=== PATIENT | female | born 1955 | race Caucasian/White ===

== ENCOUNTER 2017-01-02 17:38 | Emergency (ER) | payer MEDICARE, SELFPAY ==
--- NOTE | 2017-01-03 03:29 | ER ---
DATE SEEN: 01/02/2017 REASON FOR VISIT: Hypertension. HISTORY OF PRESENT ILLNESS: This is a 61-year-old female, who complains of an elevated blood pressure at home. She woke up and started pounding in ears and when she measured her blood pressure, it was in the 170 systolic. She complains of no chest pain or shortness of breath. PAST MEDICAL HISTORY: Chest pain, COPD, back pain, GERD. MEDICATIONS: Please see the electronic record. PHYSICAL EXAMINATION: VITAL SIGNS: Her initial blood pressure 169/72, pulse 73, and temperature 98.2. ENT: Negative. CHEST: Clear. CARDIOVASCULAR: Normal. MENTAL STATUS: Alert, answer questions well. IMPRESSION: Elevated blood pressure. PLAN: I advised to take two tablets of Cardizem tomorrow morning and on Wednesday morning the same and follow up in the office to discuss either an increased dose or an alternative medication. /[id number] PAULINE/FLACA
== END 2017-01-02 19:50 | disposition home or self-care (01) ==
LOC: FB.ED 17:38
CPT/HCPCS: 99283

== ENCOUNTER 2017-01-11 03:54 | Emergency (ER) | payer MEDICARE, SELFPAY ==
--- NOTE | 2017-01-11 04:59 | EDM.PDOC ---
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 Dr Garcia here in town q, last seen in the fall awoke 2:30 AM, went to bathroom and had trouble seeing out of the L eye, everything was "blurry", not gotten better, no pain, no d/c, slight itch, otherwise feels fine h/o glaucoma tx with trabecular sugery [address] Gates at [facility], does not use eye drops dx "low vision" at [place] in 1995 which she describes as blurred vision, however has seen well with glasses 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, 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, does not want to loose her vision had several head injuries and concussions including a neck fracture 1972 when thrown from a horse that resulted in L hemiplegia, those symptoms have resolved dx with [place] [address] Peña, other physicians disagreed, however has had gait issues and blurred vision (altho not this bad) and was sent back to the [place] [facility] recently, pt says that the doctor still are not sure had a compression fx of T2 on 11/05, has pain, wearing a brace, is scheduled to have it "glued" on 01/22 at [place] lives alone, took taxi to get to hospital vision 20/200 OS, 20/50 OD with glasses - Related Data Allergies/ADRs: Allergies ceftriaxone sodium [From Rocephin] Allergy (Verified 01/22/17 19:06) Anaphylactic Shock ciprofloxacin Allergy (Verified 01/22/17 19:06) Nausea and Vomiting Milk Containing Products Allergy (Verified 01/22/17 19:06) Vomiting trazodone Allergy (Verified 01/22/17 19:06) Other depression medications Allergy (Uncoded 01/22/17 19:06) Airway Tightness states can take abilify eggs Allergy (Uncoded 01/22/17 19:06) Nausea oral antibiotics Allergy (Uncoded 01/22/17 19:06) Vomiting states can take clindaymycin peanuts Allergy (Uncoded 01/22/17 19:06) Hives Home Meds: Ambulatory Orders Medication Instructions Recorded Confirmed Dexlansoprazole [Dexilant] 60 mg PO BEDTIME 12/05/13 01/22/17 Fenofibrate Nanocrystallized 145 mg PO BEDTIME 12/05/13 01/22/17 [Fenofibrate] ARIPiprazole [Abilify] 10 mg PO BEDTIME 11/27/15 01/22/17 Nitroglycerin [Nitrostat] 0.4 mg SL ASDIRECTED PRN #1 bot 11/27/15 01/22/17 Rosuvastatin [Crestor] 20 mg PO Q48H 11/27/15 01/22/17 Diltiazem HCl [Dilt-XR] 120 mg PO DAILY 04/01/16 01/22/17 Potassium Chloride 20 meq PO DAILY 04/01/16 01/22/17 Aspirin 81 mg PO DAILY 10/07/16 01/22/17 Gabapentin [Neurontin] 800 mg PO QID PRN 10/07/16 01/22/17 Ranitidine HCl [Ranitidine] 150 mg PO BID 10/07/16 01/22/17 Biotin 1,000 mcg PO DAILY 10/08/16 01/22/17 Calcium Carbonate/Vitamin D3 600 mg PO DAILY 10/08/16 01/22/17 [Calcium 600 + Vit D 200] Karlene Root 550 mg PO DAILY PRN 10/08/16 01/22/17 Loperamide [Imodium AD] 2 mg PO DAILY PRN 10/08/16 01/22/17 Multivitamin [Flintstones] 1 tab PO DAILY 10/08/16 01/22/17 Clopidogrel [Plavix] 75 mg PO DAILY 11/06/16 01/22/17 Isosorbide Mononitrate [Imdur] 60 mg PO DAILY 11/06/16 01/22/17 Ondansetron [Zofran ODT] 4 mg PO Q4H PRN #30 tab.dis 11/10/16 01/22/17 Pantoprazole Sodium [Protonix] 40 mg PO DAILY #30 tablet. 11/10/16 01/22/17 oxyCODONE HCl [oxyCODONE] 5 mg PO Q4H PRN #30 tablet 11/10/16 01/22/17 Promethazine [Phenergan] 25 mg PO Q8H PRN #16 tab 01/22/17 Past Medical History HEENT History: Reports: Glaucoma, Impaired vision, Other (see below) Other HEENT History: CHOROIDAL NEVUS Cardiovascular History: Reports: Angina, CAD, High cholesterol, Hypertension, PVD, Syncope, Other (see below) Other Cardiovascular History: HEART PALPITATIONS, DEEP VEIN THROMBOSIS, PERIPHERAL VASCULAR DISEASE, CAROTID BRUIT Respiratory History: Reports: COPD Other Respiratory History: suffocating spells at night- SOB, can't get air in. Gastrointestinal History: Reports: GERD, Hiatal hernia, Other (see below) Other Gastrointestinal History: BOWEL INCONTINENCE Genitourinary History: Reports: Urinary incontinence, Other (see below) Other Genitourinary History: URETHRAL SUSPENSION WITH SLING, CYSTOSCOPY, BLADDER TUMOR THEN TUR OF IT, REMOVAL OF SLING FOR ERODED BLADDER SLING; OVER ACTIVE BLADDER, perforated bladder after removal of bladder scan. Other OB/BYN History: D&C Musculoskeletal History: Reports: Back pain, chronic, Other (see below) Other Musculoskeletal History: Left knee torn miniscus Neurological History: Reports: CVA, MS, Other (see below) Other Neuro History: Pt notices emotional/cognitive changes following brain injury. Questionable MS diagnosis Psychiatric History: Reports: Depression, Other (see below) Other Psychiatric History: MEDICAL AGREEMENT FOR PENITENTIARY MED USE. Endocrine/Metabolic History: Reports: None Hematologic History: Reports: Blood transfusion(s) Immunologic History: Reports: None Oncologic (Cancer) History: Reports: Bladder, Brain, Malignant melanoma Other Oncologic History: Radiation, in remission. Dermatologic History: Reports: Eczema, Melanoma, Other (see below) Other Dermatologic History: MELANOMA ON BACK, eczema to back - Infectious Disease History Infectious Disease History: Reports: Chicken pox - Past Surgical History HEENT Surgical History: Reports: Other (see below) Other HEENT Surgeries/Procedures: LASER TRABECULOPLASTY OU FOR GLAUCOMA Cardiovascular Surgical History: Reports: Other (see below) Other Cardiovascular Surgeries/Procedures: CARDIAC CATHERTERIZATION. ANGIOPLASTY TO ILIAC ARTERY WITH STENT GI Surgical History: Reports: Appendectomy, Cholecystectomy, Colonoscopy, EGD Female Surgical History: Reports: Hysterectomy Social & Family History - Family History Family Medical History: Noncontributory Cardiac: Reports: PR - Tobacco Use Smoking Status *Q: Former Smoker Years of Tobacco use: 35 Packs/Tins Daily: 0.5 Used Tobacco, but Quit: Yes Month Tobacco Last Used: 15 weeks ago Second Hand Smoke Exposure: No - Caffeine Use Caffeine Use: Reports: Coffee, Soda Other Caffeine Use: 2 cups per day - Alcohol Use Days Per Week of Alcohol Use: 0 Number of Drinks Per Day: 0 Total Drinks Per Week: 0 - Recreational Drug Use Recreational Drug Use: No Drug Use in Last 12 Months: No - Living Situation & Occupation Living situation: Reports: single, alone ED ROS GENERAL - Review of Systems Review Of Systems: See Below Constitutional: Reports: no symptoms HEENT: Reports: Vision change Respiratory: Reports: No Symptoms Cardiovascular: Reports: No symptoms Endocrine: Reports: no symptoms GI/Abdominal: Reports: No symptoms : Reports: no symptoms Musculoskeletal: Reports: no symptoms Skin: Reports: no symptoms Neurological: Reports: No Symptoms Psychiatric: Reports: No symptoms Hematologic/Lymphatic: Reports: no symptoms Immunologic: Reports: no symptoms ED EXAM GENERAL W FULL EYE - Physical Exam Exam: See Below Exam Limited By: No limitations General Appearance: alert, WD/WN, no apparent distress Eye Exam: bilateral eye: other (pupils 3/3 mm, PERRLA, EOMI, orbits wnl, no red , fundi easily seen b/l, nl discs with nl C:D ratio, nl vessels, no hemorrhage b /l, no disruption of retina or evidence of detachment, nl vessels b/l) Ears: normal external exam, hearing grossly normal Nose: normal inspection, normal mucosa, no blood Throat/Mouth: Normal inspection, Normal lips, Normal gums, Normal oropharynx, Normal voice, No airway compromise, Other (edentulous) Head: atraumatic, normocephalic Neck: normal inspection, supple, non-tender, full range of motion, other (R carotid bruit) Respiratory/Chest: no respiratory distress, lungs clear, normal breath sounds, no accessory muscle use, chest non-tender Cardiovascular: regular rate, rhythm, no edema, no gallop, no JVD, no rub, other (2/6 GLO at LSB, much softer than loud R carotid bruit) GI/Abdominal: soft, non tender, no distention Back Exam: normal inspection, full range of motion, NT Extremities: normal inspection, normal range of motion, non-tender, no pedal edema Neurological: alert, oriented, CN II-XII intact, normal cognition, no motor/ sensory deficits Psychiatric: normal affect Skin Exam: Warm, Dry, Intact, Normal color, No rash Lymphatic: no adenopathy Course - Vital Signs Last Recorded V/S: Last Vital Signs Temp 36.9 C 01/11/17 04:05 Pulse 78 01/11/17 06:20 Resp 16 01/11/17 06:20 BP 135/63 01/11/17 06:20 Pulse Ox 99 01/11/17 06:20 - Orders/Labs/Meds Labs: Laboratory Tests 01/11/17 01/11/17 Range/Units 04:58 04:58 WBC 6.5 (4.5-12.0) X10-3/uL RBC 3.82 (3.23-5.20) x10(6)uL Hgb 11.3 L (11.5-15.5) g/dL Hct 34.3 (30.0-51.3) % MCV 89.7 (80-96) fL MCH 29.5 (27.7-33.6) pg MCHC 32.9 (32.2-35.4) g/dL RDW 12.9 (11.5-15.5) % Plt Count 347 (125-369) X10(3)uL MPV 7.5 (7.4-10.4) fL Neut % (Auto) 49.0 (46-82) % Lymph % (Auto) 37.9 H (13-37) % Morris % (Auto) 10.1 (4-12) % Eos % (Auto) 2 (1.0-5.0) % Baso % (Auto) 1 (0-2) % Neut # (Auto) 3.1 (1.6-8.3) # Lymph # (Auto) 2.5 (0.6-5.0) # Morris # (Auto) 0.7 (0.0-1.3) # Eos # (Auto) 0.2 (0.0-0.8) # Baso # (Auto) 0.0 (0.0-0.2) # Sodium 133 L (135-145) mmol/L Potassium 3.9 (3.5-5.3) mmol/L Chloride 96 L (100-110) mmol/L Carbon Dioxide 30 H (23-29) mmol/L BUN 17 (8-23) mg/dL Creatinine 0.7 (0.6-1.3) mg/dL Est Cr Clr Drug Dosing 64.79 mL/min Estimated GFR (MDRD) > 60 (>60) BUN/Creatinine Ratio 24.3 H (9-20) Glucose 106 (80-116) mg/dL Calcium 9.9 (8.6-10.2) mg/dL Total Bilirubin 0.7 (0.1-1.3) mg/dL AST 20 (5-27) IU/L ALT 13 L D (14-26) IU/L Alkaline Phosphatase 37 L (56-112) IU/L C-Reactive Protein 0.5 (0.0-1.0) mg/dL Total Protein 7.3 (6.0-8.0) g/dL Albumin 4.8 H (3.2-4.6) g/dL Globulin 2.5 g/dL Albumin/Globulin Ratio 1.9 - Re-Assessments/Exams Free Text/Narrative Re-Assessment/Exam: 01/11/17 06:[address] without is neg, carotid u/s 08-03-14 shows 16-49% steosis both ICAs. Labs neg. CRP was inc'd 2m ago, now nl at 0.5, CBC and CMP neg. Departure - Departure Time of Disposition: 06:20 Disposition: Home, Self-Care 01 Condition: good Clinical Impression: Acute loss of vision Instructions: Blurred Vision Referrals: Shruti Arellano NP [Primary Care Provider] - Forms: ED Department Discharge Additional Instructions: Return to hospital at 11 AM for a carotid ultrasound. 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 Follow up with Dr Lubin as well in 3-4 days.
[2017-01-11 06:38] VITALS: BP 135/63
== END 2017-01-11 06:25 | disposition home or self-care (01) ==
LOC: FB.ED 03:54
DX: H54.62 Unqualified visual loss, left eye, normal vision right eye (principal); H40.9 Unspecified glaucoma; E78.00 Pure hypercholesterolemia, unspecified; I10 Essential (primary) hypertension; I49.3 Ventricular premature depolarization; R00.2 Palpitations; I25.119 Atherosclerotic heart disease of native coronary artery with unspecified angina pectoris; J44.9 Chronic obstructive pulmonary disease, unspecified; K21.9 Gastro-esophageal reflux disease without esophagitis; K44.9 Diaphragmatic hernia without obstruction or gangrene; R15.9 Full incontinence of feces; N39.3 Stress incontinence (female) (male); N32.81 Overactive bladder; M54.9 Dorsalgia, unspecified; G89.29 Other chronic pain; Z98.890 Other specified postprocedural states; Z95.5 Presence of coronary angioplasty implant and graft; Z86.718 Personal history of other venous thrombosis and embolism; Z87.820 Personal history of traumatic brain injury; Z87.891 Personal history of nicotine dependence; Z88.1 Allergy status to other antibiotic agents; Z88.8 Allergy status to other drugs, medicaments and biological substances; Z91.012 Allergy to eggs; Z91.010 Allergy to peanuts; Z79.899 Other long term (current) drug therapy; Z79.82 Long term (current) use of aspirin; Z79.02 Long term (current) use of antithrombotics/antiplatelets; M21.371 Foot drop, right foot; M51.37 Other intervertebral disc degeneration, lumbosacral region; M51.87 Other intervertebral disc disorders, lumbosacral region; M48.07 Spinal stenosis, lumbosacral region
CPT/HCPCS: 36415; 70450; 80053; 85025; 86140; 93880; 99283; 99284

== ENCOUNTER 2017-01-22 18:59 | Emergency (ER) | payer MEDICARE, SELFPAY ==
[2017-01-22] MEDS ORDERED: PROMETHAZINE IV STA (19:15)
[2017-01-22] MEDS ORDERED: Pantoprazole 40 MG Vial IVPUSH ONE (19:15)
[2017-01-22] MEDS ORDERED: SODIUM CHLORIDE 0.9% IV STA (19:15)
[2017-01-22] MEDS: Sodium Chloride 0.9% 10 ML Syringe FLUSH PRN ×2 (19:25→19:30)
[2017-01-22] MEDS ORDERED: Promethazine 6.25 MG in Sodium Chloride 0.9% 50 ML IV PRN (19:36)
[2017-01-22] MEDS ORDERED: Sodium Chloride 0.9% 1,000 ML IV ONE (19:37)
[2017-01-22] MEDS ORDERED: Promethazine 6.25 MG/5 ML Liquid ML (473 ML Bottle) PO STA (21:16)
[2017-01-22] MEDS ORDERED: Promethazine 25 MG Tab ONE (21:33)
--- NOTE | 2017-01-22 21:46 | EDM.PDOC ---
ED HPI GI/ABDOMINAL - General Chief Complaint: Gastrointestinal Problem Stated Complaint: VOMITING, DIARRHEA, WEAKNESS Time Seen by Provider: 01/22/17 19:11 Source: Reports: Patient History Limitations: Reports: No limitations - History of Present Illness INITIAL COMMENTS - FREE TEXT/NARRATIVE: 61 year old w f came to the ed after she was seen at non in the clinic for N/V/ D after eating canned food. At the clinic, blood was taken which was basically nl except her SG of her urine was 1.030. She received 1 liter of LR, Reglan and Zofran. From the clinic, she went to urgent care clinic at [facility] requesting more nausea meds and admission. Pt was transported by wheelchair to the ed for further evaluation. Pt c/o of nausea and vomiting. Symptom Onset Date: 01/22/17 Symptom Onset Time: 09:00 Timing/Duration: Reports: Hour(s):, Getting worse Location: other (epigastric) Quality: Reports: ache Severity: mild Improves with: Reports: sitting up Worsens with: Reports: lying down Context: Reports: bad/questionable food Associated Symptoms (-Female): Reports: denies other symptoms - Related Data Allergies/ADRs: Allergies Allergy/AdvReac Type Severity Reaction Status Date / Time ceftriaxone sodium Allergy Anaphylactic Verified 01/22/17 19:06 [From Rocephin] Shock ciprofloxacin Allergy Nausea and Verified 01/22/17 19:06 Vomiting Milk Containing Products Allergy Vomiting Verified 01/22/17 19:06 trazodone Allergy Other Verified 01/22/17 19:06 depression medications Allergy Airway Uncoded 01/22/17 19:06 Tightness eggs Allergy Nausea Uncoded 01/22/17 19:06 oral antibiotics Allergy Vomiting Uncoded 01/22/17 19:06 peanuts Allergy Hives Uncoded 01/22/17 19:06 Home Meds: Home Meds Dexlansoprazole [Dexilant] 60 mg PO BEDTIME 12/05/13 [History] Fenofibrate Nanocrystallized [Fenofibrate] 145 mg PO BEDTIME 12/05/13 [History] ARIPiprazole [Abilify] 10 mg PO BEDTIME 11/27/15 [History] Nitroglycerin [Nitrostat] 0.4 mg SL ASDIRECTED PRN #1 bot 11/27/15 [Rx] Rosuvastatin [Crestor] 20 mg PO Q48H 11/27/15 [History] Diltiazem HCl [Dilt-XR] 120 mg PO DAILY 04/01/16 [History] Potassium Chloride 20 meq PO DAILY 04/01/16 [History] Aspirin 81 mg PO DAILY 10/07/16 [History] Gabapentin [Neurontin] 800 mg PO QID PRN 10/07/16 [History] Ranitidine HCl [Ranitidine] 150 mg PO BID 10/07/16 [History] Biotin 1,000 mcg PO DAILY 10/08/16 [History] Calcium Carbonate/Vitamin D3 [Calcium 600 + Vit D 200] 600 mg PO DAILY 10/08/16 [History] Karlene Root 550 mg PO DAILY PRN 10/08/16 [History] Loperamide [Imodium AD] 2 mg PO DAILY PRN 10/08/16 [History] Multivitamin [Flintstones] 1 tab PO DAILY 10/08/16 [History] Clopidogrel [Plavix] 75 mg PO DAILY 11/06/16 [History] Isosorbide Mononitrate [Imdur] 60 mg PO DAILY 11/06/16 [History] Ondansetron [Zofran ODT] 4 mg PO Q4H PRN #30 tab.dis 11/10/16 [Rx] Pantoprazole Sodium [Protonix] 40 mg PO DAILY #30 tablet.dr 11/10/16 [Rx] oxyCODONE HCl [oxyCODONE] 5 mg PO Q4H PRN #30 tablet 11/10/16 [Rx] Promethazine [Phenergan] 25 mg PO Q8H PRN #16 tab 01/22/17 [Rx] Past Medical History HEENT History: Reports: Glaucoma, Impaired vision, Other (see below) Other HEENT History: CHOROIDAL NEVUS Cardiovascular History: Reports: Angina, CAD, High cholesterol, Hypertension, PVD, Syncope, Other (see below) Other Cardiovascular History: HEART PALPITATIONS, DEEP VEIN THROMBOSIS, PERIPHERAL VASCULAR DISEASE, CAROTID BRUIT Respiratory History: Reports: COPD Other Respiratory History: suffocating spells at night- SOB, can't get air in. Gastrointestinal History: Reports: GERD, Hiatal hernia, Other (see below) Other Gastrointestinal History: BOWEL INCONTINENCE Genitourinary History: Reports: Urinary incontinence, Other (see below) Other Genitourinary History: URETHRAL SUSPENSION WITH SLING, CYSTOSCOPY, BLADDER TUMOR THEN TUR OF IT, REMOVAL OF SLING FOR ERODED BLADDER SLING; OVER ACTIVE BLADDER, perforated bladder after removal of bladder scan. Other OB/BYN History: D&C Musculoskeletal History: Reports: Back pain, chronic, Other (see below) Other Musculoskeletal History: Left knee torn miniscus Neurological History: Reports: CVA, MS, Other (see below) Other Neuro History: Pt notices emotional/cognitive changes following brain injury. Questionable MS diagnosis Psychiatric History: Reports: Depression, Other (see below) Other Psychiatric History: MEDICAL AGREEMENT FOR PST MANAGER MED USE. Endocrine/Metabolic History: Reports: None Hematologic History: Reports: Blood transfusion(s) Immunologic History: Reports: None Oncologic (Cancer) History: Reports: Bladder, Brain, Malignant melanoma, Other ( see below) Other Oncologic History: Radiation, in remission. Dermatologic History: Reports: Eczema, Melanoma, Other (see below) Other Dermatologic History: MELANOMA ON BACK, eczema to back - Infectious Disease History Infectious Disease History: Reports: Chicken pox - Past Surgical History HEENT Surgical History: Reports: Other (see below) Other HEENT Surgeries/Procedures: LASER TRABECULOPLASTY OU FOR GLAUCOMA Cardiovascular Surgical History: Reports: Other (see below) Other Cardiovascular Surgeries/Procedures: CARDIAC CATHERTERIZATION. ANGIOPLASTY TO ILIAC ARTERY WITH STENT GI Surgical History: Reports: Appendectomy, Cholecystectomy, Colonoscopy, EGD Female Surgical History: Reports: Hysterectomy Social & Family History - Family History Family Medical History: Noncontributory Cardiac: Reports: MD - Tobacco Use Smoking Status *Q: Former Smoker Years of Tobacco use: 35 Packs/Tins Daily: 0.5 Used Tobacco, but Quit: Yes Month Tobacco Last Used: 15 weeks ago Second Hand Smoke Exposure: No - Caffeine Use Caffeine Use: Reports: Coffee Other Caffeine Use: 2 cups per day - Alcohol Use Days Per Week of Alcohol Use: 0 Number of Drinks Per Day: 0 Total Drinks Per Week: 0 - Recreational Drug Use Recreational Drug Use: No Drug Use in Last 12 Months: No - Living Situation & Occupation Living situation: Reports: single, alone ED ROS GENERAL - Review of Systems Review Of Systems: See Below Constitutional: Reports: no symptoms HEENT: Reports: No symptoms Respiratory: Reports: No Symptoms Endocrine: Reports: no symptoms GI/Abdominal: Reports: Nausea, Vomiting : Reports: no symptoms Musculoskeletal: Reports: no symptoms Skin: Reports: no symptoms Neurological: Reports: No Symptoms Psychiatric: Reports: No symptoms Hematologic/Lymphatic: Reports: no symptoms Immunologic: Reports: no symptoms ED EXAM, GI/ABD - Physical Exam Exam: See Below Exam Limited By: No limitations General Appearance: alert, WD/WN, mild distress, thin Eyes: bilateral: normal appearance Ears: normal external exam Nose: normal inspection, normal mucosa Throat/Mouth: Normal inspection, Normal lips, Normal oropharynx Head: atraumatic, normocephalic Neck: normal inspection, supple, non-tender, full range of motion Respiratory/Chest: no respiratory distress, lungs clear, normal breath sounds, no accessory muscle use, chest non-tender Cardiovascular: normal peripheral pulses, regular rate, rhythm, no edema, no gallop GI/Abdominal: normal bowel sounds, no organomegaly, no abnormal bruit, other ( minor epigastric tenderness) (Female) Exam: Deferred Rectal (Female) Exam: Deferred Back Exam: normal inspection, full range of motion Extremities: normal inspection, normal range of motion, non-tender, no pedal edema, normal capillary refill Neurological: alert, oriented, CN II-XII intact, normal cognition, normal gait Psychiatric: normal affect, normal mood Skin Exam: Warm, Dry, Intact, Normal color, No rash Lymphatic: no adenopathy Course - Vital Signs Text/Narrative:: 61 year old w f came to the ed after she was seen at non in the clinic for N/V/ D after eating canned food. At the clinic, blood was taken which was basically nl except her SG of her urine was 1.030. She received 1 liter of LR, Reglan and Zofran. From the clinic, she went to urgent care clinic at [facility] requesting more nausea meds and admission. Pt was transported by wheelchair to the ed for further evaluation. Pt c/o of nausea and vomiting. PE: 61 y.o.w.f, thin, no acute discomfort. Labs: Done in the clinic [facility], al NL except SG of urine is elevated Impression: Gastritis pos due to food poisoning. Tx: NS. Protonix and Phenergen Reexam: improved, pt did not vomit while here in the ed, was ambulating fine on D/C BP was 147/75 on D/C Plan: D/C with instructions. Last Recorded V/S: Last Vital Signs Temp 37.0 C 01/22/17 19:11 Pulse 78 01/22/17 19:11 Resp 20 01/22/17 19:11 BP 174/75 H 01/22/17 19:11 Pulse Ox 96 01/22/17 19:11 - Orders/Labs/Meds Orders: Active Orders 24 hr Category Date Time Status Promethazine [Phenergan] 6.25 mg Med 01/22/17 19:36 Active Sodium Chloride 0.9% [Normal Saline] 50 ml IV Q4H Sodium Chloride 0.9% [Saline Flush] Med 01/22/17 19:15 Active 10 ml FLUSH ASDIRECTED PRN Saline Lock Insert [OM.PC] Routine Oth 01/22/17 19:15 Ordered Medication Orders Promethazine HCl 6.25 mg/ (Sodium Chloride) 50.25 mls @ 200 mls/hr IV Q4H PRN PRN Reason: Nausea/Vomiting Last Admin: 01/22/17 19:43 Dose: 200 mls/hr Sodium Chloride (Saline Flush) 10 ml FLUSH ASDIRECTED PRN PRN Reason: Keep Vein Open Last Admin: 01/22/17 19:30 Dose: 10 ml Admin: 01/22/17 19:25 Dose: 10 ml Meds: Medications Generic Name Dose Route Start Last Admin Trade Name Freq PRN Reason Stop Dose Admin Promethazine HCl 6.25 mg/ 50.25 mls @ 200 mls/hr 01/22/17 19:36 01/22/17 19: 43 Sodium Chloride IV 200 mls/hr Q4H PRN Administration Nausea/Vomiting Sodium Chloride 10 ml 01/22/17 19:15 01/22/17 19:30 Saline Flush FLUSH 10 ml ASDIRECTED PRN Administration Keep Vein Open Discontinued Medications Generic Name Dose Route Start Last Admin Trade Name Freq PRN Reason Stop Dose Admin Promethazine HCl 12.5 mg/ 1,000.5 mls @ 500 mls/hr 01/22/17 19:15 01/22/17 19 :38 Sodium Chloride IV 01/22/17 21:15 Not Given ONETIME STA Sodium Chloride 1,000 mls @ 999 mls/hr 01/22/17 19:37 01/22/17 19:38 Normal Saline IV 01/22/17 20:37 999 mls/hr .BOLUS ONE Administration Pantoprazole Sodium 40 mg 01/22/17 19:15 01/22/17 19:27 Protonix Iv IVPUSH 01/22/17 19:16 40 mg ONETIME ONE Administration Promethazine HCl 12.5 mg 01/22/17 21:16 01/22/17 21:39 Phenergan PO 01/22/17 21:17 12.5 mg ONETIME STA Administration Promethazine HCl Confirm 01/22/17 21:33 01/22/17 21:40 Phenergan Administered 01/22/17 21:34 Not Given Dose 25 mg .ROUTE .STK-MED ONE Departure - Departure Time of Disposition: 21:50 Disposition: Home, Self-Care 01 Condition: good Clinical Impression: Gastritis Qualifiers: Gastritis type: unspecified gastritis Chronicity: acute Gastritis bleeding: without bleeding Qualified Code(s): K29.00 - Acute gastritis without bleeding Prescriptions: Promethazine [Phenergan] 25 mg PO Q8H PRN #16 tab PRN Reason: severe nausea Instructions: Nausea and Vomiting, Adult Referrals: Shruti Arellano NP [Primary Care Provider] - Forms: ED Department Discharge Additional Instructions: Please advance diet as tolerated, please take Phenergen as recommended, please follow up, please come back to the ED if symptoms get worse acutely. - My Orders Last 24 Hours: My Active Orders 01/22/17 19:15 Sodium Chloride 0.9% [Saline Flush] 10 ml FLUSH ASDIRECTED PRN Saline Lock Insert [OM.PC] Routine 01/22/17 19:36 Promethazine [Phenergan] 6.25 mg Sodium Chloride 0.9% [Normal Saline] 50 ml IV Q4H - Assessment/Plan Last 24 Hours: My Active Orders 01/22/17 19:15 Sodium Chloride 0.9% [Saline Flush] 10 ml FLUSH ASDIRECTED PRN Saline Lock Insert [OM.PC] Routine 01/22/17 19:36 Promethazine [Phenergan] 6.25 mg Sodium Chloride 0.9% [Normal Saline] 50 ml IV Q4H
[2017-01-22 22:01] VITALS: BP 147/65
== END 2017-01-22 22:00 | disposition home or self-care (01) ==
LOC: FB.ED 18:59
DX: K29.00 Acute gastritis without bleeding (principal); J44.9 Chronic obstructive pulmonary disease, unspecified; I25.10 Atherosclerotic heart disease of native coronary artery without angina pectoris; I10 Essential (primary) hypertension; E78.00 Pure hypercholesterolemia, unspecified; K21.9 Gastro-esophageal reflux disease without esophagitis; Z79.899 Other long term (current) drug therapy; Z88.1 Allergy status to other antibiotic agents; Z79.82 Long term (current) use of aspirin; Z86.73 Personal history of transient ischemic attack (TIA), and cerebral infarction without residual deficits; Z90.49 Acquired absence of other specified parts of digestive tract; Z90.710 Acquired absence of both cervix and uterus; Z91.011 Allergy to milk products; Z91.012 Allergy to eggs; Z91.010 Allergy to peanuts; Z88.8 Allergy status to other drugs, medicaments and biological substances; Z87.891 Personal history of nicotine dependence; R10.84 Generalized abdominal pain; K52.9 Noninfective gastroenteritis and colitis, unspecified; R11.2 Nausea with vomiting, unspecified
CPT/HCPCS: 36415; 80053; 81001; 82150; 85025; 96361; 96365; 96372; 96375; 99214; 99283; 99284; C9113; J2550; J2765; J7040; J7050; A9270-GY

== ENCOUNTER 2017-03-05 20:38 | Emergency (ER) | payer MEDICARE, SELFPAY ==
[2017-03-05] MEDS ORDERED: Metoclopramide 10 MG/2 ML SDV IVPUSH ONE (21:07)
[2017-03-05] MEDS ORDERED: methylPREDNISolone Sodium Succinate 125 MG/2 ML SDV IVPUSH ONE (21:07)
[2017-03-05] MEDS ORDERED: Ketorolac 30 MG/ML SDV IVPUSH ONE (21:07)
[2017-03-05] MEDS: Sodium Chloride 0.9% 10 ML Syringe FLUSH PRN ×2 (21:24→21:29)
--- NOTE | 2017-03-05 22:09 | EDM.PDOC ---
ED HPI GENERAL MEDICAL PROBLEM - General Chief Complaint: Headache Stated Complaint: WEAKNESS Time Seen by Provider: 03/05/17 21:03 Source of Information: Reports: Patient History Limitations: Reports: No Limitations - History of Present Illness INITIAL COMMENTS - FREE TEXT/NARRATIVE: c/o DOWNING x 12h pt with bifrontal DOWNING, down around eyes, h/o hayfever has oxycodone for her back, not used any going to worship and told girlfriend she had blur vision in R eye off and on, also sob and slight nausea nonspecific c/o's went to urgent care who sent her here DOWNING gone completely after Toradol, Reglan and Solu-Medrol Head Pain Score (Numeric/FACES): 6 - Related Data Allergies Allergy/AdvReac Type Severity Reaction Status Date / Time ceftriaxone sodium Allergy Anaphylactic Verified 01/22/17 19:06 [From Rocephin] Shock ciprofloxacin Allergy Nausea and Verified 01/22/17 19:06 Vomiting Milk Containing Products Allergy Vomiting Verified 01/22/17 19:06 trazodone Allergy Other Verified 01/22/17 19:06 depression medications Allergy Airway Uncoded 01/22/17 19:06 Tightness eggs Allergy Nausea Uncoded 01/22/17 19:06 oral antibiotics Allergy Vomiting Uncoded 01/22/17 19:06 peanuts Allergy Hives Uncoded 01/22/17 19:06 Home Meds: Home Meds Dexlansoprazole [Dexilant] 60 mg PO BEDTIME 12/05/13 [History] Fenofibrate Nanocrystallized [Fenofibrate] 145 mg PO BEDTIME 12/05/13 [History] ARIPiprazole [Abilify] 10 mg PO BEDTIME 11/27/15 [History] Nitroglycerin [Nitrostat] 0.4 mg SL ASDIRECTED PRN #1 bot 11/27/15 [Rx] Rosuvastatin [Crestor] 20 mg PO Q48H 11/27/15 [History] Diltiazem HCl [Dilt-XR] 120 mg PO DAILY 04/01/16 [History] Potassium Chloride 20 meq PO DAILY 04/01/16 [History] Aspirin 81 mg PO DAILY 10/07/16 [History] Gabapentin [Neurontin] 800 mg PO QID PRN 10/07/16 [History] Ranitidine HCl [Ranitidine] 150 mg PO BID 10/07/16 [History] Biotin 1,000 mcg PO DAILY 10/08/16 [History] Calcium Carbonate/Vitamin D3 [Calcium 600 + Vit D 200] 600 mg PO DAILY 10/08/16 [History] Karlene Root 550 mg PO DAILY PRN 10/08/16 [History] Loperamide [Imodium AD] 2 mg PO DAILY PRN 10/08/16 [History] Multivitamin [Flintstones] 1 tab PO DAILY 10/08/16 [History] Clopidogrel [Plavix] 75 mg PO DAILY 11/06/16 [History] Isosorbide Mononitrate [Imdur] 60 mg PO DAILY 11/06/16 [History] Ondansetron [Zofran ODT] 4 mg PO Q4H PRN #30 tab.dis 11/10/16 [Rx] Pantoprazole Sodium [Protonix] 40 mg PO DAILY #30 tablet. 11/10/16 [Rx] oxyCODONE HCl [oxyCODONE] 5 mg PO Q4H PRN #30 tablet 11/10/16 [Rx] Promethazine [Phenergan] 25 mg PO Q8H PRN #16 tab 01/22/17 [Rx] predniSONE [Prednisone] 20 mg PO DAILY #5 tablet 03/05/17 [Rx] Past Medical History HEENT History: Reports: Glaucoma, Impaired Vision, Other (See Below) Other HEENT History: CHOROIDAL NEVUS Cardiovascular History: Reports: Angina, CAD, High Cholesterol, Hypertension, PVD, Syncope, Other (See Below) Other Cardiovascular History: HEART PALPITATIONS, DEEP VEIN THROMBOSIS, PERIPHERAL VASCULAR DISEASE, CAROTID BRUIT Respiratory History: Reports: COPD Other Respiratory History: suffocating spells at night- SOB, can't get air in. Gastrointestinal History: Reports: GERD, Hiatal Hernia, Other (See Below) Other Gastrointestinal History: BOWEL INCONTINENCE Genitourinary History: Reports: Urinary Incontinence, Other (See Below) Other Genitourinary History: URETHRAL SUSPENSION WITH SLING, CYSTOSCOPY, BLADDER TUMOR THEN TUR OF IT, REMOVAL OF SLING FOR ERODED BLADDER SLING; OVER ACTIVE BLADDER, perforated bladder after removal of bladder scan. Other OB/BYN History: D&C Musculoskeletal History: Reports: Back Pain, Chronic, Other (See Below) Other Musculoskeletal History: Left knee torn miniscus Neurological History: Reports: CVA, MS, Other (See Below) Other Neuro History: Pt notices emotional/cognitive changes following brain injury. Questionable MS diagnosis Psychiatric History: Reports: Depression, Other (See Below) Other Psychiatric History: MEDICAL AGREEMENT FOR DECK MATE MED USE. Endocrine/Metabolic History: Reports: None Hematologic History: Reports: Blood Transfusion(s) Immunologic History: Reports: None Oncologic (Cancer) History: Reports: Bladder, Brain, Malignant Melanoma, Other ( See Below) Other Oncologic History: Radiation, in remission. Dermatologic History: Reports: Eczema, Melanoma, Other (See Below) Other Dermatologic History: MELANOMA ON BACK, eczema to back - Infectious Disease History Infectious Disease History: Reports: Chicken Pox - Past Surgical History Head Surgeries/Procedures: Reports: None HEENT Surgical History: Reports: Other (See Below) Cardiovascular Surgical History: Reports: Other (See Below) Musculoskeletal Surgical History: Reports: Other (See Below) Social & Family History - Family History Family Medical History: Noncontributory Cardiac: Reports: [place] - Tobacco Use Smoking Status *Q: Former Smoker Years of Tobacco use: 35 Packs/Tins Daily: 0.5 Used Tobacco, but Quit: Yes Month Tobacco Last Used: 10 Second Hand Smoke Exposure: No - Caffeine Use Caffeine Use: Reports: Coffee Other Caffeine Use: 2 cups per day Caffeine Use Comment: Occassional coffee drinker. - Alcohol Use Days Per Week of Alcohol Use: 0 Number of Drinks Per Day: 0 Total Drinks Per Week: 0 - Recreational Drug Use Recreational Drug Use: No Drug Use in Last 12 Months: No - Living Situation & Occupation Living situation: Reports: Single, Alone ED ROS GENERAL - Review of Systems Review Of Systems: See Below Constitutional: Reports: No Symptoms HEENT: Reports: No Symptoms Respiratory: Reports: No Symptoms Cardiovascular: Reports: No Symptoms Endocrine: Reports: No Symptoms GI/Abdominal: Reports: No Symptoms : Reports: No Symptoms Musculoskeletal: Reports: No Symptoms Skin: Reports: No Symptoms Neurological: Reports: Headache Psychiatric: Reports: No Symptoms Hematologic/Lymphatic: Reports: No Symptoms Immunologic: Reports: No Symptoms - Physical Exam Exam: See Below Exam Limited By: No Limitations General Appearance: Alert, WD/WN, No Apparent Distress Ears: Normal External Exam, Normal Canal, Hearing Grossly Normal, Normal TMs Nose: Normal Inspection, Normal Mucosa, No Blood Throat/Mouth: Normal Inspection, Normal Lips, Normal Gums, Normal Oropharynx, Normal Voice, No Airway Compromise, Other (edentulous) Head Exam: Atraumatic, Normocephalic Neck: Normal Inspection, Supple, Non-Tender, Full Range of Motion Respiratory/Chest: No Respiratory Distress, Lungs Clear, Normal Breath Sounds, No Accessory Muscle Use, Chest Non-Tender Cardiovascular: Regular Rate, Rhythm, No Edema, No Gallop, No Rub GI/Abdominal: Normal Bowel Sounds, Soft, Non-Tender, No Organomegaly, No Distention, No Mass Neuro Exam (Abbreviated): Alert, Oriented, CN II-XII Intact, Normal Cognition, Normal Reflexes, No Motor/Sensory Deficits, Other (talkative, alert, good eye contact, no apparent distress, slight tender across forehead and maxillary sinuses b/l, nares with slight 20-30% swell with clear d/c) Back Exam: Normal Inspection Extremities: Normal Inspection, Normal Range of Motion, Non-Tender, No Pedal Edema Psychiatric: Normal Affect, Normal Mood Skin Exam: Warm, Dry, Intact, Normal Color, No Rash Course - Vital Signs Last Recorded V/S: Last Vital Signs Temp 36.7 C 03/05/17 20:40 Pulse 62 03/05/17 20:40 Resp 18 03/05/17 20:40 BP 150/69 H 03/05/17 20:40 Pulse Ox - Orders/Labs/Meds Orders: Active Orders 24 hr Category Date Time Status Sodium Chloride 0.9% [Saline Flush] Med 03/05/17 21:06 Active 10 ml FLUSH ASDIRECTED PRN Saline Lock Insert [OM.PC] Routine Oth 03/05/17 21:06 Ordered Medication Orders Sodium Chloride (Saline Flush) 10 ml FLUSH ASDIRECTED PRN PRN Reason: Keep Vein Open Last Admin: 03/05/17 21:29 Dose: 10 ml Admin: 03/05/17 21:24 Dose: 10 ml Meds: Medications Generic Name Dose Route Start Last Admin Trade Name Freq PRN Reason Stop Dose Admin Sodium Chloride 10 ml 03/05/17 21:06 03/05/17 21:29 Saline Flush FLUSH 10 ml ASDIRECTED PRN Administration Keep Vein Open Discontinued Medications Generic Name Dose Route Start Last Admin Trade Name Freq PRN Reason Stop Dose Admin Ketorolac Tromethamine 30 mg 03/05/17 21:07 03/05/17 21:24 Toradol IVPUSH 03/05/17 21:08 30 mg ONETIME ONE Administration Methylprednisolone Sodium Succinate 125 mg 03/05/17 21:07 03/05/17 21:24 Solu-Medrol IVPUSH 03/05/17 21:08 125 mg ONETIME ONE Administration Metoclopramide HCl 10 mg 03/05/17 21:07 03/05/17 21:24 Reglan IVPUSH 03/05/17 21:08 10 mg ONETIME ONE Administration Departure - Departure Time of Disposition: 22:07 Disposition: Home, Self-Care 01 Condition: good Clinical Impression: Tension-type headache - Discharge Information Prescriptions: predniSONE [Prednisone] 20 mg PO DAILY #5 tablet Instructions: Tension Headache Forms: ED Department Discharge Additional Instructions: For pain and inflammation, take ibuprofen 200 mg 3 tabs 4 times a day tomorrow. For sinus swelling and congestion, take prednisone 20 mg 1 tab daily for 5 days. Rest. Continue your regular meds. See your doctor in 3 days as needed. Call your Physician or Return to Emergency Department if: * Your condition worsens in any way. * You develop fever greater than 100.4. * You have vomitting that does not stop with medications. * You have pain that is not controlled with medications. - My Orders Last 24 Hours: My Active Orders 03/05/17 21:06 Sodium Chloride 0.9% [Saline Flush] 10 ml FLUSH ASDIRECTED PRN Saline Lock Insert [OM.PC] Routine - Assessment/Plan Last 24 Hours: My Active Orders 03/05/17 21:06 Sodium Chloride 0.9% [Saline Flush] 10 ml FLUSH ASDIRECTED PRN Saline Lock Insert [OM.PC] Routine
[2017-03-05 22:14] VITALS: BP 162/75
== END 2017-03-05 22:12 | disposition home or self-care (01) ==
LOC: FB.ED 20:38
DX: G44.209 Tension-type headache, unspecified, not intractable (principal); I25.10 Atherosclerotic heart disease of native coronary artery without angina pectoris; I10 Essential (primary) hypertension; E78.00 Pure hypercholesterolemia, unspecified; J44.9 Chronic obstructive pulmonary disease, unspecified; K21.9 Gastro-esophageal reflux disease without esophagitis; F32.9 Major depressive disorder, single episode, unspecified; Z88.8 Allergy status to other drugs, medicaments and biological substances; Z91.011 Allergy to milk products; Z91.012 Allergy to eggs; Z91.010 Allergy to peanuts; Z79.82 Long term (current) use of aspirin; Z79.899 Other long term (current) drug therapy; Z86.73 Personal history of transient ischemic attack (TIA), and cerebral infarction without residual deficits; Z87.891 Personal history of nicotine dependence; Z88.1 Allergy status to other antibiotic agents
CPT/HCPCS: 96374; 96375; 99283; J1885; J2765; J2930; J7050; 99284

== ENCOUNTER 2017-07-10 05:36 | Emergency (ER) | payer MEDICARE, SELFPAY ==
[2017-07-10] MEDS ORDERED: Ketorolac 60 MG/2 ML SDV IM ONE (06:08)
[2017-07-10] MEDS ORDERED: Ondansetron 8 MG Tab.DIS PO ONE (06:13)
--- NOTE | 2017-07-10 07:10 | EDM.PDOC ---
ED HPI GENERAL MEDICAL PROBLEM - General Chief Complaint: Back Pain or Injury Stated Complaint: VOMITING, DEHYDRATION Time Seen by Provider: 07/10/17 05:36 Source of Information: Reports: Patient History Limitations: Reports: No Limitations - History of Present Illness INITIAL COMMENTS - FREE TEXT/NARRATIVE: 62 y.o.w.[place] came to the ed with low back pain radiating to her r lower leg. No stool or urine incontinence. No F/C. Pt has a h/o N/V/D, not active at this time. Onset Date: 07/09/17 Onset Time: 16:00 Duration: Hour(s): Location: Reports: Back, Lower Extremity, Right Quality: Reports: Ache, Burning Severity: Moderate Improves with: Reports: Rest Worsens with: Reports: Movement Associated Symptoms: Reports: No Other Symptoms - Related Data Allergies Allergy/AdvReac Type Severity Reaction Status Date / Time ceftriaxone sodium Allergy Anaphylactic Verified 07/10/17 06:53 [From Rocephin] Shock ciprofloxacin Allergy Nausea and Verified 07/10/17 06:53 Vomiting fentanyl Allergy Hives Verified 07/10/17 06:53 Milk Containing Products Allergy Vomiting Verified 07/10/17 06:53 trazodone Allergy Other Verified 07/10/17 06:53 depression medications Allergy Airway Uncoded 01/22/17 19:06 Tightness eggs Allergy Nausea Uncoded 01/22/17 19:06 oral antibiotics Allergy Vomiting Uncoded 01/22/17 19:06 peanuts Allergy Hives Uncoded 01/22/17 19:06 Home Meds: Home Meds Dexlansoprazole [Dexilant] 60 mg PO BEDTIME 12/05/13 [History] Fenofibrate Nanocrystallized [Fenofibrate] 145 mg PO BEDTIME 12/05/13 [History] ARIPiprazole [Abilify] 10 mg PO BEDTIME 11/27/15 [History] Nitroglycerin [Nitrostat] 0.4 mg SL ASDIRECTED PRN #1 bot 11/27/15 [Rx] Rosuvastatin [Crestor] 20 mg PO Q48H 11/27/15 [History] Diltiazem HCl [Dilt-XR] 120 mg PO DAILY 04/01/16 [History] Aspirin 81 mg PO DAILY 10/07/16 [History] Gabapentin [Neurontin] 800 mg PO QID PRN 10/07/16 [History] Ranitidine HCl [Ranitidine] 150 mg PO BID 10/07/16 [History] Calcium Carbonate/Vitamin D3 [Calcium 600 + Vit D 200] 600 mg PO DAILY 10/08/16 [History] Clopidogrel [Plavix] 75 mg PO DAILY 11/06/16 [History] Isosorbide Mononitrate [Imdur] 60 mg PO DAILY 11/06/16 [History] Ondansetron [Zofran ODT] 4 mg PO Q4H PRN #30 tab.dis 11/10/16 [Rx] Betamethasone Dipropionate [Diprosone 0.05% Oint] 1 applic TOP BID PRN 07/10/17 [History] Fluticasone Propionate [Flonase Allergy Relief] 1 spray NASBOTH DAILY 07/10/17 [ History] Simethicone 1 tab PO TID PRN 07/10/17 [History] traMADol [Ultram] 50 mg PO Q6H PRN #10 tab 07/10/17 [Rx] Past Medical History HEENT History: Reports: Glaucoma, Impaired Vision, Other (See Below) Other HEENT History: CHOROIDAL NEVUS Cardiovascular History: Reports: Angina, CAD, High Cholesterol, Hypertension, PVD, Syncope, Other (See Below) Other Cardiovascular History: HEART PALPITATIONS, DEEP VEIN THROMBOSIS, PERIPHERAL VASCULAR DISEASE, CAROTID BRUIT Respiratory History: Reports: COPD Other Respiratory History: suffocating spells at night- SOB, can't get air in. Gastrointestinal History: Reports: GERD, Hiatal Hernia, Other (See Below) Other Gastrointestinal History: BOWEL INCONTINENCE Genitourinary History: Reports: Urinary Incontinence, Other (See Below) Other Genitourinary History: URETHRAL SUSPENSION WITH SLING, CYSTOSCOPY, BLADDER TUMOR THEN TUR OF IT, REMOVAL OF SLING FOR ERODED BLADDER SLING; OVER ACTIVE BLADDER, perforated bladder after removal of bladder scan. Other OB/BYN History: D&C Musculoskeletal History: Reports: Back Pain, Chronic, Other (See Below) Other Musculoskeletal History: Left knee torn miniscus Neurological History: Reports: CVA, MS, Other (See Below) Other Neuro History: Pt notices emotional/cognitive changes following brain injury. Questionable MS diagnosis Psychiatric History: Reports: Depression, Other (See Below) Other Psychiatric History: MEDICAL AGREEMENT FOR HALF-WAY MED USE. Endocrine/Metabolic History: Reports: None Hematologic History: Reports: Blood Transfusion(s) Immunologic History: Reports: None Oncologic (Cancer) History: Reports: Bladder, Brain, Malignant Melanoma, Other ( See Below) Other Oncologic History: Radiation, in remission. Dermatologic History: Reports: Eczema, Melanoma, Other (See Below) Other Dermatologic History: MELANOMA ON BACK, eczema to back - Infectious Disease History Infectious Disease History: Reports: Chicken Pox - Past Surgical History Head Surgeries/Procedures: Reports: None HEENT Surgical History: Reports: Other (See Below) Cardiovascular Surgical History: Reports: Other (See Below) Musculoskeletal Surgical History: Reports: Other (See Below) Social & Family History - Family History Family Medical History: Noncontributory Cardiac: Reports: [place] - Tobacco Use Smoking Status *Q: Former Smoker Years of Tobacco use: 35 Packs/Tins Daily: 0.5 Used Tobacco, but Quit: Yes Month Tobacco Last Used: 10 Second Hand Smoke Exposure: No - Caffeine Use Caffeine Use: Reports: Coffee Other Caffeine Use: 2 cups per day Caffeine Use Comment: Occassional coffee drinker. - Alcohol Use Days Per Week of Alcohol Use: 0 Number of Drinks Per Day: 0 Total Drinks Per Week: 0 - Recreational Drug Use Recreational Drug Use: No Drug Use in Last 12 Months: No - Living Situation & Occupation Living situation: Reports: Single, Alone ED ROS GENERAL - Review of Systems Review Of Systems: See Below Constitutional: Reports: No Symptoms HEENT: Reports: No Symptoms Respiratory: Reports: No Symptoms Cardiovascular: Reports: No Symptoms Endocrine: Reports: No Symptoms GI/Abdominal: Reports: No Symptoms : Reports: No Symptoms Musculoskeletal: Reports: Back Pain Skin: Reports: No Symptoms Neurological: Reports: No Symptoms Psychiatric: Reports: No Symptoms Hematologic/Lymphatic: Reports: No Symptoms Immunologic: Reports: No Symptoms ED EXAM,LOWER BACK PAIN/INJURY - Physical Exam Exam: See Below Exam Limited By: No Limitations General Appearance: Alert, WD/WN, Mild Distress Eye Exam: Bilateral Eye: Normal Inspection Ears: Normal External Exam Nose: Normal Inspection Throat/Mouth: Normal Inspection, Normal Lips Head: Atraumatic, Normocephalic Neck: Normal Inspection, Supple, Non-Tender Respiratory/Chest: No Respiratory Distress, Lungs Clear, Normal Breath Sounds Cardiovascular: Normal Peripheral Pulses, Regular Rate, Rhythm GI/Abdominal: Normal Bowel Sounds, Soft, Non-Tender (Female) Exam: Deferred Rectal (Female) Exam: Deferred Back Exam: Normal Inspection, Full Range of Motion Extremities: Normal Inspection, Normal Range of Motion, Non-Tender, No Pedal Edema Neurological: Alert, Normal Mood/Affect, Normal Dorsiflexion, CN II-XII Intact, Normal Gait, Normal Reflexes, Oriented x 3 Psychiatric: Normal Affect, Normal Mood Skin Exam: Warm, Dry, Intact, Normal Color, No Rash Lymphatic: No Adenopathy Course - Vital Signs Text/Narrative:: 62 y.o.w.f came to the ed with low back pain radiating to her r lower leg. No stool or urine incontinence. No F/C. Pt has a h/o N/V/D, not active at this time. PE: Low back pain Impression: Low back with sciatica Tx: Toradol, ICE Reexam: Improved Plan: D/C with instructions Last Recorded V/S: Last Vital Signs Temp 36.7 C 07/10/17 05:45 Pulse 73 07/10/17 05:45 Resp 18 07/10/17 05:45 BP 100/67 07/10/17 05:45 Pulse Ox 99 07/10/17 05:45 - Orders/Labs/Meds Orders: Active Orders 24 hr Category Date Time Status Ice Therapy [OM.PC] Routine Oth 07/10/17 06:08 Ordered Meds: Medications Discontinued Medications Generic Name Dose Route Start Last Admin Trade Name Freq PRN Reason Stop Dose Admin Ketorolac Tromethamine 60 mg 07/10/17 06:08 07/10/17 06:17 Toradol IM 07/10/17 06:09 60 mg ONETIME ONE Administration Ondansetron HCl 8 mg 07/10/17 06:13 07/10/17 06:17 Zofran Odt PO 07/10/17 06:14 8 mg ONETIME ONE Administration Departure - Departure Time of Disposition: 07:12 Disposition: Home, Self-Care 01 Condition: Good Clinical Impression: Back pain of lumbar region with sciatica - Discharge Information Prescriptions: traMADol [Ultram] 50 mg PO Q6H PRN #10 tab PRN Reason: severe pain Instructions: Back Pain, Adult Referrals: Shruti Arellano NP [Primary Care Provider] - Forms: ED Department Discharge Additional Instructions: Please apply ice to lower back, please f/u, came back to the ed if your symptoms get worse acutely. - My Orders Last 24 Hours: My Active Orders 07/10/17 06:08 Ice Therapy [OM.PC] Routine - Assessment/Plan Last 24 Hours: My Active Orders 07/10/17 06:08 Ice Therapy [OM.PC] Routine
[2017-07-10 07:37] VITALS: BP 110/69
== END 2017-07-10 07:54 | disposition home or self-care (01) ==
LOC: FB.ED 05:36
DX: M54.40 Lumbago with sciatica, unspecified side (principal); I25.10 Atherosclerotic heart disease of native coronary artery without angina pectoris; E78.00 Pure hypercholesterolemia, unspecified; I10 Essential (primary) hypertension; J44.9 Chronic obstructive pulmonary disease, unspecified; K21.9 Gastro-esophageal reflux disease without esophagitis; F32.9 Major depressive disorder, single episode, unspecified; I73.9 Peripheral vascular disease, unspecified; Z79.899 Other long term (current) drug therapy; Z88.1 Allergy status to other antibiotic agents; Z91.010 Allergy to peanuts; Z87.891 Personal history of nicotine dependence; Z86.718 Personal history of other venous thrombosis and embolism; Z79.82 Long term (current) use of aspirin; Z91.011 Allergy to milk products
CPT/HCPCS: 96372; 99283; A9270; J1885

== ENCOUNTER 2017-07-16 14:14 | Emergency (ER) | payer MEDICARE, SELFPAY ==
[2017-07-16 17:39] VITALS: BP 150/70
--- NOTE | 2017-07-19 08:37 | CT ---
INDICATION: Severe right ankle pain laterally, negative x-rays. CT LOWER EXTREMITIES, RIGHT TIBIA/FIBULA AND LEFT TIBIA/FIBULA: Spiral 0.63 mm axial images were obtained through the lower extremities at the tib/fib level and through the ankle area. Sagittal and coronal reconstructions were obtained. Total exam DLP = 342.11 mGy-cm. A definite fracture or dislocation was not identified. No definite mass was seen. No significant soft tissue swelling was identified. IMPRESSION: Essentially normal CT tibia/fibula. Report was called to Dr. Rodriguez at 1708 hours on 07/16/2017. [facility] CENTERKayla
--- NOTE | 2017-07-19 08:50 | CT ---
INDICATION: Question stress fracture right hip, lateral pain. CT PELVIS WITHOUT CONTRAST: Spiral 1.25 mm axial sections were obtained through the pelvis with sagittal and coronal reconstructions. Total exam DLP = 342.11 mGy-cm. Mild to moderate degenerative changes are noted at the right sacroiliac joint with only minimal degenerative changes at the left sacroiliac joint anteriorly. Mild to moderate degenerative changes posteriorly are noted at the left sacroiliac joint. Degenerative changes at the right sacroiliac joint are mostly anteriorly. Mild degenerative changes are noted at the hip joints. Hip joint spaces appear to be fairly well maintained. No pelvic fracture or dislocation was identified. The hip joints appear to be intact as to fracture or dislocation. Bone density appears to be grossly normal. Arterial calcifications are noted. An iliac artery stent is noted on the right , extending into the right femoral area. 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 Report was called to Dr. Rodriguez at 1708 hours on 07/16/2017. [facility]
--- NOTE | 2017-07-19 09:02 | CT ---
INDICATION: Severe right hip and ankle pain, fell last . CT LUMBOSACRAL SPINE: Spiral 2.5 mm axial sections were obtained through the lumbosacral spine with sagittal and coronal reconstructions 07/16/2017 and compared with MRI from 03/16/2017. Total exam DLP = 184.08 mGy-cm. Moderate dextroconcave scoliosis of the lower lumbar spine is again noted. Hypertrophic degenerative changes are noted off vertebral bodies at the L2-3, L3 -4 levels and relatively minimally at L4-5. Some mild narrowing of the neural foramina at L3-4 is noted, due to hypertrophic spurring, mostly on the right. Vacuum disk phenomenon and fairly marked narrowing of the disk space is noted at L3-4 with relatively minimal narrowing of the L4-5 disk space. There is a T12 compression fracture with vertebroplasty and bridging hyperostotic changes at the T11-12 level anteriorly extending laterally. The compression was present on the previous MRI. A definite acute fracture or dislocation was not identified. There is generalized bulging of the disk at L3-4 and prominence of the ligamenta flava also seen at that level, producing a mild degree of spinal stenosis. There is also bulging of the L4-5 disk and prominent ligamenta flava, producing a mild degree of spinal stenosis. Prominent ligamenta flava and bulging disk also seen at L5-S1, producing mild degree of spinal stenosis. The degree of spinal stenosis does not appear to be significant. The more cranial disk spaces appeared relatively unremarkable with some minimal generalized bulging noted, however, at the L2-3 level disk space. There are prominent ligamenta flava there also with minimal narrowing of the canal - minimal spinal stenosis there. IMPRESSION: 1. Degenerative changes and disk disease as noted above. 2. No definite acute fracture or dislocation. 3. Scoliosis. 4. T12 vertebroplasty with compression fracture and hypertrophic changes at T11 -12. 5. ASD with aortoiliac artery calcifications and a stent at the iliac artery on the right. Report was called to Dr. Rodriguez at 1708 hours on 07/16/2017. [facility]
--- NOTE | 2017-07-21 09:49 | ER ---
DATE SEEN: 07/16/2017 TIME SEEN: 1430 hours. CHIEF COMPLAINT: Back pain. HISTORY OF PRESENT ILLNESS: The patient noted on 07/08/2017, she was picking up a lawn chair, folding it, and she had a sudden onset of back pain. She sat on the ground. She just "sank to the ground". Her neighbor and boyfriend picked her up and took her in the house. Since then she has had onset of low back pain since 07/10/2017. On 10/2016, she had a T12 fracture, a spontaneous fracture. She was noted to have osteoporosis and has had a previous bone scan, which demonstrated significant osteoporosis. Presently, she has right hip and right ankle pain. She cannot walk. "I have so much pain, I can't walk." She denies any swelling, any fevers, sore throat, or recent infection. She has had a slight headache and a little nausea, she thinks secondary to pain. The pain when standing is 10/10. Otherwise, it goes down to 6/10. She wondered if she has had a spontaneous fracture. She has tried oxycodone in the past, but it caused so much nausea (sister's medicine), so she did not take it. She wondered if she has sciatica with her pain radiating down her left leg. She notes she cannot get out of the house because of severe pain. She took a taxi to the hospital. She notes she cannot stand or prepare food or walk. She has noticed she has lost weight, 10 pounds. She normally weighs 119 pounds and now is 109 pounds. She attributes this to the pain that she has in her right hip and right leg. PAST MEDICAL AND SURGICAL HISTORY: Noted to have: 1. Gastric ulcers. 2. Hypertension. 3. Coronary artery disease with iliac artery stents, bilateral. 4. Appendectomy. 5. Cholecystectomy. 6. Vaginal hysterectomy and BSO. 7. Left fourth finger volar plate placed because of ligament problem. 8. She has presently a bad urethral prolapse. On review of the chart, she has chronic obstructive lung disease. She has 35 to 36 problems annotated in her chart; some are duplicated. Some of these documented include: 1. Paresthesia in lower legs. 2. Near syncope. 3. Chronic obstructive lung disease. 4. Dysphagia. 5. Dehydration. 6. Hiatus hernia. 7. GERD. 8. Compression fracture of thoracic spine (T12). 9. Duodenitis. 10.Esophagitis. 11.Gastritis. 12.Tension headaches. 13.Sciatica. ALLERGIES: Cipro, ceftriaxone, fentanyl, milk products, trazodone, and depression medication with tightness in her chest. Eggs, nausea. Oral antibiotics, vomiting. Peanuts. CURRENT MEDICATIONS: 1. Abilify. 2. Dexlansoprazole. 3. Clopidogrel. 4. Diltiazem. 5. Gabapentin. 6. Fluticasone. 7. Fenofibrate. 8. Ranitidine. 9. Zofran. 10.Nitroglycerin. 11.Imdur. 12.Simethicone. 13.Rosuvastatin. REVIEW OF SYSTEMS: The patient notes mostly the pain in her right hip and right leg. She denies previous hip fracture. She denies paresthesias to lower extremities. She denies recent cauda equina symptoms of urine loss or perineal loss of sensation in perineum. No paralysis. PHYSICAL EXAMINATION: VITAL SIGNS: Blood pressure was 147/68, heart rate was 83, respirations were 18, oxygen saturation was 97%, and temperature was 36.6 degrees centigrade. Pulse is regular. GENERAL: Asthenic woman who has a face mask on. When I asked her why she had it, she stated she didn't want to get an infection. HEENT: TMs are negative. Pharynx without abnormality. Pharynx without erythema. No cervical adenopathy. NECK: No thyromegaly or masses in neck. No bruits in neck. LUNGS: Clear to auscultation without rales, rhonchi, or wheezes. HEART: Sinus rhythm. No murmur. ABDOMEN: Soft. No guarding. No abdominal discomfort. BACK: No spinous process tenderness in the cervical, thoracic, or lumbar spine. NEUROLOGICAL: Straight leg raise is negative to 90 degrees, right leg has more discomfort than left leg. She has moderate trochanteric region discomfort. Right hip with slightly decreased range of motion with right internal-external rotation and abduction. Adduction is intact. No dysesthesia right lower extremity. Left lower extremity more movement in her hip. DIAGNOSTIC STUDIES: CT of the lumbar spine was negative. Pelvis without contrast was negative. Lower extremities did not demonstrate abnormality. The patient has not had an occult fracture. I was reminded by the radiologist, perhaps a bone scan would be more effective for evaluating osteoporosis/osteopenia - DEXA scan. Then at this point, when I went back and talked to the patient, she said, "oh yes," she had just recently had a bone scan that was negative. ASSESSMENT: The patient's pain etiology is indeterminate. PLAN: To use for breakthrough pain-Vicodin, otherwise Tylenol 1000 mg and ibuprofen 600 mg every six hours p.r.n. pain. Follow up with doctor in a week. DIAGNOSES: 1. Weight loss secondary to pain in her hip and lower extremity because she could not "get up and make meals". 2. Coronary artery disease with noted iliac artery stents, bilateral. The patient's pain today, I do not feel is related to the stents or poor circulation. She has normal pulses in lower extremities. 3. Previous other surgeries of appendectomy, cholecystectomy, and vaginal hysterectomy with BSO. 4. Splint placed in her fourth finger, which resolved. 5. Bad urethral prolapse. 6. Significant osteopenia and osteoporosis. The patient is status post T12 fracture 10/2016. Etiology of the patient's right hip and right neck pain indeterminate. I do not feel it is related to aortic or iliac artery compromise. Follow-up with the doctor in a week. /[id number] [place]
== END 2017-07-16 17:51 | disposition home or self-care (01) ==
LOC: FB.ED 14:14
DX: M25.511 Pain in right shoulder (principal); M79.604 Pain in right leg; I25.10 Atherosclerotic heart disease of native coronary artery without angina pectoris; M81.0 Age-related osteoporosis without current pathological fracture; I10 Essential (primary) hypertension; J44.9 Chronic obstructive pulmonary disease, unspecified; Z90.49 Acquired absence of other specified parts of digestive tract; Z90.710 Acquired absence of both cervix and uterus; Z95.5 Presence of coronary angioplasty implant and graft; Z88.1 Allergy status to other antibiotic agents; Z91.012 Allergy to eggs; Z91.010 Allergy to peanuts; Z91.011 Allergy to milk products; Z88.8 Allergy status to other drugs, medicaments and biological substances; Z98.890 Other specified postprocedural states
CPT/HCPCS: 36415; 72131; 72192; 73700-RT; 80053; 85025; 85651; 86140; 99283; 99284

== ENCOUNTER 2018-02-12 12:41 | Emergency (ER) | payer MEDICARE, OTHER ==
[2018-02-12] MEDS ORDERED: Ondansetron 8 MG Tab.DIS PO ONE (12:58)
[2018-02-12] MEDS ORDERED: Promethazine 6.25 MG/5 ML Liquid ML (473 ML Bottle) PO STA (13:46)
--- NOTE | 2018-02-12 14:03 | EDM.PDOC ---
ED HPI GENERAL MEDICAL PROBLEM - General Chief Complaint: Gastrointestinal Problem Stated Complaint: NAUSEA VOMITING CHILLS Time Seen by Provider: 02/12/18 12:41 Source of Information: Reports: Patient History Limitations: Reports: No Limitations - History of Present Illness INITIAL COMMENTS - FREE TEXT/NARRATIVE: 63 y.o.w.f with multiple food allergies, came to the ed 5 days after she ate her own cooked meal and got severely nauseated, then diarrhea for 5 days which was improving today. No vomiting, no diarrhea today. No F/C or any other acute medical issues. BP 158/61 pulse 74 pulse ox 99% on RA, RR 18 Temp 97.9 Onset Date: 02/05/18 Onset Time: 12:00 Duration: Day(s):, Intermittent, Improving Location: Reports: Abdomen Quality: Reports: Burning Severity: Mild Improves with: Reports: Medication Worsens with: Reports: Eating Context: Reports: Other (possible food allergy/poisoning) Associated Symptoms: Reports: No Other Symptoms, Nausea/Vomiting (subsiding) - Related Data Allergies Allergy/AdvReac Type Severity Reaction Status Date / Time ceftriaxone sodium Allergy Anaphylactic Verified 07/16/17 14:23 [From Rocephin] Shock fentanyl Allergy Hives Verified 07/16/17 14:23 Milk Containing Products Allergy Vomiting Verified 07/16/17 14:23 trazodone Allergy Other Verified 07/16/17 14:23 ciprofloxacin AdvReac Intermediate Nausea and Verified 12/14/17 16:00 Vomiting depression medications Allergy Airway Uncoded 01/22/17 19:06 Tightness eggs Allergy Nausea Uncoded 01/22/17 19:06 oral antibiotics Allergy Vomiting Uncoded 01/22/17 19:06 peanuts Allergy Hives Uncoded 01/22/17 19:06 Home Meds: Home Meds Dexlansoprazole [Dexilant] 60 mg PO DAILY 12/05/13 [History] Fenofibrate Nanocrystallized [Fenofibrate] 145 mg PO BEDTIME 12/05/13 [History] ARIPiprazole [Abilify] 10 mg PO DAILY 11/27/15 [History] Nitroglycerin [Nitrostat] 0.4 mg SL ASDIRECTED PRN #1 bot 11/27/15 [Rx] Rosuvastatin [Crestor] 20 mg PO Q48H 11/27/15 [History] Diltiazem HCl [Dilt-XR] 120 mg PO DAILY 04/01/16 [History] Aspirin 81 mg PO DAILY 10/07/16 [History] Gabapentin [Neurontin] 800 mg PO TID 10/07/16 [History] Ranitidine HCl [Ranitidine] 150 mg PO BID 10/07/16 [History] Calcium Carbonate/Vitamin D3 [Calcium 600 + Vit D 200] 600 mg PO DAILY 10/08/16 [History] Clopidogrel [Plavix] 75 mg PO DAILY 11/06/16 [History] Isosorbide Mononitrate [Imdur] 60 mg PO DAILY 11/06/16 [History] Betamethasone Dipropionate [Diprosone 0.05% Oint] 1 applic TOP BID PRN 07/10/17 [History] Fluticasone Propionate [Flonase Allergy Relief] 1 spray NASBOTH DAILY 07/10/17 [ History] Simethicone 1 tab PO TID PRN 07/10/17 [History] Ondansetron [Zofran ODT] 4 mg PO Q6H PRN 07/16/17 [History] Promethazine [Phenergan] 25 mg .XX Q8HR PRN #5 dose 02/12/18 [Rx] Past Medical History HEENT History: Reports: Glaucoma, Impaired Vision, Other (See Below) Other HEENT History: CHOROIDAL NEVUS Cardiovascular History: Reports: Angina, CAD, High Cholesterol, Hypertension, PVD, Syncope, Other (See Below) Other Cardiovascular History: HEART PALPITATIONS, DEEP VEIN THROMBOSIS, PERIPHERAL VASCULAR DISEASE, CAROTID BRUIT Respiratory History: Reports: COPD Other Respiratory History: suffocating spells at night- SOB, can't get air in. Gastrointestinal History: Reports: GERD, Hiatal Hernia, Other (See Below) Other Gastrointestinal History: BOWEL INCONTINENCE Genitourinary History: Reports: Urinary Incontinence, Other (See Below) Other Genitourinary History: URETHRAL SUSPENSION WITH SLING, CYSTOSCOPY, BLADDER TUMOR THEN TUR OF IT, REMOVAL OF SLING FOR ERODED BLADDER SLING; OVER ACTIVE BLADDER, perforated bladder after removal of bladder scan. Other OB/BYN History: D&C Musculoskeletal History: Reports: Back Pain, Chronic, Other (See Below) Other Musculoskeletal History: Left knee torn miniscus; Right ankle and hip pain Neurological History: Reports: CVA, MS, Other (See Below) Other Neuro History: Pt notices emotional/cognitive changes following brain injury. Questionable MS diagnosis Psychiatric History: Reports: Depression, Other (See Below) Other Psychiatric History: MEDICAL AGREEMENT FOR DETENTION MED USE. Endocrine/Metabolic History: Reports: None Hematologic History: Reports: Blood Transfusion(s) Immunologic History: Reports: None Oncologic (Cancer) History: Reports: Bladder, Brain, Malignant Melanoma, Other ( See Below) Other Oncologic History: Radiation, in remission. Dermatologic History: Reports: Eczema, Melanoma, Other (See Below) Other Dermatologic History: MELANOMA ON BACK, eczema to back - Infectious Disease History Infectious Disease History: Reports: Chicken Pox - Past Surgical History Head Surgeries/Procedures: Reports: None HEENT Surgical History: Reports: Other (See Below) Cardiovascular Surgical History: Reports: Other (See Below) Social & Family History - Family History Family Medical History: Noncontributory Cardiac: Reports: [place] - Tobacco Use Smoking Status *Q: Current Every Day Smoker Years of Tobacco use: 40 Packs/Tins Daily: 0.1 Used Tobacco, but Quit: Yes Month/Year Tobacco Last Used: 10 Second Hand Smoke Exposure: No - Caffeine Use Caffeine Use: Reports: Coffee Other Caffeine Use: 2 cups per day Caffeine Use Comment: Occassional coffee drinker. - Alcohol Use Days Per Week of Alcohol Use: 0 Number of Drinks Per Day: 0 Total Drinks Per Week: 0 - Recreational Drug Use Recreational Drug Use: No Drug Use in Last 12 Months: No - Living Situation & Occupation Living situation: Reports: Single, Alone ED ROS GENERAL - Review of Systems Review Of Systems: See Below Constitutional: Reports: No Symptoms HEENT: Reports: No Symptoms Respiratory: Reports: No Symptoms Cardiovascular: Reports: No Symptoms Endocrine: Reports: No Symptoms GI/Abdominal: Reports: Nausea (did not vomit today) : Reports: No Symptoms Musculoskeletal: Reports: No Symptoms Skin: Reports: No Symptoms Neurological: Reports: No Symptoms Psychiatric: Reports: No Symptoms Hematologic/Lymphatic: Reports: No Symptoms Immunologic: Reports: No Symptoms ED EXAM, GI/ABD - Physical Exam Exam: See Below Exam Limited By: No Limitations General Appearance: Alert, WD/WN, Mild Distress Eyes: Bilateral: Normal Appearance Ears: Normal External Exam Nose: Normal Inspection Throat/Mouth: Normal Inspection, Normal Lips Head: Atraumatic, Normocephalic Neck: Normal Inspection, Supple, Non-Tender, Full Range of Motion Respiratory/Chest: No Respiratory Distress, Lungs Clear, Normal Breath Sounds, No Accessory Muscle Use, Chest Non-Tender Cardiovascular: Normal Peripheral Pulses, Regular Rate, Rhythm, No Edema, No Gallop, No JVD, No Murmur, No Rub GI/Abdominal Exam: Normal Bowel Sounds, Soft, Non-Tender, No Organomegaly, No Distention, No Abnormal Bruit, No Mass (Female) Exam: Deferred Rectal (Female) Exam: Deferred Back Exam: Normal Inspection, Full Range of Motion Extremities: Normal Inspection, Normal Range of Motion, Non-Tender, No Pedal Edema, Normal Capillary Refill Neurological: Alert, Oriented, CN II-XII Intact, Normal Cognition, Normal Gait, No Motor/Sensory Deficits Psychiatric: Normal Affect, Normal Mood Skin Exam: Warm, Dry, Intact, Normal Color, No Rash Lymphatic: No Adenopathy Course - Vital Signs Text/Narrative:: 63 y.o.w.f with multiple food allergies, came to the ed 5 days after she ate her own cooked meal and got severely nauseated, then diarrhea for 5 days which was improving today. No vomiting, no diarrhea today. No F/C or any other acute medical issues. BP 158/61 pulse 74 pulse ox 99% on RA, RR 18 Temp 97.9 PE; 63 y.o.w.f came to the ED with gastroenteritis, which is improving Labs/Imaging: Not indicated Impression: Gastroenetritis, improving Tx: Zofran Reexam: Ptwas able to keep water down Plan: D/C with instructions - Orders/Labs/Meds Meds: Medications Discontinued Medications Generic Name Dose Route Start Last Admin Trade Name Freq PRN Reason Stop Dose Admin Ondansetron HCl 8 mg 02/12/18 12:58 02/12/18 13:19 Zofran Odt PO 02/12/18 12:59 8 mg ONETIME ONE Administration Promethazine HCl 12.5 mg 02/12/18 13:46 Phenergan PO 02/12/18 13:47 ONETIME STA Departure - Departure Time of Disposition: 13:58 Disposition: Home, Self-Care 01 Condition: Good Clinical Impression: Gastroenteritis - Discharge Information Prescriptions: Promethazine [Phenergan] 25 mg .XX Q8HR PRN #5 dose PRN Reason: Nausea Instructions: Viral Gastroenteritis, Adult, Ondansetron tablets, Promethazine tablets Referrals: Wanda Gates, PRECISION MACHINE OPERATOR [Primary Care Provider] - Forms: ED Department Discharge Additional Instructions: Please advance diet as tolerated, please take Phenergen for nausea, please f/u, come back if your symptoms get worse acutely.
[2018-02-12 15:26] VITALS: BP 125/68
== END 2018-02-12 14:15 | disposition home or self-care (01) ==
LOC: FB.ED 12:41
DX: K52.9 Noninfective gastroenteritis and colitis, unspecified (principal); F17.210 Nicotine dependence, cigarettes, uncomplicated; I10 Essential (primary) hypertension; E78.00 Pure hypercholesterolemia, unspecified; I25.10 Atherosclerotic heart disease of native coronary artery without angina pectoris; K21.9 Gastro-esophageal reflux disease without esophagitis; Z79.82 Long term (current) use of aspirin; Z91.010 Allergy to peanuts; Z91.012 Allergy to eggs; Z88.1 Allergy status to other antibiotic agents; Z91.011 Allergy to milk products
CPT/HCPCS: 99283; A9270

== ENCOUNTER 2018-02-19 16:17 | Emergency (ER) | payer MEDICARE, OTHER ==
--- NOTE | 2018-02-19 17:00 | EDM.PDOC ---
ED HPI GENERAL MEDICAL PROBLEM - General Chief Complaint: General Stated Complaint: UNABLE TO URINATE Time Seen by Provider: 02/19/18 16:40 Source of Information: Reports: Patient History Limitations: Reports: No Limitations - History of Present Illness INITIAL COMMENTS - FREE TEXT/NARRATIVE: Erendira Conti comes to [facility] ED with vaginal bulging that is intermittent, and sometimes interferes with voiding. There is no pain, discharge, or issues with incontinence, constipation, or spotting. She has had a hysterectomy in the past. - Related Data Allergies Allergy/AdvReac Type Severity Reaction Status Date / Time ceftriaxone sodium Allergy Anaphylactic Verified 02/19/18 16:38 [From Rocephin] Shock fentanyl Allergy Hives Verified 02/19/18 16:38 Milk Containing Products Allergy Vomiting Verified 02/19/18 16:38 trazodone Allergy Other Verified 02/19/18 16:38 ciprofloxacin AdvReac Intermediate Nausea and Verified 02/19/18 16:38 Vomiting depression medications Allergy Airway Uncoded 02/12/18 15:28 Tightness eggs Allergy Nausea Uncoded 02/12/18 15:28 oral antibiotics Allergy Vomiting Uncoded 02/12/18 15:28 peanuts Allergy Hives Uncoded 02/12/18 15:28 Home Meds: Home Meds Dexlansoprazole [Dexilant] 60 mg PO DAILY 12/05/13 [History] Fenofibrate Nanocrystallized [Fenofibrate] 145 mg PO BEDTIME 12/05/13 [History] ARIPiprazole [Abilify] 10 mg PO DAILY 11/27/15 [History] Nitroglycerin [Nitrostat] 0.4 mg SL ASDIRECTED PRN #1 bot 11/27/15 [Rx] Rosuvastatin [Crestor] 20 mg PO Q48H 11/27/15 [History] Diltiazem HCl [Dilt-XR] 120 mg PO DAILY 04/01/16 [History] Aspirin 81 mg PO DAILY 10/07/16 [History] Gabapentin [Neurontin] 800 mg PO TID 10/07/16 [History] Ranitidine HCl [Ranitidine] 150 mg PO BID 10/07/16 [History] Calcium Carbonate/Vitamin D3 [Calcium 600 + Vit D 200] 600 mg PO DAILY 10/08/16 [History] Clopidogrel [Plavix] 75 mg PO DAILY 11/06/16 [History] Isosorbide Mononitrate [Imdur] 60 mg PO DAILY 11/06/16 [History] Betamethasone Dipropionate [Diprosone 0.05% Oint] 1 applic TOP BID PRN 07/10/17 [History] Fluticasone Propionate [Flonase Allergy Relief] 1 spray NASBOTH DAILY 07/10/17 [ History] Ondansetron [Zofran ODT] 4 mg PO Q6H PRN 07/16/17 [History] Albuterol Sulfate [Proair Hfa] 1 puff INH Q4H PRN 02/12/18 [History] Promethazine [Phenergan] 25 mg .XX Q8HR PRN #5 dose 02/12/18 [Rx] Past Medical History HEENT History: Reports: Glaucoma, Impaired Vision, Other (See Below) Other HEENT History: CHOROIDAL NEVUS Cardiovascular History: Reports: Angina, CAD, High Cholesterol, Hypertension, PVD, Syncope, Other (See Below) Other Cardiovascular History: HEART PALPITATIONS, DEEP VEIN THROMBOSIS, PERIPHERAL VASCULAR DISEASE, CAROTID BRUIT Respiratory History: Reports: COPD Other Respiratory History: suffocating spells at night- SOB, can't get air in. Gastrointestinal History: Reports: GERD, Hiatal Hernia, Other (See Below) Other Gastrointestinal History: BOWEL INCONTINENCE Genitourinary History: Reports: Urinary Incontinence, Other (See Below) Other Genitourinary History: URETHRAL SUSPENSION WITH SLING, CYSTOSCOPY, BLADDER TUMOR THEN TUR OF IT, REMOVAL OF SLING FOR ERODED BLADDER SLING; OVER ACTIVE BLADDER, perforated bladder after removal of bladder scan. Other OB/BYN History: D&C Musculoskeletal History: Reports: Back Pain, Chronic, Other (See Below) Other Musculoskeletal History: Left knee torn miniscus; Right ankle and hip pain Neurological History: Reports: CVA, MS, Other (See Below) Other Neuro History: Pt notices emotional/cognitive changes following brain injury. Questionable MS diagnosis Psychiatric History: Reports: Depression, Other (See Below) Other Psychiatric History: MEDICAL AGREEMENT FOR DETENTION MED USE. Endocrine/Metabolic History: Reports: None Hematologic History: Reports: Blood Transfusion(s) Immunologic History: Reports: None Oncologic (Cancer) History: Reports: Bladder, Brain, Malignant Melanoma, Other ( See Below) Other Oncologic History: Radiation, in remission. Dermatologic History: Reports: Eczema, Melanoma, Other (See Below) Other Dermatologic History: MELANOMA ON BACK, eczema to back - Infectious Disease History Infectious Disease History: Reports: Chicken Pox - Past Surgical History Head Surgeries/Procedures: Reports: None HEENT Surgical History: Reports: Other (See Below) Cardiovascular Surgical History: Reports: Other (See Below) Social & Family History - Family History Family Medical History: Noncontributory Cardiac: Reports: [place] - Tobacco Use Smoking Status *Q: Current Every Day Smoker Years of Tobacco use: 40 Packs/Tins Daily: 0.1 Used Tobacco, but Quit: Yes Month/Year Tobacco Last Used: 10 Second Hand Smoke Exposure: No - Caffeine Use Caffeine Use: Reports: Coffee Other Caffeine Use: 2 cups per day Caffeine Use Comment: Occassional coffee drinker. - Alcohol Use Days Per Week of Alcohol Use: 0 Number of Drinks Per Day: 0 Total Drinks Per Week: 0 - Recreational Drug Use Recreational Drug Use: No Drug Use in Last 12 Months: No - Living Situation & Occupation Living situation: Reports: Single, Alone ED ROS GENERAL - Review of Systems Review Of Systems: ROS reveals no pertinent complaints other than HPI. ED EXAM, GENERAL - Physical Exam Exam: See Below Exam Limited By: No Limitations General Appearance: Alert, WD/WN, No Apparent Distress, Anxious Head: Normocephalic Neck: Normal Inspection, Supple, Full Range of Motion Respiratory/Chest: Lungs Clear, Normal Breath Sounds Cardiovascular: Regular Rate, Rhythm, No Murmur GI/Abdominal: Normal Bowel Sounds, Soft, Non-Tender, No Organomegaly, No Distention, No Mass (Female) Exam: Normal External Exam, Other (with an RN as air commodore, external exam of BUS is benign, surgical pelvis with a prolapsing enterocele present; Bunny sign is negative; no rectocele detected;) Rectal (Female) Exam: Deferred Back Exam: Normal Inspection Extremities: Normal Inspection Neurological: Alert, Oriented, CN II-XII Intact, Normal Gait, Normal Reflexes Psychiatric: Normal Affect, Anxious Skin Exam: Warm, Dry, Intact Lymphatic: No Adenopathy Course - Vital Signs Text/Narrative:: Erendira Conti remained stable at the [facility] ED. No meds were dispensed. Last Recorded V/S: Last Vital Signs Temp 36.8 C 02/19/18 16:17 Pulse 93 02/19/18 16:17 Resp 20 02/19/18 16:17 BP 142/57 H 02/19/18 16:17 Pulse Ox 98 02/19/18 16:17 Departure - Departure Time of Disposition: 16:50 Disposition: Home, Self-Care 01 Condition: Good Clinical Impression: Acquired vaginal enterocele - Discharge Information Referrals: Wanda Gates, LOOP DRIER OPERATOR [Primary Care Provider] - - Problem List & Annotations (1) Acquired vaginal enterocele SNOMED Code(s): 621931642 Code(s): N81.5 - VAGINAL ENTEROCELE Status: Acute Current Visit: Yes Annotation/Comment:: Reassurance given. I suggested a consult with a records associate regarding surgical management vs pessary. Patient will discuss with PCP. - Problem List Review Problem List Initiated/Reviewed/Updated: Yes - Assessment/Plan Plan: Follow up with PCP.
[2018-02-19 17:23] VITALS: BP 121/89
== END 2018-02-19 17:15 | disposition home or self-care (01) ==
LOC: FB.ED 16:17
DX: N81.5 Vaginal enterocele (principal); F17.210 Nicotine dependence, cigarettes, uncomplicated; I10 Essential (primary) hypertension; E78.00 Pure hypercholesterolemia, unspecified; Z79.82 Long term (current) use of aspirin; Z79.899 Other long term (current) drug therapy; Z91.010 Allergy to peanuts; Z91.012 Allergy to eggs; Z91.011 Allergy to milk products; Z88.1 Allergy status to other antibiotic agents; Z88.8 Allergy status to other drugs, medicaments and biological substances
CPT/HCPCS: 51798; 99283

== ENCOUNTER 2018-03-10 15:52 | Emergency (ER) | payer MEDICARE, OTHER, MEDICAID ==
[2018-03-10] MEDS ORDERED: Albuterol/Ipratropium 3.0-0.5 MG/3 ML Neb Soln NEB ONE (16:10)
--- NOTE | 2018-03-10 16:14 | EDM.PDOC ---
ED HPI GENERAL MEDICAL PROBLEM - General Chief Complaint: Respiratory Problem Stated Complaint: SOB Time Seen by Provider: 03/10/18 15:58 Source of Information: Reports: Patient History Limitations: Reports: No Limitations - History of Present Illness INITIAL COMMENTS - FREE TEXT/NARRATIVE: c/o sob x 8h pt sob with MACHADO today, planted [place] for 30 min and was sob, alb HFA and Advair HFA did not help h/o CAD, no prior ID, no stents, had cath in past no cp, no n/v, good appetite sleeping well last attack sob yrs ago smoked x 33y, still smoking a few cigs daily - Related Data Allergies Allergy/AdvReac Type Severity Reaction Status Date / Time ceftriaxone sodium Allergy Anaphylactic Verified 02/19/18 16:38 [From Rocephin] Shock fentanyl Allergy Hives Verified 02/19/18 16:38 Milk Containing Products Allergy Vomiting Verified 02/19/18 16:38 trazodone Allergy Other Verified 02/19/18 16:38 ciprofloxacin AdvReac Intermediate Nausea and Verified 02/19/18 16:38 Vomiting depression medications Allergy Airway Uncoded 02/12/18 15:28 Tightness eggs Allergy Nausea Uncoded 02/12/18 15:28 oral antibiotics Allergy Vomiting Uncoded 02/12/18 15:28 peanuts Allergy Hives Uncoded 02/12/18 15:28 Home Meds: Home Meds Dexlansoprazole [Dexilant] 60 mg PO DAILY 12/05/13 [History] Fenofibrate Nanocrystallized [Fenofibrate] 145 mg PO BEDTIME 12/05/13 [History] ARIPiprazole [Abilify] 10 mg PO DAILY 11/27/15 [History] Nitroglycerin [Nitrostat] 0.4 mg SL ASDIRECTED PRN #1 bot 11/27/15 [Rx] Rosuvastatin [Crestor] 20 mg PO Q48H 11/27/15 [History] Diltiazem HCl [Dilt-XR] 120 mg PO DAILY 04/01/16 [History] Aspirin 81 mg PO DAILY 10/07/16 [History] Gabapentin [Neurontin] 800 mg PO TID 10/07/16 [History] Ranitidine HCl [Ranitidine] 150 mg PO BID 10/07/16 [History] Calcium Carbonate/Vitamin D3 [Calcium 600 + Vit D 200] 600 mg PO DAILY 10/08/16 [History] Clopidogrel [Plavix] 75 mg PO DAILY 11/06/16 [History] Isosorbide Mononitrate [Imdur] 60 mg PO DAILY 11/06/16 [History] Betamethasone Dipropionate [Diprosone 0.05% Oint] 1 applic TOP BID PRN 07/10/17 [History] Fluticasone Propionate [Flonase Allergy Relief] 1 spray NASBOTH DAILY 07/10/17 [ History] Ondansetron [Zofran ODT] 4 mg PO Q6H PRN 07/16/17 [History] Albuterol Sulfate [Proair Hfa] 1 puff INH Q4H PRN 02/12/18 [History] Promethazine [Phenergan] 25 mg .XX Q8HR PRN #5 dose 02/12/18 [Rx] predniSONE 20 mg PO DAILY #6 tab 03/10/18 [Rx] Past Medical History HEENT History: Reports: Glaucoma, Impaired Vision, Other (See Below) Other HEENT History: CHOROIDAL NEVUS Cardiovascular History: Reports: Angina, CAD, High Cholesterol, Hypertension, PVD, Syncope, Other (See Below) Other Cardiovascular History: HEART PALPITATIONS, DEEP VEIN THROMBOSIS, PERIPHERAL VASCULAR DISEASE, CAROTID BRUIT Respiratory History: Reports: COPD Other Respiratory History: suffocating spells at night- SOB, can't get air in. Gastrointestinal History: Reports: GERD, Hiatal Hernia, Other (See Below) Other Gastrointestinal History: BOWEL INCONTINENCE Genitourinary History: Reports: Urinary Incontinence, Other (See Below) Other Genitourinary History: URETHRAL SUSPENSION WITH SLING, CYSTOSCOPY, BLADDER TUMOR THEN TUR OF IT, REMOVAL OF SLING FOR ERODED BLADDER SLING; OVER ACTIVE BLADDER, perforated bladder after removal of bladder scan. Other OB/BYN History: D&C Musculoskeletal History: Reports: Back Pain, Chronic, Other (See Below) Other Musculoskeletal History: Left knee torn miniscus; Right ankle and hip pain Neurological History: Reports: CVA, MS, Other (See Below) Other Neuro History: Pt notices emotional/cognitive changes following brain injury. 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 Endocrine/Metabolic History: Reports: None Hematologic History: Reports: Blood Transfusion(s) Immunologic History: Reports: None Oncologic (Cancer) History: Reports: Bladder, Brain, Malignant Melanoma, Other ( See Below) Other Oncologic History: Radiation, in remission. Dermatologic History: Reports: Eczema, Melanoma, Other (See Below) Other Dermatologic History: MELANOMA ON BACK, eczema to back - Infectious Disease History Infectious Disease History: Reports: Chicken Pox - Past Surgical History Head Surgeries/Procedures: Reports: None HEENT Surgical History: Reports: Other (See Below) Cardiovascular Surgical History: Reports: Other (See Below) Social & Family History - Family History Family Medical History: Noncontributory Cardiac: Reports: ID - Caffeine Use Caffeine Use: Reports: Coffee Other Caffeine Use: 2 cups per day Caffeine Use Comment: Occassional coffee drinker. - Living Situation & Occupation Living situation: Reports: Single, Alone ED ROS GENERAL - Review of Systems Review Of Systems: See Below Constitutional: Reports: No Symptoms HEENT: Reports: No Symptoms Respiratory: Reports: Shortness of Breath Cardiovascular: Reports: No Symptoms. Denies: Chest Pain Endocrine: Reports: No Symptoms GI/Abdominal: Reports: No Symptoms : Reports: No Symptoms Musculoskeletal: Reports: No Symptoms Skin: Reports: No Symptoms Neurological: Reports: No Symptoms Psychiatric: Reports: No Symptoms Hematologic/Lymphatic: Reports: No Symptoms Immunologic: Reports: No Symptoms ED EXAM, GENERAL - Physical Exam Exam: See Below Exam Limited By: No Limitations General Appearance: Alert, WD/WN, No Apparent Distress, Other (frail, alert, NAD , nonill) Ears: Normal External Exam, Hearing Grossly Normal Nose: Normal Inspection, Normal Mucosa, No Blood Throat/Mouth: Normal Inspection, Normal Lips, Normal Voice, No Airway Compromise Head: Atraumatic, Normocephalic Neck: Normal Inspection, Supple, Non-Tender, Full Range of Motion Respiratory/Chest: No Accessory Muscle Use, Chest Non-Tender, Other (rales R base only, no wheeze, good AE, mild dyspnea, mild tachypnea, no cough) Cardiovascular: Regular Rate, Rhythm, No Edema, No Rub, Other (2/6 GLO at LSB) GI/Abdominal: Soft, Non-Tender, No Distention, No Mass Back Exam: Normal Inspection, Full Range of Motion, NT Extremities: Normal Inspection, Normal Range of Motion, Non-Tender, No Pedal Edema Neurological: Alert, Oriented, CN II-XII Intact, Normal Cognition, No Motor/ Sensory Deficits Psychiatric: Normal Affect, Normal Mood Skin Exam: Warm, Dry, Intact, Normal Color, No Rash Lymphatic: No Adenopathy Course - Orders/Labs/Meds Orders: Active Orders 24 hr Category Date Time Status EKG Documentation Completion [RC] ASDIRECTED Care 03/10/18 16:09 Ordered RT Aerosol Therapy [RC] ASDIRECTED Care 03/10/18 16:10 Ordered Chest 2V [CR] Stat Exams 03/10/18 16:09 Ordered EKG 12 Lead [EK] Routine Ther 03/10/18 16:09 Ordered Labs: Laboratory Tests 03/10/18 03/10/18 03/10/18 Range/Units 17:00 17:00 17:00 WBC 8.0 (4.5-12.0) X10-3/uL RBC 4.41 (3.23-5.20) x10(6)uL Hgb 12.8 (11.5-15.5) g/dL Hct 38.8 (30.0-51.3) % MCV 88.0 (80-96) fL MCH 29.1 (27.7-33.6) pg MCHC 33.1 (32.2-35.4) g/dL RDW 12.8 (11.5-15.5) % Plt Count 372 H (125-369) X10(3)uL MPV 7.3 L (7.4-10.4) fL Neut % (Auto) 57.6 (46-82) % Lymph % (Auto) 34.0 (13-37) % [place] % (Auto) 6.2 (4-12) % Eos % (Auto) 1 (1.0-5.0) % Baso % (Auto) 1 (0-2) % Neut # (Auto) 4.6 (1.6-8.3) # Lymph # (Auto) 2.7 (0.6-5.0) # [place] # (Auto) 0.5 (0.0-1.3) # Eos # (Auto) 0.1 (0.0-0.8) # Baso # (Auto) 0.1 (0.0-0.2) # POC VBG pH (7.31-7.41) POC VBG pCO2 (41-51) mmHG POC VBG HCO3 (23-28) mmol/L POC VBG Total CO2 (24-29) mmol/L POC VBG Base Excess (-2-3) mmol/L Sodium 133 L (135-145) mmol/L Potassium 4.3 (3.5-5.3) mmol/L Chloride 96 L (100-110) mmol/L Carbon Dioxide 31 (21-32) mmol/L BUN 12 (7-18) mg/dL Creatinine 0.7 (0.55-1.02) mg/dL Est Cr Clr Drug Dosing TNP Estimated GFR (MDRD) > 60 (>60) BUN/Creatinine Ratio 17.1 (9-20) Glucose 95 (80-116) mg/dL Calcium 9.8 (8.6-10.2) mg/dL Total Bilirubin 0.3 (0.1-1.3) mg/dL AST 19 (5-25) IU/L ALT 26 (12-36) U/L Alkaline Phosphatase 46 L (56-112) IU/L Troponin I < 0.017 L (<0.017-0.056) ng/mL C-Reactive Protein < 0.2 L (0.5-0.9) mg/dL NT-Pro-B Natriuret Pep 141 H (<=125) pg/mL Total Protein 7.5 (6.0-8.0) g/dL Albumin 4.4 (3.2-4.6) g/dL Globulin 3.1 g/dL Albumin/Globulin Ratio 1.4 05/24/18 Range/Units 17:00 WBC (4.5-12.0) X10-3/uL RBC (3.23-5.20) x10(6)uL Hgb (11.5-15.5) g/dL Hct (30.0-51.3) % MCV (80-96) fL MCH (27.7-33.6) pg MCHC (32.2-35.4) g/dL RDW (11.5-15.5) % Plt Count (125-369) X10(3)uL MPV (7.4-10.4) fL Neut % (Auto) (46-82) % Lymph % (Auto) (13-37) % [place] % (Auto) (4-12) % Eos % (Auto) (1.0-5.0) % Baso % (Auto) (0-2) % Neut # (Auto) (1.6-8.3) # Lymph # (Auto) (0.6-5.0) # [place] # (Auto) (0.0-1.3) # Eos # (Auto) (0.0-0.8) # Baso # (Auto) (0.0-0.2) # POC VBG pH 7.51 H (7.31-7.41) POC VBG pCO2 35.0 L (41-51) mmHG POC VBG HCO3 27.6 (23-28) mmol/L POC VBG Total CO2 29 (24-29) mmol/L POC VBG Base Excess 5 H (-2-3) mmol/L Sodium (135-145) mmol/L Potassium (3.5-5.3) mmol/L Chloride (100-110) mmol/L Carbon Dioxide (21-32) mmol/L BUN (7-18) mg/dL Creatinine (0.55-1.02) mg/dL Est Cr Clr Drug Dosing Estimated GFR (MDRD) (>60) BUN/Creatinine Ratio (9-20) Glucose (80-116) mg/dL Calcium (8.6-10.2) mg/dL Total Bilirubin (0.1-1.3) mg/dL AST (5-25) IU/L ALT (12-36) U/L Alkaline Phosphatase (56-112) IU/L Troponin I (<0.017-0.056) ng/mL C-Reactive Protein (0.5-0.9) mg/dL NT-Pro-B Natriuret Pep (<=125) pg/mL Total Protein (6.0-8.0) g/dL Albumin (3.2-4.6) g/dL Globulin g/dL Albumin/Globulin Ratio Meds: Medications Discontinued Medications Generic Name Dose Route Start Last Admin Trade Name Freq PRN Reason Stop Dose Admin Albuterol/Ipratropium 3 ml 03/10/18 16:10 Duoneb 3.0-0.5 Mg/3 Ml NEB 03/10/18 16:11 ONETIME ONE Methylprednisolone Sodium Succinate 125 mg 03/10/18 17:58 Solu-Medrol IVPUSH 03/10/18 17:59 ONETIME ONE - Re-Assessments/Exams Free Text/Narrative Re-Assessment/Exam: 03/10/18 18:02 CxR 2v is neg labs essentially neg, BNP inc'd slightly pt declined admission, insisted on going home, worried about her house and cost of co-pay pt did not want to take prednisone, says it makes her nauseated, did reluctantly agree to take prednisone PO with Zofran ODT here with food, does have Zofran ODT at home did sound better after Duoneb Departure - Departure Time of Disposition: 18:42 Disposition: Home, Self-Care 01 Condition: Fair Clinical Impression: COPD exacerbation, Nicotine dependence - Discharge Information Prescriptions: predniSONE 20 mg PO DAILY #6 tab Instructions: Chronic Obstructive Pulmonary Disease Exacerbation, Coping with Quitting Smoking Referrals: Wanda Gates, HOME CARE MANAGER [Primary Care Provider] - Forms: ED Department Discharge Additional Instructions: Take prednisone 20 mg 2 tabs tomorrow, then 1 tab daily for 4 more days. Continue Advair inhaler 2 times daily. Continue ProAir HFA 2 puffs every 4 hours while awake. See your doctor in 5 days. Return to ED if you are feeling worse. - My Orders Last 24 Hours: My Active Orders 03/10/18 16:09 EKG Documentation Completion [RC] ASDIRECTED Chest 2V [CR] Stat EKG 12 Lead [EK] Routine 03/10/18 16:10 RT Aerosol Therapy [RC] ASDIRECTED - Assessment/Plan Last 24 Hours: My Active Orders 03/10/18 16:09 EKG Documentation Completion [RC] ASDIRECTED Chest 2V [CR] Stat EKG 12 Lead [EK] Routine 03/10/18 16:10 RT Aerosol Therapy [RC] ASDIRECTED
[2018-03-10] MEDS ORDERED: methylPREDNISolone Sodium Succinate 125 MG/2 ML SDV IVPUSH ONE (17:58)
[2018-03-10] MEDS ORDERED: predniSONE 20 MG Tab PO ONE (18:17)
[2018-03-10] MEDS ORDERED: Metoclopramide 10 MG Tab PO ONE (18:18)
[2018-03-10] MEDS ORDERED: Albuterol/Ipratropium 3.0-0.5 MG/3 ML Neb Soln ONE (18:19)
[2018-03-10] MEDS ORDERED: Ondansetron 4 MG Tab.DIS PO ONE (18:28)
[2018-03-10 19:38] VITALS: BP 148/85
--- NOTE | 2018-03-11 13:24 | CR ---
INDICATION: Chest pain. CHEST: PA and lateral views of the chest were obtained 03/10/2018 and compared with 11/27/2015 and 06/07/2015, again revealing the heart to be within normal limits in size and shape. Calcification is noted in the arch of the aorta. Calcification is also noted in the area of the aortic valve. A definite active infiltrate or effusion was not identified. Diaphragm leaves are slightly flattened with mild hyperaeration and prominent AP diameter, all compatible with COPD. IMPRESSION: 1. No acute process, fairly stable appearance of the chest. 2. COPD. 3. ASD aorta. 4. Interval compression fracture at what appears to be T12 with vertebroplasty. T11 interval compression fracture is relatively mild at the superior and inferior end plates and also appears new, compared with 2016. Exact age is indeterminate. MTDD
== END 2018-03-10 19:40 | disposition home or self-care (01) ==
LOC: FB.ED 15:52
DX: J44.1 Chronic obstructive pulmonary disease with (acute) exacerbation (principal); F17.210 Nicotine dependence, cigarettes, uncomplicated; E78.00 Pure hypercholesterolemia, unspecified; I10 Essential (primary) hypertension; Z88.1 Allergy status to other antibiotic agents; Z91.011 Allergy to milk products; Z88.8 Allergy status to other drugs, medicaments and biological substances; Z91.010 Allergy to peanuts; Z91.012 Allergy to eggs; Z79.82 Long term (current) use of aspirin; Z79.899 Other long term (current) drug therapy
CPT/HCPCS: 36415; 71046; 80053; 82803; 83880; 84484; 85025; 86140; 93005; 94640; 99285; A9270; J7620

== ENCOUNTER 2018-04-06 18:52 | Emergency (ER) | payer MEDICARE, OTHER ==
[2018-04-06] MEDS: Hydrochlorothiazide 25 MG Tab PO ONE (19:42)
[2018-04-06] MEDS: Hydrochlorothiazide 12.5 MG Cap PO SCH (19:51)
[2018-04-06 20:23] VITALS: BP 158/65
--- NOTE | 2018-04-07 08:12 | ER ---
DATE SEEN: 04/06/2018 TIME SEEN: The patient was seen at 1920 hours. HISTORY OF PRESENT ILLNESS: The patient was seen in the clinic and she was noted to have high blood pressures of 203/93 and 196/91. The patient currently takes potassium chloride 20 mEq daily and diltiazem 120 mg daily for her hypertension now. The patient has associated headache and has a past medical history of hypertension and hiatus hernia. She is edentulous, has presbycusis, chronic obstructive lung disease, and coronary artery disease - she has had isosorbide and Imdur in the past. She has chronic pain, for which she uses gabapentin 600 mg q.i.d. and tramadol 50 mg q.6 hours; dyslipidemia, for which she takes lovastatin 20 mg daily; uses anticoagulants, Plavix 75 mg daily (I am not sure why she is taking this); and other psychiatric issues, using aripiprazole (Abilify 10 mg daily). MEDICATIONS: Other medications that the patient is on currently are: 1. For chronic obstructive lung disease, Advair 250/50. 2. Tizanidine, chronic pain, 4 mg daily. 3. Tramadol 50 mg q.6 hours. 4. Ranitidine 300 mg at bedtime for GERD. 5. Vaginal estrogens to support vaginal sonny in urethra, 0.5 g topical at bedtime. 6. Albuterol 2 puffs p.r.n. 7. Potassium chloride 20 mEq daily. 8. Zofran 4 mg oral dissolving tablet p.r.n. 9. Nitroglycerin p.r.n. 10.Imdur 60 mg daily. 11.Gabapentin 800 mg q.i.d. 12.Flonase for seasonal nasal allergies, 2 sprays each nostril daily. 13.Fenofibrate for healthy triglyceride 145 mg at bedtime. 14.Diltiazem 120 mg daily. 15.Dexlansoprazole (Dexilant) 60 mg daily. 16.Crestor 20 mg daily. 17.Colestipol 1 g b.i.d. 18.Clopidogrel 75 mg daily. 19.Aspirin daily 81 mg. ALLERGIES: She has multiple allergies. Peanuts; antibiotics; eggs; depression medicines cause tightness; Cipro, nausea and vomiting; trazodone; milk causes vomiting; fentanyl, hives; clindamycin, anaphylaxis; ceftriaxone, anaphylaxis. REVIEW OF SYSTEMS: HEENT: The patient wears glasses and has decreased hearing. Edentulous. CHEST: She has mild left axillary line chest wall discomfort. She denies recent trauma, falls, or lifting. There is a focal area of involvement (rib 10 midclavicular line). CONSTITUTIONAL/GASTROINTESTINAL: She denies syncope, near syncope, palpitations, diaphoresis, nausea, vomiting, or diarrhea. She has constipation of stools, but had a bowel movement with large pelvic stool now at the rectum. She denies hematochezia. GENITOURINARY: She denies kidney problems or urine incontinence. MUSCULOSKELETAL: She has slightly decreased strength. NEUROLOGICAL: She has MS, but has no recent exacerbation or recurrence of symptoms, currently is stable. She is not using any MS medication. PSYCHIATRIC: Depression. PHYSICAL EXAMINATION: VITAL SIGNS: Blood pressure 187/66, came down to 158/65; heart rate 65; respirations 16; and oxygen saturation between 98% and 95% on room air. Weight 54.4 kg, 21.3 kg/m2 of BMI. GENERAL: This asthenic woman has mild headache, 5/10, generalized. HEENT: Denies compromised vision, diplopia, change in vision, or floaters. Hearing is slightly decreased. Pharynx without abnormality. She is edentulous. Mucosa is moist. Uvula and tongue are midline. NECK: No bruits. No masses. No thyromegaly. Has mild tracheal tug (old smoker). LUNGS: Clear without rales, rhonchi, or wheezes. HEART: S1 and S2. No murmur. Chest wall with mild kyphosis. ABDOMEN: Soft. No guarding. No abdominal discomfort. Bowel sounds are slightly increased. No masses palpated in the abdomen. No hepatosplenomegaly. No CVA percussion tenderness. PELVIC/RECTAL: Not performed. She preferred I do not do a rectal because she said, "I hate those." EXTREMITIES: Lower extremities without abnormality. Muscle strength in the upper and lower extremities are normal. Deep tendon reflexes are hypoactive, but present in upper and lower extremities. NEUROLOGIC: Cranial nerves 2 through 12 are intact and oriented. Gait appropriate. LABORATORY FINDINGS: Sodium and chloride are low. Sodium 132, chloride 95, CO2 of 34, potassium 4.1 (takes potassium supplements), and alkaline phosphatase is low at 38. Complete metabolic panel is normal and magnesium 1.9. Urinalysis is normal. ASSESSMENT: 1. The patient has costochondritis in left 10th rib. It is readily reproducible. 2. Headache has relented as her pressure has gone down, spontaneously without any therapeutic intervention. 3. Transient hypertension. 4. History of constipation, but it seems to have stabilized. Plan, the patient will be using MiraLAX a scoop daily. 5. Blood pressures were slightly elevated at 203/96, 196/91, and 187/86, and came down to 158/65. PLAN: To use amlodipine 2.5 mg daily as a trial, perhaps increase in 1 to 3 weeks as needed. I initially thought to perhaps use hydrochlorothiazide, but with the low sodium and the low chloride, I did forego using hydrochlorothiazide. She is to follow up with doctor in a week or earlier if worse. /[id number] [place]
== END 2018-04-06 20:50 | disposition home or self-care (01) ==
LOC: FB.ED 18:52
DX: M94.0 Chondrocostal junction syndrome [Tietze] (principal); R51 Headache; I10 Essential (primary) hypertension; Z79.899 Other long term (current) drug therapy; Z79.82 Long term (current) use of aspirin; Z91.010 Allergy to peanuts; Z88.1 Allergy status to other antibiotic agents; Z91.012 Allergy to eggs
CPT/HCPCS: 36415; 80053; 81001; 83735; 85025; 99283; A9270-GY

== ENCOUNTER 2018-04-07 14:08 | Emergency (ER) | payer MEDICARE, OTHER, MEDICAID ==
[2018-04-07] MEDS ORDERED: Ondansetron 4 MG/2 ML SDV IVPUSH ONE (15:06)
[2018-04-07] MEDS ORDERED: Lactated Ringers 1,000 ML IV SCH (15:15)
[2018-04-07 17:27] VITALS: BP 155/68
--- NOTE | 2018-04-08 09:17 | ER ---
DATE SEEN: 04/07/2018 TIME SEEN: The patient was seen at 1420 hours. HISTORY OF PRESENT ILLNESS: Erendira Conti was seen yesterday for elevated blood pressure, headache, and her amlodipine was increased. She had a low sodium and chloride, and advised to put sodium chloride in her diet. Her potassium is normal. PAST MEDICAL HISTORY: Significant for presbycusis, edentulous, chronic obstructive lung disease, coronary artery disease, chronic pain, dyslipidemia, and use anticoagulants for the stent she has in her groin for atherosclerotic vascular disease, and hypertension. Today, she comes in because she had 4 episodes of diarrhea last night and 5 episodes of vomiting today. Feels weak and she has muscle aches. Yesterday, she had muscle aches, but the muscle aches today are more than yesterday. She has mild hypochloremia and hyponatremia. See previous medications listed in yesterday's chart. MEDICATIONS: Unchanged. ALLERGIES: As noted. Multiple. Cipro, trazodone, fentanyl, clindamycin, anaphylaxis; ceftriaxone, anaphylaxis; peanuts; eggs; and depression medicines cause tightness in her chest. PHYSICAL EXAMINATION: VITAL SIGNS: Blood pressure 140/44, heart rate 79, respirations 18, temperature 97. GENERAL: The patient is alert. HEENT: She is edentulous. The patient appears with angular features. Mucosa is dry. No cervical adenopathy. No thyromegaly. NECK: No masses in the neck. There is mild tracheal tug. LUNGS: Clear without rales, rhonchi, or wheezes. HEART: S1, S2. No murmur. No tachycardia. ABDOMEN: Soft. No guarding. No abdominal discomfort. Bowel sounds increased. No CVA or percussion tenderness. EXTREMITIES: Without edema. NEURO: She has deep tendon reflexes in upper and lower extremities (in spite of the fact she has multiple sclerosis) and cranial nerves 2 through 12 intact. Gait appropriate, not dizzy. LABORATORY DATA: Today's sodium is low, relatively unchanged from previous sodium, yesterday it was 132, today is 133; chloride today is 95, yesterday was 95; CO2 is 29 today, yesterday was 34; and potassium was 4.0. ASSESSMENT: The patient's weakness may be of several etiologies: 1. Could be secondary to multiple sclerosis. 2. Could be secondary to exacerbation. 3. Could be secondary to dehydration. 4. She has generalized muscle aches with activity. PLAN: Lactated Ringer's flush 1000 mL and the patient is still to increase the sodium chloride in her diet. See a doctor next week. It is possible that the patient's symptoms may in fact be an exacerbation of multiple sclerosis involving gastrointestinal tract causing GI symptoms. There is no evidence for constipation. No evidence for headache. No evidence for hypertension today and left costochondritis of 10th rib is minimally evident today and much improved from yesterday. She has a good response to amlodipine 2.5 mg trial. Yesterday, I wondered if we needed to start her on a higher dose of amlodipine, and I am glad I used the lower dose. /[id number] LS/MODL ADDENDUM: On 04/06/2018, the patient had placement of a vaginal pessary at 0810 hours in the morning in the clinic - prolapsed bladder/uterus. /[id number] LS/MODL
== END 2018-04-07 17:22 | disposition home or self-care (01) ==
LOC: FB.ED 14:08
DX: R53.1 Weakness (principal); M79.1 Myalgia; J44.9 Chronic obstructive pulmonary disease, unspecified; E78.5 Hyperlipidemia, unspecified; Z79.01 Long term (current) use of anticoagulants; Z88.1 Allergy status to other antibiotic agents; Z88.8 Allergy status to other drugs, medicaments and biological substances; Z91.010 Allergy to peanuts; Z91.012 Allergy to eggs
CPT/HCPCS: 36415; 80048; 96361; 96374; 99284; J2405; J7120; 99283

== ENCOUNTER 2018-04-14 00:29 | Emergency (ER) | payer MEDICARE, OTHER, MEDICAID ==
--- NOTE | 2018-04-14 01:42 | ER ---
DATE SEEN: 04/14/2018 TIME SEEN: 0100 hours. CHIEF COMPLAINT: Palpitations. HISTORY OF PRESENT ILLNESS: This is a 63-year-old female with palpitations that started tonight when she was talking to [facility] and they advised her to come in. She complains that the palpitations are described as skipping and mostly when she lays down. Denies any chest pain or shortness of breath. PAST MEDICAL HISTORY: She has a long history that includes but is not limited to COPD, narcotic dependence, GERD, atypical chest pain, back pain. CURRENT MEDICATIONS: Please see the nurse's notes. PHYSICAL EXAMINATION: GENERAL: She is afebrile and normotensive. ENT: Negative. NECK: Supple. CHEST: Clear. CARDIOVASCULAR: Normal. IMPRESSION: Anxiety. PLAN: EKG was done, was unremarkable. The patient was discharged home with reassurance. /[id number] [place]/FLACA
[2018-04-14 06:31] VITALS: BP 143/64
== END 2018-04-14 01:35 | disposition home or self-care (01) ==
LOC: FB.ED 00:29
DX: F41.9 Anxiety disorder, unspecified (principal); K21.9 Gastro-esophageal reflux disease without esophagitis; J44.9 Chronic obstructive pulmonary disease, unspecified
CPT/HCPCS: 99284

== ENCOUNTER 2018-04-16 13:13 | Emergency (ER) | payer MEDICARE, OTHER, MEDICAID ==
[2018-04-16] MEDS ORDERED: Ondansetron 8 MG Tab.DIS PO ONE (14:34)
[2018-04-16] MEDS ORDERED: Alum Hydroxide/Mag Hydroxide 15 ML, Lidocaine 2% 15 ML PO ONE ×2 (14:35)
[2018-04-16] MEDS ORDERED: hydrOXYzine HCl 50 MG/ML SDV IM ONE (16:06)
--- NOTE | 2018-04-16 16:08 | EDM.PDOC ---
ED HPI GENERAL MEDICAL PROBLEM - General Stated Complaint: HEADACHE CHILLS Time Seen by Provider: 04/16/18 16:06 Source of Information: Reports: Patient History Limitations: Reports: No Limitations - History of Present Illness INITIAL COMMENTS - FREE TEXT/NARRATIVE: 63 y.o.w.f -smoker- came to the ed due to minor mid upper discomfort, Pt had those symptoms before and was seen in this ED multiple time before. No Trauma, No dysuria, nausea, but no vomiting. No other acute medical issue. BP 135/79 Pulse ox 96 temp 97.7 pulse 79. Onset Date: 04/07/18 Onset Time: 08:00 Duration: Chronic, Intermittent Location: Reports: Abdomen Quality: Reports: Burning, Dull Severity: Mild Improves with: Reports: Rest Worsens with: Reports: Other (tobacco use), Movement Context: Reports: Other (chronic epigastric pain off/on) Associated Symptoms: Reports: Nausea/Vomiting - Related Data Allergies Allergy/AdvReac Type Severity Reaction Status Date / Time ceftriaxone sodium Allergy Anaphylactic Verified 04/16/18 13:31 [From Rocephin] Shock clindamycin Allergy Anaphylactic Verified 04/16/18 13:31 Shock fentanyl Allergy Hives Verified 04/16/18 13:31 Milk Containing Products Allergy Vomiting Verified 04/16/18 13:31 trazodone Allergy Other Verified 04/16/18 13:31 ciprofloxacin AdvReac Intermediate Nausea and Verified 04/16/18 13:31 Vomiting depression medications Allergy Airway Uncoded 04/14/18 06:08 Tightness eggs Allergy Nausea Uncoded 04/14/18 06:08 oral antibiotics Allergy Vomiting Uncoded 04/14/18 06:08 peanuts Allergy Hives Uncoded 04/14/18 06:08 Home Meds: Home Meds Dexlansoprazole [Dexilant] 60 mg PO DAILY 12/05/13 [History] Fenofibrate Nanocrystallized [Fenofibrate] 145 mg PO BEDTIME 12/05/13 [History] ARIPiprazole [Abilify] 10 mg PO DAILY 11/27/15 [History] Nitroglycerin [Nitrostat] 0.4 mg SL ASDIRECTED PRN #1 bot 11/27/15 [Rx] Rosuvastatin [Crestor] 20 mg PO Q48H 11/27/15 [History] Diltiazem HCl [Dilt-XR] 120 mg PO DAILY 04/01/16 [History] Aspirin 81 mg PO DAILY 10/07/16 [History] Gabapentin [Neurontin] 800 mg PO QID 10/07/16 [History] Ranitidine HCl [Ranitidine] 300 mg PO BEDTIME 10/07/16 [History] Clopidogrel [Plavix] 75 mg PO DAILY 11/06/16 [History] Isosorbide Mononitrate [Imdur] 60 mg PO DAILY 11/06/16 [History] Betamethasone Dipropionate [Diprosone 0.05% Oint] 1 applic TOP BID PRN 07/10/17 [History] Fluticasone Propionate [Flonase Allergy Relief] 2 spray NASBOTH DAILY 07/10/17 [ History] Ondansetron [Zofran ODT] 4 mg PO Q6H PRN 07/16/17 [History] Albuterol Sulfate [Proair Hfa] 2 puff INH Q4H PRN 02/12/18 [History] Calcium Carbonate [Calcium] 500 mg PO DAILY 04/06/18 [History] Fluticasone/Salmeterol [Advair 250-50] 1 puff PO BID 04/06/18 [History] Potassium Chloride 20 meq PO DAILY 04/06/18 [History] Simethicone 125 mg PO DAILY 04/06/18 [History] amLODIPine [Norvasc] 2.5 mg PO DAILY #30 tablet 04/06/18 [Rx] Past Medical History HEENT History: Reports: Glaucoma, Impaired Vision, Other (See Below) Other HEENT History: Choroidal nevus. Cardiovascular History: Reports: Angina, CAD, High Cholesterol, Hypertension, PVD, Syncope, Other (See Below) Other Cardiovascular History: Heart palpitations. DVT. PVD. Carotid bruitt. Respiratory History: Reports: COPD Other Respiratory History: Suffocating spells at night with SOB. Gastrointestinal History: Reports: GERD, Hiatal Hernia, Other (See Below) Other Gastrointestinal History: Bowel incontinence. Genitourinary History: Reports: Urinary Incontinence, Other (See Below) Other Genitourinary History: Urethral suspension with sling, later removed. Cystocopy. Bladder tumor. Overactive bladder. 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 Musculoskeletal History: Reports: Arthritis, Back Pain, Chronic, Other (See Below) Other Musculoskeletal History: Left knee torn miniscus. Right ankle and hip pain. Neurological History: Reports: CVA, MS, Other (See Below) Other Neuro History: Notices emotional/cognitive changes following a brain injury. Questionable MS diagnosis. 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 Endocrine/Metabolic History: Reports: None Hematologic History: Reports: Blood Transfusion(s) Immunologic History: Reports: None Oncologic (Cancer) History: Reports: Bladder, Brain, Malignant Melanoma, Other ( See Below) Other Oncologic History: Radiation, in remission. Dermatologic History: Reports: Eczema, Melanoma, Other (See Below) Other Dermatologic History: Melanoma on back. Eczema. - Infectious Disease History Infectious Disease History: Reports: Chicken Pox - Past Surgical History Head Surgeries/Procedures: Reports: None HEENT Surgical History: Reports: Other (See Below) Cardiovascular Surgical History: Reports: Other (See Below) Social & Family History - Family History Family Medical History: Noncontributory Cardiac: Reports: [place] - Caffeine Use Caffeine Use: Reports: Coffee, Soda Other Caffeine Use: 2 cups per day Caffeine Use Comment: Occassional coffee drinker. - Living Situation & Occupation Living situation: Reports: Single, Alone ED ROS GENERAL - Review of Systems Review Of Systems: See Below Constitutional: Reports: No Symptoms HEENT: Reports: No Symptoms Respiratory: Reports: No Symptoms Cardiovascular: Reports: No Symptoms Endocrine: Reports: No Symptoms GI/Abdominal: Reports: Abdominal Pain, Nausea : Reports: No Symptoms Musculoskeletal: Reports: No Symptoms Skin: Reports: No Symptoms Neurological: Reports: No Symptoms Psychiatric: Reports: No Symptoms Hematologic/Lymphatic: Reports: No Symptoms Immunologic: Reports: No Symptoms ED EXAM, GI/ABD - Physical Exam Exam: See Below Exam Limited By: No Limitations General Appearance: Alert, WD/WN, Mild Distress, Thin Eyes: Bilateral: Normal Appearance Ears: Normal External Exam Nose: Normal Inspection Throat/Mouth: Normal Lips, Normal Voice, No Airway Compromise Head: Atraumatic, Normocephalic Neck: Normal Inspection, Supple, Non-Tender, Full Range of Motion Respiratory/Chest: No Respiratory Distress, Lungs Clear, Normal Breath Sounds, No Accessory Muscle Use Cardiovascular: Normal Peripheral Pulses, Regular Rate, Rhythm, No Edema, No Gallop, No JVD, No Murmur, No Rub GI/Abdominal Exam: Normal Bowel Sounds, No Organomegaly, No Distention, No Abnormal Bruit, Tender (epigastric tenderness) (Female) Exam: Deferred Rectal (Female) Exam: Deferred Back Exam: Normal Inspection, Full Range of Motion Extremities: Normal Inspection, Normal Range of Motion, Non-Tender, No Pedal Edema, Normal Capillary Refill Neurological: Alert, Oriented, CN II-XII Intact, Normal Cognition, Normal Gait, No Motor/Sensory Deficits Psychiatric: Normal Affect, Normal Mood Skin Exam: Warm, Dry, Intact, Normal Color, No Rash Lymphatic: No Adenopathy Course - Vital Signs Text/Narrative:: 63 y.o.w.f -smoker- came to the ed due to minor mid upper discomfort, Pt had those symptoms before and was seen in this ED multiple time before. No Trauma, No dysuria, nausea, but no vomiting. No other acute medical issue. BP 135/79 Pulse ox 96 temp 97.7 pulse 79 PE: WNWD W F with epigastric discomfort Impression: Gastritis Tx: GI Char gamez Reexam: Improved some, requested to be discharged Plan: D/C with instructions - Orders/Labs/Meds Meds: Medications Discontinued Medications Generic Name Dose Route Start Last Admin Trade Name Freq PRN Reason Stop Dose Admin Al Hydroxide/Mg Hydroxide 15 0 ml 04/16/18 14:35 04/16/18 14:48 ml/ Lidocaine HCl 15 ml PO 04/16/18 14:36 30 ml ONETIME ONE Administration Hydroxyzine HCl 50 mg 04/16/18 16:06 04/16/18 17:16 Vistaril IM 04/16/18 16:07 Not Given ONETIME ONE Ondansetron HCl 8 mg 04/16/18 14:34 04/16/18 14:48 Zofran Odt PO 04/16/18 14:35 8 mg ONETIME ONE Administration Departure - Departure Time of Disposition: 16:44 Disposition: Home, Self-Care 01 Condition: Good Clinical Impression: Gastritis Qualifiers: Gastritis type: unspecified gastritis Chronicity: acute Gastritis bleeding: without bleeding Qualified Code(s): K29.00 - Acute gastritis without bleeding - Discharge Information Instructions: Nausea and Vomiting, Adult, [id number] Referrals: Wanda Gates, CASTING TESTER [Primary Care Provider] - Additional Instructions: Please cont your meds, please quit tobacco use, please f/u with your doctor please come back if your symptoms get worse acutely
[2018-04-16 18:29] VITALS: BP 141/84
== END 2018-04-16 16:54 | disposition home or self-care (01) ==
LOC: FB.ED 13:13
DX: K29.00 Acute gastritis without bleeding (principal); I10 Essential (primary) hypertension; Z88.8 Allergy status to other drugs, medicaments and biological substances; Z91.011 Allergy to milk products; Z91.018 Allergy to other foods; Z91.012 Allergy to eggs; Z79.899 Other long term (current) drug therapy
CPT/HCPCS: 99282; 99283; A9270-GY

== ENCOUNTER 2018-05-03 19:35 | Emergency (ER) | payer MEDICAID, MEDICARE ==
[2018-05-03] MEDS ORDERED: Dexamethasone 4 MG/ML SDV IVPUSH ONE (19:48)
[2018-05-03] MEDS ORDERED: Albuterol/Ipratropium 3.0-0.5 MG/3 ML Neb Soln NEB ONE (19:49)
[2018-05-03] MEDS ORDERED: Sodium Chloride 0.9% 10 ML Syringe FLUSH PRN (19:50)
--- NOTE | 2018-05-03 19:55 | EDM.PDOC ---
ED HPI GENERAL MEDICAL PROBLEM - General Chief Complaint: Respiratory Problem Stated Complaint: SHORT OF BREATH Time Seen by Provider: 05/03/18 19:52 Source of Information: Reports: Patient History Limitations: Reports: No Limitations - History of Present Illness INITIAL COMMENTS - FREE TEXT/NARRATIVE: Presents with shortness of breath x 2 days, denies cough or chest pain. History of COPD. Patient continues to smoke cigarettes. Onset Date: 05/02/18 Duration: Day(s): (2) - Related Data Allergies Allergy/AdvReac Type Severity Reaction Status Date / Time ceftriaxone sodium Allergy Anaphylactic Verified 04/16/18 13:31 [From Rocephin] Shock clindamycin Allergy Anaphylactic Verified 04/16/18 13:31 Shock fentanyl Allergy Hives Verified 04/16/18 13:31 Milk Containing Products Allergy Vomiting Verified 04/16/18 13:31 trazodone Allergy Other Verified 04/16/18 13:31 ciprofloxacin AdvReac Intermediate Nausea and Verified 04/16/18 13:31 Vomiting depression medications Allergy Airway Uncoded 04/14/18 06:08 Tightness eggs Allergy Nausea Uncoded 04/14/18 06:08 oral antibiotics Allergy Vomiting Uncoded 04/14/18 06:08 peanuts Allergy Hives Uncoded 04/14/18 06:08 Home Meds: Home Meds Dexlansoprazole [Dexilant] 60 mg PO DAILY 12/05/13 [History] Fenofibrate Nanocrystallized [Fenofibrate] 145 mg PO BEDTIME 12/05/13 [History] ARIPiprazole [Abilify] 10 mg PO DAILY 11/27/15 [History] Nitroglycerin [Nitrostat] 0.4 mg SL ASDIRECTED PRN #1 bot 11/27/15 [Rx] Rosuvastatin [Crestor] 20 mg PO Q48H 11/27/15 [History] Diltiazem HCl [Dilt-XR] 120 mg PO DAILY 04/01/16 [History] Aspirin 81 mg PO DAILY 10/07/16 [History] Gabapentin [Neurontin] 800 mg PO QID 10/07/16 [History] Ranitidine HCl [Ranitidine] 300 mg PO BEDTIME 10/07/16 [History] Clopidogrel [Plavix] 75 mg PO DAILY 11/06/16 [History] Isosorbide Mononitrate [Imdur] 60 mg PO DAILY 11/06/16 [History] Betamethasone Dipropionate [Diprosone 0.05% Oint] 1 applic TOP BID PRN 07/10/17 [History] Fluticasone Propionate [Flonase Allergy Relief] 2 spray NASBOTH DAILY 07/10/17 [ History] Ondansetron [Zofran ODT] 4 mg PO Q6H PRN 07/16/17 [History] Albuterol Sulfate [Proair Hfa] 2 puff INH Q4H PRN 02/12/18 [History] Calcium Carbonate [Calcium] 500 mg PO DAILY 04/06/18 [History] Fluticasone/Salmeterol [Advair 250-50] 1 puff PO BID 04/06/18 [History] Potassium Chloride 20 meq PO DAILY 04/06/18 [History] Simethicone 125 mg PO DAILY 04/06/18 [History] amLODIPine [Norvasc] 2.5 mg PO DAILY #30 tablet 04/06/18 [Rx] Past Medical History HEENT History: Reports: Glaucoma, Impaired Vision, Other (See Below) Other HEENT History: Choroidal nevus. Cardiovascular History: Reports: Angina, CAD, High Cholesterol, Hypertension, PVD, Syncope, Other (See Below) Other Cardiovascular History: Heart palpitations. DVT. PVD. Carotid bruitt. Respiratory History: Reports: COPD Other Respiratory History: Suffocating spells at night with SOB. Gastrointestinal History: Reports: GERD, Hiatal Hernia, Other (See Below) Other Gastrointestinal History: Bowel incontinence. Genitourinary History: Reports: Urinary Incontinence, Other (See Below) Other Genitourinary History: Urethral suspension with sling, later removed. Cystocopy. Bladder tumor. Overactive bladder. 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 Musculoskeletal History: Reports: Arthritis, Back Pain, Chronic, Other (See Below) Other Musculoskeletal History: Left knee torn miniscus. Right ankle and hip pain. Neurological History: Reports: CVA, MS, Other (See Below) Other Neuro History: Notices emotional/cognitive changes following a brain injury. Questionable MS diagnosis. 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 Endocrine/Metabolic History: Reports: None Hematologic History: Reports: Blood Transfusion(s) Immunologic History: Reports: None Oncologic (Cancer) History: Reports: Bladder, Brain, Malignant Melanoma, Other ( See Below) Other Oncologic History: Radiation, in remission. Dermatologic History: Reports: Eczema, Melanoma, Other (See Below) Other Dermatologic History: Melanoma on back. Eczema. - Infectious Disease History Infectious Disease History: Reports: Chicken Pox - Past Surgical History Head Surgeries/Procedures: Reports: None HEENT Surgical History: Reports: Other (See Below) Cardiovascular Surgical History: Reports: Other (See Below) Social & Family History - Family History Family Medical History: Noncontributory Cardiac: Reports: NC - Tobacco Use Smoking Status *Q: Current Every Day Smoker Tobacco Use Within Last Twelve Months: Cigarettes - Caffeine Use Caffeine Use: Reports: Coffee, Soda Other Caffeine Use: 2 cups per day Caffeine Use Comment: Occassional coffee drinker. - Living Situation & Occupation Living situation: Reports: Single, Alone ED ROS GENERAL - Review of Systems Review Of Systems: See Below Constitutional: Reports: No Symptoms HEENT: Reports: No Symptoms Respiratory: Reports: Shortness of Breath. Denies: Cough Cardiovascular: Reports: No Symptoms Endocrine: Reports: No Symptoms GI/Abdominal: Reports: No Symptoms : Reports: No Symptoms Musculoskeletal: Reports: No Symptoms Skin: Reports: No Symptoms Neurological: Reports: No Symptoms Psychiatric: Reports: No Symptoms Hematologic/Lymphatic: Reports: No Symptoms Immunologic: Reports: No Symptoms ED EXAM, GENERAL - Physical Exam Exam: See Below Exam Limited By: No Limitations General Appearance: Alert, WD/WN, No Apparent Distress Nose: Normal Inspection Throat/Mouth: Normal Inspection Head: Atraumatic, Normocephalic Neck: Full Range of Motion Respiratory/Chest: No Respiratory Distress, Decreased Breath Sounds, Wheezing Cardiovascular: Regular Rate, Rhythm, No Edema, No Gallop, No JVD, No Murmur, No Rub GI/Abdominal: No Distention Back Exam: Full Range of Motion Neurological: Alert, Oriented, Normal Cognition Psychiatric: Normal Affect, Normal Mood Skin Exam: Warm, Dry, Intact, Normal Color, No Rash EKG INTERPRETATION EKG Date: 05/03/18 Time: 20:03 Rhythm: NSR Rate (Beats/Min): 80 EKG Interpretation Comments: No acute ischemia Course - Orders/Labs/Meds Orders: Active Orders 24 hr Category Date Time Status EKG Documentation Completion [RC] ASDIRECTED Care 07/17/18 19:48 Active RT Aerosol Therapy [RC] ASDIRECTED Care 05/03/18 19:49 Active CXR [Chest 1V Frontal] [CR] Stat Exams 05/03/18 19:47 Taken Sodium Chloride 0.9% [Saline Flush] Med 05/03/18 19:50 Active 10 ml FLUSH ASDIRECTED PRN Saline Lock Insert [OM.PC] Routine Oth 05/03/18 19:50 Ordered EKG 12 Lead [EK] Routine Ther 05/03/18 19:47 Ordered Medication Orders Sodium Chloride (Saline Flush) 10 ml FLUSH ASDIRECTED PRN PRN Reason: Keep Vein Open Labs: Laboratory Tests 05/03/18 05/03/18 05/03/18 Range/Units 20:00 20:00 20:00 WBC 7.2 (4.5-12.0) X10-3/uL RBC 4.44 (3.23-5.20) x10(6)uL Hgb 13.1 (11.5-15.5) g/dL Hct 38.9 (30.0-51.3) % MCV 87.7 (80-96) fL MCH 29.5 (27.7-33.6) pg MCHC 33.6 (32.2-35.4) g/dL RDW 12.4 (11.5-15.5) % Plt Count 371 H (125-369) X10(3)uL MPV 7.3 L (7.4-10.4) fL Neut % (Auto) 64.7 (46-82) % Lymph % (Auto) 24.4 (13-37) % Smith % (Auto) 8.9 (4-12) % Eos % (Auto) 1 (1.0-5.0) % Baso % (Auto) 1 (0-2) % Neut # (Auto) 4.6 (1.6-8.3) # Lymph # (Auto) 1.8 (0.6-5.0) # Smith # (Auto) 0.6 (0.0-1.3) # Eos # (Auto) 0.1 (0.0-0.8) # Baso # (Auto) 0.1 (0.0-0.2) # ABG pH (7.35-7.45) ABG pCO2 (35-45) mmHg ABG pO2 (83-108) mmHg ABG HCO3 (22-26) mmol/L ABG O2 Saturation (96-97) % ABG Base Excess (-2-2) Vinh Test O2 Delivery Device Sodium 128 L (135-145) mmol/L Potassium 4.0 (3.5-5.3) mmol/L Chloride 90 L D (100-110) mmol/L Carbon Dioxide 33 H (21-32) mmol/L BUN 8 (7-18) mg/dL Creatinine 0.8 (0.55-1.02) mg/dL Est Cr Clr Drug Dosing TNP Estimated GFR (MDRD) > 60 (>60) BUN/Creatinine Ratio 10.0 (9-20) Glucose 100 (80-116) mg/dL Calcium 9.9 (8.6-10.2) mg/dL Troponin I < 0.017 L (<0.017-0.056) ng/mL 05/03/18 Range/Units 20:10 WBC (4.5-12.0) X10-3/uL RBC (3.23-5.20) x10(6)uL Hgb (11.5-15.5) g/dL Hct (30.0-51.3) % MCV (80-96) fL MCH (27.7-33.6) pg MCHC (32.2-35.4) g/dL RDW (11.5-15.5) % Plt Count (125-369) X10(3)uL MPV (7.4-10.4) fL Neut % (Auto) (46-82) % Lymph % (Auto) (13-37) % Smith % (Auto) (4-12) % Eos % (Auto) (1.0-5.0) % Baso % (Auto) (0-2) % Neut # (Auto) (1.6-8.3) # Lymph # (Auto) (0.6-5.0) # Smith # (Auto) (0.0-1.3) # Eos # (Auto) (0.0-0.8) # Baso # (Auto) (0.0-0.2) # ABG pH 7.42 (7.35-7.45) ABG pCO2 50 H (35-45) mmHg ABG pO2 64 L (83-108) mmHg ABG HCO3 32 H (22-26) mmol/L ABG O2 Saturation 92 L (96-97) % ABG Base Excess 6.3 H (-2-2) Vinh Test Passed O2 Delivery Device Room air Sodium (135-145) mmol/L Potassium (3.5-5.3) mmol/L Chloride (100-110) mmol/L Carbon Dioxide (21-32) mmol/L BUN (7-18) mg/dL Creatinine (0.55-1.02) mg/dL Est Cr Clr Drug Dosing Estimated GFR (MDRD) (>60) BUN/Creatinine Ratio (9-20) Glucose (80-116) mg/dL Calcium (8.6-10.2) mg/dL Troponin I (<0.017-0.056) ng/mL Meds: Medications Generic Name Dose Route Start Last Admin Trade Name Freq PRN Reason Stop Dose Admin Sodium Chloride 10 ml 05/03/18 19:50 Saline Flush FLUSH ASDIRECTED PRN Keep Vein Open Discontinued Medications Generic Name Dose Route Start Last Admin Trade Name Freq PRN Reason Stop Dose Admin Albuterol Confirm 05/03/18 20:22 Proventil Neb Soln Administered 05/03/18 20:23 Dose 2.5 mg .ROUTE .STK-MED ONE Albuterol 2.5 mg 05/03/18 20:25 Proventil Neb Soln NEB 05/03/18 20:26 ONETIME ONE Albuterol/Ipratropium 3 ml 05/03/18 19:49 Duoneb 3.0-0.5 Mg/3 Ml NEB 05/03/18 19:50 ONETIME ONE Dexamethasone 10 mg 05/03/18 19:48 Dexamethasone IVPUSH 05/03/18 19:49 ONETIME ONE Dexamethasone Confirm 05/03/18 20:30 Dexamethasone Administered 05/03/18 20:31 Dose 8 mg .ROUTE .STK-MED ONE - Radiology Interpretation Free Text/Narrative:: CXR: NAD - Re-Assessments/Exams Free Text/Narrative Re-Assessment/Exam: 05/03/18 20:49 "I feel 100% better" after Albuterol Neb and Decadron 10mg IV. Patient states she is unable to take oral steroids due to GI intolerance. Departure - Departure Time of Disposition: 20:53 Disposition: Home, Self-Care 01 Condition: Good Clinical Impression: COPD exacerbation - Discharge Information *PRESCRIPTION DRUG MONITORING PROGRAM REVIEWED*: No *COPY OF PRESCRIPTION DRUG MONITORING REPORT IN PATIENT ENA: Not Applicable Instructions: Chronic Obstructive Pulmonary Disease, [id number], How to Use a Metered Dose Inhaler Referrals: Wanda Gates, FORM MAKER PLASTER [Primary Care Provider] - Forms: ED Department Discharge Additional Instructions: Continue Albuterol inhaler using spacer. Follow up with your doctor in 1-2 days. Return to the ER if symptoms worsen. - My Orders Last 24 Hours: My Active Orders 05/03/18 19:47 CXR [Chest 1V Frontal] [CR] Stat EKG 12 Lead [EK] Routine 05/03/18 19:48 EKG Documentation Completion [RC] ASDIRECTED 05/03/18 19:49 RT Aerosol Therapy [RC] ASDIRECTED 05/03/18 19:50 Sodium Chloride 0.9% [Saline Flush] 10 ml FLUSH ASDIRECTED PRN Saline Lock Insert [OM.PC] Routine - Assessment/Plan Last 24 Hours: My Active Orders 05/03/18 19:47 CXR [Chest 1V Frontal] [CR] Stat EKG 12 Lead [EK] Routine 05/03/18 19:48 EKG Documentation Completion [RC] ASDIRECTED 05/03/18 19:49 RT Aerosol Therapy [RC] ASDIRECTED 05/03/18 19:50 Sodium Chloride 0.9% [Saline Flush] 10 ml FLUSH ASDIRECTED PRN Saline Lock Insert [OM.PC] Routine
[2018-05-03] MEDS ORDERED: Albuterol 0.083% 2.5 MG/3 ML Neb Soln ONE (20:22)
[2018-05-03] MEDS ORDERED: Albuterol 0.083% 2.5 MG/3 ML Neb Soln NEB ONE (20:25)
[2018-05-03] MEDS ORDERED: Dexamethasone 4 MG/ML SDV ONE (20:30)
[2018-05-04 02:52] VITALS: BP 148/64
--- NOTE | 2018-05-04 12:07 | CR ---
INDICATION: Short of breath. CHEST: A single AP upright portable view of the chest was obtained 05/03/2018 and was compared with 03/10/2018 and 11/27/2015. The lungs appear to be somewhat hyperaerated. A definite active infiltrate or effusion was not seen. Heart appeared normal in size and shape. The aorta is calcified in the arch area. Compared with the 03/10/2018 study, no significant interval change was suggested. Mild degree of dextroconvex scoliosis of the mid thoracic spine is noted. IMPRESSION: 1. Stable chest, no acute process. 2. Probable COPD but should be correlated clinically. 3. ASD aorta. 4. Mild degree of dextroconvex scoliosis of the mid thoracic spine is again noted. MTDD
== END 2018-05-03 21:25 | disposition home or self-care (01) ==
LOC: FB.ED 19:37
DX: J44.1 Chronic obstructive pulmonary disease with (acute) exacerbation (principal); E78.00 Pure hypercholesterolemia, unspecified; F17.210 Nicotine dependence, cigarettes, uncomplicated; Z88.1 Allergy status to other antibiotic agents; Z91.012 Allergy to eggs
CPT/HCPCS: 36415; 36600; 71045; 80048; 82803; 84484; 85025; 93005; 93010; 94640; 96374; 99284; 99285; J1100; J7050

== ENCOUNTER 2018-05-09 15:53 | Emergency (ER) | payer MEDICARE, MEDICAID ==
--- NOTE | 2018-05-09 16:42 | EDM.PDOC ---
ED HPI GENERAL MEDICAL PROBLEM - General Chief Complaint: Chest Pain Stated Complaint: CHEST PAIN Time Seen by Provider: 05/09/18 16:25 Source of Information: Reports: Patient, Old Records History Limitations: Reports: No Limitations - History of Present Illness INITIAL COMMENTS - FREE TEXT/NARRATIVE: Erendira comes to [facility] ED from the Clinic following sxs of anterior chest pains since this am. Pain is dull, nonradiating, and retrosternal. There is no palpitations, SOB, cough or back pain. She was also being evaluated for abdominal cramps and diarrhea, thought the result of MiraLax therapy for constipation. She is currently asx. - Related Data Allergies Allergy/AdvReac Type Severity Reaction Status Date / Time ceftriaxone sodium Allergy Anaphylactic Verified 05/09/18 16:20 [From Rocephin] Shock clindamycin Allergy Anaphylactic Verified 05/09/18 16:20 Shock fentanyl Allergy Hives Verified 05/09/18 16:20 Milk Containing Products Allergy Vomiting Verified 05/09/18 16:20 trazodone Allergy Other Verified 05/09/18 16:20 ciprofloxacin AdvReac Intermediate Nausea and Verified 05/09/18 16:20 Vomiting depression medications Allergy Airway Uncoded 05/04/18 03:25 Tightness eggs Allergy Nausea Uncoded 05/04/18 03:25 oral antibiotics Allergy Vomiting Uncoded 05/04/18 03:25 peanuts Allergy Hives Uncoded 05/04/18 03:25 Home Meds: Home Meds Dexlansoprazole [Dexilant] 60 mg PO DAILY 12/05/13 [History] Fenofibrate Nanocrystallized [Fenofibrate] 145 mg PO BEDTIME 12/05/13 [History] ARIPiprazole [Abilify] 10 mg PO DAILY 11/27/15 [History] Nitroglycerin [Nitrostat] 0.4 mg SL ASDIRECTED PRN #1 bot 11/27/15 [Rx] Rosuvastatin [Crestor] 20 mg PO Q48H 11/27/15 [History] Diltiazem HCl [Dilt-XR] 120 mg PO DAILY 04/01/16 [History] Aspirin 81 mg PO DAILY 10/07/16 [History] Gabapentin [Neurontin] 800 mg PO QID 10/07/16 [History] Ranitidine HCl [Ranitidine] 300 mg PO BEDTIME 10/07/16 [History] Clopidogrel [Plavix] 75 mg PO DAILY 11/06/16 [History] Isosorbide Mononitrate [Imdur] 60 mg PO DAILY 11/06/16 [History] Betamethasone Dipropionate [Diprosone 0.05% Oint] 1 applic TOP BID PRN 07/10/17 [History] Fluticasone Propionate [Flonase Allergy Relief] 2 spray NASBOTH DAILY 07/10/17 [ History] Ondansetron [Zofran ODT] 4 mg PO Q6H PRN 07/16/17 [History] Albuterol Sulfate [Proair Hfa] 2 puff INH Q4H PRN 02/12/18 [History] Calcium Carbonate [Calcium] 500 mg PO DAILY 04/06/18 [History] Fluticasone/Salmeterol [Advair 250-50] 1 puff PO BID 04/06/18 [History] Potassium Chloride 20 meq PO DAILY 04/06/18 [History] Simethicone 125 mg PO DAILY 04/06/18 [History] Losartan [Cozaar] 25 mg PO DAILY 05/04/18 [History] Past Medical History HEENT History: Reports: Glaucoma, Impaired Vision, Other (See Below) Other HEENT History: Choroidal nevus. Cardiovascular History: Reports: Angina, CAD, High Cholesterol, Hypertension, PVD, Syncope, Other (See Below) Other Cardiovascular History: Heart palpitations. DVT. PVD. Carotid bruitt. Respiratory History: Reports: COPD Other Respiratory History: Suffocating spells at night with SOB. Gastrointestinal History: Reports: GERD, Hiatal Hernia, Other (See Below) Other Gastrointestinal History: Bowel incontinence. Genitourinary History: Reports: Urinary Incontinence, Other (See Below) Other Genitourinary History: Urethral suspension with sling, later removed. Cystocopy. Bladder tumor. Overactive bladder. 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 Musculoskeletal History: Reports: Arthritis, Back Pain, Chronic, Other (See Below) Other Musculoskeletal History: Left knee torn miniscus. Right ankle and hip pain. Neurological History: Reports: CVA, MS, Other (See Below) Other Neuro History: Notices emotional/cognitive changes following a brain injury. Questionable MS diagnosis. Psychiatric History: Reports: Depression Other Psychiatric History: MEDICAL AGREEMENT FOR SKILLED NURSING MED USE. Endocrine/Metabolic History: Reports: None Hematologic History: Reports: Blood Transfusion(s) Immunologic History: Reports: None Oncologic (Cancer) History: Reports: Bladder, Brain, Malignant Melanoma, Other ( See Below) Other Oncologic History: Radiation, in remission. Dermatologic History: Reports: Eczema, Melanoma, Other (See Below) Other Dermatologic History: Melanoma on back. Eczema. - Infectious Disease History Infectious Disease History: Reports: Chicken Pox - Past Surgical History Head Surgeries/Procedures: Reports: None HEENT Surgical History: Reports: Other (See Below) Cardiovascular Surgical History: Reports: Other (See Below) Social & Family History - Family History Family Medical History: Noncontributory Cardiac: Reports: CT - Caffeine Use Caffeine Use: Reports: Coffee, Soda Other Caffeine Use: 2 cups per day Caffeine Use Comment: Occassional coffee drinker. - Living Situation & Occupation Living situation: Reports: Single, Alone ED ROS GENERAL - Review of Systems Review Of Systems: See Below Constitutional: Reports: Malaise HEENT: Reports: No Symptoms Respiratory: Reports: No Symptoms Cardiovascular: Reports: Chest Pain Endocrine: Reports: No Symptoms GI/Abdominal: Reports: Abdominal Pain (cramps), Diarrhea : Reports: No Symptoms Musculoskeletal: Reports: No Symptoms Skin: Reports: No Symptoms Neurological: Reports: No Symptoms Psychiatric: Reports: No Symptoms Hematologic/Lymphatic: Reports: No Symptoms Immunologic: Reports: No Symptoms ED EXAM, GENERAL - Physical Exam Exam: See Below Exam Limited By: No Limitations General Appearance: Alert, WD/WN, No Apparent Distress Head: Normocephalic Neck: Normal Inspection, Supple Respiratory/Chest: No Respiratory Distress, No Accessory Muscle Use, Decreased Breath Sounds, Crackles, Prolonged Expiration Cardiovascular: Regular Rate, Rhythm, No JVD, No Murmur GI/Abdominal: Normal Bowel Sounds, Soft, Non-Tender, No Organomegaly, No Distention, No Mass (Female) Exam: Deferred Rectal (Female) Exam: Deferred Back Exam: Normal Inspection Extremities: Normal Inspection, Normal Range of Motion, Non-Tender, No Pedal Edema Neurological: Alert, Oriented, CN II-XII Intact, No Motor/Sensory Deficits Psychiatric: Normal Affect, Normal Mood Skin Exam: Warm, Dry, Intact, Normal Color Lymphatic: No Adenopathy Course - Vital Signs Text/Narrative:: Erendira remained stable at the [facility] ED. Screening labs including ekg, Troponin I < 0.017 and d-dimer .26 were within normal limits. - Orders/Labs/Meds Labs: Laboratory Tests 05/09/18 05/09/18 05/09/18 Range/Units 16:50 16:50 16:50 WBC 9.7 (4.5-12.0) X10-3/uL RBC 4.14 (3.23-5.20) x10(6)uL Hgb 12.1 (11.5-15.5) g/dL Hct 36.4 (30.0-51.3) % MCV 88.0 (80-96) fL MCH 29.3 (27.7-33.6) pg MCHC 33.4 (32.2-35.4) g/dL RDW 12.9 (11.5-15.5) % Plt Count 368 (125-369) X10(3)uL MPV 7.2 L (7.4-10.4) fL Neut % (Auto) 65.0 (46-82) % Lymph % (Auto) 26.3 (13-37) % [place] % (Auto) 6.0 (4-12) % Eos % (Auto) 2 (1.0-5.0) % Baso % (Auto) 1 (0-2) % Neut # (Auto) 6.2 (1.6-8.3) # Lymph # (Auto) 2.5 (0.6-5.0) # [place] # (Auto) 0.6 (0.0-1.3) # Eos # (Auto) 0.2 (0.0-0.8) # Baso # (Auto) 0.1 (0.0-0.2) # D-Dimer, Quantitative 0.26 (0.0-0.59) mg/LFEU Sodium 136 (135-145) mmol/L Potassium 4.1 (3.5-5.3) mmol/L Chloride 98 L D (100-110) mmol/L Carbon Dioxide 34 H (21-32) mmol/L BUN 14 (7-18) mg/dL Creatinine 1.0 (0.55-1.02) mg/dL Est Cr Clr Drug Dosing TNP Estimated GFR (MDRD) 56 L (>60) BUN/Creatinine Ratio 14.0 (9-20) Glucose 92 (80-116) mg/dL Calcium 10.0 (8.6-10.2) mg/dL Troponin I (<0.017-0.056) ng/mL // Range/Units 16:50 WBC (4.5-12.0) X10-3/uL RBC (3.23-5.20) x10(6)uL Hgb (11.5-15.5) g/dL Hct (30.0-51.3) % MCV (80-96) fL MCH (27.7-33.6) pg MCHC (32.2-35.4) g/dL RDW (11.5-15.5) % Plt Count (125-369) X10(3)uL MPV (7.4-10.4) fL Neut % (Auto) (46-82) % Lymph % (Auto) (13-37) % [place] % (Auto) (4-12) % Eos % (Auto) (1.0-5.0) % Baso % (Auto) (0-2) % Neut # (Auto) (1.6-8.3) # Lymph # (Auto) (0.6-5.0) # [place] # (Auto) (0.0-1.3) # Eos # (Auto) (0.0-0.8) # Baso # (Auto) (0.0-0.2) # D-Dimer, Quantitative (0.0-0.59) mg/LFEU Sodium (135-145) mmol/L Potassium (3.5-5.3) mmol/L Chloride (100-110) mmol/L Carbon Dioxide (21-32) mmol/L BUN (7-18) mg/dL Creatinine (0.55-1.02) mg/dL Est Cr Clr Drug Dosing Estimated GFR (MDRD) (>60) BUN/Creatinine Ratio (9-20) Glucose (80-116) mg/dL Calcium (8.6-10.2) mg/dL Troponin I < 0.017 L (<0.017-0.056) ng/mL Departure - Departure Time of Disposition: 17:32 Disposition: Home, Self-Care 01 Condition: Good Clinical Impression: Atypical chest pain Instructions: Nonspecific Chest Pain, [id number] Referrals: Francisco Narayanan PA [Primary Care Provider] - Forms: ED Department Discharge Additional Instructions: activity as tolerated follow up with your primary care as needed - Problem List & Annotations (1) Atypical chest pain SNOMED Code(s): 649271276 Code(s): R07.89 - OTHER CHEST PAIN Status: Acute Current Visit: Yes Annotation/Comment:: Activity as tolerated. - Problem List Review Problem List Initiated/Reviewed/Updated: Yes - Assessment/Plan Plan: Follow up with PCP if needed.
[2018-05-09 18:32] VITALS: BP 155/65
== END 2018-05-09 17:34 | disposition home or self-care (01) ==
LOC: FB.ED 15:53
DX: R07.89 Other chest pain (principal); E78.00 Pure hypercholesterolemia, unspecified; I10 Essential (primary) hypertension; J44.9 Chronic obstructive pulmonary disease, unspecified; K21.9 Gastro-esophageal reflux disease without esophagitis; Z86.73 Personal history of transient ischemic attack (TIA), and cerebral infarction without residual deficits; Z88.1 Allergy status to other antibiotic agents; Z79.899 Other long term (current) drug therapy; Z91.012 Allergy to eggs; Z88.5 Allergy status to narcotic agent; Z79.82 Long term (current) use of aspirin
CPT/HCPCS: 36415; 80048; 84484; 85025; 85379; 93005; 99285

== ENCOUNTER 2018-06-30 16:03 | Emergency (ER) | payer MEDICARE, MEDICAID ==
[2018-06-30 16:35] VITALS: BP 157/56
[2018-06-30] MEDS ORDERED: Dexamethasone 4 MG/ML SDV IM ONE (16:37)
[2018-06-30] MEDS ORDERED: Albuterol 0.083% 2.5 MG/3 ML Neb Soln NEB ONE (16:37)
--- NOTE | 2018-06-30 16:41 | EDM.PDOC ---
ED HPI GENERAL MEDICAL PROBLEM - General Chief Complaint: Respiratory Problem Stated Complaint: CHEST PAIN,SOB Time Seen by Provider: 06/30/18 16:38 Source of Information: Reports: Patient History Limitations: Reports: No Limitations - History of Present Illness INITIAL COMMENTS - FREE TEXT/NARRATIVE: Presents with shortness of breath since this morning, no improvement after ProAir. +history of COPD, still smokes cigarettes. Has slight cough. Denies chest pain. Does not tolerate oral steroids. 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 Treatments - Related Data Allergies Allergy/AdvReac Type Severity Reaction Status Date / Time ceftriaxone sodium Allergy Anaphylactic Verified 05/09/18 16:20 [From Rocephin] Shock clindamycin Allergy Anaphylactic Verified 05/09/18 16:20 Shock fentanyl Allergy Hives Verified 05/09/18 16:20 Milk Containing Products Allergy Vomiting Verified 05/09/18 16:20 trazodone Allergy Other Verified 05/09/18 16:20 ciprofloxacin AdvReac Intermediate Nausea and Verified 05/09/18 16:20 Vomiting depression medications Allergy Airway Uncoded 05/04/18 03:25 Tightness eggs Allergy Nausea Uncoded 05/04/18 03:25 oral antibiotics Allergy Vomiting Uncoded 05/04/18 03:25 peanuts Allergy Hives Uncoded 05/04/18 03:25 Home Meds: Home Meds Dexlansoprazole [Dexilant] 60 mg PO DAILY 12/05/13 [History] Fenofibrate Nanocrystallized [Fenofibrate] 145 mg PO BEDTIME 12/05/13 [History] ARIPiprazole [Abilify] 10 mg PO DAILY 11/27/15 [History] Nitroglycerin [Nitrostat] 0.4 mg SL ASDIRECTED PRN #1 bot 11/27/15 [Rx] Rosuvastatin [Crestor] 20 mg PO Q48H 11/27/15 [History] Diltiazem HCl [Dilt-XR] 120 mg PO DAILY 04/01/16 [History] Aspirin 81 mg PO DAILY 10/07/16 [History] Gabapentin [Neurontin] 800 mg PO QID 10/07/16 [History] Ranitidine HCl [Ranitidine] 300 mg PO BEDTIME 10/07/16 [History] Clopidogrel [Plavix] 75 mg PO DAILY 11/06/16 [History] Isosorbide Mononitrate [Imdur] 60 mg PO DAILY 11/06/16 [History] Betamethasone Dipropionate [Diprosone 0.05% Oint] 1 applic TOP BID PRN 07/10/17 [History] Fluticasone Propionate [Flonase Allergy Relief] 2 spray NASBOTH DAILY 07/10/17 [ History] Ondansetron [Zofran ODT] 4 mg PO Q6H PRN 07/16/17 [History] Albuterol Sulfate [Proair Hfa] 2 puff INH Q4H PRN 02/12/18 [History] Calcium Carbonate [Calcium] 500 mg PO DAILY 04/06/18 [History] Fluticasone/Salmeterol [Advair 250-50] 1 puff PO BID 04/06/18 [History] Potassium Chloride 20 meq PO DAILY 04/06/18 [History] Simethicone 125 mg PO DAILY 04/06/18 [History] Losartan [Cozaar] 25 mg PO DAILY 05/04/18 [History] Albuterol [Proventil Neb Soln] 2.5 mg NEB Q4H PRN #30 vial 06/30/18 [Rx] Past Medical History HEENT History: Reports: Glaucoma, Impaired Vision, Other (See Below) Other HEENT History: Choroidal nevus. Cardiovascular History: Reports: Angina, CAD, High Cholesterol, Hypertension, PVD, Syncope, Other (See Below) Other Cardiovascular History: Heart palpitations. DVT. PVD. Carotid bruitt. Respiratory History: Reports: COPD Other Respiratory History: Suffocating spells at night with SOB. Gastrointestinal History: Reports: GERD, Hiatal Hernia, Other (See Below) Other Gastrointestinal History: Bowel incontinence. Genitourinary History: Reports: Urinary Incontinence, Other (See Below) Other Genitourinary History: Urethral suspension with sling, later removed. Cystocopy. Bladder tumor. Overactive bladder. 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 Musculoskeletal History: Reports: Arthritis, Back Pain, Chronic, Other (See Below) Other Musculoskeletal History: Left knee torn miniscus. Right ankle and hip pain. Neurological History: Reports: CVA, MS, Other (See Below) Other Neuro History: Notices emotional/cognitive changes following a brain injury. Questionable MS diagnosis. Psychiatric History: Reports: Depression Other Psychiatric History: MEDICAL AGREEMENT FOR [facility] MED USE. Endocrine/Metabolic History: Reports: None Hematologic History: Reports: Blood Transfusion(s) Immunologic History: Reports: None Oncologic (Cancer) History: Reports: Bladder, Brain, Malignant Melanoma, Other ( See Below) Other Oncologic History: Radiation, in remission. Dermatologic History: Reports: Eczema, Melanoma, Other (See Below) Other Dermatologic History: Melanoma on back. Eczema. - Infectious Disease History Infectious Disease History: Reports: Chicken Pox - Past Surgical History Head Surgeries/Procedures: Reports: None HEENT Surgical History: Reports: Other (See Below) Cardiovascular Surgical History: Reports: Other (See Below) Social & Family History - Family History Family Medical History: Noncontributory Cardiac: Reports: [place] - Tobacco Use Smoking Status *Q: Current Every Day Smoker Tobacco Use Within Last Twelve Months: Cigarettes - Caffeine Use Caffeine Use: Reports: Coffee, Soda Other Caffeine Use: 2 cups per day Caffeine Use Comment: Occassional coffee drinker. - Living Situation & Occupation Living situation: Reports: Single, Alone ED ROS GENERAL - Review of Systems Review Of Systems: ROS reveals no pertinent complaints other than HPI. ED EXAM, GENERAL - Physical Exam Exam: See Below Exam Limited By: No Limitations General Appearance: Alert, WD/WN Ears: Normal External Exam Nose: Normal Inspection Throat/Mouth: No Airway Compromise Head: Atraumatic, Normocephalic Neck: Supple, Full Range of Motion Respiratory/Chest: No Respiratory Distress, Decreased Breath Sounds, Wheezing ( few expiratory) Cardiovascular: Regular Rate, Rhythm, No Edema, No Murmur, No Rub GI/Abdominal: No Distention Rectal (Female) Exam: Deferred Back Exam: Full Range of Motion Extremities: Normal Range of Motion Neurological: Alert, Oriented, Normal Cognition, No Motor/Sensory Deficits Psychiatric: Normal Affect, Normal Mood Skin Exam: Warm, Dry, Intact, Normal Color, No Rash Course - Vital Signs Last Recorded V/S: Last Vital Signs Temp 36.9 C 06/30/18 16:15 Pulse 79 06/30/18 16:15 Resp 22 H 06/30/18 16:15 BP 157/56 H 06/30/18 16:15 Pulse Ox 97 06/30/18 16:15 - Orders/Labs/Meds Orders: Active Orders 24 hr Category Date Time Status RT Aerosol Therapy [RC] ASDIRECTED Care 06/30/18 16:38 Active CXR [Chest 2V] [CR] Stat Exams 06/30/18 16:38 Taken Meds: Medications Discontinued Medications Generic Name Dose Route Start Last Admin Trade Name Freq PRN Reason Stop Dose Admin Albuterol 2.5 mg 06/30/18 16:37 06/30/18 16:58 Proventil Neb Soln NEB 06/30/18 16:38 2.5 mg ONETIME ONE Administration Dexamethasone 10 mg 06/30/18 16:37 06/30/18 16:58 Dexamethasone IM 06/30/18 16:38 10 mg ONETIME ONE Administration - Radiology Interpretation Free Text/Narrative:: CXR: NAD - Re-Assessments/Exams Free Text/Narrative Re-Assessment/Exam: 06/30/18 17:11 Patient feels better after Albuterol Neb. Wheezes have cleared on re- examination. Departure - Departure Time of Disposition: 17:11 Disposition: Home, Self-Care 01 Condition: Good Clinical Impression: COPD exacerbation - Discharge Information *PRESCRIPTION DRUG MONITORING PROGRAM REVIEWED*: No *COPY OF PRESCRIPTION DRUG MONITORING REPORT IN PATIENT ENA: Not Applicable Prescriptions: Albuterol [Proventil Neb Soln] 2.5 mg NEB Q4H PRN #30 vial PRN Reason: Shortness Of Breath Instructions: Chronic Obstructive Pulmonary Disease, [id number] Referrals: Francisco Narayanan PA [Primary Care Provider] - Forms: ED Department Discharge Additional Instructions: Use your albuterol nebulizer or inhaler as needed. Follow up with your doctor in 2 days. Return to the ER if symptoms worsen. - Problem List & Annotations (1) COPD exacerbation SNOMED Code(s): 449485273 Code(s): J44.1 - CHRONIC OBSTRUCTIVE PULMONARY DISEASE W (ACUTE) EXACERBATION Status: Acute Current Visit: Yes - My Orders Last 24 Hours: My Active Orders 06/30/18 16:38 RT Aerosol Therapy [RC] ASDIRECTED CXR [Chest 2V] [CR] Stat - Assessment/Plan Last 24 Hours: My Active Orders 06/30/18 16:38 RT Aerosol Therapy [RC] ASDIRECTED CXR [Chest 2V] [CR] Stat
--- NOTE | 2018-07-01 13:03 | CR ---
INDICATION: Short of breath. CHEST: PA and lateral views of the chest were obtained 06/30/2018 and compared with 05/03/2018 and 03/10/2018. An osteoporotic compression fracture with vertebroplasty is noted at T12, as previously. Also noted is a mild dextroconvex scoliosis at the thoracolumbar spine, as previously. Prominent AP diameter and mild hyperaeration raise question of COPD - correlate clinically. A definite active infiltrate or effusion was not identified, although interstitial markings are slightly prominent, but were also prominent previously and may represent fibrosis. No definite evidence of CHF is seen. The heart is slightly prominent in size. The aorta is calcified slightly in the arch area. IMPRESSION: 1. Fairly stable appearance of the chest, no definite acute process. 2. Probable COPD. 3. Osteoporosis with old vertebroplasty at T12. Also noted is a mild dextroconvex scoliosis at the thoracolumbar spine, as previously. 4. ASD aorta. The heart is near the upper limits of normal in size but felt to be within normal limits at this time. MTDD
== END 2018-06-30 17:40 | disposition home or self-care (01) ==
LOC: FB.ED 16:03
DX: J44.1 Chronic obstructive pulmonary disease with (acute) exacerbation (principal); F17.210 Nicotine dependence, cigarettes, uncomplicated; E78.00 Pure hypercholesterolemia, unspecified; I10 Essential (primary) hypertension; K21.9 Gastro-esophageal reflux disease without esophagitis; Z88.1 Allergy status to other antibiotic agents; Z88.8 Allergy status to other drugs, medicaments and biological substances; Z91.012 Allergy to eggs; Z79.899 Other long term (current) drug therapy; Z79.82 Long term (current) use of aspirin
CPT/HCPCS: 71046; 94640; 96372; 99284; J1100

== ENCOUNTER 2018-12-12 18:32 | Emergency (ER) | payer MEDICARE, MEDICAID ==
[2018-12-12] MEDS ORDERED: Alum Hydroxide/Mag Hydroxide 15 ML, Lidocaine 2% 15 ML PO ONE ×2 (18:42)
--- NOTE | 2018-12-12 18:43 | EDM.PDOC ---
ED HPI GENERAL MEDICAL PROBLEM - General Stated Complaint: HPB Time Seen by Provider: 12/12/18 18:32 Source of Information: Reports: Patient History Limitations: Reports: No Limitations - History of Present Illness INITIAL COMMENTS - FREE TEXT/NARRATIVE: 63 y.o.w.f with multiple ED visits, came to the ed with some discomfort at her mid upper abd. after she ate to lunch. No N/V/D no dizziness, did not take meds EVP no other acute medical issues. BP 144/77 RR 18 Pulse ox 96% on RA Temp 37.0 Pulse 89. Onset Date: 12/12/18 Onset Time: 15:00 Duration: Hour(s):, Intermittent, Improving Location: Reports: Abdomen Quality: Reports: Burning Severity: Mild Improves with: Reports: None Worsens with: Reports: None Context: Reports: Other Associated Symptoms: Reports: No Other Symptoms - Related Data Allergies Allergy/AdvReac Type Severity Reaction Status Date / Time ceftriaxone sodium Allergy Anaphylactic Verified 12/12/18 18:54 [From Rocephin] Shock clindamycin Allergy Anaphylactic Verified 12/12/18 18:54 Shock fentanyl Allergy Hives Verified 12/12/18 18:54 Milk Containing Products Allergy Vomiting Verified 12/12/18 18:54 trazodone Allergy Other Verified 12/12/18 18:54 ciprofloxacin AdvReac Intermediate Nausea and Verified 12/12/18 18:54 Vomiting depression medications Allergy Airway Uncoded 10/09/18 12:11 Tightness eggs Allergy Nausea Uncoded 10/09/18 12:11 oral antibiotics Allergy Vomiting Uncoded 10/09/18 12:11 peanuts Allergy Hives Uncoded 10/09/18 12:11 Home Meds: Home Meds Dexlansoprazole [Dexilant] 60 mg PO DAILY 12/05/13 [History] Fenofibrate Nanocrystallized [Fenofibrate] 145 mg PO BEDTIME 12/05/13 [History] Nitroglycerin [Nitrostat] 0.4 mg SL ASDIRECTED PRN #1 bot 11/27/15 [Rx] Rosuvastatin [Crestor] 20 mg PO Q48H 11/27/15 [History] Diltiazem HCl [Dilt-XR] 120 mg PO BEDTIME 04/01/16 [History] Aspirin 81 mg PO DAILY 10/07/16 [History] Gabapentin [Neurontin] 800 mg PO QID 10/07/16 [History] Clopidogrel [Plavix] 75 mg PO DAILY 11/06/16 [History] Isosorbide Mononitrate [Imdur] 60 mg PO DAILY 11/06/16 [History] Fluticasone Propionate [Flonase Allergy Relief] 2 spray NASBOTH DAILY 07/10/17 [ History] Ondansetron [Zofran ODT] 4 mg PO Q6H PRN 07/16/17 [History] Albuterol Sulfate [Proair Hfa] 2 puff INH Q4H PRN 02/12/18 [History] Calcium Carbonate [Calcium] 500 mg PO DAILY 04/06/18 [History] Potassium Chloride 20 meq PO DAILY 04/06/18 [History] Budesonide [Pulmicort] 0.25 mg INH BID #1 ml 10/02/18 [Rx] Hyoscyamine [Levsin] 0.125 mg PO BID PRN 10/09/18 [History] Past Medical History HEENT History: Reports: Glaucoma, Impaired Vision, Other (See Below) Other HEENT History: Choroidal nevus. Cardiovascular History: Reports: Angina, CAD, High Cholesterol, Hypertension, PVD, Syncope, Other (See Below) Other Cardiovascular History: Heart palpitations. DVT. PVD. Carotid bruitt. Respiratory History: Reports: COPD Other Respiratory History: Suffocating spells at night with SOB. Gastrointestinal History: Reports: GERD, Hiatal Hernia, Other (See Below) Other Gastrointestinal History: Bowel incontinence. Genitourinary History: Reports: Urinary Incontinence, Other (See Below) Other Genitourinary History: Urethral suspension with sling, later removed. Cystocopy. Bladder tumor. Overactive bladder. 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 Musculoskeletal History: Reports: Arthritis, Back Pain, Chronic, Other (See Below) Other Musculoskeletal History: Left knee torn miniscus. Right ankle and hip pain. Neurological History: Reports: CVA, MS, Other (See Below) Other Neuro History: Notices emotional/cognitive changes following a brain injury. Questionable MS diagnosis. Psychiatric History: Reports: Depression Other Psychiatric History: MEDICAL AGREEMENT FOR DETENTION MED USE. Endocrine/Metabolic History: Reports: None Hematologic History: Reports: Blood Transfusion(s) Immunologic History: Reports: None Oncologic (Cancer) History: Reports: Bladder, Brain, Malignant Melanoma, Other ( See Below) Other Oncologic History: Radiation, in remission. Dermatologic History: Reports: Eczema, Melanoma, Other (See Below) Other Dermatologic History: Melanoma on back. Eczema. - Infectious Disease History Infectious Disease History: Reports: Chicken Pox - Past Surgical History Head Surgeries/Procedures: Reports: None HEENT Surgical History: Reports: Other (See Below) Cardiovascular Surgical History: Reports: Other (See Below) Social & Family History - Family History Family Medical History: Noncontributory Cardiac: Reports: [place] - Caffeine Use Caffeine Use: Reports: None Other Caffeine Use: 2 cups per day Caffeine Use Comment: Occassional coffee drinker. - Living Situation & Occupation Living situation: Reports: Single, Alone ED ROS GENERAL - Review of Systems Review Of Systems: See Below Constitutional: Reports: No Symptoms HEENT: Reports: No Symptoms Respiratory: Reports: No Symptoms Cardiovascular: Reports: No Symptoms Endocrine: Reports: No Symptoms GI/Abdominal: Reports: Abdominal Pain (epigastric discomfort) : Reports: No Symptoms Musculoskeletal: Reports: No Symptoms Skin: Reports: No Symptoms Neurological: Reports: No Symptoms Psychiatric: Reports: No Symptoms Hematologic/Lymphatic: Reports: No Symptoms Immunologic: Reports: No Symptoms ED EXAM, GI/ABD - Physical Exam Exam: See Below Exam Limited By: No Limitations General Appearance: Alert, WD/WN, Mild Distress Eyes: Bilateral: Normal Appearance Ears: Normal External Exam Nose: Normal Inspection Throat/Mouth: Normal Lips, Normal Voice, No Airway Compromise Head: Atraumatic, Normocephalic Neck: Normal Inspection Respiratory/Chest: No Respiratory Distress, Lungs Clear, Normal Breath Sounds Cardiovascular: Normal Peripheral Pulses, Regular Rate, Rhythm, No Edema, No Gallop GI/Abdominal Exam: Normal Bowel Sounds, Soft, Tender (minor epigastric tenderness) (Female) Exam: Deferred Rectal (Female) Exam: Deferred Back Exam: Normal Inspection, Full Range of Motion Extremities: Normal Inspection, Normal Range of Motion, Non-Tender, No Pedal Edema Neurological: Alert, Oriented, CN II-XII Intact, Normal Cognition, Normal Gait Psychiatric: Normal Affect, Normal Mood Skin Exam: Warm, Dry, Intact, Normal Color, No Rash Lymphatic: No Adenopathy Course - Vital Signs Text/Narrative:: 63 y.o.w.f with multiple ED visits, came to the ed with some discomfort at her mid upper abd. after she ate to lunch. No N/V/D no dizziness, did not take meds EVP no other acute medical issues. BP 144/77 RR 18 Pulse ox 96% on RA Temp 37.0 Pulse 89. PE: WNWDW F with epigastric discomfort Impression: Multiple visits, epigastric discomfort Tx: GI cocktail Reexam: No improvement> Pt refused vehemently further W/U. stating, she wants to go home and see how it goes Plan: D/C with instructions Last Recorded V/S: Last Vital Signs Temp 37.0 C 12/12/18 18:44 Pulse 89 12/12/18 18:44 Resp 18 12/12/18 18:44 BP 144/70 H 12/12/18 18:44 Pulse Ox - Orders/Labs/Meds Meds: Medications Discontinued Medications Generic Name Dose Route Start Last Admin Trade Name Freq PRN Reason Stop Dose Admin Al Hydroxide/Mg Hydroxide 15 0 ml 12/12/18 18:42 12/12/18 18:51 ml/ Lidocaine HCl 15 ml PO 12/12/18 18:43 15 ml ONETIME ONE Administration Departure - Departure Time of Disposition: 19:27 Disposition: Home, Self-Care 01 Condition: Good Clinical Impression: Gastritis Qualifiers: Gastritis type: unspecified gastritis Chronicity: acute Gastritis bleeding: without bleeding Qualified Code(s): K29.00 - Acute gastritis without bleeding - Discharge Information Referrals: Francisco Narayanan PA [Primary Care Provider] - Forms: ED Department Discharge Additional Instructions: Please cont your meds, please f/u with your PMD, please come back if your symptoms get worse acutely
[2018-12-12 19:13] VITALS: BP 144/70
== END 2018-12-12 19:30 | disposition home or self-care (01) ==
LOC: FB.ED 18:32
DX: K29.00 Acute gastritis without bleeding (principal); I10 Essential (primary) hypertension; E78.00 Pure hypercholesterolemia, unspecified; K21.9 Gastro-esophageal reflux disease without esophagitis; F32.9 Major depressive disorder, single episode, unspecified; Z79.82 Long term (current) use of aspirin; Z79.899 Other long term (current) drug therapy; Z88.1 Allergy status to other antibiotic agents; Z91.012 Allergy to eggs; Z91.010 Allergy to peanuts; Z88.8 Allergy status to other drugs, medicaments and biological substances
CPT/HCPCS: 99284; A9270; 99282

== ENCOUNTER 2018-12-22 11:44 | Observation (INO) | payer MEDICARE, OTHER ==
[2018-12-22] MEDS ORDERED: Albuterol/Ipratropium 3.0-0.5 MG/3 ML Neb Soln NEB ONE (12:27)
[2018-12-22] MEDS ORDERED: predniSONE 20 MG Tab PO ONE (12:28)
[2018-12-22] MEDS ORDERED: Pantoprazole 40 MG Tab.CR PO STA (12:30)
--- NOTE | 2018-12-22 12:31 | EDM.PDOC ---
ED HPI GENERAL MEDICAL PROBLEM - General Chief Complaint: Chest Pain Stated Complaint: SOB CHEST HEAVINESS Time Seen by Provider: 12/22/18 11:44 Source of Information: Reports: Patient History Limitations: Reports: No Limitations - History of Present Illness INITIAL COMMENTS - FREE TEXT/NARRATIVE: 63 y.o.w.f with COPD, frequent visits to this ED with various medical issues, [facility] for epigastric pain and was transferred to the ED because of SOB. Pt could talk full word sentences. She says, she can walk short distances only because SOB. She has a breathing machine at home using Albuterol. Any steroid makes her to vomit. She complains of chronic epigastric pain, which is getting some times worse, no CP. No N/V/D, no Dizziness or any other acute medical issues. BP 160/64 RR 18 Pulse ox 90 on RA Temp 36.7 Pulse 70 Onset: Unknown/Unsure Onset Date: 12/16/18 Onset Time: 06:00 Duration: Day(s):, Week(s):, Chronic, Intermittent Location: Reports: Chest (SOB), Abdomen (epigastric pain) Quality: Reports: Burning, Dull, Pressure Severity: Moderate Improves with: Reports: None Worsens with: Reports: None Context: Reports: Other Associated Symptoms: Reports: Shortness of Breath Midsternal chest pressure Pain Score (Numeric/FACES): 5 - Related Data Allergies Allergy/AdvReac Type Severity Reaction Status Date / Time ceftriaxone sodium Allergy Anaphylactic Verified 12/12/18 18:54 [From Rocephin] Shock clindamycin Allergy Anaphylactic Verified 12/12/18 18:54 Shock fentanyl Allergy Hives Verified 12/12/18 18:54 Milk Containing Products Allergy Vomiting Verified 12/12/18 18:54 trazodone Allergy Other Verified 12/12/18 18:54 ciprofloxacin AdvReac Intermediate Nausea and Verified 12/12/18 18:54 Vomiting .steroids Allergy Nausea Uncoded 12/22/18 12:42 depression medications Allergy Airway Uncoded 10/09/18 12:11 Tightness eggs Allergy Nausea Uncoded 10/09/18 12:11 oral antibiotics Allergy Vomiting Uncoded 10/09/18 12:11 peanuts Allergy Hives Uncoded 10/09/18 12:11 Home Meds: Home Meds Dexlansoprazole [Dexilant] 60 mg PO DAILY 12/05/13 [History] Fenofibrate Nanocrystallized [Fenofibrate] 145 mg PO BEDTIME 12/05/13 [History] Nitroglycerin [Nitrostat] 0.4 mg SL ASDIRECTED PRN #1 bot 11/27/15 [Rx] Rosuvastatin [Crestor] 20 mg PO Q48H 11/27/15 [History] Diltiazem HCl [Dilt-XR] 120 mg PO BEDTIME 04/01/16 [History] Aspirin 81 mg PO 1800 10/07/16 [History] Gabapentin [Neurontin] 800 mg PO QID 10/07/16 [History] Clopidogrel [Plavix] 75 mg PO 1200 11/06/16 [History] Isosorbide Mononitrate [Imdur] 30 mg PO DAILY 11/06/16 [History] Fluticasone Propionate [Flonase Allergy Relief] 2 spray NASBOTH DAILY 07/10/17 [ History] Ondansetron [Zofran ODT] 4 mg PO Q6H PRN 07/16/17 [History] Albuterol Sulfate [Proair Hfa] 2 puff INH Q4H PRN 02/12/18 [History] Potassium Chloride 20 meq PO 1200 04/06/18 [History] Albuterol/Ipratropium [DuoNeb 3.0-0.5 MG/3 ML] 3 ml NEB Q6H PRN neb 12/23/18 [ Rx] Calcium Carbonate/Vitamin D3 [Calcium 500 + Vit D Caplet] 3 tab PO DAILY [History] Cholecalciferol (Vitamin D3) [Vitamin D3] 1,200 unit PO DAILY 12/23/18 [History] Past Medical History HEENT History: Reports: Glaucoma, Impaired Vision, Other (See Below) Other HEENT History: Choroidal nevus. Cardiovascular History: Reports: Angina, CAD, High Cholesterol, Hypertension, PVD, Syncope, Other (See Below) Other Cardiovascular History: Heart palpitations. DVT. PVD. Carotid bruitt. Respiratory History: Reports: COPD Other Respiratory History: Suffocating spells at night with SOB. Gastrointestinal History: Reports: GERD, Hiatal Hernia, Other (See Below) Other Gastrointestinal History: Bowel incontinence. Genitourinary History: Reports: Urinary Incontinence, Other (See Below) Other Genitourinary History: Urethral suspension with sling, later removed. Cystocopy. Bladder tumor. Overactive bladder. 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 Musculoskeletal History: Reports: Arthritis, Back Pain, Chronic, Other (See Below) Other Musculoskeletal History: Left knee torn miniscus. Right ankle and hip pain. Neurological History: Reports: CVA, MS, Other (See Below) Other Neuro History: Notices emotional/cognitive changes following a brain injury. Questionable MS diagnosis. Psychiatric History: Reports: Depression Other Psychiatric History: MEDICAL AGREEMENT FOR LONGTERM MED USE. Endocrine/Metabolic History: Reports: None Hematologic History: Reports: Blood Transfusion(s) Immunologic History: Reports: None Oncologic (Cancer) History: Reports: Bladder, Brain, Malignant Melanoma, Other ( See Below) Other Oncologic History: Radiation, in remission. Dermatologic History: Reports: Eczema, Melanoma, Other (See Below) Other Dermatologic History: Melanoma on back. Eczema. - Infectious Disease History Infectious Disease History: Reports: Chicken Pox - Past Surgical History Head Surgeries/Procedures: Reports: None HEENT Surgical History: Reports: Other (See Below) Cardiovascular Surgical History: Reports: Other (See Below) Social & Family History - Family History Family Medical History: Noncontributory Cardiac: Reports: [place] - Caffeine Use Caffeine Use: Reports: None Other Caffeine Use: 2 cups per day Caffeine Use Comment: Occassional coffee drinker. - Living Situation & Occupation Living situation: Reports: Single, Alone ED ROS GENERAL - Review of Systems Review Of Systems: See Below Constitutional: Reports: No Symptoms HEENT: Reports: No Symptoms Respiratory: Reports: Shortness of Breath Cardiovascular: Reports: No Symptoms Endocrine: Reports: No Symptoms GI/Abdominal: Reports: Abdominal Pain (epigastric) : Reports: No Symptoms Musculoskeletal: Reports: No Symptoms Skin: Reports: No Symptoms Neurological: Reports: No Symptoms Psychiatric: Reports: No Symptoms Hematologic/Lymphatic: Reports: No Symptoms Immunologic: Reports: No Symptoms ED EXAM, GENERAL - Physical Exam Exam: See Below Exam Limited By: No Limitations General Appearance: Alert, WD/WN, Mild Distress Eye Exam: Bilateral Eye: Normal Inspection Ears: Normal External Exam Ear Exam: Bilateral Ear: Auricle Normal Nose: Normal Inspection Throat/Mouth: Normal Lips, Normal Voice, No Airway Compromise Head: Atraumatic, Normocephalic Neck: Normal Inspection, Supple, Non-Tender Respiratory/Chest: Chest Non-Tender, Decreased Breath Sounds, Wheezing Cardiovascular: Normal Peripheral Pulses, Regular Rate, Rhythm, No Edema, No Gallop, No JVD, No Murmur Peripheral Pulses: 2+: Brachial (L) GI/Abdominal: Normal Bowel Sounds, Soft, Non-Tender, No Organomegaly, No Abnormal Bruit, No Mass, Pelvis Stable (Female) Exam: Deferred Rectal (Female) Exam: Deferred Back Exam: Normal Inspection Extremities: Normal Inspection Neurological: Alert, Oriented, CN II-XII Intact, Normal Cognition, Normal Gait, No Motor/Sensory Deficits Psychiatric: Normal Affect, Normal Mood Skin Exam: Warm, Dry, Intact, Normal Color, No Rash Lymphatic: No Adenopathy EKG INTERPRETATION EKG Date: 12/22/18 Time: 11:50 Rhythm: NSR Rate (Beats/Min): 70 [place]: Normal P-Wave: Present QRS: Normal ST-T: Normal QT: Normal Comparison: NA - No Prior EKG Course - Vital Signs Text/Narrative:: 63 y.o.w.f with COPD, frequent visits to this ED with various medical issues, [facility] ep[facility] and was transferred to the ED because of SOB. Pt could talk full word sentences. She says, she can walk short distances only because SOB. She has a breathing machine at home using Albuterol. Any steroid makes her to vomit. She complains of chronic epigastric pain, which is getting some times worse, no CP. No N/V/D, no Dizziness or any other acute medical issues. BP 160/64 RR 18 Pulse ox 90 on RA Temp 36.7 Pulse 70 PE: WNWD WF Thin, in resp distress. Imaging: CXR 2 views: COPD, NAD Labs: CBC nl, BMP nl, ABG on RA Carbon dioxide was 29, pH 7.39, pO2 50 pCO2 50 Impression: COPD/Asthma exacerbation, epigastric discomfort. Tx: Albuterol nebs X 2. Pt is allergic to prednisone/solumedrol, protronix Reexam: Pt pulse ox on RA after 2 Albuterol tx was still 88 by pulse ox 1.36 pm Consultation: Dr. Dial, Hospitalist: Accepted pt for admission to [facility] Plan: Admit to med/surg Last Recorded V/S: Last Vital Signs Temp 36.5 C 12/23/18 07:15 Pulse 80 12/23/18 07:15 Resp 20 12/23/18 07:15 BP 151/77 H 12/23/18 07:15 Pulse Ox 96 12/23/18 07:15 - Orders/Labs/Meds Labs: Laboratory Tests 12/22/18 12/22/18 12/22/18 Range/Units 11:55 11:55 11:55 WBC 7.6 (4.5-12.0) X10-3/uL RBC 4.76 (3.23-5.20) x10(6)uL Hgb 13.4 (11.5-15.5) g/dL Hct 41.5 (30.0-51.3) % MCV 87.1 (80-96) fL MCH 28.1 (27.7-33.6) pg MCHC 32.2 (32.2-35.4) g/dL RDW 12.7 (11.5-15.5) % Plt Count 364 (125-369) X10(3)uL MPV 7.4 (7.4-10.4) fL Neut % (Auto) 64.0 (46-82) % Lymph % (Auto) 22.2 (13-37) % Bowie % (Auto) 6.8 (4-12) % Eos % (Auto) 6 H (1.0-5.0) % Baso % (Auto) 1 (0-2) % Neut # (Auto) 4.8 (1.6-8.3) # Lymph # (Auto) 1.7 (0.6-5.0) # Bowie # (Auto) 0.5 (0.0-1.3) # Eos # (Auto) 0.5 (0.0-0.8) # Baso # (Auto) 0.1 (0.0-0.2) # ABG pH (7.35-7.45) ABG pCO2 (35-45) mmHg ABG pO2 (83-108) mmHg ABG HCO3 (22-26) mmol/L ABG O2 Saturation (96-97) % ABG Base Excess (-2-2) Vinh Test O2 Delivery Device Sodium 140 (135-145) mmol/L Potassium 4.1 (3.5-5.3) mmol/L Chloride 100 (100-110) mmol/L Carbon Dioxide 33 H (21-32) mmol/L BUN 10 (7-18) mg/dL Creatinine 0.8 (0.55-1.02) mg/dL Est Cr Clr Drug Dosing 55.45 mL/min Estimated GFR (MDRD) > 60 (>60) BUN/Creatinine Ratio 12.5 (9-20) Glucose 89 (80-116) mg/dL Calcium 9.6 (8.6-10.2) mg/dL Troponin I < 0.017 L (<0.017-0.056) ng/mL NT-Pro-B Natriuret Pep 143 H (<=125) pg/mL Urine Color (YELLOW) Urine Appearance (CLEAR) Urine pH (5.0-6.5) Ur Specific [place] (1.010-1.025) Urine Protein (NEGATIVE) mg/dL Urine Glucose (UA) (NEGATIVE) mg/dL Urine Ketones (NEGATIVE) mg/dL Urine Occult Blood (NEGATIVE) Urine Nitrite (NEGATIVE) Urine Bilirubin (NEGATIVE) Urine Urobilinogen (NEGATIVE) mg/dL Ur Leukocyte Esterase (NEGATIVE) Urine RBC (0) Urine WBC (0) Ur Squamous Epith Cells (NS,R,O) Urine Bacteria (NS) 12/22/18 12/22/18 Range/Units 13:00 13:25 WBC (4.5-12.0) X10-3/uL RBC (3.23-5.20) x10(6)uL Hgb (11.5-15.5) g/dL Hct (30.0-51.3) % MCV (80-96) fL MCH (27.7-33.6) pg MCHC (32.2-35.4) g/dL RDW (11.5-15.5) % Plt Count (125-369) X10(3)uL MPV (7.4-10.4) fL Neut % (Auto) (46-82) % Lymph % (Auto) (13-37) % Bowie % (Auto) (4-12) % Eos % (Auto) (1.0-5.0) % Baso % (Auto) (0-2) % Neut # (Auto) (1.6-8.3) # Lymph # (Auto) (0.6-5.0) # Bowie # (Auto) (0.0-1.3) # Eos # (Auto) (0.0-0.8) # Baso # (Auto) (0.0-0.2) # ABG pH 7.39 (7.35-7.45) ABG pCO2 50 H (35-45) mmHg ABG pO2 50 L (83-108) mmHg ABG HCO3 29 H (22-26) mmol/L ABG O2 Saturation 84 L* (96-97) % ABG Base Excess 3.8 H (-2-2) Vinh Test Passed O2 Delivery Device Room air Sodium (135-145) mmol/L Potassium (3.5-5.3) mmol/L Chloride (100-110) mmol/L Carbon Dioxide (21-32) mmol/L BUN (7-18) mg/dL Creatinine (0.55-1.02) mg/dL Est Cr Clr Drug Dosing mL/min Estimated GFR (MDRD) (>60) BUN/Creatinine Ratio (9-20) Glucose (80-116) mg/dL Calcium (8.6-10.2) mg/dL Troponin I (<0.017-0.056) ng/mL NT-Pro-B Natriuret Pep (<=125) pg/mL Urine Color Yellow (YELLOW) Urine Appearance Clear (CLEAR) Urine pH 8.0 H (5.0-6.5) Ur Specific [place] 1.010 (1.010-1.025) Urine Protein Negative (NEGATIVE) mg/dL Urine Glucose (UA) Normal (NEGATIVE) mg/dL Urine Ketones Negative (NEGATIVE) mg/dL Urine Occult Blood Negative (NEGATIVE) Urine Nitrite Negative (NEGATIVE) Urine Bilirubin Negative (NEGATIVE) Urine Urobilinogen Normal (NEGATIVE) mg/dL Ur Leukocyte Esterase Negative (NEGATIVE) Urine RBC 0-5 (0) Urine WBC 0-5 (0) Ur Squamous Epith Cells Rare (NS,R,O) Urine Bacteria Rare H (NS) Meds: Medications Discontinued Medications Generic Name Dose Route Start Last Admin Trade Name Freq PRN Reason Stop Dose Admin Acetaminophen 650 mg 12/22/18 13:43 Tylenol PO Q4H PRN Pain (Mild 1-3)/fever Albuterol 2.5 mg 12/22/18 12:32 12/22/18 12:41 Proventil Neb Soln NEB 12/22/18 12:33 2.5 mg ONETIME ONE Administration Albuterol 2.5 mg 12/22/18 13:19 12/22/18 13:59 Proventil Neb Soln [facility] 12/22/18 13:20 2.5 mg ONETIME ONE Administration Albuterol/Ipratropium 3 ml 12/22/18 12:27 12/22/18 12:41 Duoneb 3.0-0.5 Mg/3 Ml NEB 12/22/18 12:28 Not Given ONETIME ONE Albuterol/Ipratropium 3 ml 12/22/18 16:40 Duoneb 3.0-0.5 Mg/3 Ml [facility] Q6H PRN Shortness of Breath Aspirin 81 mg 12/23/18 18:00 Halfprin PO 1800 PAUL Budesonide 0.25 mg 12/22/18 21:00 12/22/18 21:05 Pulmicort INH Not Given BIDRT PAUL Clopidogrel Bisulfate 75 mg 12/23/18 12:00 12/23/18 13:20 Plavix PO Not Given 1200 PAUL Fenofibrate 145 mg 12/22/18 21:00 12/22/18 21:02 Tricor PO 145 mg BEDTIME PAUL Administration Hyoscyamine 0.125 mg 12/22/18 21:00 12/22/18 21:13 Hyomax-Sl PO Not Given BID PAUL Isosorbide Mononitrate 30 mg 12/23/18 09:00 12/23/18 09:32 Imdur PO 30 mg DAILY PAUL Administration Nitroglycerin 0.4 mg 12/22/18 19:15 Nitrostat SL ASDIRECTED PRN Chest Pain Non-Formulary Medication 500 mg 12/23/18 09:00 12/23/18 10:00 Calcium Carbonate [Calcium] PO Not Given DAILY PAUL Non-Formulary Medication 3,000 unit 12/23/18 12:00 12/23/18 12:15 Cholecalciferol (Vitamin D3) [Vitamin D3] PO Not Given 1200 [facility] (Dexlansoprazole [ 0 mg 12/23/18 09:00 12/23/18 09:33 Dexilant] 60 Mg) * PO 60 mg Ptom DAILY PAUL Administration Non-Formulary Medication 2 spray 12/23/18 09:00 12/23/18 10:00 Fluticasone Propionate [Flonase Allergy Relief] NASBOTH Not Given DAILY [facility] Gabapentin 800 Mg 0 mg 12/22/18 21:00 12/23/18 13:20 Tablets Own Med PO Not Given QID [facility] Non-Formulary Medication 20 meq 12/23/18 12:00 12/23/18 12:15 Potassium Chloride [Potassium Chloride] PO Not Given 1200 [facility] Rosuvastatin 40 Mg 0 mg 12/23/18 18:00 Tablets Own Med PO Q48H [facility] Ondansetron HCl 4 mg 12/22/18 13:43 Zofran IV Q4H PRN Nausea/Vomiting Ondansetron HCl 4 mg 12/22/18 19:15 Zofran Odt PO Q6H PRN Nausea Pantoprazole Sodium 40 mg 12/22/18 12:30 12/22/18 12:37 Protonix PO 12/22/18 12:31 40 mg ONETIME STA Administration Prednisone 60 mg 12/22/18 12:28 12/22/18 12:41 Prednisone PO 12/22/18 12:29 Not Given ONETIME ONE Departure - Departure Time of Disposition: 09:00 Disposition: Refer to Observation Condition: Fair Clinical Impression: COPD with exacerbation - Discharge Information
[2018-12-22] MEDS ORDERED: Albuterol 0.083% 2.5 MG/3 ML Neb Soln NEB ONE ×2 (12:32→13:19)
[2018-12-22] MEDS ORDERED: Acetaminophen 325 MG Tab PO PRN (13:43)
[2018-12-22] MEDS ORDERED: Ondansetron 4 MG/2 ML SDV IV PRN (13:43)
--- NOTE | 2018-12-22 16:29 | PCM.HP ---
H&P History of Present Illness - General Date of Service: 12/22/18 Admit Problem/Dx: Admission Diagnosis/Problem Admission Diagnosis/Problem COPD, Moderate chronic obstructive pulmonary disease - History of Present Illness Initial Comments - Free Text/Narative: Erendira Boyce is a 63 years old female with PMHx of COPD, CAD, HTN, CHF who presents to ER today due to increase SOB. Patient reports that she is been having on and off episode of SOB since she quite smoking 8 months ago. Yesterday she noticed increase in SOB with minimal exertion, and even at rest. associated with chest tightness. no fever. or chills. she denies being sick recently or expose to sick contact. Patient was seen by motor equipment sergeant on 12/16 due to MACHADO and palpitation. she had echo done in nov 2018 with EF of 60-65%. she has Holter monitor from 12/16 till . Midsternal chest pressure Pain Score (Numeric/FACES): 5 - Related Data Allergies/Adverse Reactions: Allergies Allergy/AdvReac Type Severity Reaction Status Date / Time ceftriaxone sodium Allergy Anaphylactic Verified 12/12/18 18:54 [From Rocephin] Shock clindamycin Allergy Anaphylactic Verified 12/12/18 18:54 Shock fentanyl Allergy Hives Verified 12/12/18 18:54 Milk Containing Products Allergy Vomiting Verified 12/12/18 18:54 trazodone Allergy Other Verified 12/12/18 18:54 ciprofloxacin AdvReac Intermediate Nausea and Verified 12/12/18 18:54 Vomiting .steroids Allergy Nausea Uncoded 12/22/18 12:42 depression medications Allergy Airway Uncoded 10/09/18 12:11 Tightness eggs Allergy Nausea Uncoded 10/09/18 12:11 oral antibiotics Allergy Vomiting Uncoded 10/09/18 12:11 peanuts Allergy Hives Uncoded 10/09/18 12:11 Home Medications: Home Meds Dexlansoprazole [Dexilant] 60 mg PO DAILY 12/05/13 [History] Fenofibrate Nanocrystallized [Fenofibrate] 145 mg PO BEDTIME 12/05/13 [History] Nitroglycerin [Nitrostat] 0.4 mg SL ASDIRECTED PRN #1 bot 11/27/15 [Rx] Rosuvastatin [Crestor] 20 mg PO Q48H 11/27/15 [History] Diltiazem HCl [Dilt-XR] 120 mg PO BEDTIME 04/01/16 [History] Aspirin 81 mg PO 1800 10/07/16 [History] Gabapentin [Neurontin] 800 mg PO QID 10/07/16 [History] Clopidogrel [Plavix] 75 mg PO 1200 11/06/16 [History] Isosorbide Mononitrate [Imdur] 30 mg PO DAILY 11/06/16 [History] Fluticasone Propionate [Flonase Allergy Relief] 2 spray NASBOTH DAILY 07/10/17 [ History] Ondansetron [Zofran ODT] 4 mg PO Q6H PRN 07/16/17 [History] Albuterol Sulfate [Proair Hfa] 2 puff INH Q4H PRN 02/12/18 [History] Calcium Carbonate [Calcium] 500 mg PO DAILY 04/06/18 [History] Potassium Chloride 20 meq PO 1200 04/06/18 [History] Budesonide [Pulmicort] 0.25 mg INH BID #1 ml 10/02/18 [Rx] Hyoscyamine [Levsin] 0.125 mg PO BID 10/09/18 [History] Cholecalciferol (Vitamin D3) [Vitamin D3] 3,000 unit PO 1200 12/22/18 [History] Past Medical History HEENT History: Reports: Glaucoma, Impaired Vision, Other (See Below) Other HEENT History: Choroidal nevus. Cardiovascular History: Reports: Angina, CAD, High Cholesterol, Hypertension, PVD, Syncope, Other (See Below) Other Cardiovascular History: Heart palpitations. DVT. PVD. Carotid bruitt. Respiratory History: Reports: COPD Other Respiratory History: Suffocating spells at night with SOB. Gastrointestinal History: Reports: GERD, Hiatal Hernia, Other (See Below) Other Gastrointestinal History: Bowel incontinence. Genitourinary History: Reports: Urinary Incontinence, Other (See Below) Other Genitourinary History: Urethral suspension with sling, later removed. Cystocopy. Bladder tumor. Overactive bladder. Other OB/BYN History: D&C. Musculoskeletal History: Reports: Arthritis, Back Pain, Chronic, Other (See Below) Other Musculoskeletal History: Left knee torn miniscus. Right ankle and hip pain. Neurological History: Reports: CVA, MS, Other (See Below) Other Neuro History: Notices emotional/cognitive changes following a brain injury. Questionable MS diagnosis. Psychiatric History: Reports: Depression Other Psychiatric History: MEDICAL AGREEMENT FOR HALF-WAY MED USE. Endocrine/Metabolic History: Reports: None Hematologic History: Reports: Blood Transfusion(s) Immunologic History: Reports: None Oncologic (Cancer) History: Reports: Bladder, Brain, Malignant Melanoma, Other ( See Below) Other Oncologic History: Radiation, in remission. Dermatologic History: Reports: Eczema, Melanoma, Other (See Below) Other Dermatologic History: Melanoma on back. Eczema. - Infectious Disease History Infectious Disease History: Reports: Chicken Pox - Past Surgical History Head Surgeries/Procedures: Reports: None HEENT Surgical History: Reports: Other (See Below) Cardiovascular Surgical History: Reports: Other (See Below) Social & Family History - Family History Family Medical History: Noncontributory Cardiac: Reports: MD - Tobacco Use Smoking Status *Q: Former Smoker Years of Tobacco use: 10 Used Tobacco, but Quit: Yes Month/Year Tobacco Last Used: 2017 Second Hand Smoke Exposure: No - Caffeine Use Caffeine Use: Reports: None Other Caffeine Use: 2 cups per day Caffeine Use Comment: Occassional coffee drinker. - Recreational Drug Use Recreational Drug Use: No - Living Situation & Occupation Living situation: Reports: Single, Alone H&P Review of Systems - Review of Systems: Review Of Systems: See Below General: Reports: Chills, Weakness, Fatigue HEENT: Reports: No Symptoms Pulmonary: Reports: Shortness of Breath, Wheezing, Pleuritic Chest Pain Cardiovascular: Reports: Palpitations, Dyspnea on Exertion, Orthopnea Gastrointestinal: Reports: No Symptoms Genitourinary: Reports: No Symptoms Musculoskeletal: Reports: No Symptoms Skin: Reports: No Symptoms Psychiatric: Reports: No Symptoms Neurological: Reports: No Symptoms Exam - Exam Exam: See Below - Vital Signs Vital Signs: Last Vital Signs Temp 36.7 C 12/22/18 11:44 Pulse 81 12/22/18 14:00 Resp 22 H 12/22/18 14:00 BP 134/50 L 12/22/18 14:00 Pulse Ox 88 L 12/22/18 15:35 Weight: 56.2 kg - Exam Quality Assessment: Supplemental Oxygen General: Alert, Oriented HEENT: PERRLA Neck: Supple Lungs: Normal Respiratory Effort, Crackles, Wheezing Cardiovascular: Regular Rhythm GI/Abdominal Exam: Normal Bowel Sounds, Soft, Non-Tender Back Exam: Normal Inspection, Full Range of Motion Extremities: Normal Inspection, Normal Range of Motion - Patient Data Lab Results Last 24 hrs: Laboratory Results - last 24 hr 12/22/18 12/22/18 12/22/18 Range/Units 11:55 11:55 11:55 WBC 7.6 (4.5-12.0) X10-3/uL RBC 4.76 (3.23-5.20) x10(6)uL Hgb 13.4 (11.5-15.5) g/dL Hct 41.5 (30.0-51.3) % MCV 87.1 (80-96) fL MCH 28.1 (27.7-33.6) pg MCHC 32.2 (32.2-35.4) g/dL RDW 12.7 (11.5-15.5) % Plt Count 364 (125-369) X10(3)uL MPV 7.4 (7.4-10.4) fL Neut % (Auto) 64.0 (46-82) % Lymph % (Auto) 22.2 (13-37) % [place] % (Auto) 6.8 (4-12) % Eos % (Auto) 6 H (1.0-5.0) % Baso % (Auto) 1 (0-2) % Neut # (Auto) 4.8 (1.6-8.3) # Lymph # (Auto) 1.7 (0.6-5.0) # [place] # (Auto) 0.5 (0.0-1.3) # Eos # (Auto) 0.5 (0.0-0.8) # Baso # (Auto) 0.1 (0.0-0.2) # ABG pH (7.35-7.45) ABG pCO2 (35-45) mmHg ABG pO2 (83-108) mmHg ABG HCO3 (22-26) mmol/L ABG O2 Saturation (96-97) % ABG Base Excess (-2-2) Vinh Test O2 Delivery Device Sodium 140 (135-145) mmol/L Potassium 4.1 (3.5-5.3) mmol/L Chloride 100 (100-110) mmol/L Carbon Dioxide 33 H (21-32) mmol/L BUN 10 (7-18) mg/dL Creatinine 0.8 (0.55-1.02) mg/dL Est Cr Clr Drug Dosing 55.45 mL/min Estimated GFR (MDRD) > 60 (>60) BUN/Creatinine Ratio 12.5 (9-20) Glucose 89 (80-116) mg/dL Calcium 9.6 (8.6-10.2) mg/dL Troponin I < 0.017 L (<0.017-0.056) ng/mL NT-Pro-B Natriuret Pep 143 H (<=125) pg/mL Urine Color (YELLOW) Urine Appearance (CLEAR) Urine pH (5.0-6.5) Ur Specific [place] (1.010-1.025) Urine Protein (NEGATIVE) mg/dL Urine Glucose (UA) (NEGATIVE) mg/dL Urine Ketones (NEGATIVE) mg/dL Urine Occult Blood (NEGATIVE) Urine Nitrite (NEGATIVE) Urine Bilirubin (NEGATIVE) Urine Urobilinogen (NEGATIVE) mg/dL Ur Leukocyte Esterase (NEGATIVE) Urine RBC (0) Urine WBC (0) Ur Squamous Epith Cells (NS,R,O) Urine Bacteria (NS) 12/22/18 12/22/18 Range/Units 13:00 13:25 WBC (4.5-12.0) X10-3/uL RBC (3.23-5.20) x10(6)uL Hgb (11.5-15.5) g/dL Hct (30.0-51.3) % MCV (80-96) fL MCH (27.7-33.6) pg MCHC (32.2-35.4) g/dL RDW (11.5-15.5) % Plt Count (125-369) X10(3)uL MPV (7.4-10.4) fL Neut % (Auto) (46-82) % Lymph % (Auto) (13-37) % [place] % (Auto) (4-12) % Eos % (Auto) (1.0-5.0) % Baso % (Auto) (0-2) % Neut # (Auto) (1.6-8.3) # Lymph # (Auto) (0.6-5.0) # [place] # (Auto) (0.0-1.3) # Eos # (Auto) (0.0-0.8) # Baso # (Auto) (0.0-0.2) # ABG pH 7.39 (7.35-7.45) ABG pCO2 50 H (35-45) mmHg ABG pO2 50 L (83-108) mmHg ABG HCO3 29 H (22-26) mmol/L ABG O2 Saturation 84 L* (96-97) % ABG Base Excess 3.8 H (-2-2) Vinh Test Passed O2 Delivery Device Room air Sodium (135-145) mmol/L Potassium (3.5-5.3) mmol/L Chloride (100-110) mmol/L Carbon Dioxide (21-32) mmol/L BUN (7-18) mg/dL Creatinine (0.55-1.02) mg/dL Est Cr Clr Drug Dosing mL/min Estimated GFR (MDRD) (>60) BUN/Creatinine Ratio (9-20) Glucose (80-116) mg/dL Calcium (8.6-10.2) mg/dL Troponin I (<0.017-0.056) ng/mL NT-Pro-B Natriuret Pep (<=125) pg/mL Urine Color Yellow (YELLOW) Urine Appearance Clear (CLEAR) Urine pH 8.0 H (5.0-6.5) Ur Specific [place] 1.010 (1.010-1.025) Urine Protein Negative (NEGATIVE) mg/dL Urine Glucose (UA) Normal (NEGATIVE) mg/dL Urine Ketones Negative (NEGATIVE) mg/dL Urine Occult Blood Negative (NEGATIVE) Urine Nitrite Negative (NEGATIVE) Urine Bilirubin Negative (NEGATIVE) Urine Urobilinogen Normal (NEGATIVE) mg/dL Ur Leukocyte Esterase Negative (NEGATIVE) Urine RBC 0-5 (0) Urine WBC 0-5 (0) Ur Squamous Epith Cells Rare (NS,R,O) Urine Bacteria Rare H (NS) Result Diagrams: 12/22/18 11:55 12/22/18 11:55 - Problem List (1) Acute respiratory failure with hypoxia SNOMED Code(s): 00104305, 824111253 ICD Code: J96.01 - ACUTE RESPIRATORY FAILURE WITH HYPOXIA Status: Acute Current Visit: Yes (2) COPD (chronic obstructive pulmonary disease) SNOMED Code(s): 32120975 ICD Code: J44.9 - CHRONIC OBSTRUCTIVE PULMONARY DISEASE, UNSPECIFIED Status : Acute Current Visit: Yes (3) CAD (coronary artery disease) SNOMED Code(s): 31313603 ICD Code: I25.10 - ATHSCL HEART DISEASE OF [place] CORONARY ARTERY W/O ANG PCTRS Status: Acute Current Visit: Yes (4) HTN (hypertension) SNOMED Code(s): 40293315 ICD Code: I10 - ESSENTIAL (PRIMARY) HYPERTENSION Status: Acute Current Visit: Yes Problem List Initiated/Reviewed/Updated: Yes Orders Last 24hrs: Active Orders 24 hr Category Date Time Status Patient Status [ADT] Routine ADT 12/22/18 13:43 Active EKG Documentation Completion [RC] ASDIRECTED Care 12/22/18 12:18 Active Oxygen Therapy [RC] PRN Care 12/22/18 13:43 Active Pulse Oximetry [RC] CONTINUOUS Care 12/22/18 13:45 Active RT Aerosol Therapy [RC] ASDIRECTED Care 12/22/18 12:27 Active RT Aerosol Therapy [RC] ASDIRECTED Care 12/22/18 12:32 Active Up With Assistance [RC] ASDIRECTED Care 12/22/18 13:43 Active VTE/DVT Education [RC] Per Unit Routine Care 12/22/18 13:43 Active Vital Signs [RC] Q4H Care 12/22/18 13:43 Active Regular Diet [DIET] Diet 12/22/18 Breakfast Active Chest 2V [CR] Stat Exams 12/22/18 12:58 Taken Acetaminophen [Tylenol] Med 12/22/18 13:43 Active 650 mg PO Q4H PRN Ondansetron [Zofran] Med 12/22/18 13:43 Active 4 mg IV Q4H PRN Resuscitation Status Routine Resus Stat 12/22/18 13:43 Ordered EKG 12 Lead [EK] Routine Ther 12/22/18 12:17 Ordered Medication Orders Acetaminophen (Tylenol) 650 mg PO Q4H PRN PRN Reason: Pain (Mild 1-3)/fever Ondansetron HCl (Zofran) 4 mg IV Q4H PRN PRN Reason: Nausea/Vomiting Assessment/Plan Comment:: # Acute hypoxic respiratory failure in setting of COPD exacerbation - RT per protocol - DuoNeb x 4 - will consider IV steroid and Azithromycin # Chronic medical problems continue home medications
[2018-12-22] MEDS ORDERED: Albuterol/Ipratropium 3.0-0.5 MG/3 ML Neb Soln NEB PRN (16:40)
[2018-12-22] MEDS ORDERED: Ondansetron 4 MG Tab.DIS PO PRN (19:15)
[2018-12-22] MEDS ORDERED: Nitroglycerin 0.4 MG Tab.SL SL PRN (19:15)
[2018-12-22] MEDS ORDERED: FENOFIBRATE NANOCRYSTALLIZED 145 MG PO SCH (21:00)
[2018-12-22] MEDS: Hyoscyamine 0.125 MG Tab.SL PO SCH ×2 (21:01→21:13)
[2018-12-22] MEDS: Budesonide 0.25 MG/2 ML Neb Susp INH SCH ×2 (21:02→21:05)
[2018-12-22] MEDS: GABAPENTIN 800 MG PO SCH (21:02)
--- NOTE | 2018-12-23 08:14 | CR ---
INDICATION: Dyspnea. CHEST: PA and lateral views of the chest were obtained 12/22/18 and compared with 10/23/18 and 06/30/18. A heart monitor is now noted in place. Overlying EKG leads are also seen. The heart appears normal in size and shape. Compression fracture with postsurgical change again noted at T12 with demineralization compatible with osteoporosis. Compression fracture is now suggested to a mild degree at T7 vertebral body. Hyperaeration, somewhat flattened diaphragm leaves, and prominent AP diameter are all compatible with COPD - correlate clinically. A definite active infiltrate or effusion was not identified. IMPRESSION: 1. 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 2. Osteoporosis, postsurgical compression fracture T12, possible new compression fracture T7 vertebral body, moderate dextroconvex scoliosis thoracolumbar spine. 3. Probable exacerbation of COPD with no other findings to suggest a possible acute process. MTDD
[2018-12-23] MEDS ORDERED: Non-Formulary Medication 1 Each (Calcium Carbonate [Calcium] 500 MG) PO SCH (09:00)
[2018-12-23] MEDS ORDERED: Isosorbide Mononitrate 60 MG Tab.ER *PTOM PO SCH (09:00)
[2018-12-23] MEDS ORDERED: [UNRECOGNIZED DRUG - REMARK] NASBOTH SCH (09:00)
[2018-12-23] MEDS ORDERED: DEXLANSOPRAZOLE 60 MG PO SCH (09:00)
[2018-12-23] MEDS: GABAPENTIN 800 MG PO SCH ×2 (09:31→13:20)
[2018-12-23 10:01] VITALS: BP 151/77
[2018-12-23] MEDS ORDERED: Clopidogrel 75 MG Tab *PTOM PO SCH (12:00)
[2018-12-23] MEDS ORDERED: CHOLECALCIFEROL 3000 UNIT PO SCH (12:00)
[2018-12-23] MEDS ORDERED: Non-Formulary Medication 1 Each (Potassium Chloride [Potassium Chloride] 20 MEQ) PO SCH (12:00)
--- NOTE | 2018-12-23 13:43 | DISCH ---
DISCHARGE DATE: 12/23/2018 PRIMARY AND FINAL DIAGNOSIS: Exacerbation of chronic obstructive pulmonary disease with hypoxia. OTHER DIAGNOSES: 1. Palpitations, undergoing monitoring. 2. Hypertension. 3. Hyperlipidemia. 4. Gastroesophageal reflux disease. 5. Mixed urinary incontinence. 6. Osteoarthritis of the spine. 7. Depression. OPERATIONS: None. COMPLICATIONS: None. SUMMARY: Erendira is a 63-year-old woman with the above medical problems, who states she quit smoking eight months ago. Since that she says her breathing has gotten worse and on the day of admission, she says she got quite short of breath and weak because what she notices when she walks her heart races and she gets quite winded and wheezy. She has been seen by Cardiology and has a monitor in place for long-term monitoring of potential arrhythmia. She also states she has an upcoming appointment with Pulmonology, but she does not know when the appointment is as of yet. The patient was admitted. ADMISSION LABORATORY DATA: Showed normal CBC, normal basic metabolic panel, negative troponin, proBNP of 143. Blood gases, pH 7.39, pCO2 of 50, PO2 of 50 with 84% O2 saturation on room air. PHYSICAL EXAMINATION: GENERAL: On discharge, she was alert and comfortable. VITAL SIGNS: Blood pressure 142/68, pulse 72 and regular, respirations 18, O2 saturation 94% on 1 L nasal cannula oxygen, temp 98.6, weight 123 pounds 14 ounces. SKIN: Showed no rash. LUNGS: Had distant breath sounds. There is a faint expiratory wheeze anteriorly on the left. HEART: Regular without murmur or gallop heard. ABDOMEN: Normal bowel sounds, soft and nontender. EXTREMITIES: Showed no edema. The patient is discharged to her home with 1 L of nasal cannula home O2. As mentioned, she is under the care of Cardiology, who has a monitor on place for potential arrhythmias. She also has an upcoming appointment with Pulmonology. DISCHARGE MEDICATIONS: 1. Diltiazem 120 mg at bedtime. 2. Albuterol HFA inhaler two puffs every 4 hours p.r.n. She also states she has two other medications for her nebulizer machine at home that she had not been using and she is to resume those. 3. Crestor 20 mg every 48 hours. 4. Potassium 20 mEq daily. 5. Zofran 4 mg every 6 hours p.r.n. nausea. 6. Nitroglycerin 0.4 mg sublingual p.r.n. chest pain. 7. Imdur 30 mg daily. 8. Gabapentin 800 mg q.i.d. 9. Flonase 1 to 2 squirts each naris daily. 10.Fenofibrate 145 mg daily. 11.Dexilant 60 mg daily. 12.Plavix 75 mg daily. 13.Vitamin D3 3000 units daily. 14.Calcium 500 mg daily. 15.Aspirin 81 mg daily. 16.Tylenol p.r.n. 17.DuoNebs one ampule b.i.d. The patient is to have follow up with her regular provider, Dr. Brian Narayanan, at [facility] in [place] and keep her specially appointments as scheduled. Arrangements are being made for her to have home O2 at 1 L/minute nasal cannula administration. /[id number] [place]
--- NOTE | 2018-12-23 13:43 | DISCH ---
DISCHARGE DATE: 12/23/2018 FINAL DIAGNOSIS: Severe chronic obstructive pulmonary disease with respiratory failure. OTHER DIAGNOSES: 1. Chronic obstructive pulmonary disease. 2. Chronic essential hypertension. 3. Hyperlipidemia. 4. Palpitations. 5. Chronic low back pain. 6. Chronic allergic rhinitis. OPERATIONS: None. COMPLICATIONS: None. SUMMARY: Erendira is a 63-year-old woman, who was admitted through to [facility] care for an exacerbation of COPD. She was seen in the emergency room and blood gases revealed pH of 7.39, pCO2 of 50, pO2 of 50, for 84% saturation. She was placed on oxygen. Chest x-ray showed no sign of pneumonia and there was no evidence of congestive heart failure. The patient was comfortable with oxygen on. She was up and walked in the halls without oxygen and saturation dropped into the low 80s. Recovering promptly upon re-application of oxygen and her O2 saturation at rest with oxygen in place was 94%. She is discharged to home with no change in medications. She has, however, been ordered oxygen at 1 L/minute nasal cannula continuous with a concentrator and a portable system as she is up and ambulatory. She will follow up with her regular provider as an outpatient. /[id number] [place]
[2018-12-23] MEDS ORDERED: ROSUVASTATIN 40 MG PO SCH (18:00)
[2018-12-23] MEDS ORDERED: Aspirin 81 MG Tab.EC *PTOM PO SCH (18:00)
== END 2018-12-23 13:20 | disposition home or self-care (01) ==
LOC: FB.ED 11:44 → FB.MS 13:45
PROVIDERS: ADMIT Family Medicine; ATTEND Family Medicine
DX: J44.1 Chronic obstructive pulmonary disease with (acute) exacerbation (principal); J96.01 Acute respiratory failure with hypoxia; I10 Essential (primary) hypertension; I25.10 Atherosclerotic heart disease of native coronary artery without angina pectoris; E78.00 Pure hypercholesterolemia, unspecified; G89.29 Other chronic pain; M54.5 Low back pain; J30.9 Allergic rhinitis, unspecified; Z87.891 Personal history of nicotine dependence; Z79.01 Long term (current) use of anticoagulants; Z79.82 Long term (current) use of aspirin; Z79.899 Other long term (current) drug therapy; Z88.1 Allergy status to other antibiotic agents; Z91.011 Allergy to milk products; Z91.012 Allergy to eggs; Z91.010 Allergy to peanuts
CPT/HCPCS: 36415; 36600; 71046; 80048; 81001; 82803; 83880; 84484; 85025; 93005; 94640; 99285; A9270

== ENCOUNTER 2018-12-26 20:53 | Emergency (ER) | payer MEDICARE, MEDICAID ==
[2018-12-26] MEDS ORDERED: Ondansetron 4 MG/2 ML SDV IVPUSH ONE (23:12)
[2018-12-26] MEDS ORDERED: Sodium Chloride 0.9% 1,000 ML IV SCH (23:15)
[2018-12-26] MEDS ORDERED: Sodium Chloride 0.9% 10 ML Syringe FLUSH PRN (23:31)
[2018-12-27] MEDS ORDERED: Dextrose 5%-Lactated Ringers 1,000 ML IV SCH (00:30)
[2018-12-27] MEDS ORDERED: Pantoprazole 40 MG Vial IVPUSH ONE (01:36)
[2018-12-27] MEDS ORDERED: Alum Hydroxide/Mag Hydroxide 15 ML, Lidocaine 2% 15 ML PO ONE ×2 (01:37)
[2018-12-27] MEDS ORDERED: Lidocaine 2% Viscous Solution 15 ML Cup PO ONE (01:39)
[2018-12-27 03:29] VITALS: BP 151/74
--- NOTE | 2018-12-27 06:39 | EDM.PDOC ---
ED HPI GENERAL MEDICAL PROBLEM - General Chief Complaint: Gastrointestinal Problem Stated Complaint: FROM CLINIC Time Seen by Provider: 12/26/18 21:00 Source of Information: Reports: Patient History Limitations: Reports: No Limitations - History of Present Illness INITIAL COMMENTS - FREE TEXT/NARRATIVE: This pleasant 63-year-old woman came in her own. She has a face mask in place. Because "any antibiotic aerosols cause allergic response." She was seen 12/23/18 and hospitalized overnight for vomiting dehydration IV therapy. He has known gastroparesis without diabetes. He has a lengthy 30 + long problem list with significant annotation of: COPD, smoking abuse. Stopped smoking 5 months ago, hypertension, peanut allergy, egg allergy, paresthesias lower extremities, hiatus hernia, GERD, diarrhea, esophagitis, duodenitis, gastritis, compression fracture thoracic spine, previous appendectomy cholecystectomy hysterectomy and back surgery. abd pain Pain Score (Numeric/FACES): 6 - Related Data Allergies Allergy/AdvReac Type Severity Reaction Status Date / Time ceftriaxone sodium Allergy Anaphylactic Verified 12/27/18 01:30 [From Rocephin] Shock clindamycin Allergy Anaphylactic Verified 12/27/18 01:30 Shock fentanyl Allergy Hives Verified 12/27/18 01:30 Milk Containing Products Allergy Vomiting Verified 12/27/18 01:30 trazodone Allergy Other Verified 12/27/18 01:30 ciprofloxacin AdvReac Intermediate Nausea and Verified 12/27/18 01:30 Vomiting .steroids Allergy Nausea Uncoded 12/22/18 12:42 depression medications Allergy Airway Uncoded 10/09/18 12:11 Tightness eggs Allergy Nausea Uncoded 10/09/18 12:11 oral antibiotics Allergy Vomiting Uncoded 10/09/18 12:11 peanuts Allergy Hives Uncoded 10/09/18 12:11 Home Meds: Home Meds Dexlansoprazole [Dexilant] 60 mg PO DAILY 12/05/13 [History] Fenofibrate Nanocrystallized [Fenofibrate] 145 mg PO BEDTIME 12/05/13 [History] Nitroglycerin [Nitrostat] 0.4 mg SL ASDIRECTED PRN #1 bot 11/27/15 [Rx] Rosuvastatin [Crestor] 20 mg PO Q48H 11/27/15 [History] Diltiazem HCl [Dilt-XR] 120 mg PO BEDTIME 04/01/16 [History] Aspirin 81 mg PO 1800 10/07/16 [History] Gabapentin [Neurontin] 800 mg PO QID 10/07/16 [History] Clopidogrel [Plavix] 75 mg PO 1200 11/06/16 [History] Isosorbide Mononitrate [Imdur] 30 mg PO DAILY 11/06/16 [History] Fluticasone Propionate [Flonase Allergy Relief] 2 spray NASBOTH DAILY 07/10/17 [ History] Ondansetron [Zofran ODT] 4 mg PO Q6H PRN 07/16/17 [History] Albuterol Sulfate [Proair Hfa] 2 puff INH Q4H PRN 02/12/18 [History] Potassium Chloride 20 meq PO 1200 04/06/18 [History] Albuterol/Ipratropium [DuoNeb 3.0-0.5 MG/3 ML] 3 ml NEB Q6H PRN neb 12/23/18 [ Rx] Calcium Carbonate/Vitamin D3 [Calcium 500 + Vit D Caplet] 3 tab PO DAILY [History] Cholecalciferol (Vitamin D3) [Vitamin D3] 1,200 unit PO DAILY 12/23/18 [History] Pantoprazole Sodium [Protonix] 20 mg PO DAILY #30 tablet. 12/27/18 [Rx] Pantoprazole Sodium [Protonix] 20 mg PO DAILY #30 tablet. 12/27/18 [Rx] Past Medical History HEENT History: Reports: Glaucoma, Impaired Vision, Other (See Below) Other HEENT History: Choroidal nevus. Cardiovascular History: Reports: Angina, CAD, High Cholesterol, Hypertension, PVD, Syncope, Other (See Below) Other Cardiovascular History: Heart palpitations. DVT. PVD. Carotid bruitt. Respiratory History: Reports: COPD Other Respiratory History: Suffocating spells at night with SOB. Gastrointestinal History: Reports: GERD, Hiatal Hernia, Other (See Below) Other Gastrointestinal History: Bowel incontinence. Genitourinary History: Reports: Urinary Incontinence, Other (See Below) Other Genitourinary History: Urethral suspension with sling, later removed. Cystocopy. Bladder tumor. Overactive bladder. Other LINOTYPIST History: D&C. Musculoskeletal History: Reports: Arthritis, Back Pain, Chronic, Other (See Below) Other Musculoskeletal History: Left knee torn miniscus. Right ankle and hip pain. Neurological History: Reports: CVA, MS, Other (See Below) Other Neuro History: Notices emotional/cognitive changes following a brain injury. Questionable MS diagnosis. Psychiatric History: Reports: Depression Other Psychiatric History: MEDICAL AGREEMENT FOR INTERMEDIATE MED USE. Endocrine/Metabolic History: Reports: None Hematologic History: Reports: Blood Transfusion(s) Immunologic History: Reports: None Oncologic (Cancer) History: Reports: Bladder, Brain, Malignant Melanoma, Other ( See Below) Other Oncologic History: Radiation, in remission. Dermatologic History: Reports: Eczema, Melanoma, Other (See Below) Other Dermatologic History: Melanoma on back. Eczema. - Infectious Disease History Infectious Disease History: Reports: Chicken Pox - Past Surgical History Head Surgeries/Procedures: Reports: None HEENT Surgical History: Reports: Other (See Below) Cardiovascular Surgical History: Reports: Other (See Below) Social & Family History - Family History Family Medical History: Noncontributory Cardiac: Reports: [place] - Tobacco Use Smoking Status *Q: Never Smoker - Caffeine Use Caffeine Use: Reports: None, Coffee Other Caffeine Use: 2 cups per day Caffeine Use Comment: Occassional coffee drinker. - Recreational Drug Use Recreational Drug Use: No - Living Situation & Occupation Living situation: Reports: Single, Alone ED ROS GENERAL - Review of Systems Review Of Systems: ROS reveals no pertinent complaints other than HPI. ED EXAM, GI/ABD - Physical Exam Exam: See Below Text/Narrative:: A pleasant stature soft-spoken woman in mild distress than historical review of her 40+ problem list Exam Limited By: No Limitations General Appearance: Alert, Mild Distress, Other (Moderate white earth's feet with atrophy soft tissue in the patient's face) Eyes: Bilateral: Normal Appearance Ears: Normal External Exam, Normal Canal, Normal TMs Nose: Normal Inspection, Normal Mucosa (Dry mucosa), No Blood Throat/Mouth: Normal Inspection, Normal Lips, Normal Teeth, Normal Gums (Dry mucosa), Normal Voice Head: Atraumatic, Normocephalic Neck: Normal Inspection, Supple, Non-Tender, Full Range of Motion, Other (No thyromegaly) Respiratory/Chest: No Respiratory Distress, Lungs Clear, Normal Breath Sounds, No Accessory Muscle Use, Chest Non-Tender Cardiovascular: Normal Peripheral Pulses, Regular Rate, Rhythm, No Edema, No Gallop, No JVD, No Murmur, No Rub GI/Abdominal Exam: Normal Bowel Sounds, Soft, No Organomegaly, No Distention, No Abnormal Bruit, No Mass, Other (Mildly tender with mild guarding without rebound; bowel sounds increased, slightly tender, hypertrophied, old intra- abdominal pigmented healed indurated old horizontal scar) (Female) Exam: Deferred Rectal (Female) Exam: Deferred Back Exam: Normal Inspection, Other (No CVA tenderness) Extremities: Normal Inspection, Normal Range of Motion, Non-Tender, No Pedal Edema, Normal Capillary Refill Neurological: Alert, Oriented, CN II-XII Intact, Normal Cognition, Normal Gait, Normal Reflexes, No Motor/Sensory Deficits Psychiatric: Normal Affect, Normal Mood, Anxious Skin Exam: Warm, Dry, Intact, Normal Color Lymphatic: No Adenopathy Course - Vital Signs Last Recorded V/S: Last Vital Signs Temp 36.8 C 12/27/18 02:00 Pulse 93 12/27/18 02:00 Resp 20 12/27/18 02:00 BP 151/74 H 12/27/18 02:00 Pulse Ox 95 12/27/18 02:00 - Orders/Labs/Meds Orders: Active Orders 24 hr Category Date Time Status Peripheral IV Insertion Adult [OM.PC] Routine Oth 12/26/18 22:45 Ordered Labs: Laboratory Tests 12/27/18 12/27/18 12/27/18 Range/Units 00:35 00:35 01:38 WBC 9.3 (4.5-12.0) X10-3/uL RBC 4.95 (3.23-5.20) x10(6)uL Hgb 14.3 (11.5-15.5) g/dL Hct 42.8 (30.0-51.3) % MCV 86.5 (80-96) fL MCH 28.9 (27.7-33.6) pg MCHC 33.5 (32.2-35.4) g/dL RDW 13.1 (11.5-15.5) % Plt Count 362 (125-369) X10(3)uL MPV 7.4 (7.4-10.4) fL Neut % (Auto) 74.4 (46-82) % Lymph % (Auto) 18.3 (13-37) % [place] % (Auto) 6.5 (4-12) % Eos % (Auto) 0 L (1.0-5.0) % Baso % (Auto) 1 (0-2) % Neut # (Auto) 6.9 (1.6-8.3) # Lymph # (Auto) 1.7 (0.6-5.0) # [place] # (Auto) 0.6 (0.0-1.3) # Eos # (Auto) 0.0 (0.0-0.8) # Baso # (Auto) 0.1 (0.0-0.2) # Sodium 140 (135-145) mmol/L Potassium 4.0 (3.5-5.3) mmol/L Chloride 99 L (100-110) mmol/L Carbon Dioxide 21 (21-32) mmol/L BUN 21 H (7-18) mg/dL Creatinine 0.9 (0.55-1.02) mg/dL Est Cr Clr Drug Dosing TNP Estimated GFR (MDRD) > 60 (>60) BUN/Creatinine Ratio 23.3 H (9-20) Glucose 54 L (80-116) mg/dL Calcium 8.9 (8.6-10.2) mg/dL Total Bilirubin 0.5 (0.1-1.3) mg/dL AST 34 H D (5-25) IU/L ALT 30 D (12-36) U/L Alkaline Phosphatase 60 (56-112) IU/L Total Protein 7.7 (6.0-8.0) g/dL Albumin 4.3 (3.2-4.6) g/dL Globulin 3.4 g/dL Albumin/Globulin Ratio 1.3 Urine Opiates Screen Negative (NEGATIVE) Ur Oxycodone Screen Negative (NEGATIVE) Ur Propoxyphene Screen Negative (NEGATIVE) Ur Barbituates Screen Negative (NEGATIVE) Ur Tricyclics Screen Negative (NEGATIVE) Ur Phencyclidine Scrn Negative (NEGATIVE) Ur Amphetamine Screen Negative (NEGATIVE) Urine MDMA Screen Negative (NEGATIVE) U Benzodiazepines Scrn Negative (NEGATIVE) U Cocaine Metab Screen Negative (NEGATIVE) U Marijuana (THC) Screen Negative (NEGATIVE) Meds: Medications Discontinued Medications Generic Name Dose Route Start Last Admin Trade Name Freq PRN Reason Stop Dose Admin Al Hydroxide/Mg Hydroxide 15 0 ml 12/27/18 01:37 12/27/18 01:43 ml/ Lidocaine HCl 15 ml PO 12/27/18 01:38 30 ml ONETIME ONE Administration Sodium Chloride 1,000 mls @ 999 mls/hr 12/26/18 23:15 12/26/18 23:10 Normal Saline IV 999 mls/hr ASDIRECTED PAUL Administration Dextrose/Lactated Ringer's 1,000 mls @ 999 mls/hr 12/27/18 00:30 12/27/18 00: 54 Dextrose 5%-Lactated Ringers IV 999 mls/hr ASDIRECTED PAUL Administration Lidocaine HCl 15 ml 12/27/18 01:39 12/27/18 01:43 Xylocaine 2% Viscous PO 12/27/18 01:40 Not Given ONETIME ONE Ondansetron HCl 4 mg 12/26/18 23:12 12/26/18 23:37 Zofran IVPUSH 12/26/18 23:13 4 mg ONETIME ONE Administration Pantoprazole Sodium 80 mg 12/27/18 01:36 12/27/18 01:43 Protonix Iv IVPUSH 12/27/18 01:37 80 mg .BOLUS ONE Administration Sodium Chloride 10 ml 12/26/18 23:31 12/26/18 23:05 Saline Flush FLUSH 10 ml ASDIRECTED PRN Administration Keep Vein Open Departure - Departure Time of Disposition: 21:45 ( dehydration chronic abdominal pain COPD as well as appendectomy, cholecystectomy, hysterectomy, back surgeries hypertension, peanut and egg allergy, and more recent symptomatic gastrointestinal distress secondary to probable egg allergen exposure on last hospitalization from eating "macaroni made with eggs." . Other listed health problems: Parathesias lower extremity hiatus hernia GERD duodentitis esophagitis and gastritis) Disposition: Home, Self-Care 01 Clinical Impression: Dehydration, Gastroenteritis and colitis, allergic, COPD (chronic obstructive pulmonary disease), Diarrhea, Hypertension, Gastroparesis, Peanut allergy, Egg protein allergy, GERD (gastroesophageal reflux disease), Hx of cholecystectomy, Hx of appendectomy, History of lumbar surgery, H/O hysterectomy for benign disease, Smoker, Gastritis and gastroduodenitis - Discharge Information *PRESCRIPTION DRUG MONITORING PROGRAM REVIEWED*: Not Applicable *COPY OF PRESCRIPTION DRUG MONITORING REPORT IN PATIENT ENA: Not Applicable Prescriptions: Pantoprazole Sodium [Protonix] 20 mg PO DAILY #30 tablet. Pantoprazole Sodium [Protonix] 20 mg PO DAILY #30 tablet. Instructions: Gastritis, Adult, [id number] Referrals: Francisco Narayanan PA [Primary Care Provider] - Forms: ED Department Discharge Additional Instructions: For the burning take a liquid preparation maloox (OTC) twice a day and Protonix take that daily follow up with your MD 1 week earlier if worse (I know you already are taking dexilant as a stomach medicine, try stopping the dexilant and start taking the protonix) I have added the protonix as a trial to see if this addition of this stomach med will make you feel better I may be that if the burning and nausea and vomiting persist you may need a cat scan of your abdomen and/or an endoscopic examination. tonight your clinical exam of your abdomen was negative and there was no suggestion of a need to hospitalize you as you noted, maybe some of the exsposure to egg, (which you are very allergic to) when you were hospitalized last week may have set off the current bout of nausea and vomiting - My Orders Last 24 Hours: My Active Orders 12/26/18 22:45 Peripheral IV Insertion Adult [OM.PC] Routine - Assessment/Plan Last 24 Hours: My Active Orders 12/26/18 22:45 Peripheral IV Insertion Adult [OM.PC] Routine
== END 2018-12-27 02:10 | disposition home or self-care (01) ==
LOC: FB.ED 20:53
DX: K52.9 Noninfective gastroenteritis and colitis, unspecified (principal); E86.0 Dehydration; K29.90 Gastroduodenitis, unspecified, without bleeding; K29.70 Gastritis, unspecified, without bleeding; K31.84 Gastroparesis; I10 Essential (primary) hypertension; K21.9 Gastro-esophageal reflux disease without esophagitis; Z91.010 Allergy to peanuts; Z91.012 Allergy to eggs; Z90.49 Acquired absence of other specified parts of digestive tract; Z98.1 Arthrodesis status; Z90.710 Acquired absence of both cervix and uterus; Z86.73 Personal history of transient ischemic attack (TIA), and cerebral infarction without residual deficits; Z88.1 Allergy status to other antibiotic agents; Z91.011 Allergy to milk products
CPT/HCPCS: 36415; 80053; 80305; 85025; 96361; 96374; 96375; 99283; 99284; A9270; C9113; J2405; J7030; J7042

== ENCOUNTER 2019-02-28 01:19 | Emergency (ER) | payer MEDICAID, MEDICARE ==
[2019-02-28] MEDS ORDERED: Sodium Chloride 0.9% 10 ML Syringe FLUSH PRN (01:52)
[2019-02-28] MEDS ORDERED: Sodium Chloride 0.9% 500 ML IV ONE (01:54)
[2019-02-28] MEDS ORDERED: Ondansetron 4 MG/2 ML SDV IVPUSH ONE (01:55)
--- NOTE | 2019-02-28 02:11 | EDM.PDOC ---
ED HPI GENERAL MEDICAL PROBLEM - General Chief Complaint: General Stated Complaint: abdominal burning, nausea Time Seen by Provider: 02/28/19 01:35 Source of Information: Reports: Patient History Limitations: Reports: No Limitations - History of Present Illness INITIAL COMMENTS - FREE TEXT/NARRATIVE: 64-year-old female who reports that on Wednesday morning she developed burning in her abdomen associated with nausea and vomiting. She has also had some diarrhea. The diarrhea was worse on Wednesday and Wednesday and she has had no diarrhea today. She's only had 1 episode of vomiting today. The burning is continual. It is in her upper abdomen. She rates it as a 10/10. It does seem to be worse with eating and with palpation. She is not really been able to eat or drink anything. Whenever she tries to drink, she has nausea and emesis so she has avoided drinking and eating. She was seen here at the walk-in clinic earlier today and had blood tests performed which were essentially normal. She was given Zofran in the walk-in clinic and she does not feel that this helped her with her nausea. She took additional Zofran at home without relief. She also feels weak all over. She feels that her breathing is somewhat worse than normal. She has no chest pain. There are no other associated signs or symptoms. There are no other modifying factors. Onset: Other (Onset 02/25/2019) Duration: Getting Worse Location: Reports: Abdomen Quality: Reports: Burning Severity: Moderate (to severe) Improves with: Reports: None Worsens with: Reports: Eating, Other (Palpation) Context: Reports: Other (Nothing particular) Associated Symptoms: Reports: Loss of Appetite, Nausea/Vomiting, Shortness of Breath, Weakness (Zofran) - Related Data Allergies Allergy/AdvReac Type Severity Reaction Status Date / Time ceftriaxone sodium Allergy Anaphylactic Verified 02/28/19 01:37 [From Rocephin] Shock clindamycin Allergy Anaphylactic Verified 02/28/19 01:37 Shock fentanyl Allergy Hives Verified 02/28/19 01:37 metoclopramide [From Reglan] Allergy Nausea Verified 02/28/19 03:21 Milk Containing Products Allergy Vomiting Verified 02/28/19 01:37 trazodone Allergy Other Verified 02/28/19 01:37 ciprofloxacin AdvReac Intermediate Nausea and Verified 02/28/19 01:37 Vomiting .steroids Allergy Nausea Uncoded 02/28/19 01:37 depression medications Allergy Airway Uncoded 02/28/19 01:37 Tightness eggs Allergy Nausea Uncoded 02/28/19 01:37 oral antibiotics Allergy Vomiting Uncoded 02/28/19 01:37 peanuts Allergy Hives Uncoded 02/28/19 01:37 Home Meds: Home Meds Dexlansoprazole [Dexilant] 60 mg PO DAILY 12/05/13 [History] Fenofibrate Nanocrystallized [Fenofibrate] 145 mg PO BEDTIME 12/05/13 [History] Nitroglycerin [Nitrostat] 0.4 mg SL ASDIRECTED PRN #1 bot 11/27/15 [Rx] Rosuvastatin [Crestor] 20 mg PO Q48H 11/27/15 [History] Aspirin 81 mg PO 1800 10/07/16 [History] Gabapentin [Neurontin] 800 mg PO QID 10/07/16 [History] Clopidogrel [Plavix] 75 mg PO 1200 11/06/16 [History] Isosorbide Mononitrate [Imdur] 30 mg PO DAILY 11/06/16 [History] Fluticasone Propionate [Flonase Allergy Relief] 2 spray NASBOTH DAILY 07/10/17 [ History] Ondansetron [Zofran ODT] 4 mg PO Q6H PRN 07/16/17 [History] Albuterol Sulfate [Proair Hfa] 2 puff INH Q4H PRN 02/12/18 [History] Potassium Chloride 20 meq PO 1200 04/06/18 [History] Calcium Carbonate/Vitamin D3 [Calcium 500 + Vit D Caplet] 3 tab PO DAILY [History] Cholecalciferol (Vitamin D3) [Vitamin D3] 1,200 unit PO DAILY 12/23/18 [History] Albuterol [Proventil Neb Soln] 2.5 mg INH ASDIRECTED PRN 02/28/19 [History] Diltiazem HCl [Dilt-Xr] 180 mg PO DAILY 02/28/19 [History] Past Medical History HEENT History: Reports: Glaucoma, Impaired Vision, Other (See Below) Other HEENT History: Choroidal nevus. Cardiovascular History: Reports: Angina, CAD, High Cholesterol, Hypertension, PVD, Syncope, Other (See Below) Other Cardiovascular History: Heart palpitations. DVT. PVD. Carotid bruitt. Respiratory History: Reports: COPD (Leo's lung) Other Respiratory History: Suffocating spells at night with SOB. Gastrointestinal History: Reports: GERD, Hiatal Hernia, Other (See Below) Other Gastrointestinal History: Bowel incontinence. Genitourinary History: Reports: Urinary Incontinence, Other (See Below) Other Genitourinary History: Urethral suspension with sling, later removed. Cystocopy. Bladder tumor. Overactive bladder. Musculoskeletal History: Reports: Arthritis, Back Pain, Chronic, Other (See Below) Other Musculoskeletal History: Left knee torn miniscus. Right ankle and hip pain. Neurological History: Reports: CVA, MS, Other (See Below) Other Neuro History: Notices emotional/cognitive changes following a brain injury. Questionable MS diagnosis. Psychiatric History: Reports: Depression Other Psychiatric History: MEDICAL AGREEMENT FOR [employer] USE. Hematologic History: Reports: Blood Transfusion(s) Oncologic (Cancer) History: Reports: Bladder, Brain, Malignant Melanoma Other Oncologic History: Throat cancer, treated with chemotherapy and radiation. Dermatologic History: Reports: Eczema, Melanoma - Infectious Disease History Infectious Disease History: Reports: Chicken Pox - Past Surgical History Head Surgeries/Procedures: Reports: None GI Surgical History: Reports: Appendectomy, Cholecystectomy Female Surgical History: Reports: TURBT Oncologic Surgical History: Reports: Other (See Below) (Malignant melanoma removed) Social & Family History - Family History Cardiac: Reports: [place] - Tobacco Use Smoking Status *Q: Former Smoker (States she quit 10 months ago but was a heavy smoker prior to this.) - Caffeine Use Caffeine Use: Reports: None, Coffee Other Caffeine Use: 2 cups per day Caffeine Use Comment: Occassional coffee drinker. - Alcohol Use Alcohol Use History: No - Living Situation & Occupation Living situation: Reports: Single, Alone ED ROS GENERAL - Review of Systems Review Of Systems: See Below Constitutional: Reports: Malaise, Weakness, Decreased Appetite HEENT: Reports: No Symptoms Respiratory: Reports: Shortness of Breath (Seems worse than normal) Cardiovascular: Reports: No Symptoms GI/Abdominal: Reports: Abdominal Pain, Diarrhea (No diarrhea for the past 24 hours), Nausea, Vomiting : Reports: Dysuria, Frequency Musculoskeletal: Reports: No Symptoms Skin: Reports: No Symptoms Neurological: Reports: No Symptoms Hematologic/Lymphatic: Reports: No Symptoms Immunologic: Reports: No Symptoms ED EXAM, GENERAL - Physical Exam Exam: See Below Exam Limited By: No Limitations General Appearance: Alert, WD/WN, Moderate Distress Eye Exam: Bilateral Eye: EOMI, Normal Inspection, PERRL Ears: Normal External Exam, Hearing Grossly Normal Nose: Normal Inspection, Normal Mucosa Throat/Mouth: Normal Inspection, Normal Voice, No Airway Compromise, Other (No posterior erythema) Head: Atraumatic, Normocephalic Neck: Normal Inspection, Supple, Non-Tender, Full Range of Motion Respiratory/Chest: Lungs Clear, Normal Breath Sounds, Chest Non-Tender, Other ( Respiratory rate is increased) Cardiovascular: Normal Peripheral Pulses, Regular Rate, Rhythm, No JVD Peripheral Pulses: 2+: Radial (L), Radial (R) GI/Abdominal: Normal Bowel Sounds, Soft, No Organomegaly, No Mass, Tender (Over upper abdomen), Other (No rebound. No guarding.) Extremities: Normal Inspection, Normal Range of Motion, Non-Tender, No Pedal Edema, Normal Capillary Refill Neurological: Alert, Oriented, CN II-XII Intact, No Motor/Sensory Deficits Skin Exam: Warm, Dry, Intact, Normal Color, No Rash Lymphatic: No Adenopathy EKG INTERPRETATION EKG Date: 02/28/19 Time: 02:05 Rhythm: NSR Rate (Beats/Min): 82 [place]: Normal P-Wave: Enlarged QRS: Normal ST-T: Other (Poor R-wave progression. Nonspecific changes.) QT: Prolonged Comparison: NA - No Prior EKG EKG Interpretation Comments: Normal sinus rhythm with a rate of 82. There is a normal axis. There is poor R- wave progression. There are nonspecific ST-T changes. There is no change from EKG performed on 12/22/2018. Course - Vital Signs Last Recorded V/S: Last Vital Signs Temp 36.6 C 02/28/19 01:25 Pulse 85 02/28/19 01:25 Resp 28 H 02/28/19 01:25 BP 145/61 H 02/28/19 01:25 Pulse Ox 92 L 02/28/19 01:25 - Orders/Labs/Meds Orders: Active Orders 24 hr Category Date Time Status EKG Documentation Completion [RC] ASDIRECTED Care 02/28/19 01:53 Active Abdomen Pelvis w Cont [CT] Stat Exams 02/28/19 01:56 Taken Chest 2V [CR] Stat Exams 02/28/19 02:13 Taken Sodium Chloride 0.9% [Saline Flush] Med 02/28/19 01:52 Active 10 ml FLUSH ASDIRECTED PRN Peripheral IV Insertion Adult [OM.PC] Routine Oth 02/28/19 01:52 Ordered EKG 12 Lead [EK] Routine Ther 02/28/19 01:52 Ordered Medication Orders Sodium Chloride (Saline Flush) 10 ml FLUSH ASDIRECTED PRN PRN Reason: Keep Vein Open Labs: Laboratory Tests 02/28/19 02/28/19 02/28/19 Range/Units 02:15 02:15 02:15 WBC 9.3 (4.5-12.0) X10-3/uL RBC 5.18 (3.23-5.20) x10(6)uL Hgb 14.6 (11.5-15.5) g/dL Hct 44.8 (30.0-51.3) % MCV 86.6 (80-96) fL MCH 28.2 (27.7-33.6) pg MCHC 32.6 (32.2-35.4) g/dL RDW 12.2 (11.5-15.5) % Plt Count 355 (125-369) X10(3)uL MPV 7.3 L (7.4-10.4) fL Neut % (Auto) 73.7 (46-82) % Lymph % (Auto) 17.9 (13-37) % [place] % (Auto) 7.2 (4-12) % Eos % (Auto) 0 L (1.0-5.0) % Baso % (Auto) 1 (0-2) % Neut # (Auto) 6.8 (1.6-8.3) # Lymph # (Auto) 1.7 (0.6-5.0) # [place] # (Auto) 0.7 (0.0-1.3) # Eos # (Auto) 0.0 (0.0-0.8) # Baso # (Auto) 0.1 (0.0-0.2) # Sodium 134 L (135-145) mmol/L Potassium 4.2 (3.5-5.3) mmol/L Chloride 93 L (100-110) mmol/L Carbon Dioxide 22 (21-32) mmol/L BUN 16 (7-18) mg/dL Creatinine 0.7 (0.55-1.02) mg/dL Est Cr Clr Drug Dosing TNP Estimated GFR (MDRD) > 60 (>60) BUN/Creatinine Ratio 22.9 H (9-20) Glucose 65 L (80-116) mg/dL Calcium 9.8 (8.6-10.2) mg/dL Total Bilirubin 0.8 (0.1-1.3) mg/dL AST 38 H D (5-25) IU/L ALT 33 (12-36) U/L Alkaline Phosphatase 56 (56-112) IU/L Troponin I < 0.017 L (<0.017-0.056) ng/mL C-Reactive Protein 0.3 L (0.5-0.9) mg/dL Total Protein 8.2 H (6.0-8.0) g/dL Albumin 4.7 H (3.2-4.6) g/dL Globulin 3.5 g/dL Albumin/Globulin Ratio 1.3 Amylase (25-115) U/L Urine Color (YELLOW) Urine Appearance (CLEAR) Urine pH (5.0-6.5) Ur Specific [place] (1.010-1.025) Urine Protein (NEGATIVE) mg/dL Urine Glucose (UA) (NORMAL) mg/dL Urine Ketones (NEGATIVE) mg/dL Urine Occult Blood (NEGATIVE) Urine Nitrite (NEGATIVE) Urine Bilirubin (NEGATIVE) Urine Urobilinogen (NEGATIVE) mg/dL Ur Leukocyte Esterase (NEGATIVE) Urine RBC (0-5) Urine WBC (0-5) Ur Squamous Epith Cells (NS,R,O) Urine Bacteria (NS) Urine Mucus (NS) 02/28/19 02/28/19 Range/Units 02:15 02:35 WBC (4.5-12.0) X10-3/uL RBC (3.23-5.20) x10(6)uL Hgb (11.5-15.5) g/dL Hct (30.0-51.3) % MCV (80-96) fL MCH (27.7-33.6) pg MCHC (32.2-35.4) g/dL RDW (11.5-15.5) % Plt Count (125-369) X10(3)uL MPV (7.4-10.4) fL Neut % (Auto) (46-82) % Lymph % (Auto) (13-37) % [place] % (Auto) (4-12) % Eos % (Auto) (1.0-5.0) % Baso % (Auto) (0-2) % Neut # (Auto) (1.6-8.3) # Lymph # (Auto) (0.6-5.0) # [place] # (Auto) (0.0-1.3) # Eos # (Auto) (0.0-0.8) # Baso # (Auto) (0.0-0.2) # Sodium (135-145) mmol/L Potassium (3.5-5.3) mmol/L Chloride (100-110) mmol/L Carbon Dioxide (21-32) mmol/L BUN (7-18) mg/dL Creatinine (0.55-1.02) mg/dL Est Cr Clr Drug Dosing Estimated GFR (MDRD) (>60) BUN/Creatinine Ratio (9-20) Glucose (80-116) mg/dL Calcium (8.6-10.2) mg/dL Total Bilirubin (0.1-1.3) mg/dL AST (5-25) IU/L ALT (12-36) U/L Alkaline Phosphatase (56-112) IU/L Troponin I (<0.017-0.056) ng/mL C-Reactive Protein (0.5-0.9) mg/dL Total Protein (6.0-8.0) g/dL Albumin (3.2-4.6) g/dL Globulin g/dL Albumin/Globulin Ratio Amylase 54 (25-115) U/L Urine Color Yellow (YELLOW) Urine Appearance Slightly cloudy (CLEAR) Urine pH 5.0 (5.0-6.5) Ur Specific [place] 1.030 H (1.010-1.025) Urine Protein 30 H (NEGATIVE) mg/dL Urine Glucose (UA) Normal (NORMAL) mg/dL Urine Ketones 50 H (NEGATIVE) mg/dL Urine Occult Blood Trace (NEGATIVE) Urine Nitrite Negative (NEGATIVE) Urine Bilirubin Moderate H (NEGATIVE) Urine Urobilinogen 4 H (NEGATIVE) mg/dL Ur Leukocyte Esterase Small H (NEGATIVE) Urine RBC 5-10 H (0-5) Urine WBC 5-10 H (0-5) Ur Squamous Epith Cells Few H (NS,R,O) Urine Bacteria Few H (NS) Urine Mucus Moderate H (NS) Meds: Medications Generic Name Dose Route Start Last Admin Trade Name Freq PRN Reason Stop Dose Admin Sodium Chloride 10 ml 02/28/19 01:52 Saline Flush FLUSH ASDIRECTED PRN Keep Vein Open Discontinued Medications Generic Name Dose Route Start Last Admin Trade Name Freq PRN Reason Stop Dose Admin Sodium Chloride 500 mls @ 999 mls/hr 02/28/19 01:54 02/28/19 03:30 Normal Saline IV 02/28/19 02:24 Infused .BOLUS ONE Infusion Iopamidol 65 ml 02/28/19 02:59 02/28/19 03:12 Isovue-370 (76%) IV 02/28/19 03:00 65 ml ONETIME ONE Administration Metoclopramide HCl 10 mg 02/28/19 02:41 02/28/19 03:15 Reglan IVPUSH 02/28/19 02:42 Not Given ONETIME ONE Ondansetron HCl 4 mg 02/28/19 01:55 02/28/19 02:40 Zofran IVPUSH 02/28/19 01:56 4 mg ONETIME ONE Administration - Radiology Interpretation Free Text/Narrative:: Chest x-ray PA and lateral showed evidence of COPD but no acute problems. CT scan of abdomen and pelvis showed unremarkable CT scan of the abdomen and pelvis with no CT correlate for the patient's symptoms seen the [facility] radiologist - Re-Assessments/Exams Free Text/Narrative Re-Assessment/Exam: 02/28/19 04:00: The patient's CT scan of her abdomen and pelvis was unremarkable per the radiologist. Her vital signs of been stable. She has had no vomiting and no diarrhea while she's been in the emergency department for the past 3 hours. She has received 1 L of normal saline as a bolus and 4 mg of Zofran IV and reports that she feels much the same as before. At this point, she does not appear to be dehydrated. There is no evidence of significant problem on CT scan or on exam. She'll be discharged to home to continue with small amounts of fluids frequently and Zofran for nausea until her vomiting and diarrhea have waned and she can restively increase her diet as tolerated after that. She was advised to follow-up with her primary doctor this week if her symptoms are not improving. Departure - Departure Time of Disposition: 04:05 Disposition: Home, Self-Care 01 Condition: Good Clinical Impression: Abdominal pain of unknown etiology Vomiting Qualifiers: Vomiting type: unspecified Diarrhea Qualifiers: Diarrhea type: unspecified type Qualified Code(s): R19.7 - Diarrhea, unspecified - Discharge Information Instructions: Nausea and Vomiting, Adult, Diarrhea, Adult Referrals: Francisco Narayanan PA [Primary Care Provider] - Forms: ED Department Discharge Additional Instructions: Your blood tests were reassuringly normal. Your urine test showed no definite evidence of infection. Chest x-ray showed no acute disease. The CT scan of your abdomen and pelvis showed no acute problem. I am unsure why you are having the abdominal pain. You have been hydrated with IV fluids in the emergency department and do not appear to be hydrated at this time. You should rest. You should drink small amounts of fluids frequently and increase your fluid intake as tolerated. You should judiciously advance her diet as tolerated. Follow-up with your primary doctor this week if your symptoms are continuing. - My Orders Last 24 Hours: My Active Orders 02/28/19 01:52 Sodium Chloride 0.9% [Saline Flush] 10 ml FLUSH ASDIRECTED PRN Peripheral IV Insertion Adult [OM.PC] Routine EKG 12 Lead [EK] Routine 02/28/19 01:53 EKG Documentation Completion [RC] ASDIRECTED 02/28/19 01:56 Abdomen Pelvis w Cont [CT] Stat 02/28/19 02:13 Chest 2V [CR] Stat - Assessment/Plan Last 24 Hours: My Active Orders 02/28/19 01:52 Sodium Chloride 0.9% [Saline Flush] 10 ml FLUSH ASDIRECTED PRN Peripheral IV Insertion Adult [OM.PC] Routine EKG 12 Lead [EK] Routine 02/28/19 01:53 EKG Documentation Completion [RC] ASDIRECTED 02/28/19 01:56 Abdomen Pelvis w Cont [CT] Stat 02/28/19 02:13 Chest 2V [CR] Stat
[2019-02-28] MEDS ORDERED: Metoclopramide 10 MG/2 ML SDV IVPUSH ONE (02:41)
[2019-02-28] MEDS ORDERED: Iopamidol 755 Mg/ML 75 ML Bottle IV ONE (02:59)
[2019-02-28 04:10] VITALS: BP 133/82
== END 2019-02-28 04:30 | disposition home or self-care (01) ==
LOC: FB.ED 01:19
DX: R11.2 Nausea with vomiting, unspecified (principal); R10.9 Unspecified abdominal pain; R19.7 Diarrhea, unspecified; K21.9 Gastro-esophageal reflux disease without esophagitis; I25.10 Atherosclerotic heart disease of native coronary artery without angina pectoris; J44.9 Chronic obstructive pulmonary disease, unspecified; Z88.1 Allergy status to other antibiotic agents; Z88.8 Allergy status to other drugs, medicaments and biological substances; Z91.010 Allergy to peanuts; Z79.82 Long term (current) use of aspirin; Z79.899 Other long term (current) drug therapy; Z91.011 Allergy to milk products; Z91.012 Allergy to eggs; I10 Essential (primary) hypertension; Z86.73 Personal history of transient ischemic attack (TIA), and cerebral infarction without residual deficits
CPT/HCPCS: 36415; 71046; 74177; 80053; 81001; 82150; 84484; 85025; 86140; 93005; 96361; 96374; 99284; J2405; J7040; Q9967

== ENCOUNTER 2019-04-24 16:38 | Emergency (ER) | payer MEDICARE, MEDICAID, OTHER ==
[2019-04-24] MEDS ORDERED: Nitroglycerin 0.4 MG Tab.SL SL ONE (16:39)
[2019-04-24] MEDS: Nitroglycerin 0.4 MG Tab.SL SL PRN ×2 (17:15→17:22)
[2019-04-24] MEDS ORDERED: Aspirin 81 MG Tab.Chew PO ONE (17:28)
[2019-04-24] MEDS ORDERED: Sodium Chloride 0.9% 10 ML Syringe FLUSH PRN (17:29)
--- NOTE | 2019-04-24 21:00 | EDM.PDOC ---
ED HPI GENERAL MEDICAL PROBLEM - General Chief Complaint: Chest Pain Stated Complaint: CHEST PAIN AND HBP Time Seen by Provider: 04/24/19 17:10 Source of Information: Reports: Patient, Old Records History Limitations: Reports: No Limitations - History of Present Illness INITIAL COMMENTS - FREE TEXT/NARRATIVE: call received from walk-in clinic, patient arrived with left sided chest and jaw pain since 930am. Patient well known to clinic and often presents with GI issues but this is very different complaint for her, so transferred to ER. Patient reports that at 9:30 AM this morning during [employer] service she started feeling poorly, but was unable to leave due to communion being served. She reports the pain was on the outside of her chest on the left side, and then subsequently went up the left side of her neck. She also noticed some short of redness of breath this afternoon when she was cleaning out some boxes, so she sat down for a little while and her breathing seemed to improve. She notes that over the past week, she has had some shortness of breath and occasionally it is associated with sweats and nausea. At one point she felt like she was going to pass out, but that did not happen. She does not note any cough. She has not had any vomiting, or other GI symptoms other than her chronic bowel incontinence for the past 4 years. She has not had a fever, and is otherwise in her usual state of health. Past medical history significant for a heart attack in the 1979's, and a second one a few years later. She quit smoking approximately a year ago and is certain to take all of her medications as prescribed, she states she has a history of congestive heart failure as well as MS. She has not had any recent travel, but she did have an upper respiratory tract infection last week. She also reports that her lung function is approximately 32% of what it should be as of last winter, probably due to pneumonia. She did a albuterol nebulizer once last night but has not taken any since. Chest Pain Score (Numeric/FACES): 5 - Related Data Allergies Allergy/AdvReac Type Severity Reaction Status Date / Time ceftriaxone sodium Allergy Anaphylactic Verified 04/24/19 17:34 [From Rocephin] Shock clindamycin Allergy Anaphylactic Verified 04/24/19 17:34 Shock fentanyl Allergy Hives Verified 04/24/19 17:34 metoclopramide [From Reglan] Allergy Nausea Verified 04/24/19 17:34 Milk Containing Products Allergy Vomiting Verified 04/24/19 17:34 trazodone Allergy Other Verified 04/24/19 17:34 ciprofloxacin AdvReac Intermediate Nausea and Verified 04/24/19 17:34 Vomiting .steroids Allergy Nausea Uncoded 04/24/19 17:34 depression medications Allergy Airway Uncoded 04/24/19 17:34 Tightness eggs Allergy Nausea Uncoded 04/24/19 17:34 oral antibiotics Allergy Vomiting Uncoded 04/24/19 17:34 peanuts Allergy Hives Uncoded 04/24/19 17:34 Home Meds: Home Meds Dexlansoprazole [Dexilant] 60 mg PO DAILY 12/05/13 [History] Fenofibrate Nanocrystallized [Fenofibrate] 145 mg PO BEDTIME 12/05/13 [History] Nitroglycerin [Nitrostat] 0.4 mg SL ASDIRECTED PRN #1 bot 11/27/15 [Rx] Rosuvastatin [Crestor] 20 mg PO Q48H 11/27/15 [History] Aspirin 81 mg PO 1800 10/07/16 [History] Gabapentin [Neurontin] 800 mg PO 05,12,18,22 10/07/16 [History] Clopidogrel [Plavix] 75 mg PO 1200 11/06/16 [History] Isosorbide Mononitrate [Imdur] 30 mg PO DAILY 11/06/16 [History] Fluticasone Propionate [Flonase Allergy Relief] 2 spray NASBOTH DAILY 07/10/17 [ History] Ondansetron [Zofran ODT] 4 mg PO Q6H PRN 07/16/17 [History] Albuterol Sulfate [Proair Hfa] 2 puff INH Q4H PRN 02/12/18 [History] Potassium Chloride 20 meq PO 1200 04/06/18 [History] Calcium Carbonate/Vitamin D3 [Calcium 500 + Vit D Caplet] 3 tab PO DAILY [History] Cholecalciferol (Vitamin D3) [Vitamin D3] 1,200 unit PO DAILY 12/23/18 [History] Albuterol [Proventil Neb Soln] 2.5 mg INH ASDIRECTED PRN 02/28/19 [History] Diltiazem HCl [Dilt-Xr] 180 mg PO DAILY 02/28/19 [History] Magnesium 04/24/19 [History] Past Medical History HEENT History: Reports: Glaucoma, Impaired Vision, Other (See Below) Other HEENT History: Choroidal nevus. Cardiovascular History: Reports: Angina, CAD, High Cholesterol, Hypertension, PVD, Syncope, Other (See Below) Other Cardiovascular History: Heart palpitations. DVT. PVD. Carotid bruitt. Respiratory History: Reports: COPD Other Respiratory History: Suffocating spells at night with SOB. Gastrointestinal History: Reports: GERD, Hiatal Hernia, Other (See Below) Other Gastrointestinal History: Bowel incontinence. Genitourinary History: Reports: Urinary Incontinence, Other (See Below) Other Genitourinary History: Urethral suspension with sling, later removed. Cystocopy. Bladder tumor. Overactive bladder. Other MARBLE [employer]ER History: D&C. Musculoskeletal History: Reports: Arthritis, Back Pain, Chronic, Other (See Below) Other Musculoskeletal History: Left knee torn miniscus. Right ankle and hip pain. Neurological History: Reports: CVA, MS, Other (See Below) Other Neuro History: Notices emotional/cognitive changes following a brain injury. Questionable MS diagnosis. 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 Endocrine/Metabolic History: Reports: None Other Endocrine/Metabolic History: States history of hypoglycemia. Hematologic History: Reports: Blood Transfusion(s) Immunologic History: Reports: None Oncologic (Cancer) History: Reports: Bladder, Brain, Malignant Melanoma Other Oncologic History: Throat cancer, treated with chemotherapy and radiation. Dermatologic History: Reports: Eczema, Melanoma Other Dermatologic History: Melanoma on back. Eczema. - Infectious Disease History Infectious Disease History: Reports: Chicken Pox - Past Surgical History Head Surgeries/Procedures: Reports: None GI Surgical History: Reports: Appendectomy, Cholecystectomy Female Surgical History: Reports: TURBT Oncologic Surgical History: Reports: Other (See Below) Social & Family History - Family History Family Medical History: Noncontributory Cardiac: Reports: [place] - Tobacco Use Smoking Status *Q: Former Smoker Used Tobacco, but Quit: Yes Month/Year Tobacco Last Used: 1 year ago - Caffeine Use Caffeine Use: Reports: Tea Other Caffeine Use: 2 cups per day Caffeine Use Comment: Occassional coffee drinker. - Recreational Drug Use Recreational Drug Use: No - Living Situation & Occupation Living situation: Reports: Single, Alone ED [facility] - Review of Systems Review Of Systems: See Below Constitutional: Reports: Fatigue, Diaphoresis. Denies: Fever, Chills, Night Sweats HEENT: Reports: No Symptoms Respiratory: Reports: Shortness of Breath, Wheezing. Denies: Pleuritic Chest Pain, Cough Cardiovascular: Reports: Other (see hpi) Endocrine: Reports: Fatigue GI/Abdominal: Reports: Other (chronic diarrhea, abdominal pain, heartburn ) : Reports: Frequency (chronic ) Musculoskeletal: Reports: Other (generalized aches, multiple complaints ) Skin: Denies: Rash, Wound Neurological: Denies: Headache, Numbness, Tingling Psychiatric: Reports: Other (denies any symptoms ) Hematologic/Lymphatic: Denies: Easy Bleeding, Easy Bruising ED EXAM, GENERAL - Physical Exam Exam: See Below Free Text/Narrative:: Gen.: Alert, very anxious but not acutely distressed. Head is atraumatic, neck is supple, pupils equal and reactive. No cervical lymphadenopathy, mucous murmurs are moist. Heart is regular rate and rhythm and I do not hear murmur. Lungs have decreased air movement throughout and a few scattered wheezes. Abdomen has positive bowel sounds, soft nondistended use minimal tenderness with no rebound or guarding and peripheral pulses are +2 in both the upper and lower extremity speech has no lower extremity edema. Skin exam shows no abnormal lesions. She has equal strength bilaterally and normal gait. Psych: Anxious affect, makes good eye contact and answers questions appropriately Course - Vital Signs Text/Narrative:: Initial EKG shows no acute abnormalities, normal sinus rhythm with no ST changes and normal with morphology other than possible slightly enlarged P waves. Patient given 2 doses of sublingual nitroglycerin and her pain greatly improved after the first dose, and was completely resolved after the second one and did not return. History extremely concerning for new onset or unstable angina. I am uncertain regarding her previous cardiac workup per her report she has not had a cath in quite a long time and has not had a stress test in past 3 or 4 years. She states she established with cardiology at [facility] in January. Last Recorded V/S: Last Vital Signs Temp 36.3 C 04/24/19 16:38 Pulse 61 04/24/19 21:15 Resp 19 04/24/19 21:15 BP 155/82 H 04/24/19 21:15 Pulse Ox 95 04/24/19 21:15 - Orders/Labs/Meds Orders: Active Orders 24 hr Category Date Time Status EKG Documentation Completion [RC] ASDIRECTED Care 04/24/19 16:48 Active EKG Documentation Completion [RC] ASDIRECTED Care 04/24/19 20:03 Active EKG Documentation Completion [RC] STAT Care 04/24/19 16:48 Active CXR [Chest 2V] [CR] Stat Exams 04/24/19 17:53 Taken Saline Lock Insert [OM.PC] Routine Oth 04/24/19 17:29 Ordered EKG 12 Lead [EK] Routine Ther 04/24/19 16:48 Ordered EKG 12 Lead [EK] Routine Ther 04/24/19 20:03 Ordered Labs: Laboratory Tests 04/24/19 04/24/19 04/24/19 Range/Units 17:15 17:15 17:15 WBC 7.9 (4.5-12.0) X10-3/uL RBC 4.26 (3.23-5.20) x10(6)uL Hgb 12.5 (11.5-15.5) g/dL Hct 37.4 (30.0-51.3) % MCV 87.8 (80-96) fL MCH 29.3 (27.7-33.6) pg MCHC 33.4 (32.2-35.4) g/dL RDW 12.6 (11.5-15.5) % Plt Count 312 (125-369) X10(3)uL MPV 7.4 (7.4-10.4) fL Neut % (Auto) 64.8 (46-82) % Lymph % (Auto) 24.6 (13-37) % [place] % (Auto) 7.2 (4-12) % Eos % (Auto) 3 (1.0-5.0) % Baso % (Auto) 1 (0-2) % Neut # (Auto) 5.2 (1.6-8.3) # Lymph # (Auto) 1.9 (0.6-5.0) # [place] # (Auto) 0.6 (0.0-1.3) # Eos # (Auto) 0.2 (0.0-0.8) # Baso # (Auto) 0.0 (0.0-0.2) # PT 10.0 (8.7-11.1) INR 1.03 (0.89-1.13) Sodium 134 L (135-145) mmol/L Potassium 4.0 (3.5-5.3) mmol/L Chloride 97 L (100-110) mmol/L Carbon Dioxide 29 (21-32) mmol/L BUN 14 (7-18) mg/dL Creatinine 1.0 (0.55-1.02) mg/dL Est Cr Clr Drug Dosing TNP Estimated GFR (MDRD) 55 L (>60) BUN/Creatinine Ratio 14.0 (9-20) Glucose 97 (80-116) mg/dL Calcium 9.8 (8.6-10.2) mg/dL Total Bilirubin 0.3 (0.1-1.3) mg/dL AST 25 (5-25) IU/L ALT 27 (12-36) U/L Alkaline Phosphatase 54 L (56-112) IU/L Troponin I (<0.017-0.056) ng/mL Total Protein 7.3 (6.0-8.0) g/dL Albumin 4.1 (3.2-4.6) g/dL Globulin 3.2 g/dL Albumin/Globulin Ratio 1.3 04/24/19 04/24/19 Range/Units 17:15 20:17 WBC (4.5-12.0) X10-3/uL RBC (3.23-5.20) x10(6)uL Hgb (11.5-15.5) g/dL Hct (30.0-51.3) % MCV (80-96) fL MCH (27.7-33.6) pg MCHC (32.2-35.4) g/dL RDW (11.5-15.5) % Plt Count (125-369) X10(3)uL MPV (7.4-10.4) fL Neut % (Auto) (46-82) % Lymph % (Auto) (13-37) % [place] % (Auto) (4-12) % Eos % (Auto) (1.0-5.0) % Baso % (Auto) (0-2) % Neut # (Auto) (1.6-8.3) # Lymph # (Auto) (0.6-5.0) # [place] # (Auto) (0.0-1.3) # Eos # (Auto) (0.0-0.8) # Baso # (Auto) (0.0-0.2) # PT (8.7-11.1) INR (0.89-1.13) Sodium (135-145) mmol/L Potassium (3.5-5.3) mmol/L Chloride (100-110) mmol/L Carbon Dioxide (21-32) mmol/L BUN (7-18) mg/dL Creatinine (0.55-1.02) mg/dL Est Cr Clr Drug Dosing Estimated GFR (MDRD) (>60) BUN/Creatinine Ratio (9-20) Glucose (80-116) mg/dL Calcium (8.6-10.2) mg/dL Total Bilirubin (0.1-1.3) mg/dL AST (5-25) IU/L ALT (12-36) U/L Alkaline Phosphatase (56-112) IU/L Troponin I < 0.017 L < 0.017 L (<0.017-0.056) ng/mL Total Protein (6.0-8.0) g/dL Albumin (3.2-4.6) g/dL Globulin g/dL Albumin/Globulin Ratio Meds: Medications Discontinued Medications Generic Name Dose Route Start Last Admin Trade Name Freq PRN Reason Stop Dose Admin Aspirin 324 mg 04/24/19 17:28 04/24/19 17:00 Aspirin PO 04/24/19 17:29 324 mg ONETIME ONE Administration Nitroglycerin 0.4 mg 04/24/19 17:00 04/24/19 17:22 Nitrostat SL 0.4 mg Q5M PRN Administration Chest Pain Sodium Chloride 10 ml 04/24/19 17:29 04/24/19 17:32 Saline Flush FLUSH 10 ml ASDIRECTED PRN Administration Keep Vein Open - Re-Assessments/Exams Free Text/Narrative Re-Assessment/Exam: Labs within normal limits, patient has not had a recurrence of any of her chest pain. Her blood pressure has been somewhat labile, but she is extremely anxious and gets agitated easily which seems to raise it. When her blood pressure has been elevated she has not had any recurrence of her symptoms. I discussed with her at length cardiac workup and it is difficult to know not having outside records if she has had recent testing, however given her new onset symptoms over the last week my recommendation would be at least a stress test at this point. Her heart score is approximately 5 and we discussed possible admission for observation overnight, however she was extremely insistent about going home. We're agreeable to repeat troponin after 3 hours and repeat EKG if any other symptoms develop, if she is asymptomatic at that time we will discharge her with close follow-up. Free Text/Narrative Re-Assessment/Exam: 04/25/19 11:31 She continues to be extremely anxious, continued lengthy discussion about admission versus going home and she is insistent on going home. Repeat troponin checked at 3 hours and was negative, a repeat EKG obtained while the patient was having a fluttery feeling in her epigastric area was also identical to the first EKG. Discussed discharge home, given new prescription sent home pack for nitroglycerin, and recommended she call PCP in the morning for follow-up appointment and possible further testing. Also discussed at length signs or symptoms which should prompt need for her to return to the emergency room in the meantime. She was in agreement with this plan and all questions were answered Departure - Departure Time of Disposition: 20:53 Disposition: Home, Self-Care 01 Condition: Fair Clinical Impression: Angina of effort - Discharge Information *PRESCRIPTION DRUG MONITORING PROGRAM REVIEWED*: Not Applicable *COPY OF PRESCRIPTION DRUG MONITORING REPORT IN PATIENT ENA: Not Applicable Instructions: Nonspecific Chest Pain, Heart Attack, [id number], Nitroglycerin sublingual tablets, Exercise Stress Test, Angina Pectoris, Easy-to -Read Referrals: Francisco Naraynaan PA [Primary Care Provider] - Forms: ED Department Discharge Additional Instructions: IF develop: chest pain like today, patti with pain in neck, nausea, shortness of breath - take 1 tab nitro after 5 minutes, may take a second tab, as per instructions if no improvement, need to call ambulance and come to ER if other symptoms of heart attack, should also return to ER in the morning, call your doctor about a stress test (Dr Narayanan's office) - My Orders Last 24 Hours: My Active Orders 04/24/19 16:48 EKG Documentation Completion [RC] ASDIRECTED EKG Documentation Completion [RC] STAT EKG 12 Lead [EK] Routine 04/24/19 17:29 Saline Lock Insert [OM.PC] Routine 04/24/19 17:53 CXR [Chest 2V] [CR] Stat 04/24/19 20:03 EKG Documentation Completion [RC] ASDIRECTED EKG 12 Lead [EK] Routine - Assessment/Plan Last 24 Hours: My Active Orders 04/24/19 16:48 EKG Documentation Completion [RC] ASDIRECTED EKG Documentation Completion [RC] STAT EKG 12 Lead [EK] Routine 04/24/19 17:29 Saline Lock Insert [OM.PC] Routine 04/24/19 17:53 CXR [Chest 2V] [CR] Stat 04/24/19 20:03 EKG Documentation Completion [RC] ASDIRECTED EKG 12 Lead [EK] Routine
[2019-04-24 21:47] VITALS: BP 155/82; PULSE 61
--- NOTE | 2019-04-25 11:26 | CR ---
INDICATION: Hypoxia, shortness of breath. CHEST: PA and lateral views of the chest, 04/24/19, were compared with and 02/28/19. Mildly flattened diaphragm leaf on the left raises suggestion of exacerbation of COPD. A definite active infiltrate or effusion was not identified. The heart remains normal in size and shape. The aorta is calcified in the arch and descending portion. There is a vertebroplasty at T12 with moderate compression again noted at that level. Overlying EKG leads are noted. IMPRESSION: 1. Except for question of exacerbation of COPD, no acute process. 2. ASD aorta. 3. Vertebroplasty with osteoporotic compression T12. MTDD
== END 2019-04-24 21:30 | disposition home or self-care (01) ==
LOC: FB.ED 16:38
DX: I20.8 Other forms of angina pectoris (principal); I10 Essential (primary) hypertension; E78.00 Pure hypercholesterolemia, unspecified; J44.9 Chronic obstructive pulmonary disease, unspecified; K21.9 Gastro-esophageal reflux disease without esophagitis; F32.9 Major depressive disorder, single episode, unspecified; Z86.718 Personal history of other venous thrombosis and embolism; Z79.899 Other long term (current) drug therapy; Z88.8 Allergy status to other drugs, medicaments and biological substances; Z88.1 Allergy status to other antibiotic agents; Z88.6 Allergy status to analgesic agent; Z91.011 Allergy to milk products; Z88.5 Allergy status to narcotic agent; Z91.012 Allergy to eggs; Z91.010 Allergy to peanuts; Z79.82 Long term (current) use of aspirin; Z79.02 Long term (current) use of antithrombotics/antiplatelets; Z87.891 Personal history of nicotine dependence
CPT/HCPCS: 36415; 71046; 80053; 84484; 85025; 85610; 93005; 99285; A9270; 93010

== ENCOUNTER 2019-06-17 09:11 | Emergency (ER) | payer MEDICARE, MEDICAID ==
--- NOTE | 2019-06-17 09:32 | EDM.PDOC ---
ED HPI GENERAL MEDICAL PROBLEM - General Chief Complaint: Skin Complaint Stated Complaint: PAIN IN LEFT BACK SIDE AREA Time Seen by Provider: 06/17/19 09:32 Source of Information: Reports: Patient History Limitations: Reports: No Limitations - History of Present Illness INITIAL COMMENTS - FREE TEXT/NARRATIVE: 64-year-old female who had bowel and bladder InterStim placed first on 2018 (temporary) and then the permanent InterStim placed on 06/07/2019. She reports that after the temporary one was placed, she did quite well and had better control of her bowels and had really no pain in the area of the incision with good healing. However, since the permanent one was placed on 06/14/2019, she initially had bright red blood drainage and then brown blood drainage and now brownish yellow drainage. She also has quite a bit of pain in the area when there is palpation. She rates the pain as a 10/10. That is a sharp pain. At present she has a 5/10 level pain that is sore with aching in quality to it. She does have nausea frequently and feels that her nausea has been more for the past few days. No vomiting. She also reports malaise with "feeling hot" but no measured fever. She has had no shaking chills. She reports that she has been able to take liquids well but her appetite has been somewhat decreased for the past 2 days. She was seen by a urologist yesterday but "he did not look at my incision". Apparently the surgeon that placed the InterStim is from [facility] in [place] but is in [place] at present. She also reports that her urine seems to be less frequent and it appears more dark than usual. No trouble breathing. No chest pain. No other associated signs or symptoms. No other modifying factors. 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: Reports: Other (see below) (Nothing) incisional Pain Score (Numeric/FACES): 6 - Related Data Allergies Allergy/AdvReac Type Severity Reaction Status Date / Time ceftriaxone sodium Allergy Anaphylactic Verified 06/17/19 09:13 [From Rocephin] Shock clindamycin Allergy Anaphylactic Verified 06/17/19 09:13 Shock fentanyl Allergy Hives Verified 06/17/19 09:13 metoclopramide [From Reglan] Allergy Nausea Verified 06/17/19 09:13 Milk Containing Products Allergy Vomiting Verified 06/17/19 09:13 trazodone Allergy Other Verified 06/17/19 09:13 ciprofloxacin AdvReac Intermediate Nausea and Verified 06/17/19 09:13 Vomiting .steroids Allergy Nausea Uncoded 06/17/19 09:14 depression medications Allergy Airway Uncoded 06/17/19 09:14 Tightness eggs Allergy Nausea Uncoded 06/17/19 09:14 oral antibiotics Allergy Vomiting Uncoded 06/17/19 09:14 peanuts Allergy Hives Uncoded 06/17/19 09:14 Home Meds: Home Meds Dexlansoprazole [Dexilant] 60 mg PO DAILY 12/05/13 [History] Fenofibrate Nanocrystallized [Fenofibrate] 145 mg PO BEDTIME 12/05/13 [History] Nitroglycerin [Nitrostat] 0.4 mg SL ASDIRECTED PRN #1 bot 11/27/15 [Rx] Rosuvastatin [Crestor] 20 mg PO Q48H 11/27/15 [History] Aspirin 81 mg PO 1800 10/07/16 [History] Gabapentin [Neurontin] 800 mg PO 05,12,18,22 10/07/16 [History] Clopidogrel [Plavix] 75 mg PO 1200 11/06/16 [History] Isosorbide Mononitrate [Imdur] 30 mg PO DAILY 11/06/16 [History] Fluticasone Propionate [Flonase Allergy Relief] 2 spray NASBOTH DAILY 07/10/17 [ History] Ondansetron [Zofran ODT] 8 mg PO Q6H PRN 07/16/17 [History] Albuterol Sulfate [Proair Hfa] 2 puff INH Q4H PRN 02/12/18 [History] Potassium Chloride 20 meq PO 1200 04/06/18 [History] Calcium Carbonate/Vitamin D3 [Calcium 500 + Vit D Caplet] 3 tab PO DAILY [History] Cholecalciferol (Vitamin D3) [Vitamin D3] 1,200 unit PO DAILY 12/23/18 [History] Albuterol [Proventil Neb Soln] 2.5 mg INH ASDIRECTED PRN 02/28/19 [History] Diltiazem HCl [Dilt-Xr] 180 mg PO DAILY 02/28/19 [History] Magnesium 200 mg PO DAILY 04/24/19 [History] Past Medical History HEENT History: Reports: Glaucoma, Impaired Vision, Other (See Below) Other HEENT History: Choroidal nevus. Cardiovascular History: Reports: Angina, CAD, High Cholesterol, Hypertension, PVD, Syncope, Other (See Below) Other Cardiovascular History: Heart palpitations. DVT. PVD. Carotid bruitt. Respiratory History: Reports: COPD Other Respiratory History: Suffocating spells at night with SOB. Gastrointestinal History: Reports: GERD, Hiatal Hernia, Other (See Below) Other Gastrointestinal History: Bowel incontinence. Genitourinary History: Reports: Urinary Incontinence, Other (See Below) Other Genitourinary History: Urethral suspension with sling, later removed. Cystocopy. Bladder tumor. Overactive bladder. Musculoskeletal History: Reports: Arthritis, Back Pain, Chronic Neurological History: Reports: CVA, MS, Other (See Below) Other Neuro History: Notices emotional/cognitive changes following a brain injury. Questionable MS diagnosis. Psychiatric History: Reports: Depression Other Psychiatric History: MEDICAL AGREEMENT FOR CORRECTION MED USE. Other Endocrine/Metabolic History: States history of hypoglycemia. Hematologic History: Reports: Blood Transfusion(s) Oncologic (Cancer) History: Reports: Bladder, Brain, Malignant Melanoma Other Oncologic History: Throat cancer, treated with chemotherapy and radiation. Dermatologic History: Reports: Eczema, Melanoma - Infectious Disease History Infectious Disease History: Reports: Chicken Pox - Past Surgical History GI Surgical History: Reports: Appendectomy, Cholecystectomy Female Surgical History: Reports: D&C, TURBT Other Surgical History Comment: Bowel and bladder InterStim placement Social & Family History - Family History Cardiac: Reports: [place] - Tobacco Use Smoking Status *Q: Former Smoker (States that she quit one year ago.) - Caffeine Use Caffeine Use: Reports: Tea Other Caffeine Use: 2 cups per day Caffeine Use Comment: Occassional coffee drinker. - Alcohol Use Alcohol Use History: No - Living Situation & Occupation Living situation: Reports: Single, Alone ED ROS GENERAL - Review of Systems Review Of Systems: See Below Constitutional: Reports: Weakness, Fatigue, Decreased Appetite HEENT: Reports: No Symptoms Respiratory: Reports: No Symptoms Cardiovascular: Reports: No Symptoms Endocrine: Reports: Fatigue GI/Abdominal: Reports: Nausea. Denies: Vomiting : Reports: Other (Seems to have decreased amount and Erker and normal). Denies: Dysuria, Frequency, Pain Skin: Reports: Erythema (On left lower back around surgical incision), Other ( Drainage from left lower back surgical incision) Neurological: Reports: No Symptoms Hematologic/Lymphatic: Reports: No Symptoms Immunologic: Reports: No Symptoms ED EXAM, SKIN/RASH Exam: See Below Exam Limited By: No Limitations General Appearance: Alert, WD/WN, Mild Distress Eye Exam: Bilateral Eye: EOMI, Normal Inspection, PERRL Ears: Normal External Exam, Hearing Grossly Normal Nose: Normal Inspection, Normal Mucosa, No Blood Throat/Mouth: Normal Inspection, Normal Oropharynx, Normal Voice, No Airway Compromise Head: Atraumatic, Normocephalic Neck: Normal Inspection, Supple, Non-Tender Respiratory/Chest: No Respiratory Distress, Lungs Clear, Normal Breath Sounds, No Accessory Muscle Use, Chest Non-Tender Cardiovascular: Normal Peripheral Pulses, Regular Rate, Rhythm, No JVD Peripheral Pulses: 2+: Radial (L), Radial (R) GI/Abdominal: Normal Bowel Sounds, Soft, Non-Tender, No Mass Back Exam: Other (Surgical incision on left lower back just above the buttock area with some purulent drainage and with dehiscence of the skin wound centrally.) Extremities: Normal Inspection, Normal Range of Motion, Non-Tender, No Pedal Edema, Normal Capillary Refill Neurological: Alert, Oriented, CN II-XII Intact, Normal Cognition, No Motor/ Sensory Deficits Skin: Warm, Dry Location, Skin: Back (Left lower back) Characteristics: Erythematous Associated features: Warmth, Tenderness, Swelling, Induration, Inflammation, Weeping (Purulent drainage from partially dehisced skin incision) Lymphatic: No Adenopathy Course - Vital Signs Last Recorded V/S: Last Vital Signs Temp 36.4 C 06/17/19 09:20 Pulse 83 06/17/19 09:20 Resp 16 06/17/19 09:20 BP 109/54 L 06/17/19 09:20 Pulse Ox 95 06/17/19 09:20 - Orders/Labs/Meds Orders: Active Orders 24 hr Category Date Time Status CULTURE BLOOD [BC] Urgent Lab 06/17/19 09:55 Received CULTURE BLOOD [BC] Urgent Lab 06/17/19 10:00 Received CULTURE ROUTINE + SMEAR [] Stat Lab 06/17/19 09:45 Received Sodium Chloride 0.9% @ 150 MLS/HR (1000ml) Med 06/17/19 11:00 Ordered Sodium Chloride 0.9% [Normal Saline] 1,000 ml IV ASDIRECTED Sodium Chloride 0.9% [Saline Flush] Med 06/17/19 09:49 Active 10 ml FLUSH ASDIRECTED PRN Vancomycin 1 gm Med 06/17/19 10:49 Ordered Sodium Chloride 0.9% [Normal Saline] 250 ml IV ONETIME Blood Culture x2 Reflex Set [OM.PC] Urgent Oth 06/17/19 09:47 Ordered Peripheral IV Insertion Adult [OM.PC] Routine Oth 06/17/19 09:49 Ordered Medication Orders Sodium Chloride (Normal Saline) 1,000 mls @ 150 mls/hr IV ASDIRECTED PAUL Vancomycin HCl 1 gm/ Sodium (Chloride) 250 mls @ 167 mls/hr IV ONETIME ONE Stop: 06/17/19 12:18 Sodium Chloride (Saline Flush) 10 ml FLUSH ASDIRECTED PRN PRN Reason: Keep Vein Open Labs: Laboratory Tests 06/17/19 06/17/19 06/17/19 Range/Units 09:55 09:55 09:55 WBC 17.8 H (4.5-12.0) X10-3/uL RBC 4.04 (3.23-5.20) x10(6)uL Hgb 11.8 (11.5-15.5) g/dL Hct 35.1 (30.0-51.3) % MCV 86.8 (80-96) fL MCH 29.2 (27.7-33.6) pg MCHC 33.7 (32.2-35.4) g/dL RDW 12.7 (11.5-15.5) % Plt Count 392 H (125-369) X10(3)uL MPV 7.2 L (7.4-10.4) fL Add Manual Diff Yes Neutrophils % (Manual) 84 H (46-82) % Band Neutrophils % 5 (0-6) % Lymphocytes % (Manual) 9 L (13-37) % Monocytes % (Manual) 2 L (4-12) % Sodium 138 (135-145) mmol/L Potassium 4.4 (3.5-5.3) mmol/L Chloride 99 L (100-110) mmol/L Carbon Dioxide 32 (21-32) mmol/L BUN 20 H (7-18) mg/dL Creatinine 0.8 (0.55-1.02) mg/dL Est Cr Clr Drug Dosing TNP Estimated GFR (MDRD) > 60 (>60) BUN/Creatinine Ratio 25.0 H (9-20) Glucose 96 (80-116) mg/dL Calcium 10.0 (8.6-10.2) mg/dL Total Bilirubin 0.5 (0.1-1.3) mg/dL AST 16 D (5-25) IU/L ALT 24 D (12-36) U/L Alkaline Phosphatase 67 (56-112) IU/L C-Reactive Protein 34.2 H* (0.5-0.9) mg/dL Total Protein 7.3 (6.0-8.0) g/dL Albumin 3.1 L (3.2-4.6) g/dL Globulin 4.2 g/dL Albumin/Globulin Ratio 0.7 Urine Color (YELLOW) Urine Appearance (CLEAR) Urine pH (5.0-6.5) Ur Specific [place] (1.010-1.025) Urine Protein (NEGATIVE) mg/dL Urine Glucose (UA) (NORMAL) mg/dL Urine Ketones (NEGATIVE) mg/dL Urine Occult Blood (NEGATIVE) Urine Nitrite (NEGATIVE) Urine Bilirubin (NEGATIVE) Urine Urobilinogen (NEGATIVE) mg/dL Ur Leukocyte Esterase (NEGATIVE) Urine RBC (0-5) Urine WBC (0-5) Ur Squamous Epith Cells (NS,R,O) Urine Bacteria (NS) 06/17/19 Range/Units 10:18 WBC (4.5-12.0) X10-3/uL RBC (3.23-5.20) x10(6)uL Hgb (11.5-15.5) g/dL Hct (30.0-51.3) % MCV (80-96) fL MCH (27.7-33.6) pg MCHC (32.2-35.4) g/dL RDW (11.5-15.5) % Plt Count (125-369) X10(3)uL MPV (7.4-10.4) fL Add Manual Diff Neutrophils % (Manual) (46-82) % Band Neutrophils % (0-6) % Lymphocytes % (Manual) (13-37) % Monocytes % (Manual) (4-12) % Sodium (135-145) mmol/L Potassium (3.5-5.3) mmol/L Chloride (100-110) mmol/L Carbon Dioxide (21-32) mmol/L BUN (7-18) mg/dL Creatinine (0.55-1.02) mg/dL Est Cr Clr Drug Dosing Estimated GFR (MDRD) (>60) BUN/Creatinine Ratio (9-20) Glucose (80-116) mg/dL Calcium (8.6-10.2) mg/dL Total Bilirubin (0.1-1.3) mg/dL AST (5-25) IU/L ALT (12-36) U/L Alkaline Phosphatase (56-112) IU/L C-Reactive Protein (0.5-0.9) mg/dL Total Protein (6.0-8.0) g/dL Albumin (3.2-4.6) g/dL Globulin g/dL Albumin/Globulin Ratio Urine Color Yellow (YELLOW) Urine Appearance Clear (CLEAR) Urine pH 5.0 (5.0-6.5) Ur Specific [place] 1.010 (1.010-1.025) Urine Protein 30 H (NEGATIVE) mg/dL Urine Glucose (UA) Normal (NORMAL) mg/dL Urine Ketones Negative (NEGATIVE) mg/dL Urine Occult Blood Trace (NEGATIVE) Urine Nitrite Negative (NEGATIVE) Urine Bilirubin Negative (NEGATIVE) Urine Urobilinogen Normal (NEGATIVE) mg/dL Ur Leukocyte Esterase Negative (NEGATIVE) Urine RBC 0-5 (0-5) Urine WBC 0-5 (0-5) Ur Squamous Epith Cells Few H (NS,R,O) Urine Bacteria Few H (NS) Meds: Medications Generic Name Dose Route Start Last Admin Trade Name Freq PRN Reason Stop Dose Admin Sodium Chloride 1,000 mls @ 150 mls/hr 06/17/19 11:00 Normal Saline IV ASDIRECTED PAUL Vancomycin HCl 1 gm/ Sodium 250 mls @ 167 mls/hr 06/17/19 10:49 Chloride IV 06/17/19 12:18 ONETIME ONE Sodium Chloride 10 ml 06/17/19 09:49 Saline Flush FLUSH ASDIRECTED PRN Keep Vein Open - Re-Assessments/Exams Free Text/Narrative Re-Assessment/Exam: 06/17/19 10:40: I had discussed the patient's case earlier with Dr. iDal and he asked that I discussed the patient's case with the surgeon at [facility] in [place]. The patient's white blood cell count was 17.8 with a left shift on the differential. The CRP was also 34.2 which is markedly elevated. She has evidence of an advancing cellulitis with postoperative wound infection status post InterStim placement. Therefore, I will call and discuss the patient's case with the surgeon business administration program chair at [facility] in [place]. 06/17/19 10:50: I discussed the patient's case with Dr. Villavicencio, surgeon business administration program chair at [facility] in [place], and he has agreed to accept the patient in transfer. Blood cultures 2 have been obtained. The patient will be given vancomycin 1 g IV. She will also be given normal saline 150 mL per hour and for now she will be kept nothing by mouth. The patient will be transferred via ambulance to [facility] for direct admission. The patient is in agreement with the plan for transfer. Departure - Departure Time of Disposition: 11:00 Disposition: DC/Tfer to Acute Hospital 02 Condition: Fair (Stable) Clinical Impression: Postoperative wound infection, Cellulitis of lower back - Discharge Information Referrals: Francisco Narayanan PA [Primary Care Provider] - Forms: ED Department Discharge - My Orders Last 24 Hours: My Active Orders 06/17/19 09:45 CULTURE ROUTINE + SMEAR [RM] Stat 06/17/19 09:47 Blood Culture x2 Reflex Set [OM.PC] Urgent 06/17/19 09:49 Sodium Chloride 0.9% [Saline Flush] 10 ml FLUSH ASDIRECTED PRN Peripheral IV Insertion Adult [OM.PC] Routine 06/17/19 09:55 CULTURE BLOOD [BC] Urgent 06/17/19 10:00 CULTURE BLOOD [BC] Urgent 06/17/19 10:49 Vancomycin 1 gm Sodium Chloride 0.9% [Normal Saline] 250 ml IV ONETIME 06/17/19 11:00 Sodium Chloride 0.9% @ 150 MLS/HR (1000ml) Sodium Chloride 0.9% [Normal Saline] 1,000 ml IV ASDIRECTED - Assessment/Plan Last 24 Hours: My Active Orders 06/17/19 09:45 CULTURE ROUTINE + SMEAR [RM] Stat 06/17/19 09:47 Blood Culture x2 Reflex Set [OM.PC] Urgent 06/17/19 09:49 Sodium Chloride 0.9% [Saline Flush] 10 ml FLUSH ASDIRECTED PRN Peripheral IV Insertion Adult [OM.PC] Routine 06/17/19 09:55 CULTURE BLOOD [BC] Urgent 06/17/19 10:00 CULTURE BLOOD [BC] Urgent 06/17/19 10:49 Vancomycin 1 gm Sodium Chloride 0.9% [Normal Saline] 250 ml IV ONETIME 06/17/19 11:00 Sodium Chloride 0.9% @ 150 MLS/HR (1000ml) Sodium Chloride 0.9% [Normal Saline] 1,000 ml IV ASDIRECTED
[2019-06-17] MEDS ORDERED: Sodium Chloride 0.9% 10 ML Syringe FLUSH PRN (09:49)
[2019-06-17] MEDS ORDERED: Sodium Chloride 0.9% 1,000 ML IV SCH (11:00)
[2019-06-17] MEDS ORDERED: Vancomycin 1 GM SDV ONE (11:04)
[2019-06-17 11:43] VITALS: BP 112/52
== END 2019-06-17 11:35 ==
LOC: FB.ED 09:11
DX: T85.79XA Infection and inflammatory reaction due to other internal prosthetic devices, implants and grafts, initial encounter (principal); L03.312 Cellulitis of back [any part except buttock and flank]; E78.00 Pure hypercholesterolemia, unspecified; I10 Essential (primary) hypertension; Z88.6 Allergy status to analgesic agent; Z88.8 Allergy status to other drugs, medicaments and biological substances; Z88.1 Allergy status to other antibiotic agents; Z91.011 Allergy to milk products; Z91.012 Allergy to eggs; Z91.010 Allergy to peanuts; Z79.02 Long term (current) use of antithrombotics/antiplatelets; Z79.82 Long term (current) use of aspirin; Z79.899 Other long term (current) drug therapy; Z87.891 Personal history of nicotine dependence
CPT/HCPCS: 36415; 80053; 81001; 85025; 86140; 87040; 87070; 87205; 96365; 99285; J3370; J7030; J7050

== ENCOUNTER 2019-07-05 13:46 | Observation (INO) | payer MEDICARE, OTHER ==
[2019-07-05] MEDS ORDERED: Promethazine 12.5 MG in Sodium Chloride 0.9% 50 ML IV PRN (14:18)
[2019-07-05] MEDS ORDERED: Sodium Chloride 0.9% 10 ML Syringe FLUSH PRN (14:18)
[2019-07-05] MEDS ORDERED: Ondansetron 4 MG Tab.DIS PO PRN ×2 (14:18→15:31)
[2019-07-05] MEDS ORDERED: hydrOXYzine HCl 50 MG/ML SDV IM PRN (14:47)
[2019-07-05] MEDS ORDERED: Acetaminophen 650 MG Tab.ER PO PRN (14:50)
--- NOTE | 2019-07-05 14:58 | PCM.HP.2 ---
H&P History of Present Illness - General Date of Service: 07/05/19 Admit Problem/Dx: Admission Diagnosis/Problem Admission Diagnosis/Problem UTI, Urinary tract infectious disease Source of Information: Patient, Provider (Blanquita Wolf NP) - History of Present Illness Initial Comments - Free Text/Narative: A 64 yr old female presented to walk-in clinic with 2 day history of abdominal pain with crampy and diarrhea. States it radiates to the epigastric and midabdominal area. Associated with nausea, vomiting, green dark watery stools, heartburn, dysphagia. Rates pain at 10/10. Having dysuria, frequency, urgency but denies flank pain. Nothing makes it better and eating, drinking, fatty foods and movement make it worse. She takes antiemetics and antidiarrheals on daily basis and diarrhea was getting worse. She has history of IBS & inflammatory bowel disease per her Walk-in clinic chart. She had bowel stimulator placed the end of May at [facility], she got a post operative infection and had to have stimulator removed. Was on 2 weeks of Vancomycin IV treatment. She has been getting daily dressing changes at walk in clinic for wound. Surgery wants ABD dressing with secured on proximal side but rest left to air, no wound packing now. Fever, chills. No sinus symptoms. No shortness of breath or chest pain. CBC, BMP, CRP, amylase, UA/UC, stool culture, lactoferrin, c. diff, CT abdomen/ pelvis done in the clinic. Dr Garza recommended MRCP based on CT results and is scheduled at 3pm. - Related Data Allergies/Adverse Reactions: Allergies Allergy/AdvReac Type Severity Reaction Status Date / Time ceftriaxone sodium Allergy Anaphylactic Verified 06/17/19 09:13 [From Rocephin] Shock clindamycin Allergy Anaphylactic Verified 06/17/19 09:13 Shock fentanyl Allergy Hives Verified 06/17/19 09:13 metoclopramide [From Reglan] Allergy Nausea Verified 06/17/19 09:13 Milk Containing Products Allergy Vomiting Verified 06/17/19 09:13 trazodone Allergy Other Verified 06/17/19 09:13 ciprofloxacin AdvReac Intermediate Nausea and Verified 06/17/19 09:13 Vomiting .steroids Allergy Nausea Uncoded 06/17/19 09:14 depression medications Allergy Airway Uncoded 06/17/19 09:14 Tightness eggs Allergy Nausea Uncoded 06/17/19 09:14 oral antibiotics Allergy Vomiting Uncoded 06/17/19 09:14 peanuts Allergy Hives Uncoded 06/17/19 09:14 Home Medications: Home Meds Dexlansoprazole [Dexilant] 60 mg PO DAILY 12/05/13 [History] Fenofibrate Nanocrystallized [Fenofibrate] 145 mg PO BEDTIME 12/05/13 [History] Rosuvastatin [Crestor] 20 mg PO Q48H 11/27/15 [History] Aspirin 81 mg PO BEDTIME 10/07/16 [History] Gabapentin [Neurontin] 800 mg PO 08,,,22 10/07/16 [History] Clopidogrel [Plavix] 75 mg PO 1200 11/06/16 [History] Isosorbide Mononitrate [Imdur] 30 mg PO DAILY 11/06/16 [History] Fluticasone Propionate [Flonase Allergy Relief] 1 spray NASBOTH DAILY 07/10/17 [ History] Ondansetron [Zofran ODT] 4 mg PO Q6H PRN 07/16/17 [History] Albuterol Sulfate [Proair Hfa] 2 puff INH Q4H PRN 02/12/18 [History] Potassium Chloride 20 meq PO 1200 04/06/18 [History] Calcium Carbonate/Vitamin D3 [Calcium 500 + Vit D Caplet] 1 tab PO TIDMEALS 06/05 [History] Albuterol [Proventil Neb Soln] 2.5 mg INH QID PRN 02/28/19 [History] Diltiazem HCl [Dilt-Xr] 180 mg PO BEDTIME 02/28/19 [History] Magnesium 200 mg PO DAILY@1200 04/24/19 [History] Acetaminophen [Tylenol Extra Strength] 500 mg PO TID PRN 07/05/19 [History] Nitroglycerin [Nitrostat] 0.4 mg SL Q5M PRN 07/05/19 [History] Pedi Multivit No.7/Folic Acid [Flintstones Tab] 1 tab PO DAILY@1200 07/05/19 [ History] Ranitidine HCl [Ranitidine] 150 mg PO BEDTIME 07/05/19 [History] diphenhydrAMINE HCl [Benadryl Allergy] 12.5 mg PO BEDTIME 07/05/19 [History] Past Medical History HEENT History: Reports: Glaucoma, Impaired Vision, Other (See Below) Other HEENT History: Choroidal nevus. Cardiovascular History: Reports: Angina, CAD, High Cholesterol, Hypertension, PVD, Syncope, Other (See Below) Other Cardiovascular History: Heart palpitations. DVT. PVD. Carotid bruitt. Respiratory History: Reports: COPD Other Respiratory History: Suffocating spells at night with SOB. Gastrointestinal History: Reports: GERD, Hiatal Hernia, Other (See Below) Other Gastrointestinal History: Bowel incontinence. Genitourinary History: Reports: Urinary Incontinence, Other (See Below) Other Genitourinary History: Urethral suspension with sling, later removed. Cystocopy. Bladder tumor. Overactive bladder. Other OB/BYN History: D&C. Musculoskeletal History: Reports: Arthritis, Back Pain, Chronic Other Musculoskeletal History: Left knee torn miniscus. Right ankle and hip pain. Neurological History: Reports: CVA, MS, Other (See Below) Other Neuro History: Notices emotional/cognitive changes following a brain injury. Questionable MS diagnosis. 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 Endocrine/Metabolic History: Reports: None Other Endocrine/Metabolic History: States history of hypoglycemia. Hematologic History: Reports: Blood Transfusion(s) Immunologic History: Reports: None Oncologic (Cancer) History: Reports: Bladder, Brain, Malignant Melanoma Other Oncologic History: Throat cancer, treated with chemotherapy and radiation. Dermatologic History: Reports: Eczema, Melanoma Other Dermatologic History: Melanoma on back. Eczema. - Infectious Disease History Infectious Disease History: Reports: Chicken Pox - Past Surgical History GI Surgical History: Reports: Appendectomy, Cholecystectomy Female Surgical History: Reports: D&C, TURBT Other Surgical History Comment: Bowel and bladder InterStim placement Social & Family History - Family History Family Medical History: Noncontributory Cardiac: Reports: CT - Caffeine Use Caffeine Use: Reports: Tea Other Caffeine Use: 2 cups per day Caffeine Use Comment: Occassional coffee drinker. - Living Situation & Occupation Living situation: Reports: Single, Alone H&P Review of Systems - Review of Systems: Review Of Systems: See Below General: Reports: Fever, Chills, Weakness HEENT: Reports: No Symptoms Pulmonary: Reports: No Symptoms Cardiovascular: Reports: No Symptoms Gastrointestinal: Reports: Abdominal Pain, Bloody Stool, Diarrhea, Nausea, Vomiting Genitourinary: Reports: Dysuria, Frequency, Burning. Denies: Flank Pain Skin: Reports: Wound (where bowel stimulator was placed, got infected and was removed a few weeks ago.) Psychiatric: Reports: No Symptoms Neurological: Reports: No Symptoms Immunologic: Reports: Anaphylaxis (cephalosporins and clindamycin) Exam - Exam Exam: See Below - Vital Signs Vital Signs: Last Vital Signs Temp 36.7 C 07/05/19 14:05 Pulse 74 07/05/19 14:05 Resp 18 07/05/19 14:05 BP 128/66 07/05/19 14:05 Pulse Ox 95 07/05/19 14:05 Weight: 51.982 kg - Exam General: Alert, Oriented, Cooperative HEENT: PERRLA, EOMI, Hearing Intact, Nares Patent. No: Mucosa Moist & [place] Neck: Supple, Trachea Midline, 2 Lungs: Clear to Auscultation, Normal Respiratory Effort Cardiovascular: Regular Rate, Regular Rhythm GI/Abdominal Exam: Soft, Tender (diffuse), Abnormal Bowel Sounds (hyperactive x 4). No: No Distention, Guarding, Rigid, Rebound Rectal (Female) Exam: Deferred Extremities: No Pedal Edema Peripheral Pulses: 2+: Radial (L), Radial (R), Posterior Tibial (L), Posterior Tibial (R), Dorsalis Pedis (L), Dorsalis Pedis (R) Skin: Warm, Dry, Wound (4 cm wound, 1 cm deep on left lateral buttock, covered with ABD pad, secured on proximal side, left open, no packing) Neuro Extensive - Mental Status: Alert, Oriented x3 - Patient Data Lab Results Last 24 hrs: Done in Walkin Clinic WBC: 12. 2 Hgb: 13.5 Hct: 41.3 Platelets: 488 Chemistry: Na: 135 K: 4.4 Cl: 98 CO2: 28 Glucose: 105 BUN: 18 Cr: 0.8 GFR: >60 Ca: 10.1 Urine Color: yellow Appearance: cloudy pH: 5.0 Spec gravity: 1.030 H Protein: 300 H Ketones 15 H Bilirubin: small H Occult blood, urine: LARGE Urobilinogen: 1, H Nitrite: POSITIVE LE: LARGE RBC: packed WBC: packed Imaging Impressions Last 24 hrs: see reports for images as ordered on clinic side - Problem List (1) UTI (urinary tract infection) SNOMED Code(s): 61724600 ICD Code: N39.0 - URINARY TRACT INFECTION, SITE NOT SPECIFIED Status: Acute Current Visit: Yes (2) Nausea vomiting and diarrhea SNOMED Code(s): 2523844 ICD Code: R11.2 - NAUSEA WITH VOMITING, UNSPECIFIED; R19.7 - DIARRHEA, UNSPECIFIED Status: Acute Current Visit: No Problem Details: she will continue her home meds with regards to as needed anti-emetics and electrolytes. she will maintain small meal boluses to prevent gag reflex and regurg. (3) Dehydration SNOMED Code(s): 74821619 ICD Code: E86.0 - DEHYDRATION Status: Acute Current Visit: No (4) Postoperative external wound disruption SNOMED Code(s): 840011302770384 ICD Code: T81.31XA - DISRUPTION OF EXTERNAL OPERATION (SURGICAL) WOUND, NEC, INIT Status: Acute Current Visit: Yes Problem Details: left flank, bowel stimulator surgery end of May, got infected had to remove device. Was on Vancomycin IV for 2 weeks, daily dressing changes. (5) GERD (gastroesophageal reflux disease) SNOMED Code(s): 954553834 ICD Code: K21.9 - GASTRO-ESOPHAGEAL REFLUX DISEASE WITHOUT ESOPHAGITIS Status: Acute Current Visit: No (6) Hypertension SNOMED Code(s): 61356484 ICD Code: I10 - ESSENTIAL (PRIMARY) HYPERTENSION Status: Acute Current Visit: No Qualifiers: Hypertension type: unspecified secondary hypertension Qualified Code(s): I15.9 - Secondary hypertension, unspecified; I15 - Secondary hypertension Problem List Initiated/Reviewed/Updated: Yes Orders Last 24hrs: Active Orders 24 hr Category Date Time Status Patient Status [ADT] Routine ADT 07/05/19 14:18 Active Antiembolic Devices [RC] .Routine Care 07/05/19 14:18 Active Oxygen Therapy [RC] PRN Care 07/05/19 14:18 Active Up With Assistance [RC] ASDIRECTED Care 07/05/19 14:18 Active VTE/DVT Education [RC] Per Unit Routine Care 07/05/19 14:18 Active Vital Signs [RC] Q4H Care 07/05/19 14:18 Active Consult to Table And Desk Finisher [CONS] Routine Cons 07/05/19 14:18 Active Clear Liquid Diet [DIET] Diet 07/05/19 Dinner Active BASIC METABOLIC PANEL,BMP [CHEM] Routine Lab 07/06/19 06:00 Ordered CBC WITH AUTO DIFF [HEME] Routine Lab 07/06/19 06:00 Ordered CULTURE BLOOD [BC] Urgent Lab 07/05/19 14:23 Ordered CULTURE BLOOD [BC] Urgent Lab 07/05/19 14:23 Ordered Acetaminophen [Tylenol Arthritis Pain] Med 07/05/19 14:50 Ordered 650 mg PO Q4HR PRN Ciprofloxacin in D5W [Cipro in D5W 400 MG/200 ML] 400 Med 07/05/19 15:00 Ordered mg Premix Bag 1 bag IV Q12HR Ondansetron [Zofran ODT] Med 07/05/19 14:48 Ordered 8 mg PO Q8H PRN Sodium Chloride 0.9% [Normal Saline] 1,000 ml Med 07/05/19 14:30 Ordered IV ASDIRECTED Sodium Chloride 0.9% [Saline Flush] Med 07/05/19 14:18 Ordered 10 ml FLUSH ASDIRECTED PRN hydrOXYzine HCl [Vistaril] Med 07/05/19 14:47 Ordered 50 mg IM Q6H PRN Antiembolic Hose [OM.PC] Per Unit Routine Oth 07/05/19 14:19 Ordered Blood Culture x2 Reflex Set [OM.PC] Urgent Oth 07/05/19 14:18 Ordered Saline Lock Insert [OM.PC] Routine Oth 07/05/19 14:18 Ordered Medication Orders Acetaminophen (Tylenol Arthritis Pain) 650 mg PO Q4HR PRN PRN Reason: Fever Hydroxyzine HCl (Vistaril) 50 mg IM Q6H PRN PRN Reason: Nausea/Vomiting Sodium Chloride (Normal Saline) 1,000 mls @ 125 mls/hr IV ASDIRECTED PAUL Ondansetron HCl (Zofran Odt) 8 mg PO Q8H PRN PRN Reason: nausea, able to take PO Sodium Chloride (Saline Flush) 10 ml FLUSH ASDIRECTED PRN PRN Reason: Keep Vein Open Assessment/Plan Comment:: 1. Admit for observation for IV fluids, antiemetics IV, IV antibiotics. 2. UA was positive for nitrites in clinic. UC pending(look in clinic visit for result) Start Ciprofloxacin 400 mg IV q12h, had adverse reaction to only oral form. 3. Zofran 8 mg ODT q8h as needed and Benadryl 25 mg IV q6h as needed nausea. 4. DVT prophylaxis: Lovenox 40 mg SQ daily 5. Isolation: c. Diff test pending so will place in precautions until test received. 6. Clear liquid diet, advanced as tolerated. 7. Adjust treatments as necessary. - Mortality Measure Prognosis:: Good
[2019-07-05] MEDS ORDERED: Ciprofloxacin in D5W 400 MG in Premix Bag 1 BAG IV SCH ×2 (15:00)
[2019-07-05] MEDS ORDERED: Nitroglycerin 0.4 MG Tab.SL SL PRN (15:31)
[2019-07-05] MEDS ORDERED: Albuterol 0.083% 2.5 MG/3 ML Neb Soln INH PRN (15:31)
[2019-07-05] MEDS ORDERED: diphenhydrAMINE 50 MG/ML SDV IVPUSH PRN (15:31)
[2019-07-05] MEDS ORDERED: Acetaminophen 500 MG Tab PO PRN (15:31)
[2019-07-05] MEDS: Sodium Chloride 0.9% 1,000 ML IV SCH (17:01)
--- NOTE | 2019-07-05 17:24 | PCM.SN ---
- Free Text/Narrative Note: ANESTHESIA SERVICE Date: 07/05/2019 Time: 1641 to 1655 Preprocedure Dx: Poor peripheral Venous Access - IV Antibiotics to be given Postprocedure Rx: Obtained Peripheral Venous Access Procedure: Peripheral Venous Access [CPT [id number]] I was contacted by the physician automation specialist for peripheral venous access. The floor nurses have attempted X 3 without success. I attempted X 1 on the right hand without success. I found a vein on the left anterior distal forearm and I prepped that with an alcohol pad X 1. I then inserted a BD Insyte Autoguard 22 Ga. X 1 In. peripheral venous catheter X 1 attempt. The catheter both advanced and flushed easily with normal saline 10 ml 's. A dressing was applied. The patient tolerated this well. Driss Dumont CRNA, MSN.
[2019-07-05] MEDS ORDERED: Aspirin 81 MG Tab.Chew PO SCH (21:00)
[2019-07-05] MEDS: Ampicillin 2 GM in Sodium Chloride 0.9% 100 ML IV SCH (21:42)
[2019-07-05] MEDS: Ondansetron 4 MG Tab.DIS PO PRN (21:46)
[2019-07-05] MEDS: RANITIDINE HCL 150 MG PO SCH (21:48)
[2019-07-05] MEDS: [UNRECOGNIZED DRUG - REMARK] PO SCH (21:48)
[2019-07-05] MEDS: Diltiazem 180 MG Cap.CD PO SCH (21:48)
[2019-07-05] MEDS: Fenofibrate Nanocrystallized 145 MG Tab PO SCH (21:48)
[2019-07-05] MEDS: GABAPENTIN 800 MG PO SCH (21:49)
[2019-07-05] MEDS ORDERED: Melatonin 3 MG Tab PO ONE (22:41)
[2019-07-06] MEDS: Sodium Chloride 0.9% 1,000 ML IV SCH ×3 (01:25→18:06)
[2019-07-06] MEDS: Ampicillin 2 GM in Sodium Chloride 0.9% 100 ML IV SCH ×4 (03:05→20:35)
[2019-07-06] MEDS: Ondansetron 4 MG Tab.DIS PO PRN (05:56)
[2019-07-06] MEDS ORDERED: Non-Formulary Medication 1 Each (Fluticasone Propionate [Flonase Allergy Relief] 1 SPRAY) NASBOTH SCH (09:00)
[2019-07-06] MEDS: GABAPENTIN 800 MG PO SCH ×4 (09:23→21:00)
[2019-07-06] MEDS: CALCIUM 600MG PO SCH ×3 (09:24→18:04)
[2019-07-06] MEDS: Isosorbide Mononitrate 30 MG Tab.ER *PTOM PO SCH (09:58)
[2019-07-06] MEDS: DEXLANSOPRAZOLE 60 MG PO SCH (09:58)
[2019-07-06] MEDS: Saccharomyces Boulardii (Probiotic) 250 MG Cap PO SCH ×2 (11:07→20:42)
[2019-07-06] MEDS: FLINSTONES VITAMIN PO SCH (11:59)
[2019-07-06] MEDS: Potassium Chloride 20 MEQ Tab.ER *PTOM PO SCH (12:00)
[2019-07-06] MEDS: Clopidogrel 75 MG Tab *PTOM PO SCH (12:01)
[2019-07-06] MEDS: Ondansetron 8 MG Tab.DIS PO PRN ×2 (12:06→21:07)
--- NOTE | 2019-07-06 16:38 | PCM.PN ---
- General Info Date of Service: 07/06/19 Subjective Update: Patient has vaginal/uterine prolapse, she states she hadn't had any stools this morning then she reduced the prolapse and diarrhea resumed. C/o bloating, has umbilical hernia but reducible. No fevers. No vomiting. Tolerating clear liquids. States she DOES NOT have inflammatory bowel and she tried Loperamide and Bentyl without any improvement. MRCP today. No report as yet. C. Diff negative. Urine culture 50,000-100,000 CFU. - Patient Data Vitals - Most Recent: Last Vital Signs Temp 36.2 C 07/06/19 12:00 Pulse 64 07/06/19 12:00 Resp 18 07/06/19 12:00 BP 130/62 07/06/19 12:00 Pulse Ox 94 L 07/06/19 12:00 Weight - Most Recent: 51.982 kg I&O - Last 24 Hours: Intake & Output 07/06/19 07/06/19 07/06/19 06:59 14:59 22:59 Intake Total 1791 1038 Balance 1791 1038 Lab Results Last 24 Hours: Laboratory Results - last 24 hr 07/06/19 07/06/19 Range/Units 06:20 06:20 WBC 6.1 (4.5-12.0) X10-3/uL RBC 4.13 (3.23-5.20) x10(6)uL Hgb 12.1 (11.5-15.5) g/dL Hct 36.2 (30.0-51.3) % MCV 87.6 (80-96) fL MCH 29.2 (27.7-33.6) pg MCHC 33.4 (32.2-35.4) g/dL RDW 12.8 (11.5-15.5) % Plt Count 379 H (125-369) X10(3)uL MPV 6.8 L (7.4-10.4) fL Neut % (Auto) 58.8 (46-82) % Lymph % (Auto) 29.1 (13-37) % [place] % (Auto) 9.4 (4-12) % Eos % (Auto) 2 (1.0-5.0) % Baso % (Auto) 1 (0-2) % Neut # (Auto) 3.5 (1.6-8.3) # Lymph # (Auto) 1.8 (0.6-5.0) # [place] # (Auto) 0.6 (0.0-1.3) # Eos # (Auto) 0.1 (0.0-0.8) # Baso # (Auto) 0.1 (0.0-0.2) # Sodium 139 (135-145) mmol/L Potassium 4.1 (3.5-5.3) mmol/L Chloride 104 D (100-110) mmol/L Carbon Dioxide 29 (21-32) mmol/L BUN 11 (7-18) mg/dL Creatinine 0.7 (0.55-1.02) mg/dL Est Cr Clr Drug Dosing 59.65 mL/min Estimated GFR (MDRD) > 60 (>60) BUN/Creatinine Ratio 15.7 (9-20) Glucose 87 (80-116) mg/dL Calcium 8.4 L (8.6-10.2) mg/dL Guy Results Last 24 Hours: Microbiology 07/05/19 14:50 Aerobic Blood Culture - Preliminary Blood - Venous NO GROWTH AFTER 1 DAY Anaerobic Blood Culture - Preliminary NO GROWTH AFTER 1 DAY 07/05/19 14:58 Aerobic Blood Culture - Preliminary Blood - Venous - Lab Draw NO GROWTH AFTER 1 DAY Anaerobic Blood Culture - Preliminary NO GROWTH AFTER 1 DAY Med Orders - Current: Current Medications Acetaminophen (Tylenol Arthritis Pain) 650 mg PO Q4H PRN PRN Reason: Fever Acetaminophen (Tylenol Extra Strength) 500 mg PO TID PRN PRN Reason: Pain Albuterol (Proventil Neb Soln) 2.5 mg INH QID PRN PRN Reason: Shortness of Breath Albuterol (Ventolin Hfa) 0 gm INH Q4H PRN PRN Reason: Dyspnea Aspirin (Halfprin) 81 mg PO BEDTIME PAUL Clopidogrel Bisulfate (Plavix) 75 mg PO 1200 PAUL Last Admin: 07/06/19 12:01 Dose: 75 mg Diltiazem HCl (Cardizem Cd) 180 mg PO BEDTIME PAUL Last Admin: 07/05/19 21:48 Dose: 180 mg Diphenhydramine HCl (Benadryl) 25 mg IVPUSH Q6H PRN PRN Reason: ITCHING/NAUSEA Last Admin: 07/05/19 21:16 Dose: 25 mg Fenofibrate (Tricor) 145 mg PO BEDTIME [facility] Last Admin: 07/05/19 21:48 Dose: 145 mg Sodium Chloride (Normal Saline) 1,000 mls @ 125 mls/hr IV ASDIRECTED [facility] Last Admin: 07/06/19 09:50 Dose: 125 mls/hr Ampicillin Sodium 2 gm/ Sodium (Chloride) 100 mls @ 200 mls/hr IV Q6H [facility] Last Admin: 07/06/19 14:12 Dose: 200 mls/hr Isosorbide Mononitrate (Imdur) 30 mg PO DAILY [facility] Last Admin: 07/06/19 09:58 Dose: 30 mg Nitroglycerin (Nitrostat) 0.4 mg SL Q5M PRN PRN Reason: Chest Pain Calcium 600mg 0 tab PO TIDMEALS [facility] Last Admin: 07/06/19 11:59 Dose: 600 tab (Dexlansoprazole [ Dexilant] 60 Mg) * Ptom 0 mg PO DAILY@0600 [facility] Last Admin: 07/06/19 09:58 Dose: 60 mg Nf Med 1 Each ( Diphenhydramine Hcl [Benadryl Allergy] 12.5 Mg Tablet) 12.5 mg PO BEDTIME [facility] Last Admin: 07/05/19 21:48 Dose: 12.5 mg Non-Formulary Medication (Fluticasone Propionate [Flonase Allergy Relief]) 1 spray NASBOTH DAILY [facility] Nf Med 1 Each ( Gabapentin [ Neurontin] 800 Mg) 800 mg PO 08,12,18,22 [facility] Last Admin: 07/06/19 11:59 Dose: 800 mg Flinstones Vitamin 1 tab PO DAILY@1200 [facility] Last Admin: 07/06/19 11:59 Dose: Not Given Nf Medication 1 Each (Ranitidine Hcl [ Ranitidine] 150 Mg) 150 mg PO BEDTIME [facility] Last Admin: 07/05/19 21:48 Dose: 150 mg (Rosuvastatin [ Crestor] 40 Mg) * Ptom 0 mg PO Q48H [facility] Ondansetron HCl (Zofran Odt) 8 mg PO Q8H PRN PRN Reason: nausea, able to take po Last Admin: 07/06/19 12:06 Dose: 8 mg Potassium Chloride (Klor-Con M20) 20 meq PO 1200 [facility] Last Admin: 07/06/19 12:00 Dose: 20 meq Saccharomyces Boulardii (Florastor) 250 mg PO BID [facility] Last Admin: 07/06/19 11:07 Dose: 250 mg Sodium Chloride (Saline Flush) 10 ml FLUSH ASDIRECTED PRN PRN Reason: Keep Vein Open Discontinued Medications Aspirin (Aspirin) 81 mg PO BEDTIME [facility] Last Admin: 07/05/19 21:48 Dose: 81 mg Promethazine HCl 12.5 mg/ (Sodium Chloride) 50.5 mls @ 200 mls/hr IV Q6H PRN PRN Reason: Nausea/Vomiting Ciprofloxacin/Dextrose 400 mg/ (Premix) 200 mls @ 200 mls/hr IV Q12H [facility] Last Admin: 07/05/19 17:03 Dose: 200 mls/hr Melatonin (Melatonin) 3 mg PO ONETIME ONE Stop: 07/05/19 22:42 Last Admin: 07/05/19 22:57 Dose: 3 mg (Magnesium [ Magnesium] 250 Mg) * Ptom 0 mg PO DAILY@1200 PAUL Ondansetron HCl (Zofran Odt) 4 mg PO Q6H PRN PRN Reason: nausea, able to take PO Ondansetron HCl (Zofran Odt) 8 mg PO Q8H PRN PRN Reason: nausea, able to take PO Last Admin: 07/06/19 05:56 Dose: 8 mg - Exam General: Alert, Oriented, Cooperative, No Acute Distress Lungs: Clear to Auscultation, Normal Respiratory Effort Cardiovascular: Regular Rate, Regular Rhythm GI/Abdominal Exam: Soft, Non-Tender, No Distention, Abnormal Bowel Sounds ( hyperactive) (Female) Exam: Deferred Extremities: No Pedal Edema - Problem List & Annotations (1) UTI (urinary tract infection) SNOMED Code(s): 86255519 Code(s): N39.0 - URINARY TRACT INFECTION, SITE NOT SPECIFIED Status: Acute Current Visit: Yes (2) Nausea vomiting and diarrhea SNOMED Code(s): 4246442 Code(s): R11.2 - NAUSEA WITH VOMITING, UNSPECIFIED; R19.7 - DIARRHEA, UNSPECIFIED Status: Acute Current Visit: No Annotation/Comment:: she will continue her home meds with regards to as needed anti-emetics and electrolytes. she will maintain small meal boluses to prevent gag reflex and regurg. (3) Dehydration SNOMED Code(s): 76432527 Code(s): E86.0 - DEHYDRATION Status: Acute Current Visit: No (4) Postoperative external wound disruption SNOMED Code(s): 983505542530661 Code(s): T81.31XA - DISRUPTION OF EXTERNAL OPERATION (SURGICAL) WOUND, NEC, INIT Status: Acute Current Visit: Yes Annotation/Comment:: left flank, bowel stimulator surgery end of May, got infected had to remove device. Was on Vancomycin IV for 2 weeks, daily dressing changes. (5) GERD (gastroesophageal reflux disease) SNOMED Code(s): 206672332 Code(s): K21.9 - GASTRO-ESOPHAGEAL REFLUX DISEASE WITHOUT ESOPHAGITIS Status: Acute Current Visit: No (6) Hypertension SNOMED Code(s): 35852445 Code(s): I10 - ESSENTIAL (PRIMARY) HYPERTENSION Status: Acute Current Visit: No Qualifiers: Hypertension type: unspecified secondary hypertension Qualified Code(s): I15.9 - Secondary hypertension, unspecified; I15 - Secondary hypertension - Problem List Review Problem List Initiated/Reviewed/Updated: Yes - My Orders Last 24 Hours: My Active Orders 07/05/19 16:25 Code Status [Resuscitation Status] Routine 07/05/19 21:00 Fenofibrate Nanocrystallized [Tricor] 145 mg PO BEDTIME Ranitidine HCl [Ranitidine] 150 mg PO BEDTIME diphenhydrAMINE HCl [Benadryl Allergy] 12.5 mg PO BEDTIME 07/05/19 21:45 Diltiazem [Cardizem CD] 180 mg PO BEDTIME 07/05/19 22:00 Gabapentin [Neurontin] 800 mg PO 08,12,18,22 07/05/19 Dinner Clear Liquid Diet [DIET] 07/06/19 07:00 Abdomen wo Cont [MR] Routine 07/06/19 08:00 Calcium Carbonate/Vitamin D3 [Calcium 500 + Vit D Caplet] 0 tab PO TIDMEALS 07/06/19 09:00 Dexlansoprazole [Dexilant] 0 mg PO DAILY@0600 Fluticasone Propionate [Flonase Allergy Relief] 1 spray NASBOTH DAILY Isosorbide Mononitrate [Imdur] 30 mg PO DAILY 07/06/19 10:00 Saccharomyces Boulardii [Florastor] 250 mg PO BID 07/06/19 12:00 Clopidogrel [Plavix] 75 mg PO 1200 Pedi Multivit No.7/Folic Acid [Flintstones Tab] 1 tab PO DAILY@1200 Potassium Chloride [Klor-Con M20] 20 meq PO 1200 07/06/19 14:00 Ondansetron [Zofran ODT] 8 mg PO Q8H PRN 07/06/19 21:00 Aspirin [Halfprin] 81 mg PO BEDTIME Rosuvastatin [Crestor] 0 mg PO Q48H - Plan Plan:: 1. UC 50,000-100,000 CFU ID & GUY pending. Local reaction to Ciprofloxacin changed to Ampicillin, tolerating well. 2. Isolation: Standard, C. Diff test negative. Stool studies pending. Parasite test cancelled, collected incorrectly. 3. Clear liquid diet, advanced to BRAT, consult dietary. 4. DVT prophylaxis: Lovenox 40 mg SQ daily 5. MRCP done, report pending that was ordered in clinic. 6. Adjust treatments as necessary.
[2019-07-06] MEDS: Diltiazem 180 MG Cap.CD PO SCH (20:40)
[2019-07-06] MEDS: RANITIDINE HCL 150 MG PO SCH (20:43)
[2019-07-06] MEDS: Fenofibrate Nanocrystallized 145 MG Tab PO SCH (20:49)
[2019-07-06] MEDS: [UNRECOGNIZED DRUG - REMARK] PO SCH (20:50)
[2019-07-06] MEDS ORDERED: Aspirin 81 MG Tab.EC PO SCH (21:00)
[2019-07-07] MEDS: Sodium Chloride 0.9% 1,000 ML IV SCH (01:26)
[2019-07-07] MEDS: Albuterol 8 GM Inhaler INH PRN ×2 (02:09→11:34)
[2019-07-07] MEDS: Ampicillin 2 GM in Sodium Chloride 0.9% 100 ML IV SCH ×2 (02:20→09:19)
[2019-07-07] MEDS ORDERED: Aluminum Hydroxide/Magnesium Hydroxide Susp 30 ML Cup PO PRN (03:46)
[2019-07-07] MEDS: DEXLANSOPRAZOLE 60 MG PO SCH (05:07)
--- NOTE | 2019-07-07 09:04 | PCM.PN ---
- General Info Date of Service: 07/07/19 Subjective Update: Multiple complaints about abd bloating. Nausea,long standing Functional Status: Reports: Pain Controlled - Review of Systems General: Reports: No Symptoms Pulmonary: Reports: No Symptoms Cardiovascular: Reports: No Symptoms Gastrointestinal: Reports: No Symptoms Genitourinary: Reports: No Symptoms - Patient Data Vitals - Most Recent: Last Vital Signs Temp 97.6 F 07/07/19 03:54 Pulse 62 07/07/19 03:54 Resp 18 07/07/19 03:54 BP 160/64 H 07/07/19 03:54 Pulse Ox 96 07/07/19 03:54 Weight - Most Recent: 51.982 kg I&O - Last 24 Hours: Intake & Output 07/06/19 07/07/19 07/07/19 22:59 06:59 14:59 Intake Total 737 621 Balance 737 621 Guy Results Last 24 Hours: Microbiology 07/05/19 14:50 Aerobic Blood Culture - Preliminary Blood - Venous NO GROWTH AFTER 1 DAY Anaerobic Blood Culture - Preliminary NO GROWTH AFTER 1 DAY 07/05/19 14:58 Aerobic Blood Culture - Preliminary Blood - Venous - Lab Draw NO GROWTH AFTER 1 DAY Anaerobic Blood Culture - Preliminary NO GROWTH AFTER 1 DAY Med Orders - Current: Current Medications Acetaminophen (Tylenol Arthritis Pain) 650 mg PO Q4H PRN PRN Reason: Fever Last Admin: 07/07/19 01:25 Dose: 650 mg Acetaminophen (Tylenol Extra Strength) 500 mg PO TID PRN PRN Reason: Pain Al Hydroxide/Mg Hydroxide (Mag-Al Susp) 15 ml PO Q2H PRN PRN Reason: Heartburn Albuterol (Proventil Neb Soln) 2.5 mg INH QID PRN PRN Reason: Shortness of Breath Albuterol (Ventolin Hfa) 0 gm INH Q4H PRN PRN Reason: Dyspnea Last Admin: 07/07/19 02:09 Dose: 2 puff Aspirin (Halfprin) 81 mg PO BEDTIME PAUL Last Admin: 07/06/19 20:41 Dose: 81 mg Clopidogrel Bisulfate (Plavix) 75 mg PO 1200 [facility]UL Last Admin: 07/06/19 12:01 Dose: 75 mg Diltiazem HCl (Cardizem Cd) 180 mg PO BEDTIME PAUL Last Admin: 07/06/19 20:40 Dose: 180 mg Diphenhydramine HCl (Benadryl) 25 mg IVPUSH Q6H PRN PRN Reason: ITCHING/NAUSEA Last Admin: 07/05/19 21:16 Dose: 25 mg Fenofibrate (Tricor) 145 mg PO BEDTIME [facility] Last Admin: 07/06/19 20:49 Dose: 145 mg Sodium Chloride (Normal Saline) 1,000 mls @ 125 mls/hr IV ASDIRECTED [facility] Last Admin: 07/07/19 01:26 Dose: 125 mls/hr Ampicillin Sodium 2 gm/ Sodium (Chloride) 100 mls @ 200 mls/hr IV Q6H [facility] Last Admin: 07/07/19 02:20 Dose: 200 mls/hr Isosorbide Mononitrate (Imdur) 30 mg PO DAILY [facility] Last Admin: 07/06/19 09:58 Dose: 30 mg Nitroglycerin (Nitrostat) 0.4 mg SL Q5M PRN PRN Reason: Chest Pain Calcium 600mg 0 tab PO TIDMEALS [facility] Last Admin: 07/06/19 18:04 Dose: 600 tab (Dexlansoprazole [ Dexilant] 60 Mg) * Ptom 0 mg PO DAILY@0600 [facility] Last Admin: 07/07/19 05:07 Dose: 60 mg Nf Med 1 Each ( Diphenhydramine Hcl [Benadryl Allergy] 12.5 Mg Tablet) 12.5 mg PO BEDTIME [facility] Last Admin: 07/06/19 20:50 Dose: 12.5 mg Non-Formulary Medication (Fluticasone Propionate [Flonase Allergy Relief]) 1 spray NASBOTH DAILY [facility] Nf Med 1 Each ( Gabapentin [ Neurontin] 800 Mg) 800 mg PO 08,,18, [facility] Last Admin: 07/06/19 21:00 Dose: 800 mg Flinstones Vitamin 1 tab PO DAILY@1200 [facility] Last Admin: 07/06/19 11:59 Dose: Not Given Nf Medication 1 Each (Ranitidine Hcl [ Ranitidine] 150 Mg) 150 mg PO BEDTIME [facility] Last Admin: 07/06/19 20:43 Dose: 150 mg (Rosuvastatin [ Crestor] 40 Mg) * Ptom 0 mg PO Q48H [facility] Last Admin: 07/06/19 20:46 Dose: Not Given Ondansetron HCl (Zofran Odt) 8 mg PO Q8H PRN PRN Reason: nausea, able to take po Last Admin: 07/06/19 21:07 Dose: 8 mg Potassium Chloride (Klor-Con M20) 20 meq PO 1200 [facility] Last Admin: 07/06/19 12:00 Dose: 20 meq Saccharomyces Boulardii (Florastor) 250 mg PO BID [facility] Last Admin: 07/06/19 20:42 Dose: 250 mg Sodium Chloride (Saline Flush) 10 ml FLUSH ASDIRECTED PRN PRN Reason: Keep Vein Open Discontinued Medications Aspirin (Aspirin) 81 mg PO BEDTIME [facility] Last Admin: 07/05/19 21:48 Dose: 81 mg Promethazine HCl 12.5 mg/ (Sodium Chloride) 50.5 mls @ 200 mls/hr IV Q6H PRN PRN Reason: Nausea/Vomiting Ciprofloxacin/Dextrose 400 mg/ (Premix) 200 mls @ 200 mls/hr IV Q12H [facility] Last Admin: 07/05/19 17:03 Dose: 200 mls/hr Melatonin (Melatonin) 3 mg PO ONETIME ONE Stop: 07/05/19 22:42 Last Admin: 07/05/19 22:57 Dose: 3 mg (Magnesium [ Magnesium] 250 Mg) * Ptom 0 mg PO DAILY@1200 [facility] Ondansetron HCl (Zofran Odt) 4 mg PO Q6H PRN PRN Reason: nausea, able to take PO Ondansetron HCl (Zofran Odt) 8 mg PO Q8H PRN PRN Reason: nausea, able to take PO Last Admin: 07/06/19 05:56 Dose: 8 mg - Exam General: Alert, Oriented HEENT: Pupils Equal Neck: Supple Lungs: Clear to Auscultation GI/Abdominal Exam: Normal Bowel Sounds, Soft, Non-Tender, No Organomegaly, No Distention, No Abnormal Bruit, No Mass Extremities: Normal Inspection Skin: Warm - Problem List & Annotations (1) Postoperative external wound disruption SNOMED Code(s): 314093933151743 Code(s): T81.31XA - DISRUPTION OF EXTERNAL OPERATION (SURGICAL) WOUND, NEC, INIT Status: Acute Current Visit: Yes Qualifiers: Encounter type: subsequent encounter Qualified Code(s): T81.31XD - Disruption of external operation (surgical) wound, not elsewhere classified, subsequent encounter Annotation/Comment:: left flank, bowel stimulator surgery end of May, got infected had to remove device. Was on Vancomycin IV for 2 weeks, daily dressing changes. (2) UTI (urinary tract infection) SNOMED Code(s): 10256956 Code(s): N39.0 - URINARY TRACT INFECTION, SITE NOT SPECIFIED Status: Acute Current Visit: Yes Qualifiers: Urinary tract infection type: acute cystitis (3) Abdominal pain SNOMED Code(s): 56122579 Code(s): R10.9 - UNSPECIFIED ABDOMINAL PAIN Status: Acute Current Visit: No Qualifiers: Abdominal location: epigastric Qualified Code(s): R10.13 - Epigastric pain (4) Acquired vaginal enterocele SNOMED Code(s): 918683742 Code(s): N81.5 - VAGINAL ENTEROCELE Status: Acute Current Visit: No Annotation/Comment:: Reassurance given. I suggested a consult with a waiter regarding surgical management vs pessary. Patient will discuss with PCP. (5) COPD, Mild chronic obstructive pulmonary disease SNOMED Code(s): 126564952 Code(s): J44.9 - CHRONIC OBSTRUCTIVE PULMONARY DISEASE, UNSPECIFIED Status : Acute Current Visit: No Annotation/Comment:: She has now committed herself to being tobacco free and is now 7 days abstinent. discussed continuing to using home medications and to keep hydrated as the usual coarse after cessation is to begin mobilizing more sputum with increased cough to evacuate the lungs from prior collections. she is aware. she knows to keep her annual fluvax and pneumovax up to date. understand her egg allergy is noted and that she can still recieve appropriate form of flu vax. agrees. (6) Esophagitis SNOMED Code(s): 40294122 Code(s): K20.9 - ESOPHAGITIS, UNSPECIFIED Status: Acute Current Visit: No - Problem List Review Problem List Initiated/Reviewed/Updated: Yes - My Orders Last 24 Hours: My Active Orders 07/07/19 03:46 Alum Hydroxide/Mag Hydroxide [Mag-Al Susp] 15 ml PO Q2H PRN - Plan Plan:: Awaiting for report from MRI. May DC home today once report is back.
[2019-07-07] MEDS: GABAPENTIN 800 MG PO SCH ×2 (09:16→12:00)
[2019-07-07] MEDS: CALCIUM 600MG PO SCH ×2 (09:18→12:00)
[2019-07-07] MEDS: Saccharomyces Boulardii (Probiotic) 250 MG Cap PO SCH (09:19)
[2019-07-07] MEDS: Isosorbide Mononitrate 30 MG Tab.ER *PTOM PO SCH (09:26)
[2019-07-07] MEDS: Ondansetron 8 MG Tab.DIS PO PRN (10:09)
[2019-07-07 10:26] VITALS: BP 160/70; PULSE 76
[2019-07-07] MEDS: Potassium Chloride 20 MEQ Tab.ER *PTOM PO SCH (12:01)
[2019-07-07] MEDS: FLINSTONES VITAMIN PO SCH (12:01)
[2019-07-07] MEDS: Clopidogrel 75 MG Tab *PTOM PO SCH (12:02)
== END 2019-07-07 13:08 | disposition home or self-care (01) ==
LOC: FB.MS 13:46
PROVIDERS: ADMIT Family Medicine; ATTEND Family Medicine
DX: N39.0 Urinary tract infection, site not specified (principal); R11.2 Nausea with vomiting, unspecified; R19.7 Diarrhea, unspecified; R30.0 Dysuria; K83.8 Other specified diseases of biliary tract; M47.816 Spondylosis without myelopathy or radiculopathy, lumbar region; E86.0 Dehydration; K57.30 Diverticulosis of large intestine without perforation or abscess without bleeding; S22.089A Unspecified fracture of T11-T12 vertebra, initial encounter for closed fracture; M41.9 Scoliosis, unspecified; M51.36 Other intervertebral disc degeneration, lumbar region; T81.31XA Disruption of external operation (surgical) wound, not elsewhere classified, initial encounter; K21.9 Gastro-esophageal reflux disease without esophagitis; I10 Essential (primary) hypertension; I25.10 Atherosclerotic heart disease of native coronary artery without angina pectoris; E78.00 Pure hypercholesterolemia, unspecified; J44.9 Chronic obstructive pulmonary disease, unspecified; M19.90 Unspecified osteoarthritis, unspecified site; Z88.1 Allergy status to other antibiotic agents; Z88.8 Allergy status to other drugs, medicaments and biological substances; Z88.5 Allergy status to narcotic agent; Z91.011 Allergy to milk products; Z91.012 Allergy to eggs; Z91.010 Allergy to peanuts; Z79.899 Other long term (current) drug therapy; Z79.82 Long term (current) use of aspirin; Z79.02 Long term (current) use of antithrombotics/antiplatelets
CPT/HCPCS: 36410; 36415; 74177; 74181; 80048; 80069; 80076; 81001; 82150; 82272; 83630; 85025; 86140; 87040; 87045; 87046; 87086; 87088; 87177; 87186; 87209; 87324; 87427; 94760; 96361; 96365; 96366; 96367; 96375; 96376; A9270; G0378; J0290; J0744; J1200; J7030; Q9963; Q9967

== ENCOUNTER 2019-07-30 07:33 | Emergency (ER) | payer MEDICARE ==
--- NOTE | 2019-07-30 07:46 | EDM.PDOC ---
ED HPI GENERAL MEDICAL PROBLEM - General Chief Complaint: Back Pain or Injury Time Seen by Provider: 07/30/19 07:42 Source of Information: Reports: Patient History Limitations: Reports: No Limitations - History of Present Illness INITIAL COMMENTS - FREE TEXT/NARRATIVE: 64-year-old female with multiple chronic medical problems who is a frequent visitor of the emergency department and the walk-in clinics who reports onset of back pain on Wednesday of this last week. She reports the pain is in her mid back but more on the left than the right and it has been worsening with time. She currently rates the pain as an 8/10 and it is worse with movement and with palpation. She apparently was seen in the walk-in clinic yesterday and had x- rays of her back that were reportedly negative. She was given a shot of Toradol which she states seemed to help her pain. However, since yesterday the pain has worsened and she finds it hard to even get around her house secondary to the pain. She reports the pain is sharp and nonradiating. No history of trauma and no inciting event prior to the back pain beginning according to the patient. She has had no fevers. She has had no abdominal pain. She's had no difficulty breathing and no change in her chronic problems with breathing. There has been no hematuria or dysuria. No nausea or vomiting. She has been eating and drinking normally. There are no other associated signs or symptoms. There are no other modifying factors. 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 (see below) (Nothing) lower back Pain Score (Numeric/FACES): 8 - Related Data Allergies Allergy/AdvReac Type Severity Reaction Status Date / Time ceftriaxone sodium Allergy Anaphylactic Verified 06/17/19 09:13 [From Rocephin] Shock clindamycin Allergy Anaphylactic Verified 06/17/19 09:13 Shock fentanyl Allergy Hives Verified 06/17/19 09:13 metoclopramide [From Reglan] Allergy Nausea Verified 06/17/19 09:13 Milk Containing Products Allergy Vomiting Verified 06/17/19 09:13 trazodone Allergy Other Verified 06/17/19 09:13 ciprofloxacin AdvReac Intermediate Itching Verified 07/06/19 09:35 .steroids Allergy Nausea Uncoded 06/17/19 09:14 depression medications Allergy Airway Uncoded 06/17/19 09:14 Tightness eggs Allergy Nausea Uncoded 06/17/19 09:14 oral antibiotics Allergy Vomiting Uncoded 06/17/19 09:14 peanuts Allergy Hives Uncoded 06/17/19 09:14 Home Meds: Home Meds Dexlansoprazole [Dexilant] 60 mg PO DAILY 12/05/13 [History] Fenofibrate Nanocrystallized [Fenofibrate] 145 mg PO BEDTIME 12/05/13 [History] Rosuvastatin [Crestor] 20 mg PO Q48H 11/27/15 [History] Aspirin 81 mg PO BEDTIME 10/07/16 [History] Gabapentin [Neurontin] 800 mg PO 08,,,22 10/07/16 [History] Clopidogrel [Plavix] 75 mg PO 1200 11/06/16 [History] Isosorbide Mononitrate [Imdur] 30 mg PO DAILY 11/06/16 [History] Fluticasone Propionate [Flonase Allergy Relief] 1 spray NASBOTH DAILY 07/10/17 [ History] Ondansetron [Zofran ODT] 4 mg PO Q6H PRN 07/16/17 [History] Albuterol Sulfate [Proair Hfa] 2 puff INH Q4H PRN 02/12/18 [History] Potassium Chloride 20 meq PO 1200 04/06/18 [History] Albuterol [Proventil Neb Soln] 2.5 mg INH QID PRN 02/28/19 [History] Diltiazem HCl [Dilt-Xr] 180 mg PO BEDTIME 02/28/19 [History] Acetaminophen [Tylenol Extra Strength] 500 mg PO TID PRN 07/05/19 [History] Nitroglycerin [Nitrostat] 0.4 mg SL Q5M PRN 07/05/19 [History] Pedi Multivit No.7/Folic Acid [Flintstones Tab] 1 tab PO DAILY@1200 07/05/19 [ History] Ranitidine HCl [Ranitidine] 150 mg PO BEDTIME 07/05/19 [History] diphenhydrAMINE HCl [Benadryl Allergy] 12.5 mg PO BEDTIME 07/05/19 [History] Calcium Carbonate [Calcium] 600 mg PO TIDMEALS 07/06/19 [History] Magnesium 250 mg PO DAILY@1200 07/06/19 [History] Past Medical History HEENT History: Reports: Glaucoma, Impaired Vision, Other (See Below) Other HEENT History: Choroidal nevus. Cardiovascular History: Reports: Angina, CAD, High Cholesterol, Hypertension, PVD, Syncope, Other (See Below) Other Cardiovascular History: Heart palpitations. DVT. PVD. Carotid bruitt. Respiratory History: Reports: COPD Other Respiratory History: Suffocating spells at night with SOB. Gastrointestinal History: Reports: GERD, Hiatal Hernia, Other (See Below) Other Gastrointestinal History: Bowel incontinence. Genitourinary History: Reports: Urinary Incontinence, Other (See Below) Other Genitourinary History: Urethral suspension with sling, later removed. Cystocopy. Bladder tumor. Overactive bladder. Musculoskeletal History: Reports: Arthritis, Back Pain, Chronic Other Musculoskeletal History: Left knee torn miniscus. Right ankle and hip pain. Neurological History: Reports: CVA, MS, Other (See Below) Other Neuro History: Notices emotional/cognitive changes following a brain injury. Questionable MS diagnosis. Psychiatric History: Reports: Depression Other Psychiatric History: MEDICAL AGREEMENT FOR [facility] MED USE. Other Endocrine/Metabolic History: States history of hypoglycemia. Hematologic History: Reports: Blood Transfusion(s) Other Hematologic History: hx of blood clots Oncologic (Cancer) History: Reports: Bladder, Brain, Malignant Melanoma Other Oncologic History: Throat cancer, treated with chemotherapy and radiation. Dermatologic History: Reports: Eczema, Melanoma Other Dermatologic History: Melanoma on back. Eczema. - Infectious Disease History Infectious Disease History: Reports: Chicken Pox - Past Surgical History GI Surgical History: Reports: Appendectomy, Cholecystectomy Female Surgical History: Reports: D&C, TURBT Other Surgical History Comment: Bowel and bladder InterStim placement and later removal secondary to infection Social & Family History - Family History Family Medical History: Noncontributory Cardiac: Reports: [place] Oncologic: Reports: Colon - Tobacco Use Smoking Status *Q: Former Smoker (Nonsmoker for the past year) - Caffeine Use Caffeine Use: Reports: Tea Other Caffeine Use: 2 cups per day Caffeine Use Comment: Occassional coffee drinker. - Alcohol Use Alcohol Use History: No - Living Situation & Occupation Living situation: Reports: Single, Alone Occupation: Disabled ED ROS GENERAL - Review of Systems Review Of Systems: See Below Constitutional: Reports: No Symptoms HEENT: Reports: No Symptoms Respiratory: Reports: No Symptoms Cardiovascular: Reports: No Symptoms Endocrine: Reports: No Symptoms GI/Abdominal: Reports: No Symptoms : Reports: No Symptoms Musculoskeletal: Reports: Back Pain Skin: Reports: No Symptoms Neurological: Reports: No Symptoms Hematologic/Lymphatic: Reports: No Symptoms Immunologic: Reports: No Symptoms ED EXAM, GENERAL - Physical Exam Exam: See Below Exam Limited By: No Limitations General Appearance: Alert, WD/WN, Moderate Distress Eye Exam: Bilateral Eye: EOMI, Normal Inspection, PERRL Ears: Normal External Exam, Hearing Grossly Normal Ear Exam: Bilateral Ear: Auricle Normal Nose: Normal Inspection, Normal Mucosa, No Blood Throat/Mouth: Normal Inspection, Normal Lips, Normal Oropharynx, Normal Voice, No Airway Compromise Head: Atraumatic, Normocephalic Neck: Normal Inspection, Supple, Non-Tender, Full Range of Motion Respiratory/Chest: No Respiratory Distress, Lungs Clear, Normal Breath Sounds, No Accessory Muscle Use, Chest Non-Tender Cardiovascular: Normal Peripheral Pulses, Regular Rate, Rhythm, No JVD Peripheral Pulses: 2+: Radial (L), Radial (R) GI/Abdominal: Normal Bowel Sounds, Soft, Non-Tender, No Mass Back Exam: Full Range of Motion (Despite pain), Other (Tender to palpation over the patient's left mid to lower back. There is some mild edema here. There is no erythema or increased warmth. No fluctuance noted.) Extremities: Normal Inspection, Normal Range of Motion, Normal Capillary Refill Neurological: Alert, Oriented, CN II-XII Intact, Normal Cognition, No Motor/ Sensory Deficits Skin Exam: Warm, Dry, Intact, Normal Color, No Rash Course - Vital Signs Last Recorded V/S: Last Vital Signs Temp 36.5 C 07/30/19 07:35 Pulse 79 07/30/19 07:35 Resp 16 07/30/19 07:35 BP 126/58 L 07/30/19 07:35 Pulse Ox 90 L 07/30/19 07:35 - Orders/Labs/Meds Orders: Active Orders 24 hr Category Date Time Status Abdomen Pelvis w Cont [CT] Stat Exams 07/30/19 09:45 Taken Sodium Chloride 0.9% [Normal Saline] 1,000 ml Med 07/30/19 08:15 Active IV ASDIRECTED Sodium Chloride 0.9% [Saline Flush] Med 07/30/19 08:00 Active 10 ml FLUSH ASDIRECTED PRN Peripheral IV Insertion Adult [OM.PC] Routine Oth 07/30/19 08:00 Ordered Medication Orders Sodium Chloride (Normal Saline) 1,000 mls @ 999 mls/hr IV ASDIRECTED PAUL Last Admin: 07/30/19 08:19 Dose: 999 mls/hr Sodium Chloride (Saline Flush) 10 ml FLUSH ASDIRECTED PRN PRN Reason: Keep Vein Open Last Admin: 07/30/19 08:15 Dose: 10 ml Labs: Laboratory Tests 07/30/19 07/30/19 07/30/19 Range/Units 08:02 08:02 08:02 WBC 7.3 (4.5-12.0) X10-3/uL RBC 4.28 (3.23-5.20) x10(6)uL Hgb 12.5 (11.5-15.5) g/dL Hct 37.6 (30.0-51.3) % MCV 87.7 (80-96) fL MCH 29.2 (27.7-33.6) pg MCHC 33.3 (32.2-35.4) g/dL RDW 12.7 (11.5-15.5) % Plt Count 384 H (125-369) X10(3)uL MPV 7.0 L (7.4-10.4) fL Neut % (Auto) 69.8 (46-82) % Lymph % (Auto) 17.2 (13-37) % [place] % (Auto) 8.2 (4-12) % Eos % (Auto) 4 (1.0-5.0) % Baso % (Auto) 1 (0-2) % Neut # (Auto) 5.0 (1.6-8.3) # Lymph # (Auto) 1.3 (0.6-5.0) # [place] # (Auto) 0.6 (0.0-1.3) # Eos # (Auto) 0.3 (0.0-0.8) # Baso # (Auto) 0.1 (0.0-0.2) # Sodium 137 (135-145) mmol/L Potassium 4.2 (3.5-5.3) mmol/L Chloride 98 L D (100-110) mmol/L Carbon Dioxide 33 H (21-32) mmol/L BUN 14 (7-18) mg/dL Creatinine 0.7 (0.55-1.02) mg/dL Est Cr Clr Drug Dosing TNP Estimated GFR (MDRD) > 60 (>60) BUN/Creatinine Ratio 20.0 (9-20) Glucose 109 (80-116) mg/dL Calcium 9.0 (8.6-10.2) mg/dL Total Bilirubin 0.2 (0.1-1.3) mg/dL AST 20 D (5-25) IU/L ALT 25 (12-36) U/L Alkaline Phosphatase 58 (56-112) IU/L C-Reactive Protein 1.8 H (0.5-0.9) mg/dL Total Protein 7.2 (6.0-8.0) g/dL Albumin 3.7 (3.2-4.6) g/dL Globulin 3.5 g/dL Albumin/Globulin Ratio 1.1 Urine Color (YELLOW) Urine Appearance (CLEAR) Urine pH (5.0-6.5) Ur Specific [place] (1.010-1.025) Urine Protein (NEGATIVE) mg/dL Urine Glucose (UA) (NORMAL) mg/dL Urine Ketones (NEGATIVE) mg/dL Urine Occult Blood (NEGATIVE) Urine Nitrite (NEGATIVE) Urine Bilirubin (NEGATIVE) Urine Urobilinogen (NEGATIVE) mg/dL Ur Leukocyte Esterase (NEGATIVE) 07/30/19 Range/Units 10:15 WBC (4.5-12.0) X10-3/uL RBC (3.23-5.20) x10(6)uL Hgb (11.5-15.5) g/dL Hct (30.0-51.3) % MCV (80-96) fL MCH (27.7-33.6) pg MCHC (32.2-35.4) g/dL RDW (11.5-15.5) % Plt Count (125-369) X10(3)uL MPV (7.4-10.4) fL Neut % (Auto) (46-82) % Lymph % (Auto) (13-37) % [place] % (Auto) (4-12) % Eos % (Auto) (1.0-5.0) % Baso % (Auto) (0-2) % Neut # (Auto) (1.6-8.3) # Lymph # (Auto) (0.6-5.0) # [place] # (Auto) (0.0-1.3) # Eos # (Auto) (0.0-0.8) # Baso # (Auto) (0.0-0.2) # Sodium (135-145) mmol/L Potassium (3.5-5.3) mmol/L Chloride (100-110) mmol/L Carbon Dioxide (21-32) mmol/L BUN (7-18) mg/dL Creatinine (0.55-1.02) mg/dL Est Cr Clr Drug Dosing Estimated GFR (MDRD) (>60) BUN/Creatinine Ratio (9-20) Glucose (80-116) mg/dL Calcium (8.6-10.2) mg/dL Total Bilirubin (0.1-1.3) mg/dL AST (5-25) IU/L ALT (12-36) U/L Alkaline Phosphatase (56-112) IU/L C-Reactive Protein (0.5-0.9) mg/dL Total Protein (6.0-8.0) g/dL Albumin (3.2-4.6) g/dL Globulin g/dL Albumin/Globulin Ratio Urine Color Yellow (YELLOW) Urine Appearance Slightly cloudy (CLEAR) Urine pH 5.0 (5.0-6.5) Ur Specific [place] 1.020 (1.010-1.025) Urine Protein Negative (NEGATIVE) mg/dL Urine Glucose (UA) Normal (NORMAL) mg/dL Urine Ketones Negative (NEGATIVE) mg/dL Urine Occult Blood Negative (NEGATIVE) Urine Nitrite Negative (NEGATIVE) Urine Bilirubin Negative (NEGATIVE) Urine Urobilinogen Normal (NEGATIVE) mg/dL Ur Leukocyte Esterase Negative (NEGATIVE) Meds: Medications Generic Name Dose Route Start Last Admin Trade Name Freq PRN Reason Stop Dose Admin Sodium Chloride 1,000 mls @ 999 mls/hr 07/30/19 08:15 07/30/19 08:19 Normal Saline IV 999 mls/hr ASDIRECTED PAUL Administration Sodium Chloride 10 ml 07/30/19 08:00 07/30/19 08:15 Saline Flush FLUSH 10 ml ASDIRECTED PRN Administration Keep Vein Open Discontinued Medications Generic Name Dose Route Start Last Admin Trade Name Julisa PRN Reason Stop Dose Admin Iopamidol 100 ml 07/30/19 08:29 Isovue-370 (76%) IV 07/30/19 08:30 ONETIME ONE Ketorolac Tromethamine 30 mg 07/30/19 08:02 07/30/19 08:19 Toradol IVPUSH 07/30/19 08:03 30 mg ONETIME ONE Administration - Radiology Interpretation Free Text/Narrative:: CT scan of abdomen and pelvis shows no acute process in the abdomen or the pelvis. There was also no evidence of any acute process in the lower thoracic or the lumbar spine. There was also no evidence of any infectious or inflammatory process in the left lower back. This was read by the [facility] radiologist. - Re-Assessments/Exams Free Text/Narrative Re-Assessment/Exam: 07/30/19 10:10: The patient's blood tests were reassuringly normal. We are still waiting the urinalysis. The CT scan of her abdomen and pelvis acute processes in the abdomen or pelvis or in the patient's back area. We were able to get a small specimen of urine and it looked clear. I will have the lab do a dipstick on this urine and if it is positive for leukocytes, I will have them send it for culture. I discussed the findings of the patient's blood tests and the CT scan with the patient and the plan will be discharge home with any measures as she has been doing at home and following up with Blanquita Wolf NP for any further problems. 07/30/19 10:25: The urine dip was negative. The patient will be discharged to home Departure - Departure Time of Disposition: 10:25 Disposition: Home, Self-Care 01 Condition: Good Clinical Impression: Lower back pain Qualifiers: Chronicity: acute Back pain laterality: left Sciatica presence: without sciatica Qualified Code(s): M54.5 - Low back pain - Discharge Information Instructions: Muscle Strain, [id number], Chronic Back Pain, [id number] Referrals: Blanquita Wolf NP [Primary Care Provider] - Forms: ED Department Discharge Additional Instructions: Your blood tests were reassuringly normal. Your urine appeared to be clear. The CT scan of your abdomen and pelvis showed no acute problem in the near your abdomen and pelvis or in your back. I am unsure why you are having the back pain but I suspect it is musculoskeletal in nature and has some relation to your chronic back pain. It could even be due to your herniated disc as well. You may continue to take Tylenol for pain. Continue to take your Neurontin as well. Follow-up with Blanquita Wolf NP for any further problems. Back to the emergency department for high fever, abdominal pain, unrelenting vomiting or any other concerning sign or symptom. - My Orders Last 24 Hours: My Active Orders 07/30/19 08:00 Sodium Chloride 0.9% [Saline Flush] 10 ml FLUSH ASDIRECTED PRN Peripheral IV Insertion Adult [OM.PC] Routine 07/30/19 08:15 Sodium Chloride 0.9% [Normal Saline] 1,000 ml IV ASDIRECTED 07/30/19 09:45 Abdomen Pelvis w Cont [CT] Stat - Assessment/Plan Last 24 Hours: My Active Orders 07/30/19 08:00 Sodium Chloride 0.9% [Saline Flush] 10 ml FLUSH ASDIRECTED PRN Peripheral IV Insertion Adult [OM.PC] Routine 07/30/19 08:15 Sodium Chloride 0.9% [Normal Saline] 1,000 ml IV ASDIRECTED 07/30/19 09:45 Abdomen Pelvis w Cont [CT] Stat
[2019-07-30 07:50] VITALS: BP 126/58; PULSE 79
[2019-07-30] MEDS: Sodium Chloride 0.9% 10 ML Syringe FLUSH PRN (08:15)
[2019-07-30] MEDS: Sodium Chloride 0.9% 1,000 ML IV SCH (08:19)
[2019-07-30] MEDS: Ketorolac 30 MG/ML SDV IVPUSH ONE (08:19)
[2019-07-30] MEDS: Iopamidol 755 Mg/ML 100 ML Bottle IV ONE (09:44)
== END 2019-07-30 10:34 | disposition home or self-care (01) ==
LOC: FB.ED 07:33
DX: M54.5 Low back pain (principal); I25.10 Atherosclerotic heart disease of native coronary artery without angina pectoris; J44.9 Chronic obstructive pulmonary disease, unspecified; I10 Essential (primary) hypertension; K21.9 Gastro-esophageal reflux disease without esophagitis; I82.409 Acute embolism and thrombosis of unspecified deep veins of unspecified lower extremity; Z88.1 Allergy status to other antibiotic agents; Z88.5 Allergy status to narcotic agent; Z91.011 Allergy to milk products; Z88.8 Allergy status to other drugs, medicaments and biological substances; Z91.012 Allergy to eggs; Z91.010 Allergy to peanuts; Z86.73 Personal history of transient ischemic attack (TIA), and cerebral infarction without residual deficits; Z87.891 Personal history of nicotine dependence; Z79.82 Long term (current) use of aspirin; Z79.51 Long term (current) use of inhaled steroids; Z79.01 Long term (current) use of anticoagulants; Z79.899 Other long term (current) drug therapy
CPT/HCPCS: 36415; 74177; 80053; 81003; 85025; 86140; 99283; J1885; J7030; Q9967

== ENCOUNTER → 2019-09-01 | Outpatient (CLI) | payer MEDICARE, OTHER | LOC: FB.CLBR 08:00 | PROVIDERS: ATTEND Nurse Practitioner Family | DX: L85.3 Xerosis cutis (principal); R07.89 Other chest pain | CPT/HCPCS: 93005; 93010; 99213 ==

== ENCOUNTER → 2019-09-05 | Outpatient (CLI) | payer MEDICARE, OTHER | LOC: FB.CLBR 08:00 | PROVIDERS: ATTEND Nurse Practitioner Family | DX: N81.10 Cystocele, unspecified (principal); K92.1 Melena; J45.909 Unspecified asthma, uncomplicated; R11.0 Nausea | CPT/HCPCS: 99213 ==

== ENCOUNTER 2019-10-09 21:28 | Emergency (ER) | payer MEDICARE, MEDICAID ==
[2019-10-09 22:01] VITALS: BP 180/72; PULSE 87
--- NOTE | 2019-10-09 22:21 | EDM.PDOC ---
ED HPI GENERAL MEDICAL PROBLEM - General Chief Complaint: General Stated Complaint: NAUSEA Time Seen by Provider: 10/09/19 22:00 Source of Information: Reports: Patient History Limitations: Reports: No Limitations - History of Present Illness INITIAL COMMENTS - FREE TEXT/NARRATIVE: 64-year-old who is a frequent visitor to the emergency department and was just in walk-in clinic yesterday with complaints of bladder discomfort and malaise. She was told that she had a urinary tract infection and was treated with an injection. She states when she got home she had some problems swallowing and some feelings of tightness in her throat associated with increase nasal drainage that was clear and this lasted for a few hours and then seemed to go away. She felt that she actually got choked while she was eating macaroni and later on vomited some macaroni and since that time she has been able to swallow liquids and some food but has had continual nausea. He has had no vomiting. She has had no fevers. She has had will formed bowel movements today and that is concerning her as well. She has taken Zofran for her nausea but her nausea is persisting. She really denies any pain at this point. No measured fever. No chest pain. No palpitations. She has been able to urinate well today. She denies any acute pain. She feels that her nausea is severe though. There are no other associated signs or symptoms. There are no other modifying factors. 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: Reports: Other Medication(s) (Zofran) - Related Data Allergies Allergy/AdvReac Type Severity Reaction Status Date / Time ceftriaxone sodium Allergy Anaphylactic Verified 06/17/19 09:13 [From Rocephin] Shock clindamycin Allergy Anaphylactic Verified 06/17/19 09:13 Shock fentanyl Allergy Hives Verified 06/17/19 09:13 metoclopramide [From Reglan] Allergy Nausea Verified 06/17/19 09:13 Milk Containing Products Allergy Vomiting Verified 06/17/19 09:13 trazodone Allergy Other Verified 06/17/19 09:13 ciprofloxacin AdvReac Intermediate Itching Verified 07/06/19 09:35 .steroids Allergy Nausea Uncoded 06/17/19 09:14 depression medications Allergy Airway Uncoded 06/17/19 09:14 Tightness eggs Allergy Nausea Uncoded 06/17/19 09:14 oral antibiotics Allergy Vomiting Uncoded 06/17/19 09:14 peanuts Allergy Hives Uncoded 06/17/19 09:14 Home Meds: Home Meds Dexlansoprazole [Dexilant] 60 mg PO DAILY 12/05/13 [History] Fenofibrate Nanocrystallized [Fenofibrate] 145 mg PO BEDTIME 12/05/13 [History] Rosuvastatin [Crestor] 20 mg PO Q48H 11/27/15 [History] Aspirin 81 mg PO BEDTIME 10/07/16 [History] Gabapentin [Neurontin] 800 mg PO 08,,,10/07/16 [History] Clopidogrel [Plavix] 75 mg PO 1200 11/06/16 [History] Isosorbide Mononitrate [Imdur] 30 mg PO DAILY 11/06/16 [History] Fluticasone Propionate [Flonase Allergy Relief] 1 spray NASBOTH DAILY 07/10/17 [ History] Ondansetron [Zofran ODT] 4 mg PO Q6H PRN 07/16/17 [History] Albuterol Sulfate [Proair Hfa] 2 puff INH Q4H PRN 02/12/18 [History] Potassium Chloride 20 meq PO 1200 04/06/18 [History] Albuterol [Proventil Neb Soln] 2.5 mg INH QID PRN 02/28/19 [History] Diltiazem HCl [Dilt-Xr] 180 mg PO BEDTIME 02/28/19 [History] Acetaminophen [Tylenol Extra Strength] 500 mg PO TID PRN 07/05/19 [History] Nitroglycerin [Nitrostat] 0.4 mg SL Q5M PRN 07/05/19 [History] Pedi Multivit No.7/Folic Acid [Flintstones Tab] 1 tab PO DAILY@1200 07/05/19 [ History] Ranitidine HCl [Ranitidine] 150 mg PO BEDTIME 07/05/19 [History] diphenhydrAMINE HCl [Benadryl Allergy] 12.5 mg PO BEDTIME 07/05/19 [History] Calcium Carbonate [Calcium] 600 mg PO TIDMEALS 07/06/19 [History] Magnesium 250 mg PO DAILY@1200 07/06/19 [History] Past Medical History HEENT History: Reports: Glaucoma, Impaired Vision, Other (See Below) Other HEENT History: Choroidal nevus. Cardiovascular History: Reports: Angina, CAD, High Cholesterol, Hypertension, PVD, Syncope, Other (See Below) Other Cardiovascular History: Heart palpitations. DVT. PVD. Carotid bruitt. Respiratory History: Reports: COPD Other Respiratory History: Suffocating spells at night with SOB. Gastrointestinal History: Reports: GERD, Hiatal Hernia, Other (See Below) Other Gastrointestinal History: Bowel incontinence. Genitourinary History: Reports: Urinary Incontinence, Other (See Below) Other Genitourinary History: Urethral suspension with sling, later removed. Cystocopy. Bladder tumor. Overactive bladder. Other DENTAL OFFICER History: D&C. Musculoskeletal History: Reports: Arthritis, Back Pain, Chronic Other Musculoskeletal History: Left knee torn miniscus. Right ankle and hip pain. Neurological History: Reports: CVA, MS, Other (See Below) Other Neuro History: Notices emotional/cognitive changes following a brain injury. Questionable MS diagnosis. 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 Other Endocrine/Metabolic History: States history of hypoglycemia. Hematologic History: Reports: Blood Transfusion(s) Other Hematologic History: hx of blood clots Oncologic (Cancer) History: Reports: Bladder, Brain, Malignant Melanoma Other Oncologic History: Throat cancer, treated with chemotherapy and radiation. Dermatologic History: Reports: Eczema, Melanoma Other Dermatologic History: Melanoma on back. Eczema. - Infectious Disease History Infectious Disease History: Reports: Chicken Pox - Past Surgical History GI Surgical History: Reports: Appendectomy, Cholecystectomy Female Surgical History: Reports: D&C, TURBT Other Surgical History Comment: Bowel and bladder InterStim placement and later removal secondary to infection Social & Family History - Family History Cardiac: Reports: [place] Oncologic: Reports: Colon - Tobacco Use Smoking Status *Q: Unknown Ever Smoked (Nonsmoker) - Caffeine Use Caffeine Use: Reports: Tea Other Caffeine Use: 2 cups per day Caffeine Use Comment: Occassional coffee drinker. - Alcohol Use Alcohol Use History: No - Living Situation & Occupation Living situation: Reports: Single, Alone Occupation: Disabled ED ROS GENERAL - Review of Systems Review Of Systems: See Below Constitutional: Reports: Chills HEENT: Reports: No Symptoms Respiratory: Reports: No Symptoms Cardiovascular: Reports: No Symptoms GI/Abdominal: Reports: Nausea : Reports: Frequency, Incontinence Musculoskeletal: Reports: No Symptoms Skin: Reports: No Symptoms Neurological: Reports: No Symptoms Hematologic/Lymphatic: Reports: No Symptoms Immunologic: Reports: No Symptoms ED EXAM, GENERAL - Physical Exam Exam: See Below General Appearance: Alert, WD/WN, No Apparent Distress, Anxious Eye Exam: Bilateral Eye: EOMI, Normal Inspection Ears: Normal External Exam, Hearing Grossly Normal Ear Exam: Bilateral Ear: Auricle Normal Nose: Normal Inspection, Normal Mucosa, No Blood Throat/Mouth: Normal Inspection, Normal Oropharynx, Normal Voice, No Airway Compromise Head: Atraumatic, Normocephalic Neck: Normal Inspection, Supple, Non-Tender, Full Range of Motion Respiratory/Chest: No Respiratory Distress, Lungs Clear, Normal Breath Sounds, No Accessory Muscle Use, Chest Non-Tender Cardiovascular: Normal Peripheral Pulses, Regular Rate, Rhythm, No Murmur Peripheral Pulses: 2+: Radial (L), Radial (R) GI/Abdominal: Normal Bowel Sounds, Soft, Non-Tender, No Mass Back Exam: Normal Inspection, Full Range of Motion Extremities: Normal Inspection, Normal Range of Motion, Non-Tender, No Pedal Edema, Normal Capillary Refill Neurological: Alert, Oriented, CN II-XII Intact, Normal Cognition, No Motor/ Sensory Deficits Psychiatric: Anxious Skin Exam: Warm, Dry, Intact, Normal Color, No Rash Course - Vital Signs Last Recorded V/S: Last Vital Signs Temp 36.3 C 10/09/19 21:59 Pulse 87 10/09/19 21:59 Resp 17 10/09/19 21:59 BP 180/72 H 10/09/19 21:59 Pulse Ox - Re-Assessments/Exams Free Text/Narrative Re-Assessment/Exam: 10/09/19 22:16: Patient with nausea and has taken Zofran and still has nausea. She has been having normal formed stools but is concerned because of the number of stools that she has been having. She has had no vomiting. She has been able to take liquids but very well today she states because of her nausea. She has multiple drug allergies and cannot really tolerate anything other than Zofran for nausea. Her exam is reassuring and she has no evidence of dehydration at this time. Her vital signs are normal. I discussed home remedies for nausea ( peppermint, inhaling alcohol for a brief period of time) and have stressed that she should rest and small amounts of fluids frequently. I have also stressed that she should follow-up with her primary doctor for any ongoing problems. Departure - Departure Time of Disposition: 22:20 Disposition: Home, Self-Care 01 Condition: Good Clinical Impression: Nausea, Somatization disorder - Discharge Information Instructions: Nausea, Adult, [id number] Referrals: Blanquita Wolf RN UTILIZATION MANAGEMENT [facility] [Primary Care Provider] - Forms: ED Department Discharge Additional Instructions: Your exam was reassuring. You do not have any evidence of dehydration at this time. Your vital signs were normal. You should continue the Zofran for nausea as needed. As we discussed, you may use peppermint candies or inhale alcohol for a brief period of time and this may help with your nausea. You should drink small amounts of fluids frequently. Follow-up with your primary provider as needed. Sepsis Event Note - Evaluation Sepsis Screening Result: No Definite Risk - Focused Exam Vital Signs: Vital Signs Temp Pulse Resp BP 10/09/19 21:59 36.3 C 87 17 180/72 H Date Exam was Performed: 10/09/19 Time Exam was Performed: 22:58
== END 2019-10-09 22:48 | disposition home or self-care (01) ==
LOC: FB.ED 21:28
DX: R11.0 Nausea (principal); F45.0 Somatization disorder; I10 Essential (primary) hypertension; E78.00 Pure hypercholesterolemia, unspecified; I25.110 Atherosclerotic heart disease of native coronary artery with unstable angina pectoris; J44.9 Chronic obstructive pulmonary disease, unspecified; K21.9 Gastro-esophageal reflux disease without esophagitis; Z79.82 Long term (current) use of aspirin; Z88.1 Allergy status to other antibiotic agents; Z88.6 Allergy status to analgesic agent; Z88.8 Allergy status to other drugs, medicaments and biological substances; Z91.011 Allergy to milk products; Z91.012 Allergy to eggs; Z91.010 Allergy to peanuts; Z86.718 Personal history of other venous thrombosis and embolism; Z86.73 Personal history of transient ischemic attack (TIA), and cerebral infarction without residual deficits; Z79.02 Long term (current) use of antithrombotics/antiplatelets; Z79.899 Other long term (current) drug therapy
CPT/HCPCS: 99282; 99283

== ENCOUNTER 2019-10-20 18:03 | Emergency (ER) | payer MEDICARE, MEDICAID, OTHER ==
[2019-10-20] MEDS ORDERED: Lidocaine 5% 700 MG Patch TOP PRN (18:43)
--- NOTE | 2019-10-20 18:50 | EDM.PDOC ---
ED HPI GENERAL MEDICAL PROBLEM - General Chief Complaint: Back Pain or Injury Stated Complaint: BACK PAIN Time Seen by Provider: 10/20/19 18:40 Source of Information: Reports: Patient History Limitations: Reports: No Limitations - History of Present Illness INITIAL COMMENTS - FREE TEXT/NARRATIVE: Erendira comes into [facility] ED with a recently diagnosed fx T9 at [facility] following a fall at home on October 16. She was discharged on the 5% Lidocaine patch and a brace, but was unable to apply today. She left her supply at home before traveling to the ED. We will administer on her behalf. - Related Data Allergies Allergy/AdvReac Type Severity Reaction Status Date / Time ceftriaxone sodium Allergy Anaphylactic Verified 06/17/19 09:13 [From Rocephin] Shock clindamycin Allergy Anaphylactic Verified 06/17/19 09:13 Shock fentanyl Allergy Hives Verified 06/17/19 09:13 metoclopramide [From Reglan] Allergy Nausea Verified 06/17/19 09:13 Milk Containing Products Allergy Vomiting Verified 06/17/19 09:13 trazodone Allergy Other Verified 06/17/19 09:13 ciprofloxacin AdvReac Intermediate Itching Verified 07/06/19 09:35 .steroids Allergy Nausea Uncoded 06/17/19 09:14 depression medications Allergy Airway Uncoded 06/17/19 09:14 Tightness eggs Allergy Nausea Uncoded 06/17/19 09:14 oral antibiotics Allergy Vomiting Uncoded 06/17/19 09:14 peanuts Allergy Hives Uncoded 06/17/19 09:14 Home Meds: Home Meds Dexlansoprazole [Dexilant] 60 mg PO DAILY 12/05/13 [History] Fenofibrate Nanocrystallized [Fenofibrate] 145 mg PO BEDTIME 12/05/13 [History] Rosuvastatin [Crestor] 20 mg PO Q48H 11/27/15 [History] Aspirin 81 mg PO BEDTIME 10/07/16 [History] Gabapentin [Neurontin] 800 mg PO 08,,,22 10/07/16 [History] Clopidogrel [Plavix] 75 mg PO 1200 11/06/16 [History] Isosorbide Mononitrate [Imdur] 30 mg PO DAILY 11/06/16 [History] Fluticasone Propionate [Flonase Allergy Relief] 1 spray NASBOTH DAILY 07/10/17 [ History] Ondansetron [Zofran ODT] 4 mg PO Q6H PRN 07/16/17 [History] Albuterol Sulfate [Proair Hfa] 2 puff INH Q4H PRN 02/12/18 [History] Potassium Chloride 20 meq PO 1200 04/06/18 [History] Albuterol [Proventil Neb Soln] 2.5 mg INH QID PRN 02/28/19 [History] Diltiazem HCl [Dilt-Xr] 180 mg PO BEDTIME 02/28/19 [History] Acetaminophen [Tylenol Extra Strength] 500 mg PO TID PRN 07/05/19 [History] Nitroglycerin [Nitrostat] 0.4 mg SL Q5M PRN 07/05/19 [History] Pedi Multivit No.7/Folic Acid [Flintstones Tab] 1 tab PO DAILY@1200 07/05/19 [ History] Ranitidine HCl [Ranitidine] 150 mg PO BEDTIME 07/05/19 [History] diphenhydrAMINE HCl [Benadryl Allergy] 12.5 mg PO BEDTIME 07/05/19 [History] Calcium Carbonate [Calcium] 600 mg PO TIDMEALS 07/06/19 [History] Magnesium 250 mg PO DAILY@1200 07/06/19 [History] Past Medical History HEENT History: Reports: Glaucoma, Impaired Vision, Other (See Below) Other HEENT History: Choroidal nevus. Cardiovascular History: Reports: Angina, CAD, High Cholesterol, Hypertension, PVD, Syncope, Other (See Below) Other Cardiovascular History: Heart palpitations. DVT. PVD. Carotid bruitt. Respiratory History: Reports: COPD Other Respiratory History: Suffocating spells at night with SOB. Gastrointestinal History: Reports: GERD, Hiatal Hernia, Other (See Below) Other Gastrointestinal History: Bowel incontinence. Genitourinary History: Reports: Urinary Incontinence, Other (See Below) Other Genitourinary History: Urethral suspension with sling, later removed. Cystocopy. Bladder tumor. Overactive bladder. Other SALES APPOINTMENT COORDINATOR History: D&C. Musculoskeletal History: Reports: Arthritis, Back Pain, Chronic Other Musculoskeletal History: Left knee torn miniscus. Right ankle and hip pain. Neurological History: Reports: CVA, MS, Other (See Below) Other Neuro History: Notices emotional/cognitive changes following a brain injury. Questionable MS diagnosis. Psychiatric History: Reports: Anxiety, Depression Other Psychiatric History: MEDICAL AGREEMENT FOR GROUP HOME MED USE. Endocrine/Metabolic History: Reports: None Other Endocrine/Metabolic History: States history of hypoglycemia. Hematologic History: Reports: Blood Transfusion(s) Other Hematologic History: hx of blood clots Immunologic History: Reports: None Oncologic (Cancer) History: Reports: Bladder, Brain, Malignant Melanoma Other Oncologic History: Throat cancer, treated with chemotherapy and radiation. Dermatologic History: Reports: Eczema, Melanoma Other Dermatologic History: Melanoma on back. Eczema. - Infectious Disease History Infectious Disease History: Reports: Chicken Pox - Past Surgical History GI Surgical History: Reports: Appendectomy, Cholecystectomy Female Surgical History: Reports: D&C, TURBT Other Surgical History Comment: Bowel and bladder InterStim placement and later removal secondary to infection Social & Family History - Family History Family Medical History: Noncontributory Cardiac: Reports: [place] Oncologic: Reports: Colon - Caffeine Use Caffeine Use: Reports: Tea Other Caffeine Use: 2 cups per day Caffeine Use Comment: Occassional coffee drinker. - Living Situation & Occupation Living situation: Reports: Single, Alone Occupation: Disabled ED ROS GENERAL - Review of Systems Review Of Systems: Comprehensive ROS is negative, except as noted in HPI. ED EXAM, UPPER BACK/NECK PAIN - Physical Exam Exam: See Below Exam Limited By: No Limitations General Appearance: Alert, WD/WN, Mild Distress, Thin Head Exam: Normocephalic Neck Exam: Non-Tender, Full Range of Motion, Normal Alignment Cardiovascular/Respiratory: Regular Rate, Rhythm, Normal Peripheral Pulses, Normal Breath Sounds GI/Abdominal: Normal Bowel Sounds, Soft, Non-Tender, No Organomegaly, No Distention, No Mass (Female) Exam: Deferred Rectal (Female) Exam: Deferred Back Exam: Normal Inspection, Vertebral Tenderness (T9-10) Extremities: Normal Inspection, Normal Range of Motion Neurologic: manager surgery II-XII nml As Tested, No Motor/Sensory Deficits, Normal Mood/ Affect, Oriented x 3 Psychiatric: Normal Affect, Normal Mood Skin Exam: Normal Color, Warm/Dry Lymphatic: No Adenopathy Course - Vital Signs Text/Narrative:: Following assessment, a 5% Licocaine patch was applied just below T10. - Orders/Labs/Meds Orders: Active Orders 24 hr Category Date Time Status Lidocaine 5% [Lidoderm 5%] Med 10/20/19 18:43 Active 700 mg TOP DAILY PRN Medication Orders Lidocaine (Lidoderm 5%) 700 mg TOP DAILY PRN PRN Reason: Breakthrough Pain Last Admin: 10/20/19 19:05 Dose: 700 mg Meds: Medications Generic Name Dose Route Start Last Admin Trade Name Freq PRN Reason Stop Dose Admin Lidocaine 700 mg 10/20/19 18:43 10/20/19 19:05 Lidoderm 5% TOP 700 mg DAILY PRN Administration Breakthrough Pain Departure - Departure Time of Disposition: 19:05 Disposition: Home, Self-Care 01 Condition: Fair Clinical Impression: Compression fx, thoracic spine Qualifiers: Encounter type: subsequent encounter Fracture healing: with routine healing Qualified Code(s): S22.000D - Wedge compression fracture of unspecified thoracic vertebra, subsequent encounter for fracture with routine healing - Discharge Information *PRESCRIPTION DRUG MONITORING PROGRAM REVIEWED*: Not Applicable *COPY OF PRESCRIPTION DRUG MONITORING REPORT IN PATIENT ENA: Not Applicable Referrals: Blanquita Wolf PUBLIC AID ELIGIBILITY ASSISTANT [Primary Care Provider] - Forms: ED Department Discharge Sepsis Event Note - Focused Exam Date Exam was Performed: 10/20/19 Time Exam was Performed: 19:10 - Problem List & Annotations (1) Compression fx, thoracic spine SNOMED Code(s): 163589952 Code(s): S22.000A - WEDGE COMPRESSION FRACTURE OF UNSP THORACIC VERTEBRA, INIT Status: Acute Current Visit: No Annotation/Comment:: Erendira may return to the [facility] ED for reapplication of 5% Lidocaine patch daily until some service is foung to help closer to home. Qualifiers: Encounter type: initial encounter Qualified Code(s): S22.000A - Wedge compression fracture of unspecified thoracic vertebra, initial encounter for closed fracture - Problem List Review Problem List Initiated/Reviewed/Updated: Yes - My Orders Last 24 Hours: My Active Orders 10/20/19 18:43 Lidocaine 5% [Lidoderm 5%] 700 mg TOP DAILY PRN - Assessment/Plan Last 24 Hours: My Active Orders 10/20/19 18:43 Lidocaine 5% [Lidoderm 5%] 700 mg TOP DAILY PRN Plan: Follow up as needed.
[2019-10-20 20:13] VITALS: BP 131/75; PULSE 100
== END 2019-10-20 19:30 | disposition home or self-care (01) ==
LOC: FB.ED 18:03
DX: S22.079D Unspecified fracture of T9-T10 vertebra, subsequent encounter for fracture with routine healing (principal); I10 Essential (primary) hypertension; E78.00 Pure hypercholesterolemia, unspecified; I25.10 Atherosclerotic heart disease of native coronary artery without angina pectoris; J44.9 Chronic obstructive pulmonary disease, unspecified; Z86.718 Personal history of other venous thrombosis and embolism; K21.9 Gastro-esophageal reflux disease without esophagitis; M19.90 Unspecified osteoarthritis, unspecified site; F41.9 Anxiety disorder, unspecified; F32.9 Major depressive disorder, single episode, unspecified; Z79.899 Other long term (current) drug therapy; Z79.82 Long term (current) use of aspirin; Z88.8 Allergy status to other drugs, medicaments and biological substances; Z88.1 Allergy status to other antibiotic agents; Z91.011 Allergy to milk products; Z91.012 Allergy to eggs; Z91.010 Allergy to peanuts; W19.XXXD Unspecified fall, subsequent encounter
CPT/HCPCS: 99282; 99283; A9270

== ENCOUNTER 2020-06-11 15:43 | Emergency (ER) | payer MEDICARE ==
[2020-06-11] MEDS ORDERED: Sodium Chloride 0.9% 10 ML Syringe FLUSH PRN (16:09)
[2020-06-11] MEDS ORDERED: Aspirin 81 MG Tab.Chew PO ONE (16:11)
[2020-06-11] MEDS ORDERED: Nitroglycerin 0.4 MG Tab.SL SL PRN (16:11)
[2020-06-11] MEDS ORDERED: Ondansetron 4 MG/2 ML SDV IVPUSH ONE (16:51)
--- NOTE | 2020-06-11 17:10 | EDM.PDOC ---
ED HPI GENERAL MEDICAL PROBLEM - General Chief Complaint: Cardiovascular Problem Stated Complaint: CHEST PAINS Time Seen by Provider: 06/11/20 15:50 Source of Information: Reports: Patient History Limitations: Reports: No Limitations - History of Present Illness INITIAL COMMENTS - FREE TEXT/NARRATIVE: Patient presented to the ED because of chest pain, N/V x1 since yesterday. The pain is sharp, 8/10. there is no dyspnea or diaphoresis. Chest Pain Score (Numeric/FACES): 8 - Related Data Allergies Allergy/AdvReac Type Severity Reaction Status Date / Time ceftriaxone sodium Allergy Anaphylactic Verified 06/17/19 09:13 [From Rocephin] Shock clindamycin Allergy Anaphylactic Verified 06/17/19 09:13 Shock fentanyl Allergy Hives Verified 06/17/19 09:13 metoclopramide [From Reglan] Allergy Nausea Verified 06/17/19 09:13 Milk Containing Products Allergy Vomiting Verified 06/17/19 09:13 trazodone Allergy Other Verified 06/17/19 09:13 ciprofloxacin AdvReac Intermediate Itching Verified 07/06/19 09:35 .steroids Allergy Nausea Uncoded 06/17/19 09:14 depression medications Allergy Airway Uncoded 06/17/19 09:14 Tightness eggs Allergy Nausea Uncoded 06/17/19 09:14 oral antibiotics Allergy Vomiting Uncoded 06/17/19 09:14 peanuts Allergy Hives Uncoded 06/17/19 09:14 Home Meds: Home Meds Dexlansoprazole [Dexilant] 60 mg PO DAILY 12/05/13 [History] Fenofibrate Nanocrystallized [Fenofibrate] 145 mg PO BEDTIME 12/05/13 [History] Rosuvastatin [Crestor] 20 mg PO Q48H 11/27/15 [History] Aspirin 81 mg PO BEDTIME 10/07/16 [History] Gabapentin [Neurontin] 800 mg PO 08,12,18,22 10/07/16 [History] Clopidogrel [Plavix] 75 mg PO 1200 11/06/16 [History] Isosorbide Mononitrate [Imdur] 30 mg PO DAILY 11/06/16 [History] Fluticasone Propionate [Flonase Allergy Relief] 1 spray NASBOTH DAILY 07/10/17 [History] Ondansetron [Zofran ODT] 4 mg PO Q6H PRN 07/16/17 [History] Albuterol Sulfate [Proair Hfa] 2 puff INH Q4H PRN 02/12/18 [History] Potassium Chloride 20 meq PO 1200 04/06/18 [History] Albuterol [Proventil Neb Soln] 2.5 mg INH QID PRN 02/28/19 [History] dilTIAZem HCL [Dilt-Xr] 180 mg PO BEDTIME 02/28/19 [History] Acetaminophen [Tylenol Extra Strength] 500 mg PO TID PRN 07/05/19 [History] Nitroglycerin [Nitrostat] 0.4 mg SL Q5M PRN 07/05/19 [History] Pedi Multivit No.7/Folic Acid [Flintstones Tab] 1 tab PO DAILY@1200 07/05/19 [History] Ranitidine HCl [Ranitidine] 150 mg PO BEDTIME 07/05/19 [History] diphenhydrAMINE HCL [Benadryl Allergy] 12.5 mg PO BEDTIME 07/05/19 [History] Calcium Carbonate [Calcium] 600 mg PO TIDMEALS 07/06/19 [History] Magnesium 250 mg PO DAILY@1200 07/06/19 [History] Past Medical History HEENT History: Reports: Glaucoma, Impaired Vision, Other (See Below) Other HEENT History: Choroidal nevus. Cardiovascular History: Reports: Angina, CAD, High Cholesterol, Hypertension, PVD, Syncope, Other (See Below) Other Cardiovascular History: Heart palpitations. DVT. PVD. Carotid bruitt. Respiratory History: Reports: COPD Other Respiratory History: Suffocating spells at night with SOB. Gastrointestinal History: Reports: GERD, Hiatal Hernia, Other (See Below) Other Gastrointestinal History: Bowel incontinence. Genitourinary History: Reports: Urinary Incontinence, Other (See Below) Other Genitourinary History: Urethral suspension with sling, later removed. Cystocopy. Bladder tumor. Overactive bladder. 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 Musculoskeletal History: Reports: Arthritis, Back Pain, Chronic Other Musculoskeletal History: Left knee torn miniscus. Right ankle and hip pain. Neurological History: Reports: CVA, MS, Other (See Below) Other Neuro History: Notices emotional/cognitive changes following a brain injury. Questionable MS diagnosis. Psychiatric History: Reports: Anxiety, Depression Other Psychiatric History: MEDICAL AGREEMENT FOR WINEMAKER MED USE. Endocrine/Metabolic History: Reports: None Other Endocrine/Metabolic History: States history of hypoglycemia. Hematologic History: Reports: Blood Transfusion(s) Other Hematologic History: hx of blood clots Immunologic History: Reports: None Oncologic (Cancer) History: Reports: Bladder, Brain, Malignant Melanoma Other Oncologic History: Throat cancer, treated with chemotherapy and radiation. Dermatologic History: Reports: Eczema, Melanoma Other Dermatologic History: Melanoma on back. Eczema. - Infectious Disease History Infectious Disease History: Reports: Chicken Pox - Past Surgical History GI Surgical History: Reports: Appendectomy, Cholecystectomy Female Surgical History: Reports: D&C, TURBT Other Surgical History Comment: Bowel and bladder InterStim placement and later removal secondary to infection Social & Family History - Family History Family Medical History: Noncontributory Cardiac: Reports: [place] Oncologic: Reports: Colon - Caffeine Use Caffeine Use: Reports: Tea Other Caffeine Use: 2 cups per day Caffeine Use Comment: Occassional coffee drinker. - Living Situation & Occupation Living situation: Reports: Single, Alone Occupation: Disabled ED ROS GENERAL - Review of Systems Review Of Systems: See Below Constitutional: Reports: No Symptoms HEENT: Reports: No Symptoms Respiratory: Reports: No Symptoms Cardiovascular: Reports: Chest Pain Endocrine: Reports: No Symptoms GI/Abdominal: Reports: No Symptoms : Reports: No Symptoms Musculoskeletal: Reports: No Symptoms Skin: Reports: No Symptoms Neurological: Reports: No Symptoms ED EXAM, GENERAL - Physical Exam Exam: See Below Exam Limited By: No Limitations General Appearance: Alert, No Apparent Distress Ears: Normal External Exam, Normal Canal Nose: Normal Inspection, Normal Mucosa Throat/Mouth: Normal Inspection, Normal Lips, Normal Teeth Head: Atraumatic, Normocephalic Neck: Normal Inspection, Supple, Non-Tender Respiratory/Chest: No Respiratory Distress, Lungs Clear, Normal Breath Sounds Cardiovascular: Normal Peripheral Pulses, Regular Rate, Rhythm, No Edema, No Gallop, No JVD, No Murmur GI/Abdominal: Normal Bowel Sounds, Soft, Non-Tender, No Organomegaly Back Exam: Normal Inspection, Full Range of Motion Extremities: Normal Inspection, Normal Range of Motion, Non-Tender Course - Vital Signs Text/Narrative:: Labs/EKG? was discussed with luciana ASA 324 mg po x1 NTG 0.4 mg SL x1 Last Recorded V/S: Last Vital Signs Temp 36.6 C 06/11/20 15:45 Pulse 78 06/11/20 15:45 Resp 20 06/11/20 15:45 BP 131/85 06/11/20 16:35 Pulse Ox 97 06/11/20 15:45 - Orders/Labs/Meds Orders: Active Orders 24 hr Category Date Time Status Saline Lock Insert [OM.PC] Routine Oth 06/11/20 16:09 Ordered EKG 12 Lead [EK] Routine Ther 06/11/20 16:09 Ordered Labs: Laboratory Tests 06/11/20 06/11/20 06/11/20 Range/Units 16:24 16:24 16:24 WBC 6.6 (4.5-12.0) X10-3/uL RBC 4.07 (3.23-5.20) x10(6)uL Hgb 12.0 D (11.5-15.5) g/dL Hct 36.4 (30.0-51.3) % MCV 89.4 (80-96) fL MCH 29.5 (27.7-33.6) pg MCHC 33.1 (32.2-35.4) g/dL RDW 13.3 (11.5-15.5) % Plt Count 364 (125-369) X10(3)uL MPV 6.8 L (7.4-10.4) fL Neut % (Auto) 65.3 (46-82) % Lymph % (Auto) 26.7 (13-37) % Miller % (Auto) 6.9 (4-12) % Eos % (Auto) 1 (1.0-5.0) % Baso % (Auto) 0 (0-2) % Neut # (Auto) 4.2 (1.6-8.3) # Lymph # (Auto) 1.8 (0.6-5.0) # Miller # (Auto) 0.5 (0.0-1.3) # Eos # (Auto) 0.1 (0.0-0.8) # Baso # (Auto) 0.0 (0.0-0.2) # Sodium 133 L (135-145) mmol/L Potassium 3.8 (3.5-5.3) mmol/L Chloride 96 L (100-110) mmol/L Carbon Dioxide 32 (21-32) mmol/L BUN 10 (7-18) mg/dL Creatinine 0.5 L (0.55-1.02) mg/dL Est Cr Clr Drug Dosing TNP Estimated GFR (MDRD) > 60 (>60) BUN/Creatinine Ratio 20.0 (9-20) Glucose 110 (80-116) mg/dL Calcium 10.3 H (8.6-10.2) mg/dL Total Bilirubin 0.3 (0.1-1.3) mg/dL AST 28 H D (5-25) IU/L ALT 34 D (12-36) U/L Alkaline Phosphatase 50 L (56-112) IU/L Troponin I 4.5 (4.0-60.3) pg/mL NT-Pro-B Natriuret Pep 244 H (<=125) pg/mL Total Protein 7.3 (6.0-8.0) g/dL Albumin 4.3 (3.2-4.6) g/dL Globulin 3.0 g/dL Albumin/Globulin Ratio 1.4 Meds: Medications Discontinued Medications Generic Name Dose Route Start Last Admin Trade Name Freq PRN Reason Stop Dose Admin Aspirin 324 mg 06/11/20 16:11 06/11/20 16:11 Aspirin PO 06/11/20 16:12 324 mg ONETIME ONE Administration Nitroglycerin 0.4 mg 06/11/20 16:11 06/11/20 16:35 Nitrostat SL 0.4 mg Q5M PRN Administration Chest Pain Ondansetron HCl 4 mg 06/11/20 16:51 06/11/20 17:04 Zofran IVPUSH 06/11/20 16:52 4 mg ONETIME ONE Administration Sodium Chloride 10 ml 06/11/20 16:09 Saline Flush FLUSH ASDIRECTED PRN Keep Vein Open Departure - Departure Time of Disposition: 17:15 Disposition: Home, Self-Care 01 Condition: Good Clinical Impression: Atypical chest pain, COPD (chronic obstructive pulmonary disease) Instructions: Nonspecific Chest Pain, Adult, [id number] Referrals: Roxie Jean DO [Primary Care Provider] - Forms: ED Department Discharge Additional Instructions: Please read discharge instructions on COPD and Atypical chest pain Follow up as needed Sepsis Event Note (ED) - Focused Exam Vital Signs: Vital Signs Temp Pulse Resp BP BP Pulse Ox 08/25/20 16:35 131/85 06/11/20 15:45 36.6 C 78 20 133/57 L 97 - My Orders Last 24 Hours: My Active Orders 06/11/20 16:09 Saline Lock Insert [OM.PC] Routine EKG 12 Lead [EK] Routine - Assessment/Plan Last 24 Hours: My Active Orders 06/11/20 16:09 Saline Lock Insert [OM.PC] Routine EKG 12 Lead [EK] Routine
--- NOTE | 2020-06-11 17:47 | CR ---
INDICATION: Chest pain. CHEST ONE VIEW: An AP portable upright view of the chest 06/11/20 was compared with 11/20/19 and 10/21/19. Overlying EKG leads are noted. The aorta is slightly tortuous with calcification in the arch. The heart appears prominent emphasized by the poor inspiration and AP positioning. No evidence of CHF, pneumonia or effusion was identified. IMPRESSION: No acute process. MTDD
[2020-06-11 19:00] VITALS: BP 133/57; PULSE 78
== END 2020-06-11 17:25 | disposition home or self-care (01) ==
LOC: FB.ED 15:43
DX: J44.9 Chronic obstructive pulmonary disease, unspecified (principal); I10 Essential (primary) hypertension; I25.10 Atherosclerotic heart disease of native coronary artery without angina pectoris; F41.9 Anxiety disorder, unspecified; F32.9 Major depressive disorder, single episode, unspecified; E78.00 Pure hypercholesterolemia, unspecified; K21.9 Gastro-esophageal reflux disease without esophagitis; Z88.1 Allergy status to other antibiotic agents; Z88.4 Allergy status to anesthetic agent; Z91.011 Allergy to milk products; Z88.8 Allergy status to other drugs, medicaments and biological substances; Z91.012 Allergy to eggs; Z91.010 Allergy to peanuts; Z79.899 Other long term (current) drug therapy; Z90.49 Acquired absence of other specified parts of digestive tract
CPT/HCPCS: 36415; 71045; 80053; 83880; 84484; 85025; 93005; 96374; 99285; A9270; J2405

== ENCOUNTER 2020-10-05 13:41 | Emergency (ER) | payer MEDICARE, SELFPAY ==
--- NOTE | 2020-10-05 15:42 | EDM.PDOC ---
ED HPI GENERAL MEDICAL PROBLEM - General Chief Complaint: General Stated Complaint: WEAKNESS Time Seen by Provider: 10/05/20 15:15 Source of Information: Reports: Patient History Limitations: Reports: No Limitations - History of Present Illness INITIAL COMMENTS - FREE TEXT/NARRATIVE: c/o fall pt went out to watch Xmas lights for 2h with her friend, was tired on return home, went to sleep in recliner at 9:30p, awoke at 11:30p and fell getting out of chair, called ask-a-nurse and then was so tired she went to bed slept well, ate bfast and lunch today, has some soreness of her L knee that she wanted checked out had a small amount of bleeding from her L pinna yesterday no LOC, no DOWNING, slight sore at the back of her head when she fell, thinks she hit her head on the oxygen concentrator in obs bed before Th'giving in [facility] for pCO2 over 90 has been on O2 x 4y, in rental house alone since 2003 saw PCP in [place] last wk, no change in meds, has f/u telehealth apt in 2d no indication for XR, minor contusions, pt okay with recommendations, remembers having seen me 2y ago uses cane at home, 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, did fall of the toilet in past yr in addition to fall last night Treatments 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 Posterior head & L knee Pain Score (Numeric/FACES): 8 - Related Data Allergies Allergy/AdvReac Type Severity Reaction Status Date / Time ceftriaxone sodium Allergy Anaphylactic Verified 10/05/20 13:48 [From Rocephin] Shock clindamycin Allergy Anaphylactic Verified 10/05/20 13:48 Shock fentanyl Allergy Hives Verified 10/05/20 13:48 metoclopramide [From Reglan] Allergy Nausea Verified 10/05/20 13:48 Milk Containing Products Allergy Vomiting Verified 10/05/20 13:48 trazodone Allergy Other Verified 10/05/20 13:48 ciprofloxacin AdvReac Intermediate Itching Verified 10/05/20 13:48 .steroids Allergy Nausea Uncoded 10/05/20 13:48 depression medications Allergy Airway Uncoded 10/05/20 13:48 Tightness eggs Allergy Nausea Uncoded 10/05/20 13:48 oral antibiotics Allergy Vomiting Uncoded 10/05/20 13:48 peanuts Allergy Hives Uncoded 10/05/20 13:48 Home Meds: Home Meds Dexlansoprazole [Dexilant] 60 mg PO DAILY 12/05/13 [History] Fenofibrate Nanocrystallized [Fenofibrate] 145 mg PO BEDTIME 12/05/13 [History] Rosuvastatin [Crestor] 20 mg PO Q48H 11/27/15 [History] Aspirin 81 mg PO BEDTIME 10/07/16 [History] Gabapentin [Neurontin] 800 mg PO 08,,,10/07/16 [History] Clopidogrel [Plavix] 75 mg PO 1200 11/06/16 [History] Isosorbide Mononitrate [Imdur] 30 mg PO DAILY 11/06/16 [History] Ondansetron [Zofran ODT] 4 mg PO Q6H PRN 07/16/17 [History] Albuterol Sulfate [Proair Hfa] 2 puff INH Q4H PRN 02/12/18 [History] Albuterol [Proventil Neb Soln] 2.5 mg INH QID PRN 02/28/19 [History] dilTIAZem HCL [Dilt-Xr] 180 mg PO BEDTIME 02/28/19 [History] Acetaminophen [Tylenol Extra Strength] 500 mg PO TID PRN 07/05/19 [History] Nitroglycerin [Nitrostat] 0.4 mg SL Q5M PRN 07/05/19 [History] Pedi Multivit No.7/Folic Acid [Flintstones Tab] 1 tab PO DAILY@1200 07/05/19 [History] diphenhydrAMINE HCL [Benadryl Allergy] 12.5 mg PO BEDTIME 07/05/19 [History] Calcium Carbonate [Calcium] 600 mg PO TIDMEALS 07/06/19 [History] Magnesium 250 mg PO BEDTIME 07/06/19 [History] Cetirizine [ZyrTEC] 10 mg PO DAILY 10/05/20 [History] Fexofenadine [Bety] 180 mg PO DAILY 10/05/20 [History] Furosemide [Lasix] 20 mg PO DAILY 10/05/20 [History] Loratadine [Claritin] 10 mg PO DAILY 10/05/20 [History] Omeprazole 20 mg PO DAILY 10/05/20 [History] Past Medical History HEENT History: Reports: Glaucoma, Impaired Vision, Other (See Below) Other HEENT History: Choroidal nevus. Cardiovascular History: Reports: Angina, Blood Clots/VTE/DVT, CAD, Heart Failure, High Cholesterol, Hypertension, CT, PVD, Syncope, Other (See Below) Other Cardiovascular History: Heart palpitations. DVT. PVD. Carotid bruitt. Respiratory History: Reports: COPD, Sleep Apnea Other Respiratory History: Suffocating spells at night with SOB, is on O2 con't @ home @ 2.5L/NC Gastrointestinal History: Reports: GERD, Hiatal Hernia, Other (See Below) Other Gastrointestinal History: Bowel incontinence. Genitourinary History: Reports: Urinary Incontinence, Other (See Below) Other Genitourinary History: Urethral suspension with sling, later removed. Cystocopy. Bladder tumor. Overactive bladder. 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 Musculoskeletal History: Reports: Arthritis, Back Pain, Chronic, Fracture, Osteoporosis Other Musculoskeletal History: Left knee torn miniscus. Right ankle and hip pain, hx compression fx Neurological History: Reports: CVA, MS, Seizure, Other (See Below) Other Neuro History: Notices emotional/cognitive changes following a brain injury. Questionable MS diagnosis. 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 Endocrine/Metabolic History: Reports: None Other Endocrine/Metabolic History: States history of hypoglycemia. Hematologic History: Reports: Anticoagulation Therapy, Blood Transfusion(s) Other Hematologic History: hx of blood clots Immunologic History: Reports: None Oncologic (Cancer) History: Reports: Bladder, Brain, Malignant Melanoma Other Oncologic History: Throat cancer, treated with chemotherapy and radiation. Dermatologic History: Reports: Eczema, Melanoma Other Dermatologic History: Melanoma on back. Eczema. - Infectious Disease History Infectious Disease History: Reports: Chicken Pox, Other (See Below) Other Infectious Disease History: states hx staff infection - Past Surgical History Head Surgeries/Procedures: Reports: None HEENT Surgical History: Reports: None, Cataract Surgery Other HEENT Surgeries/Procedures: bilat cataract, R eye surgery Cardiovascular Surgical History: Reports: None Other Cardiovascular Surgeries/Procedures: Stents in bilat groin. Respiratory Surgical History: Reports: None GI Surgical History: Reports: Appendectomy, Cholecystectomy, Colonoscopy, EGD Female Surgical History: Reports: Cystoscopy, D&C, TURBT Other Female Surgeries/Procedures: bladder repair Neurological Surgical History: Reports: None, Spinal Fusion, Other (See Below) Other Neurological Surgeries/Procedures: spinal fusion x 5 Musculoskeletal Surgical History: Reports: Other (See Below) Other Musculoskeletal Surgeries/Procedures:: surgery of left hand. back fracture from osteoporosis, back surgery x 5 Oncologic Surgical History: Reports: None Dermatological Surgical History: Reports: None Social & Family History - Family History Family Medical History: No Pertinent Family History Cardiac: Reports: CT Oncologic: Reports: Colon - Tobacco Use Tobacco Use Status *Q: Former Tobacco User Used Tobacco, but Quit: Yes Month/Year Tobacco Last Used: 2014 - Caffeine Use Caffeine Use: Reports: None Other Caffeine Use: 2 cups per day Caffeine Use Comment: Occassional coffee drinker. - Recreational Drug Use Recreational Drug Use: No - Living Situation & Occupation Living situation: Reports: Single, Alone Occupation: Disabled ED ROS GENERAL - Review of Systems Review Of Systems: See Below Constitutional: Reports: No Symptoms HEENT: Reports: No Symptoms Respiratory: Reports: No Symptoms Cardiovascular: Reports: No Symptoms Endocrine: Reports: No Symptoms GI/Abdominal: Reports: No Symptoms : Reports: No Symptoms Musculoskeletal: Reports: Joint Pain Skin: Reports: Wound Neurological: Reports: No Symptoms Psychiatric: Reports: No Symptoms Hematologic/Lymphatic: Reports: No Symptoms Immunologic: Reports: No Symptoms ED EXAM, GENERAL - Physical Exam Exam: See Below Exam Limited By: No Limitations General Appearance: Alert, WD/WN, No Apparent Distress, Other (alert, pleasant, chatty, NAD) Eye Exam: Bilateral Eye: EOMI, PERRL Ears: Other (mild swell and mild ecchymosis at L pinna superiorly, no hematoma however, slight several mm cut on outer pinna that has a small eschar and no bleed) Head: Atraumatic, Normocephalic, Other (no STS, no ecchymosis, no point tender, good ROM neck) Neck: Normal Inspection, Supple, Non-Tender, Full Range of Motion Respiratory/Chest: Other (rales at bases b/l, symmetric, no dyspnea, good AE, no cough) Cardiovascular: Regular Rate, Rhythm, Other (2/6 GLO at LSB, quiet precordium) GI/Abdominal: Soft, Non-Tender Back Exam: Normal Inspection, Full Range of Motion, Other (no rib tender, spine NT in midline along length, no ecchymosis) Extremities: Other (no edema, turgor wnl, L knee with slight tender to patellar compression c/w mild contusion to ventral surface, knee otherwise NT, no swell, good ROM, LCL/MCL NT) Neurological: Alert, Oriented, CN II-XII Intact, Normal Cognition, Normal Gait, No Motor/Sensory Deficits Psychiatric: Normal Affect, Normal Mood Skin Exam: Warm, Dry, Intact, Normal Color, No Rash Lymphatic: No Adenopathy Course - Vital Signs Last Recorded V/S: Last Vital Signs Temp 36.8 C 10/05/20 13:41 Pulse 68 10/05/20 13:41 Resp 20 10/05/20 13:41 BP 99/73 10/05/20 13:41 Pulse Ox 99 10/05/20 13:41 - Orders/Labs/Meds Labs: Laboratory Tests 10/05/20 Range/Units 14:25 Urine Color Yellow (YELLOW) Urine Appearance Clear (CLEAR) Urine pH 7.0 H (5.0-6.5) Ur Specific Coyle 1.010 (1.010-1.025) Urine Protein Negative (NEGATIVE) mg/dL Urine Glucose (UA) Normal (NORMAL) mg/dL Urine Ketones Negative (NEGATIVE) mg/dL Urine Occult Blood Negative (NEGATIVE) Urine Nitrite Negative (NEGATIVE) Urine Bilirubin Negative (NEGATIVE) Urine Urobilinogen Normal (NEGATIVE) mg/dL Ur Leukocyte Esterase Negative (NEGATIVE) Urine RBC 0-5 (0-5) Urine WBC 0-5 (0-5) Ur Squamous Epith Cells Rare (NS,R,O) Urine Bacteria Rare H (NS) - Re-Assessments/Exams Free Text/Narrative Re-Assessment/Exam: 10/05/20 15:46 has minor contusion of L patella and L pinna and occiput Agu[place]-Evans is okay but will not likely help takes apap at home and may continue continue regular meds all questions answered appears to be doing well with only minor injuries Departure - Departure Time of Disposition: 15:35 Disposition: Home, Self-Care 01 Condition: Good Clinical Impression: Contusion of auricle of left ear, Contusion of left patella, Minor head injury - Discharge Information *PRESCRIPTION DRUG MONITORING PROGRAM REVIEWED*: Not Applicable *COPY OF PRESCRIPTION DRUG MONITORING REPORT IN PATIENT ENA: Not Applicable Instructions: Contusion Additional Instructions: Continue current medications. For pain, take your acetaminophen several times a day. Ice is not likely to help. Keep your appointment with your doctor in 2 days as scheduled. Return to ED if you are feeling worse. Sepsis Event Note (ED) - Evaluation Sepsis Screening Result: No Definite Risk - Focused Exam Vital Signs: Vital Signs Temp Pulse Resp BP Pulse Ox 10/05/20 13:41 36.8 C 68 20 99/73 99
[2020-10-05 16:04] VITALS: BP 126/46; PULSE 65
== END 2020-10-05 15:48 | disposition home or self-care (01) ==
LOC: FB.ED 13:41
DX: S09.90XA Unspecified injury of head, initial encounter (principal); S00.432A Contusion of left ear, initial encounter; S80.02XA Contusion of left knee, initial encounter; I11.0 Hypertensive heart disease with heart failure; I50.9 Heart failure, unspecified; I25.2 Old myocardial infarction; J44.9 Chronic obstructive pulmonary disease, unspecified; K21.9 Gastro-esophageal reflux disease without esophagitis; F41.9 Anxiety disorder, unspecified; F32.9 Major depressive disorder, single episode, unspecified; Z88.1 Allergy status to other antibiotic agents; Z88.4 Allergy status to anesthetic agent; Z86.73 Personal history of transient ischemic attack (TIA), and cerebral infarction without residual deficits; Z90.49 Acquired absence of other specified parts of digestive tract; Z87.891 Personal history of nicotine dependence; Z91.011 Allergy to milk products; Z91.012 Allergy to eggs; Z91.010 Allergy to peanuts; Z79.82 Long term (current) use of aspirin; Z79.899 Other long term (current) drug therapy; W07.XXXA Fall from chair, initial encounter; Y92.009 Unspecified place in unspecified non-institutional (private) residence as the place of occurrence of the external cause
CPT/HCPCS: 81001; 99284

== ENCOUNTER 2020-10-12 15:08 | Emergency (ER) | payer MEDICARE, MEDICAID ==
--- NOTE | 2020-10-12 15:28 | EDM.PDOC ---
ED HPI GENERAL MEDICAL PROBLEM - General Chief Complaint: Laceration Time Seen by Provider: 10/12/20 15:20 Source of Information: Reports: Patient, Family History Limitations: Reports: No Limitations - History of Present Illness INITIAL COMMENTS - FREE TEXT/NARRATIVE: Patient presented to the ED because of wound check. She has a 1 cm shallow laceration at the base of he left thumb that is healing well. - Related Data Allergies Allergy/AdvReac Type Severity Reaction Status Date / Time ceftriaxone sodium Allergy Anaphylactic Verified 10/12/20 16:16 [From Rocephin] Shock clindamycin Allergy Anaphylactic Verified 10/12/20 16:16 Shock fentanyl Allergy Hives Verified 10/12/20 16:16 metoclopramide [From Reglan] Allergy Nausea Verified 10/12/20 16:16 Milk Containing Products Allergy Vomiting Verified 10/12/20 16:16 trazodone Allergy Other Verified 10/12/20 16:16 ciprofloxacin AdvReac Intermediate Itching Verified 10/12/20 16:16 .steroids Allergy Nausea Uncoded 10/05/20 13:48 depression medications Allergy Airway Uncoded 10/05/20 13:48 Tightness eggs Allergy Nausea Uncoded 10/05/20 13:48 oral antibiotics Allergy Vomiting Uncoded 10/05/20 13:48 peanuts Allergy Hives Uncoded 10/05/20 13:48 Home Meds: Home Meds Dexlansoprazole [Dexilant] 60 mg PO DAILY 12/05/13 [History] Fenofibrate Nanocrystallized [Fenofibrate] 145 mg PO BEDTIME 12/05/13 [History] Rosuvastatin [Crestor] 20 mg PO Q48H 11/27/15 [History] Aspirin 81 mg PO BEDTIME 10/07/16 [History] Gabapentin [Neurontin] 800 mg PO 08,12,18,22 10/07/16 [History] Clopidogrel [Plavix] 75 mg PO 1200 11/06/16 [History] Isosorbide Mononitrate [Imdur] 30 mg PO DAILY 11/06/16 [History] Ondansetron [Zofran ODT] 4 mg PO Q6H PRN 07/16/17 [History] Albuterol Sulfate [Proair Hfa] 2 puff INH Q4H PRN 02/12/18 [History] Albuterol [Proventil Neb Soln] 2.5 mg INH QID PRN 02/28/19 [History] dilTIAZem HCL [Dilt-Xr] 180 mg PO BEDTIME 02/28/19 [History] Acetaminophen [Tylenol Extra Strength] 500 mg PO TID PRN 07/05/19 [History] Nitroglycerin [Nitrostat] 0.4 mg SL Q5M PRN 07/05/19 [History] Pedi Multivit No.7/Folic Acid [Flintstones Tab] 1 tab PO DAILY@1200 07/05/19 [History] diphenhydrAMINE HCL [Benadryl Allergy] 12.5 mg PO BEDTIME 07/05/19 [History] Calcium Carbonate [Calcium] 600 mg PO TIDMEALS 07/06/19 [History] Magnesium 250 mg PO BEDTIME 07/06/19 [History] Cetirizine [ZyrTEC] 10 mg PO DAILY 10/05/20 [History] Fexofenadine [Bety] 180 mg PO DAILY 10/05/20 [History] Furosemide [Lasix] 20 mg PO DAILY 10/05/20 [History] Loratadine [Claritin] 10 mg PO DAILY 10/05/20 [History] Omeprazole 20 mg PO DAILY 10/05/20 [History] Past Medical History HEENT History: Reports: Glaucoma, Impaired Vision, Other (See Below) Other HEENT History: Choroidal nevus. Cardiovascular History: Reports: Angina, Blood Clots/VTE/DVT, CAD, Heart Fa ilure, High Cholesterol, Hypertension, MD, PVD, Syncope, Other (See Below) Other Cardiovascular History: Heart palpitations. DVT. PVD. Carotid bruitt. Respiratory History: Reports: COPD, Sleep Apnea Other Respiratory History: Suffocating spells at night with SOB, is on O2 con't @ home @ 2.5L/NC Gastrointestinal History: Reports: GERD, Hiatal Hernia, Other (See Below) Other Gastrointestinal History: Bowel incontinence. Genitourinary History: Reports: Urinary Incontinence, Other (See Below) Other Genitourinary History: Urethral suspension with sling, later removed. Cystocopy. Bladder tumor. Overactive bladder. 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 Musculoskeletal History: Reports: Arthritis, Back Pain, Chronic, Fracture, Osteoporosis Other Musculoskeletal History: Left knee torn miniscus. Right ankle and hip pain, hx compression fx Neurological History: Reports: CVA, MS, Seizure, Other (See Below) Other Neuro History: Notices emotional/cognitive changes following a brain injury. Questionable MS diagnosis. 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 Endocrine/Metabolic History: Reports: None Other Endocrine/Metabolic History: States history of hypoglycemia. Hematologic History: Reports: Anticoagulation Therapy, Blood Transfusion(s) Other Hematologic History: hx of blood clots Immunologic History: Reports: None Oncologic (Cancer) History: Reports: Bladder, Brain, Malignant Melanoma Other Oncologic History: Throat cancer, treated with chemotherapy and radiation. Dermatologic History: Reports: Eczema, Melanoma Other Dermatologic History: Melanoma on back. Eczema. - Infectious Disease History Infectious Disease History: Reports: Chicken Pox, Other (See Below) Other Infectious Disease History: states hx staff infection - Past Surgical History Head Surgeries/Procedures: Reports: None HEENT Surgical History: Reports: None, Cataract Surgery Other HEENT Surgeries/Procedures: bilat cataract, R eye surgery Cardiovascular Surgical History: Reports: None Other Cardiovascular Surgeries/Procedures: Stents in bilat groin. Respiratory Surgical History: Reports: None GI Surgical History: Reports: Appendectomy, Cholecystectomy, Colonoscopy, EGD Female Surgical History: Reports: Cystoscopy, D&C, TURBT Other Female Surgeries/Procedures: bladder repair Neurological Surgical History: Reports: None, Spinal Fusion, Other (See Below) Other Neurological Surgeries/Procedures: spinal fusion x 5 Musculoskeletal Surgical History: Reports: Other (See Below) Other Musculoskeletal Surgeries/Procedures:: surgery of left hand. back fracture from osteoporosis, back surgery x 5 Oncologic Surgical History: Reports: None Dermatological Surgical History: Reports: None Social & Family History - Family History Family Medical History: No Pertinent Family History Cardiac: Reports: MD Oncologic: Reports: Colon - Caffeine Use Caffeine Use: Reports: None Other Caffeine Use: 2 cups per day Caffeine Use Comment: Occassional coffee drinker. - Living Situation & Occupation Living situation: Reports: Single, Alone Occupation: Disabled ED ROS GENERAL - Review of Systems Review Of Systems: See Below Constitutional: Reports: No Symptoms HEENT: Reports: No Symptoms Respiratory: Reports: No Symptoms Cardiovascular: Reports: No Symptoms Endocrine: Reports: No Symptoms GI/Abdominal: Reports: No Symptoms : Reports: No Symptoms Musculoskeletal: Reports: No Symptoms Skin: Reports: Wound - Physical Exam Exam: See Below Exam Limited By: No Limitations General Appearance: Alert, No Apparent Distress Eye Exam: Bilateral Eye: PERRL Ears: Normal External Exam, Normal Canal, Hearing Grossly Normal Nose: Normal Inspection, Normal Mucosa, No Blood Throat/Mouth: Normal Inspection, Normal Lips, Normal Teeth Head Exam: Atraumatic, Normocephalic Neck: Normal Inspection, Supple, Non-Tender, Full Range of Motion Respiratory/Chest: No Respiratory Distress, Lungs Clear, Normal Breath Sounds Cardiovascular: Normal Peripheral Pulses, Regular Rate, Rhythm, No Edema, No Gallop GI/Abdominal: Normal Bowel Sounds, Soft, Non-Tender, No Organomegaly Neuro Exam (Abbreviated): Alert, Oriented, CN II-XII Intact, Normal Cognition, Normal Gait Back Exam: Normal Inspection, Full Range of Motion Extremities: Normal Inspection, Normal Range of Motion Psychiatric: Normal Affect Skin Exam: Warm Course - Vital Signs Text/Narrative:: Procedure: The wound was cleanse with hibiclens and a single steri-strip was applied. Length of laceration: 1 cm Location:base of left thumb UTD with immunization Last Recorded V/S: Last Vital Signs Temp 36.8 C 10/12/20 15:18 Pulse 72 10/12/20 15:18 Resp 19 10/12/20 15:18 BP 128/51 L 10/12/20 15:18 Pulse Ox 98 10/12/20 15:18 Departure - Departure Time of Disposition: 15:30 Disposition: Home, Self-Care 01 Condition: Good Clinical Impression: Laceration - Discharge Information Instructions: Laceration Care, Adult Referrals: Roxie Jean DO [Primary Care Provider] - Forms: ED Department Discharge Additional Instructions: Please read discharge instructions on laceration and wound care Do no remove the steri strips, it will fall off on it's own zfollow up as needed Sepsis Event Note (ED) - Focused Exam Vital Signs: Vital Signs Temp Pulse Resp BP Pulse Ox 10/12/20 15:18 36.8 C 72 19 128/51 L 98
[2020-10-12 15:34] VITALS: BP 128/51; PULSE 72
== END 2020-10-12 15:45 | disposition home or self-care (01) ==
LOC: FB.ED 15:08
DX: S61.012A Laceration without foreign body of left thumb without damage to nail, initial encounter (principal); I25.10 Atherosclerotic heart disease of native coronary artery without angina pectoris; I50.9 Heart failure, unspecified; E78.00 Pure hypercholesterolemia, unspecified; I11.0 Hypertensive heart disease with heart failure; I25.2 Old myocardial infarction; J44.9 Chronic obstructive pulmonary disease, unspecified; K21.9 Gastro-esophageal reflux disease without esophagitis; M19.90 Unspecified osteoarthritis, unspecified site; R56.9 Unspecified convulsions; F41.9 Anxiety disorder, unspecified; F32.9 Major depressive disorder, single episode, unspecified; G35 Multiple sclerosis; Z88.1 Allergy status to other antibiotic agents; Z88.4 Allergy status to anesthetic agent; Z88.8 Allergy status to other drugs, medicaments and biological substances; Z91.048 Other nonmedicinal substance allergy status; Z88.5 Allergy status to narcotic agent; Z91.012 Allergy to eggs; Z91.010 Allergy to peanuts; Z79.82 Long term (current) use of aspirin; Z79.02 Long term (current) use of antithrombotics/antiplatelets; Z79.899 Other long term (current) drug therapy; Z86.73 Personal history of transient ischemic attack (TIA), and cerebral infarction without residual deficits; Z86.718 Personal history of other venous thrombosis and embolism; W26.8XXA Contact with other sharp object(s), not elsewhere classified, initial encounter
CPT/HCPCS: 99282

== ENCOUNTER 2020-12-12 10:44 | Emergency (ER) | payer MEDICARE, SELFPAY ==
[2020-12-12] MEDS ORDERED: Sodium Chloride 0.9% 500 ML IV ONE (12:17)
[2020-12-12] MEDS ORDERED: Albuterol/Ipratropium 3.0-0.5 MG/3 ML Neb Soln NEB ONE (12:23)
[2020-12-12] MEDS ORDERED: Albuterol 0.083% 2.5 MG/3 ML Neb Soln NEB ONE (12:24)
--- NOTE | 2020-12-12 14:03 | EDM.PDOC ---
ED HPI GENERAL MEDICAL PROBLEM - General Chief Complaint: Respiratory Problem Stated Complaint: SOB Time Seen by Provider: 12/12/20 11:00 Source of Information: Reports: Patient History Limitations: Reports: Other (poor historian) - History of Present Illness INITIAL COMMENTS - FREE TEXT/NARRATIVE: c/o sob pt went to pul clinic in [place] last wk, comes in for chest CT ordered by pulmonary, at CT she had c/o sob and wanted to come here to be "checked out" used alb neb last night but not today here with a friend who said she had some wheezing that was new, anterior wheeze heard by RN, no wheeze on my exam pt has Ventolin and 1 or 2 other inhalers but does not use them had "inc'd CO2" one month ago and hospitalized at [place] , given BIPAP then but will not use as "my nose is running" pt has h/o noncompliance is on O2 2 l/min NC x 4y, stopped cigs 4y ago - Related Data Allergies Allergy/AdvReac Type Severity Reaction Status Date / Time ceftriaxone sodium Allergy Anaphylactic Verified 12/12/20 11:03 [From Rocephin] Shock clindamycin Allergy Anaphylactic Verified 12/12/20 11:03 Shock fentanyl Allergy Hives Verified 12/12/20 11:03 metoclopramide [From Reglan] Allergy Nausea Verified 12/12/20 11:03 Milk Containing Products Allergy Vomiting Verified 12/12/20 11:03 trazodone Allergy Other Verified 12/12/20 11:03 ciprofloxacin AdvReac Intermediate Itching Verified 12/12/20 11:03 .steroids Allergy Nausea Uncoded 12/12/20 11:03 depression medications Allergy Airway Uncoded 12/12/20 11:03 Tightness eggs Allergy Nausea Uncoded 12/12/20 11:03 oral antibiotics Allergy Vomiting Uncoded 12/12/20 11:03 peanuts Allergy Hives Uncoded 12/12/20 11:03 Home Meds: Home Meds Dexlansoprazole [Dexilant] 60 mg PO DAILY 12/05/13 [History] Fenofibrate Nanocrystallized [Fenofibrate] 145 mg PO BEDTIME 12/05/13 [History] Rosuvastatin [Crestor] 20 mg PO Q48H 11/27/15 [History] Aspirin 81 mg PO BEDTIME 10/07/16 [History] Gabapentin [Neurontin] 800 mg PO 08,12,18,22 10/07/16 [History] Clopidogrel [Plavix] 75 mg PO 1200 11/06/16 [History] Isosorbide Mononitrate [Imdur] 30 mg PO DAILY 11/06/16 [History] Ondansetron [Zofran ODT] 4 mg PO Q6H PRN 07/16/17 [History] Albuterol Sulfate [Proair Hfa] 2 puff INH Q4H PRN 02/12/18 [History] Albuterol [Proventil Neb Soln] 2.5 mg INH QID PRN 02/28/19 [History] dilTIAZem HCL [Dilt-Xr] 180 mg PO BEDTIME 02/28/19 [History] Acetaminophen [Tylenol Extra Strength] 500 mg PO TID PRN 07/05/19 [History] Nitroglycerin [Nitrostat] 0.4 mg SL Q5M PRN 07/05/19 [History] Pedi Multivit No.7/Folic Acid [Flintstones Tab] 1 tab PO DAILY@1200 07/05/19 [History] diphenhydrAMINE HCL [Benadryl Allergy] 12.5 mg PO BEDTIME 07/05/19 [History] Calcium Carbonate [Calcium] 600 mg PO TIDMEALS 07/06/19 [History] Magnesium 250 mg PO BEDTIME 07/06/19 [History] Cetirizine [ZyrTEC] 10 mg PO DAILY 10/05/20 [History] Fexofenadine [Bety] 180 mg PO DAILY 10/05/20 [History] Furosemide [Lasix] 20 mg PO DAILY 10/05/20 [History] Loratadine [Claritin] 10 mg PO DAILY 10/05/20 [History] Omeprazole 20 mg PO DAILY 10/05/20 [History] Past Medical History HEENT History: Reports: Glaucoma, Impaired Vision, Other (See Below) Other HEENT History: Choroidal nevus. Cardiovascular History: Reports: Angina, Blood Clots/VTE/DVT, CAD, Heart Failure, High Cholesterol, Hypertension, MD, PVD, Syncope, Other (See Below) Other Cardiovascular History: Heart palpitations. DVT. PVD. Carotid bruitt. Respiratory History: Reports: COPD, Sleep Apnea Other Respiratory History: Suffocating spells at night with SOB, is on O2 con't @ home @ 2.5L/NC. states that she only have 32% lung function. Gastrointestinal History: Reports: GERD, Hiatal Hernia, Other (See Below) Other Gastrointestinal History: Bowel incontinence. Genitourinary History: Reports: Urinary Incontinence, UTI, Recurrent, Other (See Below) Other Genitourinary History: Urethral suspension with sling, later removed. Cystocopy. Bladder tumor. Overactive bladder. 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 Musculoskeletal History: Reports: Arthritis, Back Pain, Chronic, Fracture, Osteoporosis Other Musculoskeletal History: Left knee torn miniscus. Right ankle and hip pain, hx compression fx Neurological History: Reports: CVA, MS, Seizure, Other (See Below) Other Neuro History: Notices emotional/cognitive changes following a brain injury. Questionable MS diagnosis. 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 Endocrine/Metabolic History: Reports: None Other Endocrine/Metabolic History: States history of hypoglycemia. Hematologic History: Reports: Anticoagulation Therapy, Blood Transfusion(s) Other Hematologic History: hx of blood clots Immunologic History: Reports: None Oncologic (Cancer) History: Reports: Bladder, Brain, Malignant Melanoma Other Oncologic History: Throat cancer, treated with chemotherapy and radiation. Dermatologic History: Reports: Eczema, Melanoma Other Dermatologic History: Melanoma on back. Eczema. - Infectious Disease History Infectious Disease History: Reports: Chicken Pox, Other (See Below) Other Infectious Disease History: states hx staph infection - Past Surgical History Head Surgeries/Procedures: Reports: None HEENT Surgical History: Reports: None, Cataract Surgery Other HEENT Surgeries/Procedures: bilat cataract, R eye surgery Cardiovascular Surgical History: Reports: None Other Cardiovascular Surgeries/Procedures: Stents in bilat groin. Respiratory Surgical History: Reports: None GI Surgical History: Reports: Appendectomy, Cholecystectomy, Colonoscopy, EGD Female Surgical History: Reports: Cystoscopy, D&C, TURBT Other Female Surgeries/Procedures: bladder repair Neurological Surgical History: Reports: None, Spinal Fusion, Other (See Below) Other Neurological Surgeries/Procedures: spinal fusion x 5 Musculoskeletal Surgical History: Reports: Other (See Below) Other Musculoskeletal Surgeries/Procedures:: surgery of left hand. back fracture from osteoporosis, back surgery x 5 Oncologic Surgical History: Reports: None Dermatological Surgical History: Reports: None Social & Family History - Family History Family Medical History: No Pertinent Family History Cardiac: Reports: MD Oncologic: Reports: Colon - Tobacco Use Tobacco Use Status *Q: Unknown Ever Used Tobacco - Caffeine Use Caffeine Use: Reports: Soda Other Caffeine Use: 2 cups per day Caffeine Use Comment: Occassional coffee drinker. - Recreational Drug Use Recreational Drug Use: No - Living Situation & Occupation Living situation: Reports: Single, Alone Occupation: Disabled ED ROS GENERAL - Review of Systems Review Of Systems: See Below Constitutional: Reports: No Symptoms. Denies: Fever, Diaphoresis HEENT: Reports: No Symptoms Respiratory: Reports: Shortness of Breath, Wheezing. Denies: Pleuritic Chest Pain, Cough, Sputum Cardiovascular: Reports: No Symptoms. Denies: Chest Pain Endocrine: Reports: No Symptoms GI/Abdominal: Reports: No Symptoms : Reports: No Symptoms Musculoskeletal: Reports: No Symptoms Skin: Reports: No Symptoms Neurological: Reports: No Symptoms Psychiatric: Reports: No Symptoms Hematologic/Lymphatic: Reports: No Symptoms Immunologic: Reports: No Symptoms ED EXAM, GENERAL - Physical Exam Exam: See Below Exam Limited By: No Limitations General Appearance: Alert, WD/WN, No Apparent Distress Ears: Hearing Grossly Normal Head: Atraumatic, Normocephalic Neck: Normal Inspection, Supple, Non-Tender, Full Range of Motion. No: Lymphadenopathy (R), Lymphadenopathy (L) Respiratory/Chest: Lungs Clear, Other (fair AE, symmetric, no inc'd exp phase, no cough, no dyspnea, talks 10-word sentences, no accessory muscle,s no purse lips). No: Respiratory Distress, Accessory Muscle Use, Retractions, Splinting, Prolonged Expiration Cardiovascular: Regular Rate, Rhythm, No Edema, Other (2/6 GLO at LSB, dec'd turgor with 1 sec tenting) GI/Abdominal: Soft, Non-Tender, No Distention Back Exam: Normal Inspection, Full Range of Motion Extremities: Normal Range of Motion, Non-Tender, No Pedal Edema Neurological: Alert, CN II-XII Intact, No Motor/Sensory Deficits Psychiatric: Normal Affect, Normal Mood. No: Anxious Skin Exam: Warm, Dry, Intact, Normal Color, No Rash Lymphatic: No Adenopathy Course - Vital Signs Last Recorded V/S: Last Vital Signs Temp 36.8 C 12/12/20 10:44 Pulse 65 12/12/20 10:44 Resp 20 12/12/20 10:44 BP 151/46 H 12/12/20 10:44 Pulse Ox 100 12/12/20 10:44 - Orders/Labs/Meds Orders: Active Orders 24 hr Category Date Time Status EKG Documentation Completion [RC] ASDIRECTED Care 12/12/20 12:17 Active RT Aerosol Therapy [RC] ASDIRECTED Care 12/12/20 12:23 Active RT Aerosol Therapy [RC] ASDIRECTED Care 12/12/20 12:25 Active EKG 12 Lead [EK] Routine Ther 12/12/20 12:15 Ordered Labs: Laboratory Tests 12/12/20 12/12/20 12/12/20 Range/Units 11:10 11:10 11:10 WBC 5.4 (3.0-10.3) x10-3/uL RBC 3.60 (3.60-5.20) x10(6)uL Hgb 10.8 L (11.4-15.5) g/dL Hct 33.6 L (34.2-48.2) % MCV 93.5 (76.7-100.5) fL MCH 30.1 (23.9-33.9) pg MCHC 32.2 (31.9-34.8) g/dL RDW 13.0 (12.3-16.5) % Plt Count 241 (151-488) x10(3)uL MPV 7.4 (7.1-12.4) fL Neut % (Auto) 69.9 (30.8-76.2) % Lymph % (Auto) 18.6 (18.4-52.1) % Morris % (Auto) 8.4 (4.4-15.7) % Eos % (Auto) 2.7 (0.6-8.1) % Baso % (Auto) 0.4 (0.2-1.5) % Neut # (Auto) 3.8 (1.5-6.3) x10-3/uL Lymph # (Auto) 1.0 (1.0-4.4) x10-3/uL Morris # (Auto) 0.5 (0.3-1.0) x10-3/uL Eos # (Auto) 0.1 (0.0-0.8) x10-3/uL Baso # (Auto) 0.0 (0.0-0.1) x10-3/uL ABG pH (7.35-7.45) ABG pCO2 (35-45) mmHg ABG pO2 (83-108) mmHg ABG HCO3 (22-26) mmol/L ABG O2 Saturation (96-97) % ABG Base Excess (-2-2) Vinh Test O2 Delivery Device Sodium 136 (135-145) mmol/L Potassium 4.0 (3.5-5.3) mmol/L Chloride 96 L (100-110) mmol/L Carbon Dioxide 37 H (21-32) mmol/L BUN 14 (7-18) mg/dL Creatinine 0.6 (0.55-1.02) mg/dL Est Cr Clr Drug Dosing 66.45 mL/min Estimated GFR (MDRD) > 60 (>60) BUN/Creatinine Ratio 23.3 H (9-20) Glucose 138 H (80-116) mg/dL Calcium 9.2 (8.6-10.2) mg/dL Total Bilirubin 0.2 (0.1-1.3) mg/dL AST 28 H (5-25) IU/L ALT 30 D (12-36) U/L Alkaline Phosphatase 39 L (56-112) IU/L Troponin I 6.2 (4.0-60.3) pg/mL C-Reactive Protein 0.3 L (0.5-0.9) mg/dL NT-Pro-B Natriuret Pep 279 H (<=125) pg/mL Total Protein 7.3 (6.0-8.0) g/dL Albumin 4.1 (3.2-4.6) g/dL Globulin 3.2 g/dL Albumin/Globulin Ratio 1.3 Urine Color (YELLOW) Urine Appearance (CLEAR) Urine pH (5.0-6.5) Ur Specific Murray (1.010-1.025) Urine Protein (NEGATIVE) mg/dL Urine Glucose (UA) (NORMAL) mg/dL Urine Ketones (NEGATIVE) mg/dL Urine Occult Blood (NEGATIVE) Urine Nitrite (NEGATIVE) Urine Bilirubin (NEGATIVE) Urine Urobilinogen (NEGATIVE) mg/dL Ur Leukocyte Esterase (NEGATIVE) Urine WBC (0-5) Ur Squamous Epith Cells (NS,R,O) Urine Bacteria (NS) 12/12/20 12/12/20 Range/Units 12:35 13:34 WBC (3.0-10.3) x10-3/uL RBC (3.60-5.20) x10(6)uL Hgb (11.4-15.5) g/dL Hct (34.2-48.2) % MCV (76.7-100.5) fL MCH (23.9-33.9) pg MCHC (31.9-34.8) g/dL RDW (12.3-16.5) % Plt Count (151-488) x10(3)uL MPV (7.1-12.4) fL Neut % (Auto) (30.8-76.2) % Lymph % (Auto) (18.4-52.1) % Morris % (Auto) (4.4-15.7) % Eos % (Auto) (0.6-8.1) % Baso % (Auto) (0.2-1.5) % Neut # (Auto) (1.5-6.3) x10-3/uL Lymph # (Auto) (1.0-4.4) x10-3/uL Morris # (Auto) (0.3-1.0) x10-3/uL Eos # (Auto) (0.0-0.8) x10-3/uL Baso # (Auto) (0.0-0.1) x10-3/uL ABG pH 7.35 (7.35-7.45) ABG pCO2 68 H* (35-45) mmHg ABG pO2 79 L (83-108) mmHg ABG HCO3 38 H (22-26) mmol/L ABG O2 Saturation 94 L (96-97) % ABG Base Excess 11.9 H (-2-2) Vinh Test Not performed O2 Delivery Device Nasal cannula Sodium (135-145) mmol/L Potassium (3.5-5.3) mmol/L Chloride (100-110) mmol/L Carbon Dioxide (21-32) mmol/L BUN (7-18) mg/dL Creatinine (0.55-1.02) mg/dL Est Cr Clr Drug Dosing mL/min Estimated GFR (MDRD) (>60) BUN/Creatinine Ratio (9-20) Glucose (80-116) mg/dL Calcium (8.6-10.2) mg/dL Total Bilirubin (0.1-1.3) mg/dL AST (5-25) IU/L ALT (12-36) U/L Alkaline Phosphatase (56-112) IU/L Troponin I (4.0-60.3) pg/mL C-Reactive Protein (0.5-0.9) mg/dL NT-Pro-B Natriuret Pep (<=125) pg/mL Total Protein (6.0-8.0) g/dL Albumin (3.2-4.6) g/dL Globulin g/dL Albumin/Globulin Ratio Urine Color Yellow (YELLOW) Urine Appearance Clear (CLEAR) Urine pH 8.0 H (5.0-6.5) Ur Specific Murray 1.015 (1.010-1.025) Urine Protein Negative (NEGATIVE) mg/dL Urine Glucose (UA) Normal (NORMAL) mg/dL Urine Ketones Negative (NEGATIVE) mg/dL Urine Occult Blood Negative (NEGATIVE) Urine Nitrite Negative (NEGATIVE) Urine Bilirubin Negative (NEGATIVE) Urine Urobilinogen Normal (NEGATIVE) mg/dL Ur Leukocyte Esterase Negative (NEGATIVE) Urine WBC 0-5 (0-5) Ur Squamous Epith Cells Occasional (NS,R,O) Urine Bacteria Few H (NS) Meds: Medications Discontinued Medications Generic Name Dose Route Start Last Admin Trade Name Freq PRN Reason Stop Dose Admin Albuterol 2.5 mg 12/12/20 12:24 12/12/20 12:41 Proventil Neb Soln [facility] 12/12/20 12:25 2.5 mg ONETIME ONE Administration Albuterol/Ipratropium 3 ml 12/12/20 12:23 Duoneb 3.0-0.5 Mg/3 Ml [facility] 12/12/20 12:24 ONETIME ONE Sodium Chloride 500 mls @ 500 mls/hr 12/12/20 12:17 12/12/20 12:45 Normal Saline IV 12/12/20 13:16 500 mls/hr .BOLUS ONE Administration - Re-Assessments/Exams Free Text/Narrative Re-Assessment/Exam: 12/12/20 14:[address] Garza with severe centrolobular emphysema without acute changes labs with no evidence of infection u/a pending pCO2 68, pH 7.35 and wnl 12/12/20 14:39 pt strongly encouraged to use BIPAP at night, she continues with excuses, friend is here and understands instructions 12/12/20 14:42 u/a neg, had UTI last month, now cleared Departure - Departure Time of Disposition: 14:39 Disposition: Home, Self-Care 01 Condition: Good Clinical Impression: Shortness of breath, COPD (chronic obstructive pulmonary disease), Noncompliance, Carbon dioxide retention - Discharge Information *PRESCRIPTION DRUG MONITORING PROGRAM REVIEWED*: Not Applicable *COPY OF PRESCRIPTION DRUG MONITORING REPORT IN PATIENT ENA: Not Applicable Instructions: Chronic Obstructive Pulmonary Disease, CPAP and BPAP Information Referrals: Adriana Velez NP [Primary Care Provider] - Forms: ED Department Discharge Additional Instructions: Take meds as prescribed. Continue albuterol nebulizer 4 times a day. Be sure to use the BIPAP at night as this will lower your carbon dioxide level in your blood and increase your energy during the daytime. See your pulmonary doctor in 4-5 days. Sepsis Event Note (ED) - Evaluation Sepsis Screening Result: No Definite Risk - Focused Exam Vital Signs: Vital Signs Temp Pulse Resp BP Pulse Ox 12/12/20 10:44 36.8 C 65 20 151/46 H 100 - My Orders Last 24 Hours: My Active Orders 12/12/20 12:15 EKG 12 Lead [EK] Routine 12/12/20 12:17 EKG Documentation Completion [RC] ASDIRECTED 12/12/20 12:23 RT Aerosol Therapy [RC] ASDIRECTED 12/12/20 12:25 RT Aerosol Therapy [RC] ASDIRECTED - Assessment/Plan Last 24 Hours: My Active Orders 12/12/20 12:15 EKG 12 Lead [EK] Routine 12/12/20 12:17 EKG Documentation Completion [RC] ASDIRECTED 12/12/20 12:23 RT Aerosol Therapy [RC] ASDIRECTED 12/12/20 12:25 RT Aerosol Therapy [RC] ASDIRECTED
[2020-12-12 15:33] VITALS: BP 151/70; PULSE 67
== END 2020-12-12 15:05 | disposition home or self-care (01) ==
LOC: FB.ED 10:44
DX: J44.9 Chronic obstructive pulmonary disease, unspecified (principal); E87.2 Acidosis; I11.0 Hypertensive heart disease with heart failure; I50.9 Heart failure, unspecified; E78.00 Pure hypercholesterolemia, unspecified; I25.2 Old myocardial infarction; K21.9 Gastro-esophageal reflux disease without esophagitis; M19.90 Unspecified osteoarthritis, unspecified site; Z91.19 Patient's noncompliance with other medical treatment and regimen; Z79.01 Long term (current) use of anticoagulants; Z88.1 Allergy status to other antibiotic agents; Z88.8 Allergy status to other drugs, medicaments and biological substances; Z91.011 Allergy to milk products; Z91.012 Allergy to eggs; Z91.010 Allergy to peanuts; Z79.82 Long term (current) use of aspirin; Z79.02 Long term (current) use of antithrombotics/antiplatelets; Z79.899 Other long term (current) drug therapy
CPT/HCPCS: 36415; 36600; 71250; 80053; 81001; 82803; 83880; 84484; 85025; 86140; 93005; 94640; 99284; 99285-25; J7040

== ENCOUNTER 2021-01-10 21:40 | Emergency (ER) | payer MEDICARE, MEDICAID ==
--- NOTE | 2021-01-10 22:49 | EDM.PDOC ---
ED HPI GENERAL MEDICAL PROBLEM - General Stated Complaint: PASSED OUT Time Seen by Provider: 01/10/21 22:00 Source of Information: Reports: Patient History Limitations: Reports: No Limitations - History of Present Illness INITIAL COMMENTS - FREE TEXT/NARRATIVE: c/o "passing out" pt stands she was in her recliner and does remember what happened between 4:30p and 8:30p she had a similar episode for 4 hours during the night lives alone she is under stress, upset with a friend with mental health issues who is not taking her meds and is yelling at pt, last seen by pt 1w ago has dry hands which was discussed has 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 MCP, which was discussed has been eating and drinking has intermittent dyspepsia which was discussed, liquid AA suggested which she has not tried labs at baseline 1m ago and were not repeated, vss here on home O2 x 4y, on 2 l/min NC - Related Data Allergies Allergy/AdvReac Type Severity Reaction Status Date / Time ceftriaxone sodium Allergy Anaphylactic Verified 01/10/21 22:14 [From Rocephin] Shock clindamycin Allergy Anaphylactic Verified 01/10/21 22:14 Shock fentanyl Allergy Hives Verified 01/10/21 22:14 metoclopramide [From Reglan] Allergy Nausea Verified 01/10/21 22:14 Milk Containing Products Allergy Vomiting Verified 01/10/21 22:14 trazodone Allergy Other Verified 01/10/21 22:14 ciprofloxacin AdvReac Intermediate Itching Verified 01/10/21 22:14 .steroids Allergy Nausea Uncoded 12/12/20 11:03 depression medications Allergy Airway Uncoded 12/12/20 11:03 Tightness eggs Allergy Nausea Uncoded 12/12/20 11:03 oral antibiotics Allergy Vomiting Uncoded 12/12/20 11:03 peanuts Allergy Hives Uncoded 12/12/20 11:03 Home Meds: Home Meds Dexlansoprazole [Dexilant] 60 mg PO DAILY 12/05/13 [History] Fenofibrate Nanocrystallized [Fenofibrate] 145 mg PO BEDTIME 12/05/13 [History] Rosuvastatin [Crestor] 20 mg PO Q48H 11/27/15 [History] Aspirin 81 mg PO BEDTIME 10/07/16 [History] Gabapentin [Neurontin] 800 mg PO 08,12,18,22 10/07/16 [History] Clopidogrel [Plavix] 75 mg PO 1200 11/06/16 [History] Isosorbide Mononitrate [Imdur] 30 mg PO DAILY 11/06/16 [History] Ondansetron [Zofran ODT] 4 mg PO Q6H PRN 07/16/17 [History] Albuterol [Proventil Neb Soln] 2.5 mg INH QID PRN 02/28/19 [History] Nitroglycerin [Nitrostat] 0.4 mg SL Q5M PRN 07/05/19 [History] Pedi Multivit No.7/Folic Acid [Flintstones Tab] 1 tab PO DAILY@1200 07/05/19 [History] diphenhydrAMINE HCL [Benadryl Allergy] 12.5 mg PO BEDTIME 07/05/19 [History] Calcium Carbonate [Calcium] 600 mg PO TIDMEALS 07/06/19 [History] Magnesium 250 mg PO BEDTIME 07/06/19 [History] Fexofenadine [Bety] 180 mg PO DAILY 10/05/20 [History] Furosemide [Lasix] 20 mg PO DAILY 10/05/20 [History] Omeprazole 20 mg PO DAILY 10/05/20 [History] Acetaminophen [Tylenol] 650 mg PO Q4H PRN 01/10/21 [History] Diltiazem HCl [Diltiazem 24Hr ER] 120 mg PO BEDTIME 01/10/21 [History] Gabapentin [Neurontin] 1,200 mg PO BEDTIME 01/10/21 [History] Past Medical History HEENT History: Reports: Glaucoma, Impaired Vision, Other (See Below) Other HEENT History: Choroidal nevus. Cardiovascular History: Reports: Angina, Blood Clots/VTE/DVT, CAD, Heart Failure, High Cholesterol, Hypertension, [place], PVD, Syncope, Other (See Below) Other Cardiovascular History: Heart palpitations. DVT. PVD. Carotid bruitt. Respiratory History: Reports: COPD, Sleep Apnea Other Respiratory History: Suffocating spells at night with SOB, is on O2 con't @ home @ 2.5L/NC. states that she only have 32% lung function. Gastrointestinal History: Reports: GERD, Hiatal Hernia, Other (See Below) Other Gastrointestinal History: Bowel incontinence. Genitourinary History: Reports: Urinary Incontinence, UTI, Recurrent, Other (See Below) Other Genitourinary History: Urethral suspension with sling, later removed. Cystocopy. Bladder tumor. Overactive bladder. 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 Musculoskeletal History: Reports: Arthritis, Back Pain, Chronic, Fracture, Osteoporosis Other Musculoskeletal History: Left knee torn miniscus. Right ankle and hip pain, hx compression fx Neurological History: Reports: CVA, MS, Seizure, Other (See Below) Other Neuro History: Notices emotional/cognitive changes following a brain injury. Questionable MS diagnosis. 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 Endocrine/Metabolic History: Reports: None Other Endocrine/Metabolic History: States history of hypoglycemia. Hematologic History: Reports: Anticoagulation Therapy, Blood Transfusion(s) Other Hematologic History: hx of blood clots Immunologic History: Reports: None Oncologic (Cancer) History: Reports: Bladder, Brain, Malignant Melanoma Other Oncologic History: Throat cancer, treated with chemotherapy and radiation. Dermatologic History: Reports: Eczema, Melanoma Other Dermatologic History: Melanoma on back. Eczema. - Infectious Disease History Infectious Disease History: Reports: Chicken Pox, Other (See Below) Other Infectious Disease History: states hx staph infection - Past Surgical History Head Surgeries/Procedures: Reports: None HEENT Surgical History: Reports: None, Cataract Surgery Other HEENT Surgeries/Procedures: bilat cataract, R eye surgery Cardiovascular Surgical History: Reports: None Other Cardiovascular Surgeries/Procedures: Stents in bilat groin. Respiratory Surgical History: Reports: None GI Surgical History: Reports: Appendectomy, Cholecystectomy, Colonoscopy, EGD Female Surgical History: Reports: Cystoscopy, D&C, TURBT Other Female Surgeries/Procedures: bladder repair Neurological Surgical History: Reports: None, Spinal Fusion, Other (See Below) Other Neurological Surgeries/Procedures: spinal fusion x 5 Musculoskeletal Surgical History: Reports: Other (See Below) Other Musculoskeletal Surgeries/Procedures:: surgery of left hand. back fracture from osteoporosis, back surgery x 5 Oncologic Surgical History: Reports: None Dermatological Surgical History: Reports: None Social & Family History - Family History Family Medical History: No Pertinent Family History Cardiac: Reports: [place] Oncologic: Reports: Colon - Caffeine Use Caffeine Use: Reports: Soda Other Caffeine Use: 2 cups per day Caffeine Use Comment: Occassional coffee drinker. - Living Situation & Occupation Living situation: Reports: Single, Alone Occupation: Disabled ED ROS GENERAL - Review of Systems Review Of Systems: See Below Constitutional: Reports: No Symptoms HEENT: Reports: No Symptoms Respiratory: Reports: No Symptoms Cardiovascular: Reports: No Symptoms Endocrine: Reports: No Symptoms GI/Abdominal: Reports: No Symptoms : Reports: No Symptoms Musculoskeletal: Reports: No Symptoms Skin: Reports: No Symptoms Neurological: Reports: Other (not remembering) Psychiatric: Reports: No Symptoms Hematologic/Lymphatic: Reports: No Symptoms Immunologic: Reports: No Symptoms ED EXAM, GENERAL - Physical Exam Exam: See Below Exam Limited By: No Limitations General Appearance: Alert, WD/WN, No Apparent Distress, Other (very talkative, no distress) Nose: Normal Inspection Throat/Mouth: Normal Inspection, Normal Lips, No Airway Compromise Head: Atraumatic, Normocephalic Neck: Normal Inspection, Supple, Non-Tender. No: Limited Range of Motion, Lymphadenopathy (R) Respiratory/Chest: No Respiratory Distress, Lungs Clear, Normal Breath Sounds, Chest Non-Tender Cardiovascular: Regular Rate, Rhythm, No Gallop, Other (2/6 GLO at LSB) GI/Abdominal: Soft, Non-Tender Back Exam: Normal Inspection, Full Range of Motion Extremities: Normal Inspection, Normal Range of Motion, Non-Tender, Other (1+ pretib edema to knees, turgor wnl in UEs) Neurological: Alert, Oriented, CN II-XII Intact, Normal Cognition, No Motor/Sensory Deficits Psychiatric: Normal Affect, Normal Mood Skin Exam: Other (very dry skin on dorsum of wrists and hands) Lymphatic: No Adenopathy Course - Vital Signs Last Recorded V/S: Last Vital Signs Temp 36.8 C 01/10/21 21:40 Pulse Resp BP Pulse Ox - Re-Assessments/Exams Free Text/Narrative Re-Assessment/Exam: 01/10/21 22:51 PE unremarkable no evidence of neuro or CV issues no evidence of true syncope, pt often gets inadequate rest at night, usually sleep one hr a day, sounds as if she has been fatigued during the day (possibly related to time change) and has been doing some catchup sleep no active clinical problems identified in 25 minute interaction somatization DO present Departure - Departure Time of Disposition: 22:41 Disposition: Home, Self-Care 01 Condition: Good Clinical Impression: Change in mental status, Atopic dermatitis - Discharge Information *PRESCRIPTION DRUG MONITORING PROGRAM REVIEWED*: Not Applicable *COPY OF PRESCRIPTION DRUG MONITORING REPORT IN PATIENT ENA: Not Applicable Instructions: Atopic Dermatitis Additional Instructions: For dry skin, avoid soap on hands and wrist. Use moisturizer 3 times a day. Avoid scratching or rubbing. For heartburn, take liquid antacid 30 ml every 4 hours as needed. Continue current meds. Continue current sleep-wake cycle. As 8 hours of sleep is most common in your age range, you may need additional sleep during the day on nights when you are getting 6 hours of sleep. See your doctor next week as needed. Sepsis Event Note (ED) - Evaluation Sepsis Screening Result: No Definite Risk - Focused Exam Vital Signs: Vital Signs Temp 01/10/21 21:40 36.8 C
[2021-01-10 23:35] VITALS: BP 149/60; PULSE 73
== END 2021-01-10 23:05 | disposition home or self-care (01) ==
LOC: FB.ED 21:40
DX: L20.9 Atopic dermatitis, unspecified (principal); R41.82 Altered mental status, unspecified; R10.13 Epigastric pain; I11.0 Hypertensive heart disease with heart failure; I50.9 Heart failure, unspecified; E78.00 Pure hypercholesterolemia, unspecified; I25.2 Old myocardial infarction; I25.10 Atherosclerotic heart disease of native coronary artery without angina pectoris; J44.9 Chronic obstructive pulmonary disease, unspecified; K21.9 Gastro-esophageal reflux disease without esophagitis; Z88.1 Allergy status to other antibiotic agents; Z88.4 Allergy status to anesthetic agent; Z91.011 Allergy to milk products; Z91.010 Allergy to peanuts; Z91.012 Allergy to eggs; Z88.8 Allergy status to other drugs, medicaments and biological substances; Z79.82 Long term (current) use of aspirin; Z79.02 Long term (current) use of antithrombotics/antiplatelets; Z79.899 Other long term (current) drug therapy
CPT/HCPCS: 99283; 99284

== ENCOUNTER 2021-01-27 19:40 | Emergency (ER) | payer MEDICAID, MEDICARE, OTHER ==
[2021-01-27] MEDS ORDERED: Atropine/Diphenoxylate 0.025-2.5 MG Tab PO STA (19:42)
--- NOTE | 2021-01-27 20:43 | EDM.PDOC ---
ED HPI GENERAL MEDICAL PROBLEM - General Chief Complaint: Gastrointestinal Problem Stated Complaint: N/V/D Time Seen by Provider: 01/27/21 19:45 Source of Information: Reports: Patient History Limitations: Reports: No Limitations - History of Present Illness INITIAL COMMENTS - FREE TEXT/NARRATIVE: Patient presented to the ED because of N/V/D x 1 week. She also c/o pruritus all over. there is no abd pain,fever,chills. No urinary symptoms. She took imodium OTC without relief. - Related Data Allergies Allergy/AdvReac Type Severity Reaction Status Date / Time ceftriaxone sodium Allergy Anaphylactic Verified 01/10/21 22:14 [From Rocephin] Shock clindamycin Allergy Anaphylactic Verified 01/10/21 22:14 Shock fentanyl Allergy Hives Verified 01/10/21 22:14 metoclopramide [From Reglan] Allergy Nausea Verified 01/10/21 22:14 Milk Containing Products Allergy Vomiting Verified 01/10/21 22:14 trazodone Allergy Other Verified 01/10/21 22:14 ciprofloxacin AdvReac Intermediate Itching Verified 01/10/21 22:14 .steroids Allergy Nausea Uncoded 01/10/21 23:51 depression medications Allergy Airway Uncoded 01/10/21 23:51 Tightness eggs Allergy Nausea Uncoded 01/10/21 23:51 oral antibiotics Allergy Vomiting Uncoded 01/10/21 23:51 peanuts Allergy Hives Uncoded 01/10/21 23:51 Home Meds: Home Meds Dexlansoprazole [Dexilant] 60 mg PO DAILY 12/05/13 [History] Fenofibrate Nanocrystallized [Fenofibrate] 145 mg PO BEDTIME 12/05/13 [History] Rosuvastatin [Crestor] 20 mg PO Q48H 11/27/15 [History] Aspirin 81 mg PO BEDTIME 10/07/16 [History] Gabapentin [Neurontin] 800 mg PO ,,18 10/07/16 [History] Clopidogrel [Plavix] 75 mg PO 1200 11/06/16 [History] Isosorbide Mononitrate [Imdur] 30 mg PO DAILY 11/06/16 [History] Ondansetron [Zofran ODT] 4 mg PO Q6H PRN 07/16/17 [History] Albuterol [Proventil Neb Soln] 2.5 mg INH Q4H PRN 02/28/19 [History] Nitroglycerin [Nitrostat] 0.4 mg SL Q5M PRN 07/05/19 [History] Pedi Multivit No.7/Folic Acid [Flintstones Tab] 1 tab PO DAILY@1200 07/05/19 [History] diphenhydrAMINE HCL [Benadryl Allergy] 12.5 mg PO Q6H PRN 07/05/19 [History] Calcium Carbonate [Calcium] 600 mg PO TIDMEALS 07/06/19 [History] Magnesium 250 mg PO BEDTIME 07/06/19 [History] Fexofenadine [Bety] 180 mg PO DAILY 10/05/20 [History] Furosemide [Lasix] 20 mg PO Q72H 10/05/20 [History] Omeprazole 20 mg PO DAILY 10/05/20 [History] Acetaminophen [Tylenol] 650 mg PO Q4H PRN 01/10/21 [History] Diltiazem HCl [Diltiazem 24Hr ER] 120 mg PO BEDTIME 01/10/21 [History] Gabapentin [Neurontin] 1,200 mg PO BEDTIME 01/10/21 [History] Diphenoxylate HCl/Atropine [Lomotil Tablet] 2 each PO Q8H PRN #30 tablet 01/27/21 [Rx] Ondansetron [Zofran ODT] 4 mg PO Q4H PRN #5 tab.dis 01/27/21 [Rx] Past Medical History HEENT History: Reports: Glaucoma, Impaired Vision, Other (See Below) Other HEENT History: Choroidal nevus. Cardiovascular History: Reports: Angina, Blood Clots/VTE/DVT, CAD, Heart Failure, High Cholesterol, Hypertension, [place], PVD, Syncope, Other (See Below) Other Cardiovascular History: Heart palpitations. DVT. PVD. Carotid bruitt. Respiratory History: Reports: COPD, Sleep Apnea Other Respiratory History: Suffocating spells at night with SOB, is on continuous O2 at home with 2.5L/NC. States that she only have 32% lung function. Gastrointestinal History: Reports: GERD, Hiatal Hernia, Other (See Below) Other Gastrointestinal History: Bowel incontinence. Genitourinary History: Reports: Urinary Incontinence, UTI, Recurrent, Other (See Below) Other Genitourinary History: Urethral suspension with sling, later removed. Cystocopy. Bladder tumor. Overactive bladder. 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 Musculoskeletal History: Reports: Arthritis, Back Pain, Chronic, Fracture, Osteoporosis Other Musculoskeletal History: Left knee torn miniscus. Right ankle and hip pain, history compression fracture. Neurological History: Reports: CVA, MS, Seizure, Other (See Below) Other Neuro History: Notices emotional/cognitive changes following a brain injury. Probable MS diagnosis. Psychiatric History: Reports: Anxiety, Depression, Psych Hospitalization(s) Other Psychiatric History: Medical agreement for group home medication usage. Endocrine/Metabolic History: Reports: None Other Endocrine/Metabolic History: States history of hypoglycemia. Hematologic History: Reports: Anticoagulation Therapy, Blood Transfusion(s) Other Hematologic History: History of blood clots. Immunologic History: Reports: None Oncologic (Cancer) History: Reports: Bladder, Brain, Malignant Melanoma Other Oncologic History: Throat cancer, treated with chemotherapy and radiation. Dermatologic History: Reports: Eczema, Melanoma Other Dermatologic History: Melanoma on back. Eczema. - Infectious Disease History Infectious Disease History: Reports: Chicken Pox, Other (See Below) Other Infectious Disease History: States history of staph infection. - Past Surgical History Head Surgeries/Procedures: Reports: None HEENT Surgical History: Reports: None, Cataract Surgery Other HEENT Surgeries/Procedures: bilat cataract, R eye surgery Cardiovascular Surgical History: Reports: None Other Cardiovascular Surgeries/Procedures: Stents in bilat groin. Respiratory Surgical History: Reports: None GI Surgical History: Reports: Appendectomy, Cholecystectomy, Colonoscopy, EGD Female Surgical History: Reports: Cystoscopy, D&C, TURBT Other Female Surgeries/Procedures: bladder repair Neurological Surgical History: Reports: None, Spinal Fusion, Other (See Below) Other Neurological Surgeries/Procedures: spinal fusion x 5 Musculoskeletal Surgical History: Reports: Other (See Below) Other Musculoskeletal Surgeries/Procedures:: surgery of left hand. back fracture from osteoporosis, back surgery x 5 Oncologic Surgical History: Reports: None Dermatological Surgical History: Reports: None Social & Family History - Family History Family Medical History: No Pertinent Family History Cardiac: Reports: [place] Oncologic: Reports: Colon - Caffeine Use Caffeine Use: Reports: Soda Other Caffeine Use: 2 cups per day Caffeine Use Comment: Occassional coffee drinker. - Living Situation & Occupation Living situation: Reports: Single, Alone Occupation: Disabled ED ROS GENERAL - Review of Systems Review Of Systems: See Below Constitutional: Reports: No Symptoms HEENT: Reports: No Symptoms Respiratory: Reports: No Symptoms Cardiovascular: Reports: No Symptoms Endocrine: Reports: No Symptoms GI/Abdominal: Reports: Diarrhea, Nausea, Vomiting : Reports: No Symptoms Musculoskeletal: Reports: No Symptoms Skin: Reports: No Symptoms Neurological: Reports: No Symptoms Psychiatric: Reports: No Symptoms ED EXAM, GI/ABD - Physical Exam Exam: See Below Exam Limited By: No Limitations General Appearance: Alert, No Apparent Distress Ears: Normal External Exam, Normal Canal Nose: Normal Inspection, Normal Mucosa, No Blood Throat/Mouth: Normal Inspection Head: Atraumatic, Normocephalic Neck: Normal Inspection, Supple, Non-Tender, Full Range of Motion Respiratory/Chest: No Respiratory Distress, Lungs Clear, Normal Breath Sounds, No Accessory Muscle Use, Chest Non-Tender Cardiovascular: Normal Peripheral Pulses, Regular Rate, Rhythm, No Edema, No Gallop, No JVD, No Murmur, No Rub GI/Abdominal Exam: Normal Bowel Sounds, Soft, Non-Tender Back Exam: Normal Inspection, Full Range of Motion Extremities: Normal Inspection, Normal Range of Motion, Non-Tender, No Pedal Edema, Normal Capillary Refill Neurological: Alert, Oriented, CN II-XII Intact Course - Vital Signs Text/Narrative:: Lab result was reviewed and discussed with patient Lomotil 2 tabs PO x1 Last Recorded V/S: Last Vital Signs Temp 36.5 C 01/27/21 20:55 Pulse 90 01/27/21 20:55 Resp 18 01/27/21 20:55 BP 124/77 01/27/21 20:55 Pulse Ox 99 01/27/21 20:55 - Orders/Labs/Meds Labs: Laboratory Tests 01/27/21 Range/Units 19:55 Sodium 141 (135-145) mmol/L Potassium 3.5 (3.5-5.3) mmol/L Chloride 97 L (100-110) mmol/L Carbon Dioxide 34 H (21-32) mmol/L BUN 12 (7-18) mg/dL Creatinine 0.7 (0.55-1.02) mg/dL Est Cr Clr Drug Dosing TNP Estimated GFR (MDRD) > 60 (>60) BUN/Creatinine Ratio 17.1 (9-20) Glucose 87 (80-116) mg/dL Calcium 10.1 (8.6-10.2) mg/dL Meds: Medications Discontinued Medications Generic Name Dose Route Start Last Admin Trade Name Julisa PRN Reason Stop Dose Admin Diphenoxylate HCl/Atropine 2 tab 01/27/21 19:42 01/27/21 19:48 Atropine/Diphenoxylate 0.025-2.5 Mg Tab PO 01/27/21 19:43 2 tab NOW STA Administration Departure - Departure Time of Disposition: 21:00 Disposition: Home, Self-Care 01 Condition: Good Clinical Impression: Gastroenteritis - Discharge Information Prescriptions: Diphenoxylate HCl/Atropine [Lomotil Tablet] 2 each PO Q8H PRN #30 tablet PRN Reason: Diarrhea Ondansetron [Zofran ODT] 4 mg PO Q4H PRN #5 tab.dis PRN Reason: Nausea Instructions: Viral Gastroenteritis, Adult, [id number] Referrals: Adriana Velez NP [Primary Care Provider] - Forms: ED Department Discharge Additional Instructions: Please read discharge instructions on gastroenteritis Increase oral fluids-drink at least 2 liters a day Frequent hand washing Zofran/Odansetron 4 mg every 4 hours as needed for nausea Lomotil 2 tablets every 8 hours as needed for diarrhea. Quit taking this medication as soon as your diarrhea is gone because it an cause constipation
[2021-01-27 22:08] VITALS: BP 124/77; PULSE 90
== END 2021-01-27 21:05 | disposition home or self-care (01) ==
LOC: FB.ED 19:40
DX: K52.9 Noninfective gastroenteritis and colitis, unspecified (principal); I25.10 Atherosclerotic heart disease of native coronary artery without angina pectoris; I11.0 Hypertensive heart disease with heart failure; I50.9 Heart failure, unspecified; E78.00 Pure hypercholesterolemia, unspecified; I25.2 Old myocardial infarction; J44.9 Chronic obstructive pulmonary disease, unspecified; K21.9 Gastro-esophageal reflux disease without esophagitis; M19.90 Unspecified osteoarthritis, unspecified site; Z86.73 Personal history of transient ischemic attack (TIA), and cerebral infarction without residual deficits; Z86.718 Personal history of other venous thrombosis and embolism; Z79.01 Long term (current) use of anticoagulants; Z88.1 Allergy status to other antibiotic agents; Z88.6 Allergy status to analgesic agent; Z88.8 Allergy status to other drugs, medicaments and biological substances; Z91.011 Allergy to milk products; Z88.5 Allergy status to narcotic agent; Z91.012 Allergy to eggs; Z91.010 Allergy to peanuts; Z79.82 Long term (current) use of aspirin; Z79.02 Long term (current) use of antithrombotics/antiplatelets; Z79.899 Other long term (current) drug therapy
CPT/HCPCS: 36415; 80048; 99283; 99284; A9270

== ENCOUNTER 2021-04-17 11:01 | Emergency (ER) | payer MEDICARE, SELFPAY ==
--- NOTE | 2021-04-17 12:00 | EDM.PDOC ---
ED HPI GENERAL MEDICAL PROBLEM - General Stated Complaint: CONSTIPATIED Time Seen by Provider: 04/17/21 11:05 Source of Information: Reports: Patient History Limitations: Reports: No Limitations - History of Present Illness INITIAL COMMENTS - FREE TEXT/NARRATIVE: Patient presented to the ED because of constipation for 3 weeks. She said she has some BM in between but small in amount. There is no associated nausea/vomiting but feels bloated. - Related Data Allergies Allergy/AdvReac Type Severity Reaction Status Date / Time ceftriaxone sodium Allergy Anaphylactic Verified 01/10/21 22:14 [From Rocephin] Shock clindamycin Allergy Anaphylactic Verified 01/10/21 22:14 Shock fentanyl Allergy Hives Verified 01/10/21 22:14 metoclopramide [From Reglan] Allergy Nausea Verified 01/10/21 22:14 Milk Containing Products Allergy Vomiting Verified 01/10/21 22:14 trazodone Allergy Other Verified 01/10/21 22:14 ciprofloxacin AdvReac Intermediate Itching Verified 01/10/21 22:14 .steroids Allergy Nausea Uncoded 01/10/21 23:51 depression medications Allergy Airway Uncoded 01/10/21 23:51 Tightness eggs Allergy Nausea Uncoded 01/10/21 23:51 oral antibiotics Allergy Vomiting Uncoded 01/10/21 23:51 peanuts Allergy Hives Uncoded 01/10/21 23:51 Home Meds: Home Meds Dexlansoprazole [Dexilant] 60 mg PO DAILY 12/05/13 [History] Fenofibrate Nanocrystallized [Fenofibrate] 145 mg PO BEDTIME 12/05/13 [History] Rosuvastatin [Crestor] 20 mg PO Q48H 11/27/15 [History] Aspirin 81 mg PO BEDTIME 10/07/16 [History] Gabapentin [Neurontin] 800 mg PO 08,12,18 10/07/16 [History] Clopidogrel [Plavix] 75 mg PO 1200 11/06/16 [History] Isosorbide Mononitrate [Imdur] 30 mg PO DAILY 11/06/16 [History] Ondansetron [Zofran ODT] 4 mg PO Q6H PRN 07/16/17 [History] Albuterol [Proventil Neb Soln] 2.5 mg INH Q4H PRN 02/28/19 [History] Nitroglycerin [Nitrostat] 0.4 mg SL Q5M PRN 07/05/19 [History] Pedi Multivit No.7/Folic Acid [Flintstones Tab] 1 tab PO DAILY@1200 07/05/19 [History] diphenhydrAMINE HCL [Benadryl Allergy] 12.5 mg PO Q6H PRN 07/05/19 [History] Calcium Carbonate [Calcium] 600 mg PO TIDMEALS 07/06/19 [History] Magnesium 250 mg PO BEDTIME 07/06/19 [History] Fexofenadine [Bety] 180 mg PO DAILY 10/05/20 [History] Furosemide [Lasix] 20 mg PO Q72H 10/05/20 [History] Omeprazole 20 mg PO DAILY 10/05/20 [History] Acetaminophen [Tylenol] 650 mg PO Q4H PRN 01/10/21 [History] Diltiazem HCl [Diltiazem 24Hr ER] 120 mg PO BEDTIME 01/10/21 [History] Gabapentin [Neurontin] 1,200 mg PO BEDTIME 01/10/21 [History] Diphenoxylate HCl/Atropine [Lomotil Tablet] 2 each PO Q8H PRN #30 tablet 01/27/21 [Rx] Ondansetron [Zofran ODT] 4 mg PO Q4H PRN #5 tab.dis 01/27/21 [Rx] Ondansetron [Zofran ODT] 4 mg PO Q4H PRN #10 tab.dis 04/17/21 [Rx] Sennosides/Docusate Sodium [Senna Plus 8.6-50 mg Tablet] 2 each PO DAILY PRN #30 tablet 04/17/21 [Rx] Sodium Phosphate,[place]-Dibasic [Fleet Enema] 118 ml RC DAILY PRN #3 enema 04/17/21 [Rx] polyethylene glycoL 3350 [MiraLAX] 34 gm PO DAILY PRN #1 cont 04/17/21 [Rx] Past Medical History HEENT History: Reports: Glaucoma, Impaired Vision, Other (See Below) Other HEENT History: Choroidal nevus. Cardiovascular History: Reports: Angina, Blood Clots/VTE/DVT, CAD, Heart Fail ure, High Cholesterol, Hypertension, CO, PVD, Syncope, Other (See Below) Other Cardiovascular History: Heart palpitations. DVT. PVD. Carotid bruitt. Respiratory History: Reports: COPD, Sleep Apnea Other Respiratory History: Suffocating spells at night with SOB, is on continuous O2 at home with 2.5L/NC. States that she only have 32% lung function. Gastrointestinal History: Reports: GERD, Hiatal Hernia, Other (See Below) Other Gastrointestinal History: Bowel incontinence. Genitourinary History: Reports: Urinary Incontinence, UTI, Recurrent, Other (See Below) Other Genitourinary History: Urethral suspension with sling, later removed. Cystocopy. Bladder tumor. Overactive bladder. 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 Musculoskeletal History: Reports: Arthritis, Back Pain, Chronic, Fracture, Osteoporosis Other Musculoskeletal History: Left knee torn miniscus. Right ankle and hip pain, history compression fracture. Neurological History: Reports: CVA, MS, Seizure, Other (See Below) Other Neuro History: Notices emotional/cognitive changes following a brain injury. Probable MS diagnosis. 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 Endocrine/Metabolic History: Reports: None Other Endocrine/Metabolic History: States history of hypoglycemia. Hematologic History: Reports: Anticoagulation Therapy, Blood Transfusion(s) Other Hematologic History: History of blood clots. Immunologic History: Reports: None Oncologic (Cancer) History: Reports: Bladder, Brain, Malignant Melanoma Other Oncologic History: Throat cancer, treated with chemotherapy and radiation. Dermatologic History: Reports: Eczema, Melanoma Other Dermatologic History: Melanoma on back. Eczema. - Infectious Disease History Infectious Disease History: Reports: Chicken Pox, Other (See Below) Other Infectious Disease History: States history of staph infection. - Past Surgical History Head Surgeries/Procedures: Reports: None HEENT Surgical History: Reports: None, Cataract Surgery Other HEENT Surgeries/Procedures: bilat cataract, R eye surgery Cardiovascular Surgical History: Reports: None Other Cardiovascular Surgeries/Procedures: Stents in bilat groin. Respiratory Surgical History: Reports: None GI Surgical History: Reports: Appendectomy, Cholecystectomy, Colonoscopy, EGD Female Surgical History: Reports: Cystoscopy, D&C, TURBT Other Female Surgeries/Procedures: bladder repair Neurological Surgical History: Reports: None, Spinal Fusion, Other (See Below) Other Neurological Surgeries/Procedures: spinal fusion x 5 Musculoskeletal Surgical History: Reports: Other (See Below) Other Musculoskeletal Surgeries/Procedures:: surgery of left hand. back fracture from osteoporosis, back surgery x 5 Oncologic Surgical History: Reports: None Dermatological Surgical History: Reports: None Social & Family History - Family History Family Medical History: No Pertinent Family History Cardiac: Reports: CO Oncologic: Reports: Colon - Caffeine Use Caffeine Use: Reports: Soda Other Caffeine Use: 2 cups per day Caffeine Use Comment: Occassional coffee drinker. - Living Situation & Occupation Living situation: Reports: Single, Alone Occupation: Disabled ED ROS GENERAL - Review of Systems Review Of Systems: See Below Constitutional: Reports: No Symptoms HEENT: Reports: No Symptoms Respiratory: Reports: No Symptoms Cardiovascular: Reports: No Symptoms Endocrine: Reports: No Symptoms GI/Abdominal: Reports: Constipation : Reports: No Symptoms Musculoskeletal: Reports: No Symptoms Skin: Reports: No Symptoms Neurological: Reports: No Symptoms Psychiatric: Reports: No Symptoms ED EXAM, GI/ABD - Physical Exam Exam: See Below Exam Limited By: No Limitations General Appearance: Alert, No Apparent Distress Ears: Normal External Exam, Normal Canal Nose: Normal Inspection, Normal Mucosa, No Blood Throat/Mouth: Normal Inspection, Normal Lips, Normal Teeth Head: Atraumatic, Normocephalic Neck: Normal Inspection, Supple, Non-Tender, Full Range of Motion Respiratory/Chest: No Respiratory Distress, Lungs Clear, Normal Breath Sounds, No Accessory Muscle Use, Chest Non-Tender Cardiovascular: Normal Peripheral Pulses, Regular Rate, Rhythm, No Edema, No Gallop, No JVD, No Murmur, No Rub GI/Abdominal Exam: Normal Bowel Sounds, Soft, Non-Tender Back Exam: Normal Inspection, Full Range of Motion Extremities: Normal Inspection, Normal Range of Motion, Non-Tender Course - Vital Signs Text/Narrative:: Abdominal xray-no obstruction Last Recorded V/S: Last Vital Signs Temp 37.3 C 04/17/21 11:02 Pulse 72 04/17/21 12:15 Resp 20 04/17/21 12:15 BP 145/68 H 04/17/21 12:15 Pulse Ox 97 04/17/21 12:15 Departure - Departure Time of Disposition: 11:50 Disposition: Home, Self-Care 01 Condition: Good Clinical Impression: Constipation - Discharge Information Prescriptions: Sodium Phosphate,[place]-Dibasic [Fleet Enema] 118 ml RC DAILY PRN #3 enema PRN Reason: Constipation polyethylene glycoL 3350 [MiraLAX] 34 gm PO DAILY PRN #1 cont PRN Reason: Constipation Sennosides/Docusate Sodium [Senna Plus 8.6-50 mg Tablet] 2 each PO DAILY PRN #30 tablet PRN Reason: Constipation Ondansetron [Zofran ODT] 4 mg PO Q4H PRN #10 tab.dis PRN Reason: Nausea Instructions: Constipation, Adult, [id number] Referrals: Adriana Velez NP [Primary Care Provider] - Forms: ED Department Discharge Additional Instructions: Please read discharge instructions on chronic constipations Drink at least 2 liters of water daily Take zofran ODT 2 tablets before taking the miralax solution and senna s tablets Dissolve 2 scoops of miralax in 1 glass of water then drink the entire solution Take 2 tablets of Senna S after drinking the miralax solution Repeat miralax ,senna s and fleets daily until you have a good bowel movement. Once you have have a good bowel movement just take 1 tablet of Senna S daily to prevent you from being constipated. Sepsis Event Note (ED) - Evaluation Sepsis Screening Result: No Definite Risk
[2021-04-17 12:27] VITALS: BP 145/68; PULSE 72
--- NOTE | 2021-04-17 18:03 | CR ---
INDICATION: Constipation. ABDOMEN TWO VIEWS: Three images of the abdomen were obtained 04/17/21 in supine and upright projections and compared with 09/08/19. 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 Arterial stent is noted at the right iliac artery. Calcifications are noted in the abdominal aorta and iliac arteries. 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 Clips compatible with cholecystectomy are noted. The pattern of gas and feces is fairly nonspecific without evidence of free air or definite obstructive process. Gas and stool is noted in the rectum. No significant distention of bowel was identified to suggest a mechanically obstructive process. No free air was noted. No definite organomegaly or mass lesions were seen. IMPRESSION: Nonacute abdomen with multiple findings as noted above. MTDD
== END 2021-04-17 12:19 | disposition home or self-care (01) ==
LOC: FB.ED 11:01
DX: K59.00 Constipation, unspecified (principal); I11.0 Hypertensive heart disease with heart failure; I50.9 Heart failure, unspecified; I25.10 Atherosclerotic heart disease of native coronary artery without angina pectoris; E78.00 Pure hypercholesterolemia, unspecified; J44.9 Chronic obstructive pulmonary disease, unspecified; Z79.82 Long term (current) use of aspirin; Z79.02 Long term (current) use of antithrombotics/antiplatelets; Z79.899 Other long term (current) drug therapy; Z91.012 Allergy to eggs; Z91.010 Allergy to peanuts; Z88.1 Allergy status to other antibiotic agents; Z88.6 Allergy status to analgesic agent; Z88.8 Allergy status to other drugs, medicaments and biological substances; Z91.011 Allergy to milk products
CPT/HCPCS: 74019; 99283-25

== ENCOUNTER 2021-05-10 17:06 | Emergency (ER) | payer MEDICARE, SELFPAY ==
[2021-05-10 17:48] VITALS: BP 148/62; PULSE 71
--- NOTE | 2021-05-10 19:26 | EDM.PDOC ---
ED HPI GENERAL MEDICAL PROBLEM - General Chief Complaint: Back Pain or Injury Stated Complaint: FALL Time Seen by Provider: 05/10/21 17:15 Source of Information: Reports: Patient History Limitations: Reports: Intoxication - History of Present Illness INITIAL COMMENTS - FREE TEXT/NARRATIVE: c/o fall at 4:30 pt was walking to bathroom from her combined bedroom/living room at her home of 18y in [place] she developed a cramp in RUE and RLE, fell, no injuries last labs here 5m ago which were rechecked pt stated that she was anemic, and does have hgb 11.2 altho indices are wnl a amish friend Tina drove her here PCP in [place], has another friend who drives her there - Related Data Allergies Allergy/AdvReac Type Severity Reaction Status Date / Time ceftriaxone sodium Allergy Anaphylactic Verified 05/10/21 17:32 [From Rocephin] Shock clindamycin Allergy Anaphylactic Verified 05/10/21 17:32 Shock fentanyl Allergy Hives Verified 05/10/21 17:32 metoclopramide [From Reglan] Allergy Nausea Verified 05/10/21 17:32 Milk Containing Products Allergy Vomiting Verified 05/10/21 17:32 trazodone Allergy Other Verified 05/10/21 17:32 ciprofloxacin AdvReac Intermediate Itching Verified 05/10/21 17:32 .steroids Allergy Nausea Uncoded 05/10/21 17:32 depression medications Allergy Airway Uncoded 05/10/21 17:32 Tightness eggs Allergy Nausea Uncoded 05/10/21 17:32 oral antibiotics Allergy Vomiting Uncoded 05/10/21 17:32 peanuts Allergy Hives Uncoded 05/10/21 17:32 Home Meds: Home Meds Dexlansoprazole [Dexilant] 60 mg PO DAILY 12/05/13 [History] Fenofibrate Nanocrystallized [Fenofibrate] 145 mg PO BEDTIME 12/05/13 [History] Rosuvastatin [Crestor] 20 mg PO Q48H 11/27/15 [History] Aspirin 81 mg PO BEDTIME 10/07/16 [History] Gabapentin [Neurontin] 800 mg PO 08,12,18 10/07/16 [History] Clopidogrel [Plavix] 75 mg PO 1200 11/06/16 [History] Isosorbide Mononitrate [Imdur] 30 mg PO DAILY 11/06/16 [History] Ondansetron [Zofran ODT] 4 mg PO Q6H PRN 07/16/17 [History] Albuterol [Proventil Neb Soln] 2.5 mg INH Q4H PRN 02/28/19 [History] Nitroglycerin [Nitrostat] 0.4 mg SL Q5M PRN 07/05/19 [History] Pedi Multivit No.7/Folic Acid [Flintstones Tab] 1 tab PO DAILY@1200 07/05/19 [History] diphenhydrAMINE HCL [Benadryl Allergy] 12.5 mg PO Q6H PRN 07/05/19 [History] Calcium Carbonate [Calcium] 600 mg PO TIDMEALS 07/06/19 [History] Magnesium 250 mg PO BEDTIME 07/06/19 [History] Fexofenadine [Bety] 180 mg PO DAILY 10/05/20 [History] Furosemide [Lasix] 20 mg PO Q72H 10/05/20 [History] Omeprazole 20 mg PO DAILY 10/05/20 [History] Acetaminophen [Tylenol] 650 mg PO Q4H PRN 01/10/21 [History] Diltiazem HCl [Diltiazem 24Hr ER] 120 mg PO BEDTIME 01/10/21 [History] Gabapentin [Neurontin] 1,200 mg PO BEDTIME 01/10/21 [History] Diphenoxylate HCl/Atropine [Lomotil Tablet] 2 each PO Q8H PRN #30 tablet 01/27/21 [Rx] Ondansetron [Zofran ODT] 4 mg PO Q4H PRN #5 tab.dis 01/27/21 [Rx] Ondansetron [Zofran ODT] 4 mg PO Q4H PRN #10 tab.dis 04/17/21 [Rx] Sennosides/Docusate Sodium [Senna Plus 8.6-50 mg Tablet] 2 each PO DAILY PRN #30 tablet 04/17/21 [Rx] Sodium Phosphate,[place]-Dibasic [Fleet Enema] 118 ml RC DAILY PRN #3 enema 04/17/21 [Rx] polyethylene glycoL 3350 [MiraLAX] 34 gm PO DAILY PRN #1 cont 04/17/21 [Rx] Past Medical History HEENT History: Reports: Glaucoma, Impaired Vision, Other (See Below) Other HEENT History: Choroidal nevus. Cardiovascular History: Reports: Angina, Blood Clots/VTE/DVT, CAD, Heart Failure, High Cholesterol, Hypertension, DC, PVD, Syncope, Other (See Below) Other Cardiovascular History: Heart palpitations. DVT. PVD. Carotid bruitt. Respiratory History: Reports: COPD, Sleep Apnea Other Respiratory History: Suffocating spells at night with SOB, is on continuous O2 at home with 2.5L/NC. States that she only have 32% lung function. Gastrointestinal History: Reports: GERD, Hiatal Hernia, Other (See Below) Other Gastrointestinal History: Bowel incontinence. Genitourinary History: Reports: Urinary Incontinence, UTI, Recurrent, Other (See Below) Other Genitourinary History: Urethral suspension with sling, later removed. Cystocopy. Bladder tumor. Overactive bladder. 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 Musculoskeletal History: Reports: Arthritis, Back Pain, Chronic, Fracture, Osteoporosis Other Musculoskeletal History: Left knee torn miniscus. Right ankle and hip pain, history compression fracture. Neurological History: Reports: CVA, MS, Seizure, Other (See Below) Other Neuro History: Notices emotional/cognitive changes following a brain injury. Probable MS diagnosis. 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 Endocrine/Metabolic History: Reports: None Other Endocrine/Metabolic History: States history of hypoglycemia. Hematologic History: Reports: Anticoagulation Therapy, Blood Transfusion(s) Other Hematologic History: History of blood clots. Immunologic History: Reports: None Oncologic (Cancer) History: Reports: Bladder, Brain, Malignant Melanoma Other Oncologic History: Throat cancer, treated with chemotherapy and radiation. Dermatologic History: Reports: Eczema, Melanoma Other Dermatologic History: Melanoma on back. Eczema. - Infectious Disease History Infectious Disease History: Reports: Chicken Pox, Other (See Below) Other Infectious Disease History: States history of staph infection. - Past Surgical History Head Surgeries/Procedures: Reports: None HEENT Surgical History: Reports: None, Cataract Surgery Other HEENT Surgeries/Procedures: bilat cataract, R eye surgery Cardiovascular Surgical History: Reports: None Other Cardiovascular Surgeries/Procedures: Stents in bilat groin. Respiratory Surgical History: Reports: None GI Surgical History: Reports: Appendectomy, Cholecystectomy, Colonoscopy, EGD Female Surgical History: Reports: Cystoscopy, D&C, TURBT Other Female Surgeries/Procedures: bladder repair Neurological Surgical History: Reports: None, Spinal Fusion, Other (See Below) Other Neurological Surgeries/Procedures: spinal fusion x 5 Musculoskeletal Surgical History: Reports: Other (See Below) Other Musculoskeletal Surgeries/Procedures:: surgery of left hand. back fracture from osteoporosis, back surgery x 5 Oncologic Surgical History: Reports: None Dermatological Surgical History: Reports: None Social & Family History - Family History Family Medical History: No Pertinent Family History Cardiac: Reports: DC Oncologic: Reports: Colon - Caffeine Use Caffeine Use: Reports: None Other Caffeine Use: 2 cups per day Caffeine Use Comment: Occassional coffee drinker. - Living Situation & Occupation Living situation: Reports: Single, Alone Occupation: Disabled ED ROS GENERAL - Review of Systems Review Of Systems: See Below Constitutional: Reports: No Symptoms HEENT: Reports: No Symptoms Respiratory: Reports: No Symptoms Cardiovascular: Reports: No Symptoms Endocrine: Reports: No Symptoms GI/Abdominal: Reports: No Symptoms : Reports: No Symptoms Musculoskeletal: Reports: Muscle Pain Skin: Reports: No Symptoms Neurological: Reports: No Symptoms Psychiatric: Reports: No Symptoms Hematologic/Lymphatic: Reports: No Symptoms Immunologic: Reports: No Symptoms Free Text/Narrative/Comment: alc intox, alert ED EXAM, GENERAL - Physical Exam Exam: See Below Exam Limited By: No Limitations General Appearance: Alert, WD/WN, No Apparent Distress, Other (sit in w/c, alert, doing well) Eye Exam: Bilateral Eye: PERRL Ears: Hearing Grossly Normal Nose: Normal Inspection Throat/Mouth: Normal Inspection, Normal Oropharynx, Normal Voice, No Airway Compromise Head: Atraumatic, Normocephalic Neck: Normal Inspection, Supple, Non-Tender, Full Range of Motion Respiratory/Chest: No Respiratory Distress, Lungs Clear, Chest Non-Tender Cardiovascular: Regular Rate, Rhythm, No Edema, Other (2/6 GLO at LSB) GI/Abdominal: Soft, Non-Tender, No Distention Back Exam: Normal Inspection Extremities: Normal Inspection, Normal Range of Motion, Non-Tender, No Pedal Edema, Other (no edema, calves nontender, no spasm) Neurological: Alert, Oriented, CN II-XII Intact, Normal Cognition, No Motor/Sensory Deficits Psychiatric: Normal Affect, Normal Mood Skin Exam: Warm, Dry, Intact, Normal Color, No Rash Lymphatic: No Adenopathy Course - Vital Signs Last Recorded V/S: Last Vital Signs Temp 37.1 C 05/10/21 17:10 Pulse 71 05/10/21 17:10 Resp 18 05/10/21 17:10 BP 148/62 H 05/10/21 17:10 Pulse Ox 97 05/10/21 17:10 - Orders/Labs/Meds Labs: Laboratory Tests 05/10/21 05/10/21 05/10/21 Range/Units 18:00 18:21 18:21 WBC (3.0-10.3) x10-3/uL RBC (3.60-5.20) x10(6)uL Hgb (11.4-15.5) g/dL Hct (34.2-48.2) % MCV (76.7-100.5) fL MCH (23.9-33.9) pg MCHC (31.9-34.8) g/dL RDW (12.3-16.5) % Plt Count (151-488) x10(3)uL MPV (7.1-12.4) fL Neut % (Auto) (30.8-76.2) % Lymph % (Auto) (18.4-52.1) % Wayne % (Auto) (4.4-15.7) % Eos % (Auto) (0.6-8.1) % Baso % (Auto) (0.2-1.5) % Neut # (Auto) (1.5-6.3) x10-3/uL Lymph # (Auto) (1.0-4.4) x10-3/uL Wayne # (Auto) (0.3-1.0) x10-3/uL Eos # (Auto) (0.0-0.8) x10-3/uL Baso # (Auto) (0.0-0.1) x10-3/uL Sodium 149 H (135-145) mmol/L Potassium 3.6 (3.5-5.3) mmol/L Chloride 100 (100-110) mmol/L Carbon Dioxide 45 H* (21-32) mmol/L BUN 19 H (7-18) mg/dL Creatinine 1.0 (0.55-1.02) mg/dL Est Cr Clr Drug Dosing TNP Estimated GFR (MDRD) 55 L (>60) BUN/Creatinine Ratio 19.0 (9-20) Glucose 98 (80-116) mg/dL Calcium 10.8 H (8.6-10.2) mg/dL Total Bilirubin 0.3 (0.1-1.3) mg/dL AST 28 H (5-25) IU/L ALT 28 (12-36) U/L Alkaline Phosphatase 35 L (56-112) IU/L Creatine Kinase 117 (60-160) IU/L C-Reactive Protein < 0.2 L (0.5-0.9) mg/dL Total Protein 7.7 (6.0-8.0) g/dL Albumin 4.3 (3.2-4.6) g/dL Globulin 3.4 g/dL Albumin/Globulin Ratio 1.3 Urine Color Yellow (YELLOW) Urine Appearance Turbid (CLEAR) Urine pH 5.0 (5.0-6.5) Ur Specific [place] 1.025 (1.010-1.025) Urine Protein Negative (NEGATIVE) mg/dL Urine Glucose (UA) Normal (NORMAL) mg/dL Urine Ketones Negative (NEGATIVE) mg/dL Urine Occult Blood Negative (NEGATIVE) Urine Nitrite Negative (NEGATIVE) Urine Bilirubin Negative (NEGATIVE) Urine Urobilinogen Normal (NEGATIVE) mg/dL Ur Leukocyte Esterase Negative (NEGATIVE) Urine RBC 0-5 (0-5) Urine WBC 0-5 (0-5) Ur Squamous Epith Cells Moderate H (NS,R,O) Urine Bacteria Few H (NS) Fine Granular Casts Moderate H (NS) Coarse Granular Casts Moderate H (NS) WBC Casts Rare H (NS) 05/10/21 Range/Units 18:25 WBC 4.9 (3.0-10.3) x10-3/uL RBC 3.66 (3.60-5.20) x10(6)uL Hgb 11.2 L (11.4-15.5) g/dL Hct 34.5 (34.2-48.2) % MCV 94.3 (76.7-100.5) fL MCH 30.6 (23.9-33.9) pg MCHC 32.4 (31.9-34.8) g/dL RDW 12.3 (12.3-16.5) % Plt Count 246 (151-488) x10(3)uL MPV 7.2 (7.1-12.4) fL Neut % (Auto) 60.5 (30.8-76.2) % Lymph % (Auto) 25.6 (18.4-52.1) % Wayne % (Auto) 10.9 (4.4-15.7) % Eos % (Auto) 2.2 (0.6-8.1) % Baso % (Auto) 0.8 (0.2-1.5) % Neut # (Auto) 2.9 (1.5-6.3) x10-3/uL Lymph # (Auto) 1.2 (1.0-4.4) x10-3/uL Wayne # (Auto) 0.5 (0.3-1.0) x10-3/uL Eos # (Auto) 0.1 (0.0-0.8) x10-3/uL Baso # (Auto) 0.0 (0.0-0.1) x10-3/uL Sodium (135-145) mmol/L Potassium (3.5-5.3) mmol/L Chloride (100-110) mmol/L Carbon Dioxide (21-32) mmol/L BUN (7-18) mg/dL Creatinine (0.55-1.02) mg/dL Est Cr Clr Drug Dosing Estimated GFR (MDRD) (>60) BUN/Creatinine Ratio (9-20) Glucose (80-116) mg/dL Calcium (8.6-10.2) mg/dL Total Bilirubin (0.1-1.3) mg/dL AST (5-25) IU/L ALT (12-36) U/L Alkaline Phosphatase (56-112) IU/L Creatine Kinase (60-160) IU/L C-Reactive Protein (0.5-0.9) mg/dL Total Protein (6.0-8.0) g/dL Albumin (3.2-4.6) g/dL Globulin g/dL Albumin/Globulin Ratio Urine Color (YELLOW) Urine Appearance (CLEAR) Urine pH (5.0-6.5) Ur Specific [place] (1.010-1.025) Urine Protein (NEGATIVE) mg/dL Urine Glucose (UA) (NORMAL) mg/dL Urine Ketones (NEGATIVE) mg/dL Urine Occult Blood (NEGATIVE) Urine Nitrite (NEGATIVE) Urine Bilirubin (NEGATIVE) Urine Urobilinogen (NEGATIVE) mg/dL Ur Leukocyte Esterase (NEGATIVE) Urine RBC (0-5) Urine WBC (0-5) Ur Squamous Epith Cells (NS,R,O) Urine Bacteria (NS) Fine Granular Casts (NS) Coarse Granular Casts (NS) WBC Casts (NS) - Re-Assessments/Exams Free Text/Narrative Re-Assessment/Exam: 05/10/21 19:37 exam is unremarkable labs and CK at baseline, no UTI has portable O2 with here no acute problems identified, pt agreeable to use heat and massage prn, no change in meds Departure - Departure Time of Disposition: 19:14 Disposition: Home, Self-Care 01 Condition: Good Clinical Impression: Muscle cramps, Fall - Discharge Information *PRESCRIPTION DRUG MONITORING PROGRAM REVIEWED*: Not Applicable *COPY OF PRESCRIPTION DRUG MONITORING REPORT IN PATIENT ENA: Not Applicable Instructions: Muscle Cramps and Spasms Referrals: Adriana Velez NP [Primary Care Provider] - Additional Instructions: For muscle cramps, use heat for 5 minutes followed by gentle massage for 5 minutes twice a day as needed. Continue your regular medications. For discomfort, take acetaminophen 325 mg 2 tabs 4 times a day as needed. Sepsis Event Note (ED) - Evaluation Sepsis Screening Result: No Definite Risk - Focused Exam Vital Signs: Vital Signs Temp Pulse Resp BP Pulse Ox 05/10/21 17:10 37.1 C 71 18 148/62 H 97
== END 2021-05-10 19:15 | disposition home or self-care (01) ==
LOC: FB.ED 17:06
DX: R25.2 Cramp and spasm (principal); I11.0 Hypertensive heart disease with heart failure; I50.9 Heart failure, unspecified; J44.9 Chronic obstructive pulmonary disease, unspecified; Z88.1 Allergy status to other antibiotic agents; Z88.0 Allergy status to penicillin; Z88.5 Allergy status to narcotic agent; Z91.011 Allergy to milk products; Z91.012 Allergy to eggs; Z91.010 Allergy to peanuts; Z88.6 Allergy status to analgesic agent; Z79.82 Long term (current) use of aspirin; Z79.01 Long term (current) use of anticoagulants; Z79.899 Other long term (current) drug therapy; W18.39XA Other fall on same level, initial encounter; Y92.009 Unspecified place in unspecified non-institutional (private) residence as the place of occurrence of the external cause
CPT/HCPCS: 36415; 80053; 81001; 82550; 85025; 86140; 99284

== ENCOUNTER 2021-07-07 13:18 | Emergency (ER) | payer MEDICARE, MEDICAID ==
--- NOTE | 2021-07-07 14:03 | EDM.PDOC ---
ED HPI GENERAL MEDICAL PROBLEM - General Stated Complaint: HEART ISSUES Time Seen by Provider: 07/07/21 13:45 Source of Information: Reports: Patient History Limitations: Reports: No Limitations - History of Present Illness INITIAL COMMENTS - FREE TEXT/NARRATIVE: c/o cp pt with PET scan with sheepskin pickler 2wk ago, told she had blockages of her small vessels, not amenable to stents, no had CV stents, does of stents in LEs had CP at noon yesterday, gone in 5 min without meds had CP at 2a, gone in 5-10 min after SL NTG x 2 it has been several weeks since last used NTG, pt called cardiology office who told her to come to ED no sxs now did not go to religious yesterday, hard to get up to the alter went to [place] 2d ago for 50 yr class reunion SH: many yrs ago, no children, here with friend - Related Data Allergies Allergy/AdvReac Type Severity Reaction Status Date / Time ceftriaxone sodium Allergy Anaphylactic Verified 05/10/21 17:32 [From Rocephin] Shock clindamycin Allergy Anaphylactic Verified 05/10/21 17:32 Shock fentanyl Allergy Hives Verified 05/10/21 17:32 metoclopramide [From Reglan] Allergy Nausea Verified 05/10/21 17:32 Milk Containing Products Allergy Vomiting Verified 05/10/21 17:32 trazodone Allergy Other Verified 05/10/21 17:32 ciprofloxacin AdvReac Intermediate Itching Verified 05/10/21 17:32 .steroids Allergy Nausea Uncoded 05/10/21 17:32 depression medications Allergy Airway Uncoded 05/10/21 17:32 Tightness eggs Allergy Nausea Uncoded 05/10/21 17:32 oral antibiotics Allergy Vomiting Uncoded 05/10/21 17:32 peanuts Allergy Hives Uncoded 05/10/21 17:32 Home Meds: Home Meds Dexlansoprazole [Dexilant] 60 mg PO DAILY 12/05/13 [History] Fenofibrate Nanocrystallized [Fenofibrate] 145 mg PO BEDTIME 12/05/13 [History] Rosuvastatin [Crestor] 20 mg PO Q48H 11/27/15 [History] Aspirin 81 mg PO BEDTIME 10/07/16 [History] Gabapentin [Neurontin] 800 mg PO 08,12,18 10/07/16 [History] Clopidogrel [Plavix] 75 mg PO 1200 11/06/16 [History] Isosorbide Mononitrate [Imdur] 30 mg PO DAILY 11/06/16 [History] Ondansetron [Zofran ODT] 4 mg PO Q6H PRN 07/16/17 [History] Albuterol [Proventil Neb Soln] 2.5 mg INH Q4H PRN 02/28/19 [History] Nitroglycerin [Nitrostat] 0.4 mg SL Q5M PRN 07/05/19 [History] Pedi Multivit No.7/Folic Acid [Flintstones Tab] 1 tab PO DAILY@1200 07/05/19 [History] diphenhydrAMINE HCL [Benadryl Allergy] 12.5 mg PO Q6H PRN 07/05/19 [History] Calcium Carbonate [Calcium] 600 mg PO TIDMEALS 07/06/19 [History] Magnesium 250 mg PO BEDTIME 07/06/19 [History] Fexofenadine [Bety] 180 mg PO DAILY 10/05/20 [History] Furosemide [Lasix] 20 mg PO Q72H 10/05/20 [History] Omeprazole 20 mg PO DAILY 10/05/20 [History] Acetaminophen [Tylenol] 650 mg PO Q4H PRN 01/10/21 [History] Diltiazem HCl [Diltiazem 24Hr ER] 120 mg PO BEDTIME 01/10/21 [History] Gabapentin [Neurontin] 1,200 mg PO BEDTIME 01/10/21 [History] Diphenoxylate HCl/Atropine [Lomotil Tablet] 2 each PO Q8H PRN #30 tablet 01/27/21 [Rx] Ondansetron [Zofran ODT] 4 mg PO Q4H PRN #5 tab.dis 01/27/21 [Rx] Ondansetron [Zofran ODT] 4 mg PO Q4H PRN #10 tab.dis 04/17/21 [Rx] Sennosides/Docusate Sodium [Senna Plus 8.6-50 mg Tablet] 2 each PO DAILY PRN #30 tablet 04/17/21 [Rx] Sodium Phosphate,[place]-Dibasic [Fleet Enema] 118 ml RC DAILY PRN #3 enema 04/17/21 [Rx] polyethylene glycoL 3350 [MiraLAX] 34 gm PO DAILY PRN #1 cont 04/17/21 [Rx] Past Medical History HEENT History: Reports: Glaucoma, Impaired Vision, Other (See Below) Other HEENT History: Choroidal nevus. Cardiovascular History: Reports: Angina, Blood Clots/VTE/DVT, CAD, Heart Failure, High Cholesterol, Hypertension, NC, PVD, Syncope, Other (See Below) Other Cardiovascular History: Heart palpitations. DVT. PVD. Carotid bruitt. Respiratory History: Reports: COPD, Sleep Apnea Other Respiratory History: Suffocating spells at night with SOB, is on continuous O2 at home with 2.5L/NC. States that she only have 32% lung function. Gastrointestinal History: Reports: GERD, Hiatal Hernia, Other (See Below) Other Gastrointestinal History: Bowel incontinence. Genitourinary History: Reports: Urinary Incontinence, UTI, Recurrent, Other (See Below) Other Genitourinary History: Urethral suspension with sling, later removed. Cystocopy. Bladder tumor. Overactive bladder. 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 Musculoskeletal History: Reports: Arthritis, Back Pain, Chronic, Fracture, Osteoporosis Other Musculoskeletal History: Left knee torn miniscus. Right ankle and hip pain, history compression fracture. Neurological History: Reports: CVA, MS, Seizure, Other (See Below) Other Neuro History: Notices emotional/cognitive changes following a brain injury. Probable MS diagnosis. 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 Endocrine/Metabolic History: Reports: None Other Endocrine/Metabolic History: States history of hypoglycemia. Hematologic History: Reports: Anticoagulation Therapy, Blood Transfusion(s) Other Hematologic History: History of blood clots. Immunologic History: Reports: None Oncologic (Cancer) History: Reports: Bladder, Brain, Malignant Melanoma Other Oncologic History: Throat cancer, treated with chemotherapy and radiation. Dermatologic History: Reports: Eczema, Melanoma Other Dermatologic History: Melanoma on back. Eczema. - Infectious Disease History Infectious Disease History: Reports: Chicken Pox, Other (See Below) Other Infectious Disease History: States history of staph infection. - Past Surgical History Head Surgeries/Procedures: Reports: None HEENT Surgical History: Reports: None, Cataract Surgery Other HEENT Surgeries/Procedures: bilat cataract, R eye surgery Cardiovascular Surgical History: Reports: None Other Cardiovascular Surgeries/Procedures: Stents in bilat groin. Respiratory Surgical History: Reports: None GI Surgical History: Reports: Appendectomy, Cholecystectomy, Colonoscopy, EGD Female Surgical History: Reports: Cystoscopy, D&C, TURBT Other Female Surgeries/Procedures: bladder repair Neurological Surgical History: Reports: None, Spinal Fusion, Other (See Below) Other Neurological Surgeries/Procedures: spinal fusion x 5 Musculoskeletal Surgical History: Reports: Other (See Below) Other Musculoskeletal Surgeries/Procedures:: surgery of left hand. back fracture from osteoporosis, back surgery x 5 Oncologic Surgical History: Reports: None Dermatological Surgical History: Reports: None Social & Family History - Family History Family Medical History: No Pertinent Family History Cardiac: Reports: NC Oncologic: Reports: Colon - Caffeine Use Caffeine Use: Reports: None Other Caffeine Use: 2 cups per day Caffeine Use Comment: Occassional coffee drinker. - Living Situation & Occupation Living situation: Reports: Single, Alone Occupation: Disabled ED ROS GENERAL - Review of Systems Review Of Systems: See Below Constitutional: Reports: No Symptoms. Denies: Fever HEENT: Reports: No Symptoms Respiratory: Reports: No Symptoms Cardiovascular: Reports: Chest Pain Endocrine: Reports: No Symptoms GI/Abdominal: Reports: No Symptoms : Reports: No Symptoms Musculoskeletal: Reports: No Symptoms Skin: Reports: No Symptoms Neurological: Reports: No Symptoms Psychiatric: Reports: No Symptoms Hematologic/Lymphatic: Reports: No Symptoms Immunologic: Reports: No Symptoms ED EXAM, GENERAL - Physical Exam Exam: See Below Exam Limited By: No Limitations General Appearance: Alert, WD/WN, No Apparent Distress, Other (pleasant, alert, resting comfortably, supine, no acute sxs, conversant, good eye contact) Ears: Normal External Exam, Normal Canal, Hearing Grossly Normal Nose: Normal Inspection, Normal Mucosa, No Blood Throat/Mouth: Normal Inspection, Normal Lips, Normal Voice, No Airway Compromise Head: Atraumatic, Normocephalic Neck: Normal Inspection, Supple, Non-Tender, Full Range of Motion. No: Lymphadenopathy (R), Lymphadenopathy (L) Respiratory/Chest: No Respiratory Distress, Lungs Clear, Normal Breath Sounds, No Accessory Muscle Use, Chest Non-Tender Cardiovascular: Normal Peripheral Pulses, Regular Rate, Rhythm, No Edema, No Gallop, No JVD, No Murmur, No Rub GI/Abdominal: Soft, Non-Tender, No Distention Back Exam: Normal Inspection, Full Range of Motion, NT Extremities: Normal Inspection, Normal Range of Motion, Non-Tender, No Pedal Edema Neurological: Alert, Oriented, CN II-XII Intact, Normal Cognition, No Motor/Sensory Deficits Psychiatric: Normal Affect, Normal Mood Skin Exam: Warm, Dry, Intact, Normal Color, No Rash Lymphatic: No Adenopathy #1 Interpretation EKG Date: 07/07/21 Time: 13:40 Rhythm: NSR [place]: Normal P-Wave: Present QRS: Normal ST-T: Normal QT: Normal (no acute changes, possible LAE by voltage criteria) Course - Vital Signs Last Recorded V/S: Last Vital Signs Temp 36.9 C 07/07/21 13:19 Pulse 66 07/07/21 13:19 Resp 14 07/07/21 13:19 BP 158/64 H 07/07/21 13:19 Pulse Ox 98 07/07/21 13:19 - Orders/Labs/Meds Orders: Active Orders 24 hr Category Date Time Status EKG Documentation Completion [RC] ASDIRECTED Care 07/07/21 13:40 Active EKG 12 Lead [EK] Routine Ther 07/07/21 13:40 Ordered Labs: Laboratory Tests 07/07/21 07/07/21 07/07/21 Range/Units 13:55 13:55 13:55 WBC 4.8 (3.0-10.3) x10-3/uL RBC 3.72 (3.60-5.20) x10(6)uL Hgb 11.0 L (11.4-15.5) g/dL Hct 34.3 (34.2-48.2) % MCV 92.0 (76.7-100.5) fL MCH 29.5 (23.9-33.9) pg MCHC 32.0 (31.9-34.8) g/dL RDW 12.5 (12.3-16.5) % Plt Count 171 (151-488) x10(3)uL MPV 7.9 (7.1-12.4) fL Neut % (Auto) 64.3 (30.8-76.2) % Lymph % (Auto) 22.9 (18.4-52.1) % [place] % (Auto) 8.9 (4.4-15.7) % Eos % (Auto) 2.9 (0.6-8.1) % Baso % (Auto) 1.0 (0.2-1.5) % Neut # (Auto) 3.1 (1.5-6.3) x10-3/uL Lymph # (Auto) 1.1 (1.0-4.4) x10-3/uL [place] # (Auto) 0.4 (0.3-1.0) x10-3/uL Eos # (Auto) 0.1 (0.0-0.8) x10-3/uL Baso # (Auto) 0.0 (0.0-0.1) x10-3/uL Sodium 139 D (135-145) mmol/L Potassium 4.6 D (3.5-5.3) mmol/L Chloride 98 L (100-110) mmol/L Carbon Dioxide 39 H (21-32) mmol/L BUN 12 (7-18) mg/dL Creatinine 0.7 (0.55-1.02) mg/dL Est Cr Clr Drug Dosing 55.08 mL/min Estimated GFR (MDRD) > 60 (>60) BUN/Creatinine Ratio 17.1 (9-20) Glucose 107 (80-116) mg/dL Calcium 9.2 (8.6-10.2) mg/dL Total Bilirubin 0.3 (0.1-1.3) mg/dL AST 18 D (5-25) IU/L ALT 21 D (12-36) U/L Alkaline Phosphatase 40 L (56-112) IU/L Troponin I 5.1 (4.0-60.3) pg/mL C-Reactive Protein < 0.2 L (0.5-0.9) mg/dL Total Protein 6.9 (6.0-8.0) g/dL Albumin 3.9 (3.2-4.6) g/dL Globulin 3.0 g/dL Albumin/Globulin Ratio 1.3 - Re-Assessments/Exams Free Text/Narrative Re-Assessment/Exam: 07/07/21 15:08 labs neg, reviewed with pt and her friend EKG neg suspect probable angina as cause of CP altho difficult to know with certainty, both episodes were short lived and resolved completely pt has been compliant with meds, including using NTG appropriately Departure - Departure Time of Disposition: 15:09 Disposition: Home, Self-Care 01 Condition: Good Clinical Impression: Chest pain Instructions: Angina Additional Instructions: Continue current medications. Take nitroglycerin under the tongue every 5 minutes x 3 as needed if additional chest pain. Get adequate rest. Maintain 3 meals a day. Continue usual activities. See your sheepskin pickler next month as scheduled. Call or return to Emergency Department if you have additional questions or concerns. Sepsis Event Note (ED) - Focused Exam Vital Signs: Vital Signs Temp Pulse Resp BP Pulse Ox 07/07/21 13:19 36.9 C 66 14 158/64 H 98 - My Orders Last 24 Hours: My Active Orders 07/07/21 13:40 EKG Documentation Completion [RC] ASDIRECTED EKG 12 Lead [EK] Routine - Assessment/Plan Last 24 Hours: My Active Orders 07/07/21 13:40 EKG Documentation Completion [RC] ASDIRECTED EKG 12 Lead [EK] Routine
[2021-07-07 14:18] VITALS: PULSE 66
[2021-07-07 16:04] VITALS: BP 157/77
== END 2021-07-07 15:25 | disposition home or self-care (01) ==
LOC: FB.ED 13:18
DX: R07.9 Chest pain, unspecified (principal); I11.0 Hypertensive heart disease with heart failure; I50.9 Heart failure, unspecified; I25.119 Atherosclerotic heart disease of native coronary artery with unspecified angina pectoris; I25.2 Old myocardial infarction; E78.00 Pure hypercholesterolemia, unspecified; Z86.73 Personal history of transient ischemic attack (TIA), and cerebral infarction without residual deficits; Z86.718 Personal history of other venous thrombosis and embolism; Z88.1 Allergy status to other antibiotic agents; Z88.5 Allergy status to narcotic agent; Z91.010 Allergy to peanuts; Z91.012 Allergy to eggs; Z91.011 Allergy to milk products; Z88.8 Allergy status to other drugs, medicaments and biological substances; Z79.82 Long term (current) use of aspirin; Z79.02 Long term (current) use of antithrombotics/antiplatelets; Z79.899 Other long term (current) drug therapy
CPT/HCPCS: 36415; 80053; 84484; 85025; 86140; 93005; 99285-25

== ENCOUNTER 2022-01-29 15:18 | Emergency (ER) | payer MEDICARE, MEDICAID ==
[2022-01-29] MEDS ORDERED: Sodium Chloride 0.9% 10 ML Syringe FLUSH PRN (15:40)
[2022-01-29] MEDS ORDERED: Albuterol/Ipratropium 3.0-0.5 MG/3 ML Neb Soln NEB ONE (15:43)
[2022-01-29] MEDS ORDERED: Diltiazem 25 MG/5 ML SDV IVPUSH ONE (15:43)
[2022-01-29] MEDS ORDERED: Aspirin 81 MG Tab.Chew PO ONE (15:44)
[2022-01-29] MEDS ORDERED: Sodium Chloride 0.9% 1,000 ML IV SCH (15:45)
[2022-01-29 17:56] VITALS: BP 168/53; PULSE 67
== END 2022-01-29 16:30 | disposition left against medical advice (07) ==
LOC: FB.ED 15:18
DX: R13.10 Dysphagia, unspecified (principal); R32 Unspecified urinary incontinence; I25.2 Old myocardial infarction; E78.00 Pure hypercholesterolemia, unspecified; I11.0 Hypertensive heart disease with heart failure; I50.9 Heart failure, unspecified; J44.9 Chronic obstructive pulmonary disease, unspecified; Z86.73 Personal history of transient ischemic attack (TIA), and cerebral infarction without residual deficits; Z88.1 Allergy status to other antibiotic agents; Z91.012 Allergy to eggs; Z91.010 Allergy to peanuts; Z88.8 Allergy status to other drugs, medicaments and biological substances; Z79.82 Long term (current) use of aspirin; Z79.02 Long term (current) use of antithrombotics/antiplatelets; Z79.899 Other long term (current) drug therapy
CPT/HCPCS: 99283; 99284

== ENCOUNTER 2022-02-06 17:13 | Observation (INO) | payer MEDICARE, MEDICAID ==
[2022-02-06] MEDS: Doxycycline 100 MG Tab PO ONE ×2 (19:18→19:51)
[2022-02-06] MEDS: predniSONE 20 MG Tab PO ONE ×2 (19:18→19:51)
[2022-02-06] MEDS: Magnesium Citrate Solution 296 ML Bottle PO ONE ×2 (19:19→19:51)
[2022-02-06] MEDS ORDERED: Sodium Chloride 0.9% 10 ML Syringe FLUSH PRN (20:14)
[2022-02-06] MEDS ORDERED: Azithromycin 500 MG in Sodium Chloride 0.9% 250 ML IV SCH (20:30)
[2022-02-06] MEDS ORDERED: Acetaminophen 325 MG Tab PO PRN (21:01)
[2022-02-06] MEDS ORDERED: LACTASE 3000 UNIT PO PRN (21:01)
[2022-02-06] MEDS ORDERED: Nitroglycerin 0.4 MG Tab.SL SL PRN (21:01)
[2022-02-06] MEDS ORDERED: diphenhydrAMINE 25 MG Cap PO PRN (21:01)
[2022-02-06] MEDS ORDERED: diphenhydrAMINE 12.5 MG/5 ML Liquid 5 ML UD Cup PO PRN (21:01)
[2022-02-06] MEDS ORDERED: Ondansetron 4 MG/2 ML SDV IVPUSH PRN (21:05)
[2022-02-06] MEDS: Enoxaparin 40 MG/0.4 ML Syringe SUBCUT SCH (22:00)
[2022-02-06] MEDS ORDERED: Albuterol 0.083% 2.5 MG/3 ML Neb Soln ONE (22:05)
[2022-02-06] MEDS: Albuterol 0.083% 2.5 MG/3 ML Neb Soln INH SCH (22:08)
[2022-02-06] MEDS ORDERED: Rosuvastatin 20 MG Tab PO SCH (22:45)
[2022-02-06] MEDS: Magnesium Hydroxide 400 MG/5 ML Susp 30 ML Cup PO SCH (23:13)
[2022-02-06] MEDS: Furosemide 20 MG/2 ML VIAL IVPUSH SCH (23:13)
[2022-02-06] MEDS: methylPREDNISolone Sodium Succinate 125 MG/2 ML SDV IVPUSH SCH (23:13)
[2022-02-07] MEDS: methylPREDNISolone Sodium Succinate 125 MG/2 ML SDV IVPUSH SCH (05:05)
[2022-02-07] MEDS ORDERED: Bisacodyl 5 MG Tab PO ONE (08:00)
[2022-02-07] MEDS: Magnesium Hydroxide 400 MG/5 ML Susp 30 ML Cup PO SCH ×2 (08:02→22:36)
[2022-02-07] MEDS: Furosemide 20 MG/2 ML VIAL IVPUSH SCH (08:03)
[2022-02-07] MEDS ORDERED: Furosemide 20 MG/2 ML VIAL IVPUSH SCH (09:00)
[2022-02-07] MEDS ORDERED: DEXLANSOPRAZOLE 60 MG PO SCH (09:00)
[2022-02-07] MEDS ORDERED: methylPREDNISolone Sodium Succinate 125 MG/2 ML SDV IVPUSH SCH (09:00)
[2022-02-07] MEDS ORDERED: RANOLAZINE 500 MG PO SCH (09:00)
[2022-02-07] MEDS: Albuterol 0.083% 2.5 MG/3 ML Neb Soln INH SCH ×4 (12:09→21:29)
[2022-02-07] MEDS ORDERED: Iopamidol 755 Mg/ML 75 ML Bottle IV ONE (12:33)
[2022-02-07] MEDS: Gabapentin 400 MG Cap PO SCH ×3 (14:56→18:49)
[2022-02-07] MEDS: Calcium Carbonate 500 MG Tab.Chew PO SCH ×3 (14:57→17:52)
[2022-02-07] MEDS: Cholecalciferol (Vitamin D3) 25 MCG Tab PO SCH (16:42)
[2022-02-07] MEDS: Isosorbide Mononitrate 30 MG Tab.ER PO SCH (18:49)
[2022-02-07] MEDS: Lisinopril 5 MG Tab PO SCH (18:50)
[2022-02-07] MEDS: Cetirizine 10 MG Tab PO SCH (18:51)
[2022-02-07] MEDS: Clopidogrel 75 MG Tab PO SCH (18:51)
[2022-02-07] MEDS: Diltiazem 120 MG Cap.CD PO SCH (18:51)
[2022-02-07] MEDS ORDERED: Gabapentin 600 MG Tab PO SCH (21:00)
[2022-02-07] MEDS ORDERED: Aspirin 81 MG Tab.Chew PO SCH (21:00)
[2022-02-07] MEDS: Enoxaparin 40 MG/0.4 ML Syringe SUBCUT SCH (21:28)
[2022-02-08] MEDS ORDERED: Furosemide 20 MG Tab PO SCH (09:00)
[2022-02-08] MEDS: Gabapentin 400 MG Cap PO SCH ×2 (09:22→13:07)
[2022-02-08] MEDS: Calcium Carbonate 500 MG Tab.Chew PO SCH ×2 (09:23→12:21)
[2022-02-08] MEDS: Diltiazem 120 MG Cap.CD PO SCH (09:24)
[2022-02-08] MEDS: Isosorbide Mononitrate 30 MG Tab.ER PO SCH (09:25)
[2022-02-08] MEDS: Clopidogrel 75 MG Tab PO SCH (09:26)
[2022-02-08] MEDS: Lisinopril 5 MG Tab PO SCH (09:27)
[2022-02-08] MEDS: Cetirizine 10 MG Tab PO SCH (09:27)
[2022-02-08] MEDS: Albuterol 0.083% 2.5 MG/3 ML Neb Soln INH SCH ×2 (09:32→13:07)
[2022-02-08] MEDS: Magnesium Hydroxide 400 MG/5 ML Susp 30 ML Cup PO SCH (09:33)
[2022-02-08 10:17] VITALS: PULSE 72
[2022-02-08] MEDS ORDERED: hydrOXYzine HCl 25 MG Tab PO PRN (11:12)
[2022-02-08] MEDS: Cholecalciferol (Vitamin D3) 25 MCG Tab PO SCH (12:21)
[2022-02-08 13:57] VITALS: BP 128/66
== END 2022-02-08 15:35 | disposition home health service (06) ==
LOC: FB.ED 17:13 → FB.MS 19:51 → UNDOADMIN 19:51 → FB.MS 20:14 → INTOOBSV 20:14 → UNDOADMOB 20:14 → FB.MS 02-07 15:00
PROVIDERS: ADMIT Family Medicine; ATTEND Family Medicine
DX: J44.1 Chronic obstructive pulmonary disease with (acute) exacerbation (principal); J96.01 Acute respiratory failure with hypoxia; I25.10 Atherosclerotic heart disease of native coronary artery without angina pectoris; I11.0 Hypertensive heart disease with heart failure; I50.9 Heart failure, unspecified; E78.00 Pure hypercholesterolemia, unspecified; I25.2 Old myocardial infarction; H54.7 Unspecified visual loss; G47.30 Sleep apnea, unspecified; K21.9 Gastro-esophageal reflux disease without esophagitis; F32.A Depression, unspecified; F41.9 Anxiety disorder, unspecified; K59.00 Constipation, unspecified; R79.89 Other specified abnormal findings of blood chemistry; M54.9 Dorsalgia, unspecified; G89.29 Other chronic pain; R07.9 Chest pain, unspecified; K29.80 Duodenitis without bleeding; E87.2 Acidosis; K29.90 Gastroduodenitis, unspecified, without bleeding; K31.84 Gastroparesis; K29.70 Gastritis, unspecified, without bleeding; L28.0 Lichen simplex chronicus; Z88.1 Allergy status to other antibiotic agents; Z91.011 Allergy to milk products; Z88.6 Allergy status to analgesic agent; Z88.8 Allergy status to other drugs, medicaments and biological substances; Z91.012 Allergy to eggs; Z91.010 Allergy to peanuts; Z79.52 Long term (current) use of systemic steroids; Z79.51 Long term (current) use of inhaled steroids; Z79.82 Long term (current) use of aspirin; Z79.02 Long term (current) use of antithrombotics/antiplatelets; Z79.899 Other long term (current) drug therapy; Z86.718 Personal history of other venous thrombosis and embolism; Z86.73 Personal history of transient ischemic attack (TIA), and cerebral infarction without residual deficits
CPT/HCPCS: 36415; 71046; 71270; 74019; 74178; 80048; 80053; 83880; 84484; 85025; 85379; 86140; 93005; 93010; 94640; 96372; 99285-25; A9270-GY; G0378; J1650; J7512; Q9967

== ENCOUNTER 2022-04-05 19:23 | Emergency (ER) | payer MEDICARE, SELFPAY ==
[2022-04-05 20:25] LABS: ESTIMATED GFR 101 mL/min (>60)
[2022-04-05] MEDS ORDERED: Lactated Ringers 1,000 ML IV ONE (21:00)
[2022-04-07 00:48] VITALS: BP 195/73; PULSE 78
== END 2022-04-05 22:50 | disposition home or self-care (01) ==
LOC: FB.ED 19:23
DX: K31.84 Gastroparesis (principal); I25.119 Atherosclerotic heart disease of native coronary artery with unspecified angina pectoris; J43.1 Panlobular emphysema; F32.A Depression, unspecified; R11.2 Nausea with vomiting, unspecified; I11.0 Hypertensive heart disease with heart failure; I50.9 Heart failure, unspecified; E78.00 Pure hypercholesterolemia, unspecified; I25.2 Old myocardial infarction; K21.9 Gastro-esophageal reflux disease without esophagitis; Z86.73 Personal history of transient ischemic attack (TIA), and cerebral infarction without residual deficits; Z88.1 Allergy status to other antibiotic agents; Z91.012 Allergy to eggs; Z91.011 Allergy to milk products; Z88.8 Allergy status to other drugs, medicaments and biological substances; Z79.82 Long term (current) use of aspirin; Z79.899 Other long term (current) drug therapy; Z20.822 Contact with and (suspected) exposure to COVID-19
CPT/HCPCS: 36415; 71046; 80053; 81001; 83880; 84484; 85025; 86140; 93005; 96360; 99285; J7120; U0002; 93010; 99283

== ENCOUNTER 2022-07-18 13:12 | Emergency (ER) | payer MEDICARE, MEDICAID ==
[2022-07-18] MEDS ORDERED: Nitrofurantoin Monohydrate/Macrocrystalline 100 MG Cap PO ONE (13:27)
[2022-07-18] MEDS ORDERED: Fluconazole 150 MG Tab PO ONE (13:31)
[2022-07-18 15:41] VITALS: BP 163/72; PULSE 74
== END 2022-07-18 15:00 | disposition home or self-care (01) ==
LOC: FB.ED 13:12
DX: N30.90 Cystitis, unspecified without hematuria (principal); B37.31 Acute candidiasis of vulva and vagina; Z88.1 Allergy status to other antibiotic agents; Z91.012 Allergy to eggs; Z91.011 Allergy to milk products; Z91.010 Allergy to peanuts; Z88.5 Allergy status to narcotic agent; Z79.82 Long term (current) use of aspirin; Z79.899 Other long term (current) drug therapy
CPT/HCPCS: 82947; 99283; A9270

== ENCOUNTER 2023-05-05 03:39 | Emergency (ER) | payer MEDICARE, MEDICAID ==
[2023-05-05] MEDS ORDERED: Sodium Chloride 0.9% 10 ML Syringe FLUSH PRN (04:10)
[2023-05-05 04:29] LABS: BASOPHILS PERCENT AUTO 0.9 % (0.2-1.5); EOSINOPHILS ABSOLUTE AUTO 0.2 x10-3/uL (0.0-0.8); EOSINOPHILS PERCENT AUTO 3.2 % (0.6-8.1); HEMATOCRIT 32.4 % (34.2-48.2); HEMOGLOBIN 10.7 g/dL (11.4-15.5); LYMPHOCYTES ABSOLUTE AUTO 1.2 x10-3/uL (1.0-4.4); LYMPHOCYTES PERCENT AUTO 25.1 % (18.4-52.1); MEAN CORPUSCULAR HEMOGLOBIN 30.3 pg (23.9-33.9); MEAN CORPUSCULAR HGB CONC 33.1 g/dL (31.9-34.8); MEAN CORPUSCULAR VOLUME 91.7 fL (76.7-100.5); MEAN PLATELET VOLUME 7.8 fL (7.1-12.4); MONOCYTES ABSOLUTE AUTO 0.5 x10-3/uL (0.3-1.0); MONOCYTES PERCENT AUTO 10.8 % (4.4-15.7); PLATELET COUNT,PLT 184 x10(3)uL (151-488); RED BLOOD CELL COUNT 3.53 x10(6)uL (3.60-5.20); RED CELL DISTRIBUTION WIDTH 12.7 % (12.3-16.5); WHITE BLOOD CELL COUNT,WBC 4.9 x10-3/uL (3.0-10.3)
[2023-05-05 04:41] LABS: BLOOD UREA NITROGEN,BUN 21 mg/dL (7-18); CALCIUM 9.3 mg/dL (8.6-10.2); CARBON DIOXIDE,CO2 34 mmol/L (21-32); CHLORIDE,CL 101 mmol/L (100-110); CREATININE 0.6 mg/dL (0.55-1.02); EST CRCL DRUG DOSING (CG) 56.23 mL/min; ESTIMATED GFR 97 mL/min (>60); GLUCOSE RANDOM 144 mg/dL (80-116); POTASSIUM,K 3.8 mmol/L (3.5-5.3); SODIUM,NA 140 mmol/L (135-145)
[2023-05-05 04:47] LABS: A/G RATIO 1.3; ALANINE AMINOTRANSFERASE,ALT 25 U/L (12-36); ALBUMIN 3.8 g/dL (3.2-4.6); ALKALINE PHOSPHATASE 60 IU/L (56-112); ASPARTATE AMNIOTRANSFERASE,AST 19 IU/L (5-25); BILIRUBIN TOTAL 0.1 mg/dL (0.1-1.3); MAGNESIUM 1.8 mg/dL (1.8-2.5); PROTEIN TOTAL,TP 6.8 g/dL (6.0-8.0)
[2023-05-05] MEDS: Sodium Chloride 0.9% 500 ML IV ONE (05:35)
[2023-05-05 05:51] LABS: BILIRUBIN,URINE NEGATIVE (NEGATIVE); GLUCOSE,URINE NORMAL (NORMAL); KETONES,URINE NEGATIVE (NEGATIVE); NITRITE,URINE NEGATIVE (NEGATIVE); OCCULT BLOOD,URINE TRACE (NEGATIVE); PROTEIN,URINE NEGATIVE (NEGATIVE); UROBILINOGEN,URINE NORMAL (NEGATIVE)
[2023-05-05 05:52] LABS: APPEARANCE,URINE CLEAR (CLEAR); COLOR,URINE YELLOW (YELLOW); LEUKOCYTE ESTERASE,URINE NEGATIVE (NEGATIVE)
[2023-05-05 07:20] VITALS: BP 150/66; PULSE 69
== END 2023-05-05 07:20 | disposition home or self-care (01) ==
LOC: FB.ED 03:39
DX: T67.5XXA Heat exhaustion, unspecified, initial encounter (principal); S20.224A Contusion of middle back wall of thorax, initial encounter; S30.0XXA Contusion of lower back and pelvis, initial encounter; S60.221A Contusion of right hand, initial encounter; S60.212A Contusion of left wrist, initial encounter; R42 Dizziness and giddiness; I11.0 Hypertensive heart disease with heart failure; I50.9 Heart failure, unspecified; I25.10 Atherosclerotic heart disease of native coronary artery without angina pectoris; E78.00 Pure hypercholesterolemia, unspecified; I25.2 Old myocardial infarction; J44.9 Chronic obstructive pulmonary disease, unspecified; K21.9 Gastro-esophageal reflux disease without esophagitis; Z86.73 Personal history of transient ischemic attack (TIA), and cerebral infarction without residual deficits; Z88.1 Allergy status to other antibiotic agents; Z91.013 Allergy to seafood; Z91.012 Allergy to eggs; Z91.010 Allergy to peanuts; Z91.011 Allergy to milk products; Z88.5 Allergy status to narcotic agent; Z79.82 Long term (current) use of aspirin; Z79.02 Long term (current) use of antithrombotics/antiplatelets; Z79.899 Other long term (current) drug therapy; Z87.891 Personal history of nicotine dependence; W18.09XA Striking against other object with subsequent fall, initial encounter
CPT/HCPCS: 36415; 70450; 72125; 72128; 72131; 73110-LT; 73130-RT; 80053; 81003; 83735; 85025; 93005; 93010; 96360; 99283; 99285-25; J7040

== ENCOUNTER 2023-06-26 00:07 | Emergency (ER) | payer MEDICARE, MEDICAID ==
[2023-06-26 08:54] VITALS: BP 159/53; PULSE 73
== END 2023-06-26 08:45 | disposition home or self-care (01) ==
LOC: FB.ED 00:07
DX: S09.90XA Unspecified injury of head, initial encounter (principal); T14.8XXA Other injury of unspecified body region, initial encounter; M25.561 Pain in right knee; M25.532 Pain in left wrist; I25.10 Atherosclerotic heart disease of native coronary artery without angina pectoris; I11.0 Hypertensive heart disease with heart failure; I50.9 Heart failure, unspecified; E78.00 Pure hypercholesterolemia, unspecified; I25.2 Old myocardial infarction; Z86.73 Personal history of transient ischemic attack (TIA), and cerebral infarction without residual deficits; Z88.1 Allergy status to other antibiotic agents; Z88.5 Allergy status to narcotic agent; Z88.8 Allergy status to other drugs, medicaments and biological substances; Z91.012 Allergy to eggs; Z91.018 Allergy to other foods; Z91.010 Allergy to peanuts; Z91.011 Allergy to milk products; Z79.82 Long term (current) use of aspirin; W01.0XXA Fall on same level from slipping, tripping and stumbling without subsequent striking against object, initial encounter; Y92.000 Kitchen of unspecified non-institutional (private) residence as the place of occurrence of the external cause
CPT/HCPCS: 70450; 73562-RT; 99284

== ENCOUNTER 2023-08-04 21:43 | Emergency (ER) | payer MEDICARE, MEDICAID ==
[2023-08-04 22:04] LABS: BASOPHILS PERCENT AUTO 0.5 % (0.2-1.5); EOSINOPHILS ABSOLUTE AUTO 0.1 x10-3/uL (0.0-0.8); EOSINOPHILS PERCENT AUTO 1.4 % (0.6-8.1); HEMATOCRIT 30.6 % (34.2-48.2); HEMOGLOBIN 10.4 g/dL (11.4-15.5); LYMPHOCYTES ABSOLUTE AUTO 0.8 x10-3/uL (1.0-4.4); LYMPHOCYTES PERCENT AUTO 12.8 % (18.4-52.1); MEAN CORPUSCULAR HEMOGLOBIN 31.3 pg (23.9-33.9); MEAN CORPUSCULAR HGB CONC 34.1 g/dL (31.9-34.8); MEAN CORPUSCULAR VOLUME 91.8 fL (76.7-100.5); MEAN PLATELET VOLUME 7.4 fL (7.1-12.4); MONOCYTES ABSOLUTE AUTO 0.5 x10-3/uL (0.3-1.0); MONOCYTES PERCENT AUTO 8.3 % (4.4-15.7); NEUTROPHILS ABSOLUTE AUTO 4.8 x10-3/uL (1.5-6.3); PLATELET COUNT,PLT 197 x10(3)uL (151-488); RED BLOOD CELL COUNT 3.33 x10(6)uL (3.60-5.20); RED CELL DISTRIBUTION WIDTH 12.6 % (12.3-16.5); WHITE BLOOD CELL COUNT,WBC 6.2 x10-3/uL (3.0-10.3)
[2023-08-04 22:08] LABS: BLOOD UREA NITROGEN,BUN 25 mg/dL (7-18); BUN/CREATININE RATIO 31.3 (9-20); CALCIUM 9.6 mg/dL (8.6-10.2); CARBON DIOXIDE,CO2 34 mmol/L (21-32); CHLORIDE,CL 99 mmol/L (100-110); CREATININE 0.8 mg/dL (0.55-1.02); ESTIMATED GFR 79 mL/min (>60); GLUCOSE RANDOM 156 mg/dL (80-116); POTASSIUM,K 3.9 mmol/L (3.5-5.3); SODIUM,NA 138 mmol/L (135-145)
[2023-08-04 22:16] LABS: C-REACTIVE PROTEIN 0.13 mg/dL (<0.33); TROPONIN I 4.8 pg/mL (4.0-60.3)
[2023-08-04 22:19] LABS: A/G RATIO 1.1; ALANINE AMINOTRANSFERASE,ALT 84 U/L (12-36); ALBUMIN 3.6 g/dL (3.2-4.6); ALKALINE PHOSPHATASE 89 IU/L (56-112); ASPARTATE AMNIOTRANSFERASE,AST 63 IU/L (5-25); BILIRUBIN TOTAL 0.2 mg/dL (0.1-1.3)
[2023-08-04 23:11] LABS: INFLUENZA A NAA NEGATIVE (NEGATIVE); INFLUENZA B NAA NEGATIVE (NEGATIVE); RESPIRATORY SYNCYTIAL VIR NAA NEGATIVE (NEGATIVE)
[2023-08-04 23:13] LABS: CORONAVIRUS COVID-19 NAA NEGATIVE (NEGATIVE)
[2023-08-05 00:49] VITALS: BP 133/56; PULSE 75
== END 2023-08-05 00:49 | disposition home or self-care (01) ==
LOC: FB.ED 21:43
DX: F41.9 Anxiety disorder, unspecified (principal); R60.9 Edema, unspecified; R74.01 Elevation of levels of liver transaminase levels; I11.0 Hypertensive heart disease with heart failure; I50.9 Heart failure, unspecified; J44.9 Chronic obstructive pulmonary disease, unspecified; I25.10 Atherosclerotic heart disease of native coronary artery without angina pectoris; E78.00 Pure hypercholesterolemia, unspecified; K21.9 Gastro-esophageal reflux disease without esophagitis; I25.2 Old myocardial infarction; Z99.81 Dependence on supplemental oxygen; Z20.822 Contact with and (suspected) exposure to COVID-19; Z86.73 Personal history of transient ischemic attack (TIA), and cerebral infarction without residual deficits; Z88.1 Allergy status to other antibiotic agents; Z88.8 Allergy status to other drugs, medicaments and biological substances; Z91.010 Allergy to peanuts; Z91.012 Allergy to eggs; Z91.013 Allergy to seafood; Z91.011 Allergy to milk products; Z88.5 Allergy status to narcotic agent; Z91.018 Allergy to other foods; Z79.82 Long term (current) use of aspirin; Z79.899 Other long term (current) drug therapy
CPT/HCPCS: 0241U; 36415; 80053; 83690; 84484; 85025; 86140; 93005; 93010; 99283; 99285

== ENCOUNTER 2024-04-18 01:36 | Emergency (ER) | payer MEDICARE, MEDICAID ==
[2024-04-18 01:52] VITALS: BP 124/74; PULSE 85
== END 2024-04-18 02:55 | disposition home or self-care (01) ==
LOC: FB.ED 01:36
DX: G89.29 Other chronic pain (principal); I11.0 Hypertensive heart disease with heart failure; I50.9 Heart failure, unspecified; I25.10 Atherosclerotic heart disease of native coronary artery without angina pectoris; I25.2 Old myocardial infarction; E78.00 Pure hypercholesterolemia, unspecified; J44.9 Chronic obstructive pulmonary disease, unspecified; K21.9 Gastro-esophageal reflux disease without esophagitis; Z90.49 Acquired absence of other specified parts of digestive tract; Z87.891 Personal history of nicotine dependence; Z79.899 Other long term (current) drug therapy; Z79.82 Long term (current) use of aspirin; Z91.010 Allergy to peanuts; Z91.013 Allergy to seafood; Z91.012 Allergy to eggs; Z88.1 Allergy status to other antibiotic agents; Z91.018 Allergy to other foods; Z91.011 Allergy to milk products; Z88.8 Allergy status to other drugs, medicaments and biological substances
CPT/HCPCS: 93005; 93010; 99283; 99284

== ENCOUNTER 2024-05-12 14:13 | Emergency (ER) | payer MEDICARE, MEDICAID ==
[2024-05-12 17:37] VITALS: BP 144/54; PULSE 82
== END 2024-05-12 16:16 | disposition home or self-care (01) ==
LOC: FB.ED 14:13
DX: F22 Delusional disorders (principal); F41.9 Anxiety disorder, unspecified; R41.81 Age-related cognitive decline; I11.0 Hypertensive heart disease with heart failure; I50.9 Heart failure, unspecified; I25.10 Atherosclerotic heart disease of native coronary artery without angina pectoris; K21.9 Gastro-esophageal reflux disease without esophagitis; Z86.73 Personal history of transient ischemic attack (TIA), and cerebral infarction without residual deficits; Z88.1 Allergy status to other antibiotic agents; Z88.8 Allergy status to other drugs, medicaments and biological substances; Z91.012 Allergy to eggs; Z91.010 Allergy to peanuts; Z88.5 Allergy status to narcotic agent; Z91.011 Allergy to milk products; Z91.018 Allergy to other foods; Z79.82 Long term (current) use of aspirin; Z79.51 Long term (current) use of inhaled steroids; Z79.899 Other long term (current) drug therapy; Z90.49 Acquired absence of other specified parts of digestive tract
CPT/HCPCS: 99284

== ENCOUNTER 2024-09-05 12:49 | Emergency (ER) | payer MEDICARE, MEDICAID ==
[2024-09-05 12:57] VITALS: BP 105/84; PULSE 101
[2024-09-05] MEDS ORDERED: methylPREDNISolone Sodium Succinate 125 MG/2 ML SDV IM ONE (13:09)
[2024-09-05] MEDS ORDERED: Albuterol/Ipratropium 3.0-0.5 MG/3 ML Neb Soln NEB ONE (13:09)
[2024-09-05 13:42] LABS: BASOPHILS PERCENT AUTO 0.8 % (0.2-1.5); EOSINOPHILS ABSOLUTE AUTO 0.2 x10-3/uL (0.0-0.8); EOSINOPHILS PERCENT AUTO 4.5 % (0.6-8.1); HEMOGLOBIN 11.3 g/dL (11.4-15.5); LYMPHOCYTES ABSOLUTE AUTO 0.9 x10-3/uL (1.0-4.4); LYMPHOCYTES PERCENT AUTO 17.3 % (18.4-52.1); MEAN CORPUSCULAR HEMOGLOBIN 29.8 pg (23.9-33.9); MEAN CORPUSCULAR HGB CONC 33.4 g/dL (31.9-34.8); MEAN CORPUSCULAR VOLUME 89.4 fL (76.7-100.5); MEAN PLATELET VOLUME 7.6 fL (7.1-12.4); MONOCYTES ABSOLUTE AUTO 0.4 x10-3/uL (0.3-1.0); MONOCYTES PERCENT AUTO 7.9 % (4.4-15.7); NEUTROPHILS ABSOLUTE AUTO 3.5 x10-3/uL (1.5-6.3); NEUTROPHILS PERCENT AUTO 69.5 % (30.8-76.2); PLATELET COUNT,PLT 200 x10(3)uL (151-488); RED CELL DISTRIBUTION WIDTH 12.7 % (12.3-16.5)
[2024-09-05 13:44] LABS: BLOOD UREA NITROGEN,BUN 15 mg/dL (7-18); BUN/CREATININE RATIO 21.4 (9-20); CALCIUM 9.2 mg/dL (8.6-10.2); CARBON DIOXIDE,CO2 38 mmol/L (21-32); CHLORIDE,CL 99 mmol/L (100-110); CREATININE 0.7 mg/dL (0.55-1.02); ESTIMATED GFR 92 mL/min (>60); GLUCOSE RANDOM 141 mg/dL (80-116); POTASSIUM,K 3.9 mmol/L (3.5-5.3); SODIUM,NA 141 mmol/L (135-145)
[2024-09-05 13:50] LABS: A/G RATIO 1.1; ALANINE AMINOTRANSFERASE,ALT 43 U/L (12-36); ALBUMIN 3.7 g/dL (3.2-4.6); ALKALINE PHOSPHATASE 69 IU/L (56-112); ASPARTATE AMNIOTRANSFERASE,AST 24 IU/L (5-25); BILIRUBIN TOTAL 0.3 mg/dL (0.1-1.3)
== END 2024-09-05 15:02 | disposition home or self-care (01) ==
LOC: FB.ED 12:49
DX: T17.320A Food in larynx causing asphyxiation, initial encounter (principal); J06.9 Acute upper respiratory infection, unspecified; I11.0 Hypertensive heart disease with heart failure; I50.9 Heart failure, unspecified; Z88.1 Allergy status to other antibiotic agents; Z88.8 Allergy status to other drugs, medicaments and biological substances; Z91.011 Allergy to milk products; Z91.012 Allergy to eggs; Z91.013 Allergy to seafood; Z91.010 Allergy to peanuts; Z79.82 Long term (current) use of aspirin; Z79.899 Other long term (current) drug therapy; Z90.49 Acquired absence of other specified parts of digestive tract
CPT/HCPCS: 36415; 71045; 80053; 85025; 99284; 99285

== ENCOUNTER 2024-12-02 18:00 | Inpatient (IN) | payer MEDICARE, OTHER ==
[2024-12-02] MEDS: Sodium Chloride 0.9% 500 ML IV ONE (18:27)
[2024-12-02 18:32] LABS: HEMATOCRIT 44.8 % (34.2-48.2); HEMOGLOBIN 14.8 g/dL (11.4-15.5); MEAN CORPUSCULAR HEMOGLOBIN 29.7 pg (23.9-33.9); MEAN CORPUSCULAR HGB CONC 33.1 g/dL (31.9-34.8); MEAN CORPUSCULAR VOLUME 89.8 fL (76.7-100.5); MEAN PLATELET VOLUME 8.7 fL (7.1-12.4); PLATELET COUNT,PLT 268 x10(3)uL (151-488); RED BLOOD CELL COUNT 4.99 x10(6)uL (3.60-5.20); WHITE BLOOD CELL COUNT,WBC 18.5 x10-3/uL (3.0-10.3)
[2024-12-02 18:37] LABS: BLOOD UREA NITROGEN,BUN 37 mg/dL (7-18); CALCIUM 10.4 mg/dL (8.6-10.2); CARBON DIOXIDE,CO2 35 mmol/L (21-32); CHLORIDE,CL 98 mmol/L (100-110); CREATININE 0.7 mg/dL (0.55-1.02); ESTIMATED GFR 92 mL/min (>60); GLUCOSE RANDOM 113 mg/dL (80-116); POTASSIUM,K 3.8 mmol/L (3.5-5.3); SODIUM,NA 142 mmol/L (135-145)
[2024-12-02 18:43] LABS: ALANINE AMINOTRANSFERASE,ALT 58 U/L (12-36); ALBUMIN 4.1 g/dL (3.2-4.6); ALKALINE PHOSPHATASE 86 IU/L (56-112); ASPARTATE AMNIOTRANSFERASE,AST 80 IU/L (5-25); BILIRUBIN TOTAL 0.9 mg/dL (0.1-1.3); PROTEIN TOTAL,TP 8.3 g/dL (6.0-8.0)
[2024-12-02 18:45] LABS: BASE EXCESS VENOUS,POC 6 mmol/L (-2 - 3+); PCO2 VENOUS,POC 58 mmHg (41-51); PH VENOUS,POC 7.37 pH Units (7.32-7.43)
[2024-12-02 18:46] LABS: BUN/CREATININE RATIO 52.9 (9-20)
[2024-12-02 18:47] LABS: CREATINE KINASE,CK 1366 IU/L (60-160)
[2024-12-02 18:51] LABS: BAND PERCENT MAN 2 % (0-6); LYMPHOCYTES PERCENT MAN 4 % (13-37); MONOCYTES PERCENT MAN 7 % (4-12); SEG NEUTROPHILS PERCENT MAN 87 % (46-82)
[2024-12-02 19:06] LABS: C-REACTIVE PROTEIN 3.73 mg/dL (<0.50)
[2024-12-02 19:22] LABS: APPEARANCE,URINE CLEAR (CLEAR); COLOR,URINE YELLOW (YELLOW)
[2024-12-02 19:23] LABS: RBC,URINE 0-5 (0-5); SQUAMOUS EPITHELIAL CELLS,UR NOT SEEN (NS,R,O); WBC,URINE 0-5 (0-5)
[2024-12-02 19:24] LABS: MUCUS,URINE FEW (NS)
[2024-12-02 19:47] LABS: BILIRUBIN,URINE NEGATIVE (NEGATIVE); GLUCOSE,URINE NORMAL (NORMAL); KETONES,URINE 15 mg/dL (NEGATIVE); LEUKOCYTE ESTERASE,URINE NEGATIVE (NEGATIVE); NITRITE,URINE NEGATIVE (NEGATIVE); OCCULT BLOOD,URINE TRACE (NEGATIVE); PROTEIN,URINE 30 mg/dL (NEGATIVE); UROBILINOGEN,URINE NORMAL (NEGATIVE)
[2024-12-02] MEDS: LORazepam 2 MG/ML SDV IVPUSH PRN (21:56)
[2024-12-02] MEDS: Sodium Chloride 0.9% 1,000 ML IV SCH (21:57)
[2024-12-03 06:25] LABS: HEMATOCRIT 38.2 % (34.2-48.2); HEMOGLOBIN 12.5 g/dL (11.4-15.5); MEAN CORPUSCULAR HEMOGLOBIN 29.6 pg (23.9-33.9); MEAN CORPUSCULAR HGB CONC 32.7 g/dL (31.9-34.8); MEAN CORPUSCULAR VOLUME 90.7 fL (76.7-100.5); MEAN PLATELET VOLUME 8.8 fL (7.1-12.4); PLATELET COUNT,PLT 210 x10(3)uL (151-488); RED BLOOD CELL COUNT 4.21 x10(6)uL (3.60-5.20); RED CELL DISTRIBUTION WIDTH 13.2 % (12.3-16.5); WHITE BLOOD CELL COUNT,WBC 16.7 x10-3/uL (3.0-10.3)
[2024-12-03 06:44] LABS: ALANINE AMINOTRANSFERASE,ALT 54 U/L (12-36); ALBUMIN 3.2 g/dL (3.2-4.6); ALKALINE PHOSPHATASE 64 IU/L (56-112); ASPARTATE AMNIOTRANSFERASE,AST 65 IU/L (5-25); BILIRUBIN TOTAL 0.7 mg/dL (0.1-1.3); BLOOD UREA NITROGEN,BUN 38 mg/dL (7-18); CALCIUM 9.5 mg/dL (8.6-10.2); CARBON DIOXIDE,CO2 32 mmol/L (21-32); CHLORIDE,CL 106 mmol/L (100-110); CREATININE 0.6 mg/dL (0.55-1.02); EST CRCL DRUG DOSING (CG) 55.42 mL/min; ESTIMATED GFR 96 mL/min (>60); GLUCOSE RANDOM 88 mg/dL (80-116); POTASSIUM,K 3.8 mmol/L (3.5-5.3); PROTEIN TOTAL,TP 6.5 g/dL (6.0-8.0); SODIUM,NA 146 mmol/L (135-145)
[2024-12-03 06:48] LABS: BUN/CREATININE RATIO 63.3 (9-20)
[2024-12-03 06:51] LABS: CREATINE KINASE,CK 736 IU/L (60-160)
[2024-12-03 07:48] LABS: BAND PERCENT MAN 2 % (0-6); LYMPHOCYTES PERCENT MAN 5 % (13-37); MONOCYTES PERCENT MAN 7 % (4-12); SEG NEUTROPHILS PERCENT MAN 86 % (46-82)
[2024-12-03] MEDS ORDERED: Acetaminophen 325 MG Tab PO PRN (11:01)
[2024-12-03 13:29] LABS: INR 1.05 (1.00-1.24); PROTHROMBIN TIME 10.9 sec (9.0-11.1)
[2024-12-03] MEDS ORDERED: Lidocaine 4% Patch TOP PRN (13:45)
[2024-12-03] MEDS: Acetaminophen 325 MG Supp RECTAL PRN (14:21)
[2024-12-05 08:46] VITALS: BP 163/60; PULSE 104
== END 2024-12-05 14:00 | disposition hospice, home (50) | DRG 951 ==
LOC: FB.ED 18:00 → FB.MS 20:26
PROVIDERS: ADMIT Family Medicine; ATTEND Internal Medicine
DX: M62.82 Rhabdomyolysis (principal); Z51.5 Encounter for palliative care; S06.32 Contusion and laceration of left cerebrum; J96.21 Acute and chronic respiratory failure with hypoxia; J96.22 Acute and chronic respiratory failure with hypercapnia; F03.94 Unspecified dementia, unspecified severity, with anxiety; F03.93 Unspecified dementia, unspecified severity, with mood disturbance; G93.40 Encephalopathy, unspecified; R65.10 Systemic inflammatory response syndrome (SIRS) of non-infectious origin without acute organ dysfunction; Z88.6 Allergy status to analgesic agent; Z66 Do not resuscitate; H54.7 Unspecified visual loss; I25.10 Atherosclerotic heart disease of native coronary artery without angina pectoris; I50.9 Heart failure, unspecified; E78.00 Pure hypercholesterolemia, unspecified; I11.0 Hypertensive heart disease with heart failure; J44.9 Chronic obstructive pulmonary disease, unspecified; G47.30 Sleep apnea, unspecified; K21.9 Gastro-esophageal reflux disease without esophagitis; M19.90 Unspecified osteoarthritis, unspecified site; M81.0 Age-related osteoporosis without current pathological fracture; T79.6XXA Traumatic ischemia of muscle, initial encounter; R29.6 Repeated falls; E86.0 Dehydration; L89.112 Pressure ulcer of right upper back, stage 2; G35 Multiple sclerosis; Z88.8 Allergy status to other drugs, medicaments and biological substances; Z91.011 Allergy to milk products; Z88.5 Allergy status to narcotic agent; Z91.012 Allergy to eggs; Z91.010 Allergy to peanuts; Z91.013 Allergy to seafood; Z88.1 Allergy status to other antibiotic agents; Z79.82 Long term (current) use of aspirin; Z79.02 Long term (current) use of antithrombotics/antiplatelets; Z79.51 Long term (current) use of inhaled steroids; Z79.899 Other long term (current) drug therapy; I25.2 Old myocardial infarction; Z86.73 Personal history of transient ischemic attack (TIA), and cerebral infarction without residual deficits; Z87.81 Personal history of (healed) traumatic fracture; Z98.49 Cataract extraction status, unspecified eye; Z90.49 Acquired absence of other specified parts of digestive tract; Z98.1 Arthrodesis status; Z98.890 Other specified postprocedural states
CPT/HCPCS: 36415; 70450; 71045; 72125; 80053; 81001; 82550; 82947; 83605; 83735; 83880; 84484; 85025; 86140; 87040 ×2; 87086; 87428; 93005; J7040; 51702; 73060-RT; 73610-RT; 85610; 85730; 93010; 96360; 99223; 99233; 99238; 99285; 99285-25; A9270-GY; J2060

== ENCOUNTER 2024-12-05 13:57 | Inpatient (IN) | payer SELFPAY ==
[2024-12-05] MEDS ORDERED: Hyoscyamine 0.125 MG Tab.SL SL PRN (16:08)
[2024-12-05] MEDS ORDERED: Ondansetron 4 MG Tab.DIS PRN (16:09)
[2024-12-05] MEDS ORDERED: Bisacodyl 10 MG Supp RECTAL PRN (16:10)
[2024-12-05] MEDS: Sodium Chloride 0.9% 1,000 ML IV SCH (16:24)
[2024-12-05] MEDS: Acetaminophen 650 MG Supp RECTAL PRN (16:30)
[2024-12-06 05:09] VITALS: BP 183/62; PULSE 107
[2024-12-06] MEDS: LORazepam 0.5 MG Tab PO PRN (05:52)
[2024-12-06] MEDS ORDERED: LORazepam Conc Solution 2 MG/ML 30 ML Bottle PO PRN (11:24)
[2024-12-06] MEDS: LORazepam Conc Solution 2 MG/ML 30 ML Bottle PO SCH (11:59)
== END 2024-12-06 12:35 | disposition expired | DRG 951 ==
LOC: FB.MS 14:00
PROVIDERS: ADMIT Internal Medicine; ATTEND Internal Medicine
DX: Z51.5 Encounter for palliative care (principal); S06.32 Contusion and laceration of left cerebrum; J96.21 Acute and chronic respiratory failure with hypoxia; G93.40 Encephalopathy, unspecified; M62.82 Rhabdomyolysis; R65.10 Systemic inflammatory response syndrome (SIRS) of non-infectious origin without acute organ dysfunction; F03.94 Unspecified dementia, unspecified severity, with anxiety; L89.891 Pressure ulcer of other site, stage 1; Z66 Do not resuscitate; R79.89 Other specified abnormal findings of blood chemistry; E86.0 Dehydration; R29.6 Repeated falls; L89.112 Pressure ulcer of right upper back, stage 2; D72.829 Elevated white blood cell count, unspecified; H40.9 Unspecified glaucoma; H54.7 Unspecified visual loss; I50.9 Heart failure, unspecified; E78.00 Pure hypercholesterolemia, unspecified; I25.10 Atherosclerotic heart disease of native coronary artery without angina pectoris; I11.0 Hypertensive heart disease with heart failure; G47.30 Sleep apnea, unspecified; K21.9 Gastro-esophageal reflux disease without esophagitis; I73.9 Peripheral vascular disease, unspecified; M19.90 Unspecified osteoarthritis, unspecified site; H26.9 Unspecified cataract; G89.29 Other chronic pain; Z86.73 Personal history of transient ischemic attack (TIA), and cerebral infarction without residual deficits; I25.2 Old myocardial infarction; Z79.1 Long term (current) use of non-steroidal anti-inflammatories (NSAID); Z79.51 Long term (current) use of inhaled steroids; Z79.899 Other long term (current) drug therapy; Z85.820 Personal history of malignant melanoma of skin; Z98.49 Cataract extraction status, unspecified eye; Z90.49 Acquired absence of other specified parts of digestive tract; Z98.1 Arthrodesis status
CPT/HCPCS: A9270-GY